=== PATIENT | female | born 1960 | race Caucasian/White ===

== ENCOUNTER 2023-11-01 10:41 | Emergency (ER) | payer OTHER, SELFPAY ==
[2023-11-01 11:10] VITALS: BP 157/79; PULSE 74; TEMP 36.9; O2SAT 96; BMI 27.3
--- NOTE | 2023-11-01 11:53 | ED_ITS ---
HPI - Abdominal Pain General Chief Complaint: Abdominal Pain Stated Complaint: ABDOMINAL PAIN Time Seen by Provider: 11/01/23 11:53 Source: patient Mode of arrival: walk-in Limitations: no limitations History of Present Illness HPI narrative: Patient here with abdominal pain. Symptoms started previous Sunday so that would be nearly 6 days ago. She says it is a sharp pain that comes and goes. It is in both the left and the right lower quadrant. She had a colonoscopy a number years ago and was told she had benign polyps but no history of diverticular disease. She has had a hysterectomy and cholecystectomy and appendectomy. She has not run a fever. She has not seen blood in her stool. She has pretty intense nausea when she gets the pain. She tried some enemas yesterday and got mucousy type stools. Related Data Home Medications ?Medication ?Instructions ?Recorded ?Confirmed aspirin 81 mg capsule 81 mg PO DAILY 11/01/23 11/01/23 atorvastatin 80 mg tablet 80 mg PO DAILY 11/01/23 11/01/23 lisinopril 10 mg tablet 10 mg PO DAILY 11/01/23 11/01/23 metformin 500 mg tablet 1,000 mg PO BID 11/01/23 11/01/23 metoprolol succinate 25 mg 25 mg PO DAILY 11/01/23 11/01/23 tablet,extended release 24 hr Allergies Allergy/AdvReac Type Severity Reaction Status Date / Time Penicillins Allergy Mild Verified 11/01/23 11:15 Exam Narrative Exam Narrative: Patient's awake alert [place] x 3 no confusion. Fully cooperative. Vital signs are stable she is afebrile. She does appear to be uncomfortable. Examination of the heart and lung shows no respiratory distress or abnormal cardiac findings. Examination her abdomen is flat soft supple there is no peritoneal findings no guarding rebound rigidity or discomfort to palpation. Her pain is poorly localized subjectively it seems to be just to the left to the midline. The extremities appear normal. Neurological examination is normal. Constitutional Vital Signs, click to edit/add: Last Vital Signs Temp 98.5 F 11/01/23 11:10 Pulse 74 11/01/23 11:10 Resp 16 11/01/23 11:10 BP 150/78 H 11/01/23 13:02 Pulse Ox 96 11/01/23 11:10 O2 Del Method Room Air 11/01/23 11:10 Course Vital Signs Vital signs: Vital Signs Temperature 98.5 F 11/01/23 11:10 Pulse Rate 74 11/01/23 11:10 Respiratory Rate 16 11/01/23 11:10 Blood Pressure 157/79 H 11/01/23 11:10 Pulse Oximetry 96 11/01/23 11:10 Oxygen Delivery Method Room Air 11/01/23 11:10 Temperature 98.5 F 11/01/23 11:10 Pulse Rate 74 11/01/23 11:10 Respiratory Rate 16 11/01/23 11:10 Blood Pressure 150/78 H 11/01/23 13:02 Pulse Oximetry 96 11/01/23 11:10 Oxygen Delivery Method Room Air 11/01/23 11:10 MDM - Abdominal Pain MDM Narrative Medical decision making narrative: The patient CT scan confirms a 7.7 proximal left ureteral stone. There is moderate hydronephrosis. The urine is does not show any evidence of overt infection and her white blood cell count is also normal. We do not have urology call until later this evening. At this stage we will start empiric treatment p ain control nausea control and Flomax. They can call the urologist tomorrow in the meantime returning to the ER if symptoms or not controlled Lab Data Labs: Lab Results 11/01/23 11/01/23 Range/Units 12:05 12:10 WBC 7.9 (4.0-11.0) 10^3/uL RBC 4.53 (4.20-5.40) 10^6/uL Hgb 13.1 (12.0-16.0) g/dL Hct 40.6 (36.0-48.0) % MCV 89.6 (81.0-99.0) fL MCH 28.9 (26.7-34.0) pg MCHC 32.3 (29.9-35.2) g/dL RDW 12.8 (11.0-15.0) % Plt Count 226 (150-450) 10^3/uL MPV 10.3 (9.5-13.5) fL Seg Neuts % (Manual) 83.0 Lymphocytes % (Manual) 11.0 L (20.5-60.0) % Monocytes % (Manual) 4.0 (1.7-12.0) % Eosinophils % (Manual) 2.0 (0.9-7.0) % Basophils % (Manual) 0.0 L (0.2-2.0) % Neutrophils # (Manual) 6.55 H (1.4-6.5) 10^3/uL Lymphocytes # (Manual) 0.86 L (1.20-3.80) 10^3/uL Monocytes # (Manual) 0.31 (0.30-0.80) 10^3/uL Eosinophils # (Manual) 0.15 (0.00-0.70) 10^3/uL Basophils # (Manual) 0.00 (0.00-0.10) 10^3/uL Sodium 141 (136-145) mmol/L Potassium 3.9 (3.5-5.1) mmol/L Chloride 101 (98-107) mmol/L Carbon Dioxide 31.0 (21.0-32.0) mmol/L Anion Gap 12.9 BUN 15.0 (7.0-18.0) mg/dL Creatinine 0.93 (0.55-1.02) mg/dL Est GFR ( Amer) >60 (>=60) Est GFR (Non-Af Amer) >60 (>=60) BUN/Creatinine Ratio 16.1 Glucose 127 H (74-106) mg/dL Calcium 9.0 (8.5-10.1) mg/dL Total Bilirubin 0.6 (0.2-1.0) mg/dL AST 19 (15-37) U/L ALT 37 (14-59) U/L Alkaline Phosphatase 73 (46-116) U/L Troponin I High Sens 6.6 (4.0-51.3) pg/mL Total Protein 7.1 (6.4-8.2) g/dL Albumin 3.4 (3.4-5.0) g/dL Globulin 3.7 g/dL Albumin/Globulin Ratio 0.9 Lipase 26.0 (16.0-77.0) U/L Urine Color Yellow (YELLOW) Urine Clarity Clear (CLEAR) Urine pH 6.0 (5.0-9.0) Ur Specific [place] 1.020 (1.005-1.025) Urine Protein Negative (NEG/TRACE) mg/dL Urine Glucose (UA) Negative (NEGATIVE) mg/dL Urine Ketones Trace A (NEGATIVE) mg/dL Urine Occult Blood Large A (NEGATIVE) Urine Nitrite Negative (NEGATIVE) Urine Bilirubin Negative (NEGATIVE) Urine Urobilinogen 1.0 (0.2-1.0) EU/dL Ur Leukocyte Esterase Trace A (NEGATIVE) Urine RBC 20-50 A (0-2) #/HPF Urine WBC 2-5 A (NONE SEEN) #/HPF Ur Squamous Epith Cells Few A (NONE/RARE) #/LPF Urine Crystals None seen (None Seen) #/HPF Urine Bacteria Moderate A (NONE SEEN) #/HPF Urine Casts None seen (NONE SEEN) #/LPF Urine Mucus Small A (NONE SEEN) Ur Culture Indicated? Yes Discharge Plan Discharge Stand Alone Forms: Portal Instructions Chief Complaint: Abdominal Pain Clinical Impression: Kidney stone on left side Patient Disposition: Home, Self-Care Time of Disposition Decision: 14:03 Prescriptions / Home Meds: No Action atorvastatin 80 mg tablet 80 mg PO DAILY lisinopril 10 mg tablet 10 mg PO DAILY metformin 500 mg tablet 1,000 mg PO BID metoprolol succinate 25 mg tablet extended release 24 hr 25 mg PO DAILY aspirin 81 mg capsule 81 mg PO DAILY Print Language: Romansh Additional Instructions: Flomax/Keflex/[place]/follow-up with Dr. Jason Neil and Dash[place] Referrals: Lata Workman NP [Primary Care Provider] - 1 week
[2023-11-01] MEDS: 0.9 % SODIUM CHLORIDE 1,000 ML 100 ML IV (12:06)
[2023-11-01 12:18] LABS: Hematocrit 40.6 % (36.0-48.0); Hemoglobin 13.1 g/dL (12.0-16.0); Mean Corpuscular HGB Conc 32.3 g/dL (29.9-35.2); Mean Corpuscular Hemoglobin 28.9 pg (26.7-34.0); Mean Corpuscular Volume 89.6 fL (81.0-99.0); Mean Platelet Volume 10.3 fL (9.5-13.5); Platelet Count 226 10^3/uL (150-450); Red Blood Count 4.53 10^6/uL (4.20-5.40); Red Cell Distribution Width 12.8 % (11.0-15.0); White Blood Count 7.9 10^3/uL (4.0-11.0)
--- NOTE | 2023-11-01 12:27 | CT_ITS ---
[address] [address] Patient Name: JORDAN HOLLY MRN: [id number] date: 1960 Sex: F Assigned Patient Location: ER Current Patient Location: ER Accession/Order Number: [id number] Exam Date: 11/01/2023 12:23 Report Date: 11/01/2023 13:13 At the request of: YESENIA YAO Procedure: CT abdomen pelvis wo con EXAMINATION: CT abdomen pelvis wo con HISTORY: Abdominal pain history of stones COMPARISON: 01/19/2021 TECHNIQUE: Axial, Coronal, and Sagittal images were created without IV contrast. Dose reduction techniques were achieved by using automated exposure control and/or adjustment of mA and/or kV according to patient size and/or use of iterative reconstruction technique. FINDINGS: LUNG BASES: Minimal basilar atelectasis. Coronary atherosclerosis LIVER: No enlargement, atrophy, abnormal density, or significant focal lesion. BILIARY: No dilatation or calcification. PANCREAS: No lesion, fluid collection, ductal dilatation, or atrophy. SPLEEN: No enlargement or focal lesion. ADRENALS: No mass or enlargement. KIDNEYS: Normal right. Mild left perinephric stranding and asymmetric enlargement. Mild left hydroureteronephrosis extending to a 7.7 mm proximal ureterolith axial image 78 BOWEL/MESENTERY: Nonobstructive bowel gas pattern. Colonic diverticulosis without evidence of acute diverticulitis AORTA/VASCULAR: No aortic aneurysm. Mild calcific atherosclerosis RETROPERITONEUM: No mass or adenopathy. LYMPH NODES: No adenopathy. URINARY BLADDER: No visible focal wall thickening, lesion, or calculus. PELVIC ORGANS: Hysterectomy ABDOMINAL WALL: No mass or hernia. BONES: No bony lesion or fracture. OTHER: Negative. CT/CT abdomen pelvis wo con IMPRESSION: 7.7 mm proximal left ureterolith with moderate associated obstructive uropathy Electronically authenticated by: LEANDRA SERNA Date: 11/01/2023 13:13
[2023-11-01 12:29] LABS: Bilirubin Urine NEGATIVE (NEGATIVE); Blood Urine LARGE (NEGATIVE); Clarity Urine CLEAR (CLEAR); Color Urine YELLOW (YELLOW); Glucose Urine UA NEGATIVE (NEGATIVE); Ketones Urine TRACE mg/dL (NEGATIVE); Leukocyte Esterase Urine TRACE (NEGATIVE); Nitrite Urine NEGATIVE (NEGATIVE); Protein Urine NEGATIVE (NEG/TRACE)
[2023-11-01 12:49] LABS: Eosinophils Absolute Manual 0.15 10^3/uL (0.00-0.70); Lymphocytes Absolute Manual 0.86 10^3/uL (1.20-3.80); Monocytes Absolute Manual 0.31 10^3/uL (0.30-0.80); Segmented Neut Absolute Manual 6.55 10^3/uL (1.4-6.5)
[2023-11-01 12:52] LABS: Alanine Aminotransferase 37 U/L (14-59); Albumin Globulin Ratio 0.9; Albumin Level 3.4 g/dL (3.4-5.0); Alkaline Phosphatase 73 U/L (46-116); Anion Gap 12.9; Aspartate Amino Transferase 19 U/L (15-37); BUN Creatinine Ratio 16.1; Bilirubin Total 0.6 mg/dL (0.2-1.0); Chloride 101 mmol/L (98-107); Estimated GFR (African America >60 (>=60); Estimated GFR (Non-African Ame >60 (>=60); Globulin 3.7 g/dL; Glucose 127 mg/dL (74-106); Potassium 3.9 mmol/L (3.5-5.1); Sodium 141 mmol/L (136-145); Total Protein 7.1 g/dL (6.4-8.2); Troponin I High Sensitivity 6.6 pg/mL (4.0-51.3)
[2023-11-01 13:02] VITALS: BP 150/78
[2023-11-01 13:13] LABS: RBC Urine 20-50 #/HPF (0-2); Urine Microscopic Indicated YES
[2023-11-01 13:14] LABS: Bacteria Urine MODERATE #/HPF (NONE SEEN); Cast Seen? NONE SEEN #/LPF (NONE SEEN); Crystals Seen? None Seen #/HPF (None Seen); Mucus Urine SMALL (NONE SEEN); Squamous Epithelial Cell Urine FEW #/LPF (NONE/RARE); Urine Culture Indicated YES
[2023-11-01] MEDS: 0.9 % SODIUM CHLORIDE 1,000 ML 1000 ML IV (13:15)
[2023-11-01] MEDS: KETOROLAC TROMETHAMINE 30 MG/ML VIAL IVP (14:41)
[2023-11-01] MEDS: HYDROMORPHONE HCL 1 MG/ML CARTRIDGE IV (14:41)
== END 2023-11-01 15:13 | disposition home or self-care (01) ==
PROVIDERS: Emergency Provider Emergency Medicine Emergency Medical Services; PCP Nurse Practitioner
DX: N13.2 Hydronephrosis with renal and ureteral calculous obstruction (principal); Z90.710 Acquired absence of both cervix and uterus; Z90.49 Acquired absence of other specified parts of digestive tract
CPT/HCPCS: 36415; 74176; 80053; 81001; 83690; 84484; 85007; 85027; 87086; 96374; 96375; 99285; J1170; J1885

== ENCOUNTER 2023-11-02 09:41 | Observation (INO) | payer OTHER, SELFPAY ==
[2023-11-02 09:44] VITALS: BP 141/84; PULSE 85; TEMP 36.6; O2SAT 97; BMI 28.5
--- NOTE | 2023-11-02 10:29 | XR_ITS ---
The [address] [address] Patient Name: JORDAN HOLLY MRN: [id number] date: 1960 Sex: F Assigned Patient Location: ED.MAIN Current Patient Location: ER Accession/Order Number: [id number] Exam Date: 11/02/2023 10:50 Report Date: 11/02/2023 11:18 At the request of: DAVID PETTIT Procedure: XR abdomen 1V EXAMINATION: XR abdomen 1V HISTORY: kub, stone r COMPARISON: No relevant comparison available. FINDINGS: KIDNEY/URETER - RIGHT: No visible renal or ureteral calcifications. KIDNEY/URETER - LEFT: 9 mm calcification projects over the left L5 transverse process PELVIS: No visible ureteral calcifications. Any visible calcifications favor phleboliths. BOWEL: No abnormal dilation or deviation. BONES: No acute abnormality. OTHER: Negative. No abnormal gaseous collections. XR/XR abdomen 1V IMPRESSION: Suspected 9 mm left ureterolith Electronically authenticated by: LEANDRA SERNA Date: 11/02/2023 11:18
[2023-11-02] MEDS: 0.9 % SODIUM CHLORIDE 1,000 ML 1000 ML IV (10:37)
[2023-11-02] MEDS: MORPHINE SULFATE 4 MG/ML VIAL IV (10:37)
[2023-11-02] MEDS: ONDANSETRON PF 4 MG/2 ML VIAL IV (10:37)
[2023-11-02] MEDS: KETOROLAC TROMETHAMINE 30 MG/ML VIAL 15 MG IVP (10:37)
[2023-11-02 10:38] LABS: Basophils Percent Auto 0.4 % (0.2-2.0); Eosinophils Absolute Auto 0.2 10^3/uL (0.0-0.7); Eosinophils Percent Auto 2.6 % (0.9-7.0); Hematocrit 36.5 % (36.0-48.0); Hemoglobin 11.6 g/dL (12.0-16.0); Immature Granulocytes Abs Auto 0.02 10^3/uL (0.00-0.03); Immature Granulocytes Pct Auto 0.3 % (0.0-0.5); Lymphocytes Absolute Auto 0.8 10^3/uL (1.2-3.8); Lymphocytes Percent Auto 11.1 % (20.5-60.0); Mean Corpuscular HGB Conc 31.8 g/dL (29.9-35.2); Mean Corpuscular Hemoglobin 28.7 pg (26.7-34.0); Mean Corpuscular Volume 90.3 fL (81.0-99.0); Mean Platelet Volume 10.6 fL (9.5-13.5); Monocytes Absolute Auto 0.5 10^3/uL (0.3-0.8); Monocytes Percent Auto 7.1 % (1.7-12.0); Neutrophils Absolute Auto 5.5 10^3/uL (1.4-6.5); Neutrophils Percent Auto 78.5 % (43.0-75.0); Platelet Count 215 10^3/uL (150-450); Red Blood Count 4.04 10^6/uL (4.20-5.40); Red Cell Distribution Width 12.9 % (11.0-15.0)
[2023-11-02 10:58] LABS: Alanine Aminotransferase 29 U/L (14-59); Albumin Globulin Ratio 0.9; Albumin Level 3.1 g/dL (3.4-5.0); Alkaline Phosphatase 67 U/L (46-116); Anion Gap 12.2; Aspartate Amino Transferase 16 U/L (15-37); BUN Creatinine Ratio 19.6; Bilirubin Total 0.5 mg/dL (0.2-1.0); Calcium 8.7 mg/dL (8.5-10.1); Carbon Dioxide 28.7 mmol/L (21.0-32.0); Chloride 106 mmol/L (98-107); Estimated GFR (African America >60 (>=60); Estimated GFR (Non-African Ame >60 (>=60); Globulin 3.5 g/dL; Glucose 129 mg/dL (74-106); Potassium 3.9 mmol/L (3.5-5.1); Sodium 143 mmol/L (136-145); Total Protein 6.6 g/dL (6.4-8.2)
[2023-11-02 14:07] VITALS: BP 150/75; PULSE 86; TEMP 36.8; O2SAT 99; BMI 28.3
[2023-11-02] MEDS: LACTATED RINGER'S SOLUTION 1,000 ML 125 ML IV (14:37)
--- NOTE | 2023-11-02 15:00 | P.HP_ITS ---
<Statement entered by Cam Bahena MD - 11/03/23 08:13> This documentation has been reviewed and approved. This documentation has been reviewed and approved. Case discussed with PRODUCT MANAGEMENT MANAGER, agree with input, Findings and plan. HPI H&P: HPI History of Present Illness Chief complaint: FLANK PAIN, KIDNEY STONE Narrative: 11/02/23 1420 This is a 63-year-old female patient with a past medical history as outlined below including remote history of kidney stones that she passed without intervention, CAD, type II DM, hypertension, and hyperlipidemia; who presented to the ED yesterday initially complaining of sharp stabbing abdominal pain with onset 6 days prior. The patient reports the pain was pretty constant with some stabbing colicky type pain as well. She attempted to treat on her own with hydrocodone that she was previously prescribed, but this caused nausea and vomiting. She presented to the ED yesterday, was diagnosed with obstructive uropathy, and told to contact urologist today to arrange intervention. The patient contacted urology today and was instructed to return to the ED and they would arrange admission. Workup in the ED on 11/01/2023 revealed a UTI and of obstructive uropathy with a 7.7 mm stone in the proximal left ureter and moderate hydronephrosis. There was no leukocytosis or any other significant lab abnormalities. Repeat labs today in the ED continue to show no leukocytosis. The patient remains afebrile but is somewhat hypertensive. A repeat x-ray of the abdomen reveals a suspected 9 mm left ureterolith. The patient is being admitted to the hospitalist service in observation with Dr. Schmitz, urologist, on consult with cystoscopy planned for tomorrow morning. At the time of my exam the patient is resting in bed. She is relatively comfortable after receiving pain medications in the ED, but does continue to complain of intermittent sharp stabbing pains to the left mid abdomen. No significant abdominal tenderness on palpation and no rebound or guarding noted. She will be treated with Rocephin for her UTI and we will prescribe Toradol and morphine for pain management. She will be made n.p.o. after midnight for planned cystoscopy the in the morning. Opioid HPI Opioid Management Most Recent Pain and Opioid Data: Last Pain Scale 2 11/02/23 16:00 Last Pain Assessment 11/02/23 16:00 Last MAR Pain Assessment 11/02/23 10:37 Last ORT Total Score 1 11/02/23 14:07 Last ORT Risk Category Low Risk 11/02/23 14:07 Review of Systems ROS Status of ROS 10 or more systems reviewed and unremark able except as noted in history and below PFS PFS Medical History (Updated 11/02/23 @ 16:56 by Marie Rowland NP) CAD (coronary artery disease) ?I25.10 - Atherosclerotic heart disease of [place] coronary artery without angina pectoris (ICD-10) DVT (deep venous thrombosis) ?I82.409 - Acute embolism and thrombosis of unspecified deep veins of unspecified lower extremity (ICD-10) Hyperlipidemia ?E78.5 - Hyperlipidemia, unspecified (ICD-10) Hypertension ?I10 - Essential (primary) hypertension (ICD-10) Diabetes ?E11.9 - Type 2 diabetes mellitus without complications (ICD-10) Surgical History (Updated 11/02/23 @ 14:02 by Danii Payne) H/O: hysterectomy ?Z90.710 - Acquired absence of both cervix and uterus (ICD-10) Stented coronary artery ?Z95.5 - Presence of coronary angioplasty implant and graft (ICD-10) Family History (Updated 11/02/23 @ 14:05 by Danii Payne) Grandfather Family history of CHF (congestive heart failure) Family history of myocardial infarction Grandmother Family history of diabetes mellitus Social History (Updated 11/02/23 @ 14:06 by Danii Payne) Within the past year, how often did you have a drink containing alcohol: never Score interpretation: A score less than 3 is consistent with normal alcohol consumption. Smoking status: Never smoker Non-prescribed substance use: denies use Previous occupational history: retired Highest level of school completed/degree received: high school graduate Are you now , , , , never or living with a partner: In a typical week, how many times do you talk on the telephone with family, friends, or neighbors: 3 or more times per week How often do you get together with friends or relatives: 3 or more times per week How often do you attend sabianist or bahai services: never Do you belong to any clubs or organizations such as sabianist groups unions, fraternal or athletic groups, or school groups: no Total score: 2 Score interpretation: A score of greater than or equal to 2 indicates the lowest level of social isolation. Little interest or pleasure in doing things: not at all Feeling down, depressed, or hopeless: not at all Feel stressed/tense/nervous/anxious/difficulty sleeping: not at all Meds Home Medications and Allergies Home Medications ?Medication ?Instructions ?Recorded ?Confirmed ?Type aspirin 81 mg capsule 81 mg PO DAILY 11/01/23 11/02/23 History atorvastatin 80 mg tablet 80 mg PO DAILY 11/01/23 11/02/23 History lisinopril 10 mg tablet 10 mg PO DAILY 11/01/23 11/02/23 History metformin 500 mg tablet 1,000 mg PO BID 11/01/23 11/02/23 History metoprolol succinate 25 mg 25 mg PO DAILY 11/01/23 11/02/23 History tablet,extended release 24 hr aspirin 81 mg tablet,delayed 81 mg PO DAILY 11/02/23 11/02/23 History release (Adult Low Dose Aspirin) prasugrel 10 mg tablet 10 mg PO .qdaily 11/02/23 11/02/23 History Allergies Allergy/AdvReac Type Severity Reaction Status Date / Time Penicillins Allergy Mild Verified 11/01/23 11:15 Exam Constitutional Vital Signs, click to edit/add: Last Vital Signs Temp 98.2 F 11/02/23 14:07 Pulse 86 11/02/23 14:07 Resp 16 11/02/23 14:07 BP 150/75 H 11/02/23 14:07 Pulse Ox 99 11/02/23 14:07 O2 Del Method Room Air 11/02/23 14:07 Common normals: no apparent distress, oriented x3, alert and well nourished General appearance: cooperative Orientation/consciousness: Yes awake [facility] Common normals: normocephalic, head/scalp atraumatic, hearing grossly normal bilaterally, external nose normal and moist oral mucous membranes Eye Common normals: PERRL, EOMs intact bilaterally, conjunctivae normal and no scleral icterus Alignment: alignment normal Eyelid: eyelids normal Neck & C-Spine Common normals: full ROM, supple and no JVD Chest Common normals: inspection of chest normal Chest: symmetrical chest wall rise Respiratory Common normals: normal respiratory effort, no retractions, no use of accessory muscles and clear to auscultation bilaterally Effort & inspection: able to speak in complete sentences Auscultation: diminished lung sounds (BLL) Cardio Common normals: no JVD, regular rate, regular rhythm, S1 normal heart sound, S2 normal heart sound, no gallops, no clicks, no murmurs, no rub and peripheral pulses 2+ throughout GI Common normals: Normal to inspection, nondistended, normoactive bowel sounds present, soft to palpation, non-tender, no hepatosplenomegaly, no masses and no bruits Bladder/kidney exam: bladder normal to palpation Back & Pelvis Common normals: thoracic and lumbar spine normal to inspection Extremity Common normals: normal capillary refill and no pedal edema General: normal exam except as noted; no clubbing and no cyanosis Neuro [place] Coma Scale: GCS not evaluated Common normals: CN's II-XII intact bilaterally, moves all extremities, no focal motor deficits and no sensory deficits noted Speech: speech normal Motor exam: strength 5/5 throughout Psych Common normals: mental status grossly normal, thought process normal, affect normal and activity/motor behavior normal Results Labs Labs: Short CBC 11/02/23 Range/Units 09:55 WBC 7.0 (4.0-11.0) 10^3/uL Hgb 11.6 L (12.0-16.0) g/dL Hct 36.5 (36.0-48.0) % Plt Count 215 (150-450) 10^3/uL BMP 11/02/23 09:55 Sodium 143 Potassium 3.9 Chloride 106 Carbon Dioxide 28.7 BUN 18.0 Creatinine 0.92 Glucose 129 H Calcium 8.7 Liver Function 11/02/23 Range/Units 09:55 Total Bilirubin 0.5 (0.2-1.0) mg/dL AST 16 (15-37) U/L ALT 29 (14-59) U/L Alkaline Phosphatase 67 (46-116) U/L Albumin 3.1 L (3.4-5.0) g/dL Pulse Oximetry Attestation: I have reviewed the pertinent pulse oximetry results. Imaging Abdominal x-ray: Attestation: I have reviewed the pertinent imaging results. Radiologist's impression: 11/02/23 IMPRESSION: Suspected [address] scan - abdomen: Attestation: I have reviewed the pertinent imaging results. Radiologist's impression: 11/01/23 IMPRESSION: 7.7 mm proximal left ureterolith with moderate associated obstructive uropathy Assessment and Plan Assessment and Plan (1) Acute unilateral obstructive uropathy: Assessment and Plan: Acute * Adm observation * L obstructing ureterolith on CT and XR imaging * C/S Dr Tamez - we appreciate his assistance with this pt's care * NPO at midnight for planned cystoscopy in AM * LR at 125/hr * CBC, CMP in AM (2) Hydronephrosis due to obstruction of ureter: Assessment and Plan: Acute * 2/2 obstructive uropathy - see above (3) UTI (urinary tract infection): Assessment and Plan: Acute * UA positive in the ED yesterday * C&S pending * BC X2 ordered - pending * IVPB Rocephin pending C&S results * CBC daily (4) Hypertension: Assessment and Plan: Chronic * Continue home lisinopril and metoprolol * PRN IVP Hydralazine for uncontrolled HTN (5) Diabetes: Assessment and Plan: Chronic * Hold home metformin during acute infection/hospitalization * ACHS glucometer checks * Med CC diet * Med SSI for glucose correction (6) Hyperlipidemia: Assessment and Plan: Chronic * Continue home statin (7) CAD (coronary artery disease): Assessment and Plan: Chronic * Continue home ASA, BB, ACEi * Hold home Effient pending urologic procedure, then resume
[2023-11-02] MEDS: ENOXAPARIN SODIUM 40 MG/0.4 ML SYRINGE SUBQ (16:17)
[2023-11-02] MEDS: CEFTRIAXONE 1,000 MG in 0.9 % SODIUM CHLORIDE 50 ML 100 MG IV (16:17)
[2023-11-02 16:22] LABS: Glucometer 221 mg/dL (74-106)
[2023-11-02] MEDS: 0.9 % SODIUM CHLORIDE 250 ML 10 ML IV (16:30)
[2023-11-02 17:34] VITALS: PULSE 84
[2023-11-02 19:12] LABS: Glucometer 91 mg/dL (74-106)
[2023-11-02 20:00] VITALS: PULSE 70
[2023-11-02] MEDS: ATORVASTATIN CALCIUM 40 MG TABLET 80 MG PO (20:25)
--- NOTE | 2023-11-02 20:34 | ED_ITS ---
HPI HPI - General Adult General Chief complaint: Abdominal Pain Stated complaint: FLANK PAIN Time Seen by Provider: 11/02/23 09:46 Source: patient Mode of arrival: walk-in History of Present Illness HPI narrative: Patient is a 63-year-old female who is presenting to the ER with chief complaint of left flank and left lower quadrant pain. Patient was seen evaluated in the ER yesterday. Patient had IV established, lab work, urine and CAT scan done yesterday. Patient had a 7.7 mm moderate obstructing kidney stone to the left proximal ureter.Patient was sent home to follow-up with Dr. Tamez. Patient cannot get into Dr. Tamez Office today, she called the office in the office instructed her to come to the hospital and check into the ER and Dr. Tamez Would come see her in the ER and perform surgery today. Patient has never met Dr. Tamez Before. Patient has been using medication at home for nausea and pain with no relief. Patient is having intractable pain. at bedside. All systems are negative except as noted/marked. All systems reviewed and otherwise negative. Nurses note and vital signs reviewed and patient is not hypoxic. General: The patient appears well and in no apparent distress. Patient is resting comfortably on cart. Patient is not toxic, lethargic, or listless Skin: Warm, dry, no pallor noted. There is no rash noted. No petechiae, purpura. Head: Normocephalic, atraumatic Eye: Normal conjunctiva, no drainage, EOMI. PERRL Ears, Nose, Mouth, and Throat: oral mucosa is moist. Nares patent. Mouth without vesicles. Cardiovascular: Regular Rate and Rhythm, no murmur, gallop, rub Respiratory: Patient is in no distress, no accessory muscle use, lungs are clear to auscultation, no wheezing, rales or rhonchi Back: non-tender, no CVA tenderness bilaterally to percussion. No CT LS midline pain GI: Moderate left lower quadrant tenderness to palpation, mild to moderate left flank tenderness palpation, mild suprapubic tenderness to palpation. Otherwise no tenderness to palpation, No right flank pain, no right lower quadrant tenderness to palpation, no masses appreciated. No rebound, guarding, or rigidity noted. No distention Musculoskeletal: Patient has full range of motion of all of the extremities, no motor, sensory, or focal neurological deficits Neurological: A&O x4, normal speech Psychiatric: Cooperative Related Data Home Medications ?Medication ?Instructions ?Recorded ?Confirmed atorvastatin 80 mg tablet 80 mg PO DAILY 11/01/23 11/02/23 lisinopril 10 mg tablet 10 mg PO DAILY 11/01/23 11/02/23 metformin 500 mg tablet 1,000 mg PO BID 11/01/23 11/02/23 metoprolol succinate 25 mg 25 mg PO DAILY 11/01/23 11/02/23 tablet,extended release 24 hr aspirin 81 mg tablet,delayed 81 mg PO DAILY 11/02/23 11/02/23 release (Adult Low Dose Aspirin) prasugrel 10 mg tablet 10 mg PO .qdaily 11/02/23 11/02/23 Allergies Allergy/AdvReac Type Severity Reaction Status Date / Time Penicillins Allergy Mild Verified 11/01/23 11:15 Opioid HPI Opioid Management Most Recent Opioid Data: Last Pain Scale 2 11/02/23 16:00 Last Pain Assessment 11/02/23 20:00 Last MAR Pain Assessment 11/02/23 10:37 Last ORT Total Score 1 11/02/23 14:07 Last ORT Risk Category Low Risk 11/02/23 14:07 PFSH PFSH Medical History (Updated 11/02/23 @ 20:38 by Ramin Miller MD) CAD (coronary artery disease) ?I25.10 - Atherosclerotic heart disease of [place] coronary artery without angina pectoris (ICD-10) DVT (deep venous thrombosis) ?I82.409 - Acute embolism and thrombosis of unspecified deep veins of unspecified lower extremity (ICD-10) Hyperlipidemia ?E78.5 - Hyperlipidemia, unspecified (ICD-10) Hypertension ?I10 - Essential (primary) hypertension (ICD-10) Diabetes ?E11.9 - Type 2 diabetes mellitus without complications (ICD-10) Surgical History (Updated 11/02/23 @ 14:02 by Danii Payne) H/O: hysterectomy ?Z90.710 - Acquired absence of both cervix and uterus (ICD-10) Stented coronary artery ?Z95.5 - Presence of coronary angioplasty implant and graft (ICD-10) Family History (Updated 11/02/23 @ 14:05 by Danii Payne) Grandfather Family history of CHF (congestive heart failure) Family history of myocardial infarction Grandmother Family history of diabetes mellitus Social History (Updated 11/02/23 @ 14:06 by Danii Payne) Within the past year, how often did you have a drink containing alcohol: never Score interpretation: A score less than 3 is consistent with normal alcohol consumption. Smoking status: Never smoker Non-prescribed substance use: denies use Previous occupational history: retired Highest level of school completed/degree received: high school graduate Are you now , , , , never or living with a partner: In a typical week, how many times do you talk on the telephone with family, friends, or neighbors: 3 or more times per week How often do you get together with friends or relatives: 3 or more times per week How often do you attend buddhist or jain services: never Do you belong to any clubs or organizations such as buddhist groups unions, fratheDrop or athletic groups, or school groups: no Total score: 2 Score interpretation: A score of greater than or equal to 2 indicates the [place] level of social isolation. Little interest or pleasure in doing things: not at all Feeling down, depressed, or hopeless: not at all Feel stressed/tense/nervous/anxious/difficulty sleeping: not at all Exam Constitutional Vital Signs, click to edit/add: Last Vital Signs Temp 98.2 F 11/02/23 14:07 Pulse 70 11/02/23 20:00 Resp 16 11/02/23 14:07 BP 150/75 H 11/02/23 14:07 Pulse Ox 99 11/02/23 14:07 O2 Del Method Room Air 11/02/23 14:07 Course Vital Signs Vital signs: Vital Signs Temperature 97.8 F 11/02/23 09:44 Pulse Rate 85 11/02/23 09:44 Respiratory Rate 18 11/02/23 09:44 Blood Pressure 141/84 11/02/23 09:44 Pulse Oximetry 97 11/02/23 09:44 Oxygen Delivery Method Room Air 11/02/23 09:44 Temperature 98.2 F 11/02/23 14:07 Pulse Rate 70 11/02/23 20:00 Respiratory Rate 16 11/02/23 14:07 Blood Pressure 150/75 H 11/02/23 14:07 Pulse Oximetry 99 11/02/23 14:07 Oxygen Delivery Method Room Air 11/02/23 14:07 Medical Decision Making MDM Narrative Medical decision making narrative: After initially saw and evaluated the patient, I started paging Dr Tamez. After approximate 1.5 hours, I was able to speak to Dr. Tamez. Patient has failed outpatient therapy from yesterday. Patient will be admitted to the hospital overnight, n.p.o. after midnight, and most likely have a stent placed tomorrow. Recommended Admitting patient to medical service and he will be in consultation and keep patient n.p.o. After midnight. Patient did have good pain relief after IV Toradol, morphine, Zofran and IV fluids were given. Patient agrees to the hospitalization, Dr. ELMORE Will be admitting patient for observation and patient will have urology consultation tomorrow, . Lab Data Labs: Lab Results 11/02/23 Range/Units 09:55 WBC 7.0 (4.0-11.0) 10^3/uL RBC 4.04 L (4.20-5.40) 10^6/uL Hgb 11.6 L (12.0-16.0) g/dL Hct 36.5 (36.0-48.0) % MCV 90.3 (81.0-99.0) fL MCH 28.7 (26.7-34.0) pg MCHC 31.8 (29.9-35.2) g/dL RDW 12.9 (11.0-15.0) % Plt Count 215 (150-450) 10^3/uL MPV 10.6 (9.5-13.5) fL Neut % (Auto) 78.5 H (43.0-75.0) % Lymph % (Auto) 11.1 L (20.5-60.0) % [place] % (Auto) 7.1 (1.7-12.0) % Eos % (Auto) 2.6 (0.9-7.0) % Baso % (Auto) 0.4 (0.2-2.0) % Neut # (Auto) 5.5 (1.4-6.5) 10^3/uL Lymph # (Auto) 0.8 L (1.2-3.8) 10^3/uL [place] # (Auto) 0.5 (0.3-0.8) 10^3/uL Eos # (Auto) 0.2 (0.0-0.7) 10^3/uL Baso # (Auto) 0.0 (0.0-0.1) 10^3/uL Abs Immat Gran (auto) 0.02 (0.00-0.03) 10^3/uL Imm/Tot Granulo (auto) 0.3 (0.0-0.5) % Sodium 143 (136-145) mmol/L Potassium 3.9 (3.5-5.1) mmol/L Chloride 106 (98-107) mmol/L Carbon Dioxide 28.7 (21.0-32.0) mmol/L Anion Gap 12.2 BUN 18.0 (7.0-18.0) mg/dL Creatinine 0.92 (0.55-1.02) mg/dL Est GFR ( Amer) >60 (>=60) Est GFR (Non-Af Amer) >60 (>=60) BUN/Creatinine Ratio 19.6 Glucose 129 H (74-106) mg/dL Calcium 8.7 (8.5-10.1) mg/dL Total Bilirubin 0.5 (0.2-1.0) mg/dL AST 16 (15-37) U/L ALT 29 (14-59) U/L Alkaline Phosphatase 67 (46-116) U/L Total Protein 6.6 (6.4-8.2) g/dL Albumin 3.1 L (3.4-5.0) g/dL Globulin 3.5 g/dL Albumin/Globulin Ratio 0.9 Discharge Plan Discharge Chief Complaint: Abdominal Pain Clinical Impression: Kidney stone on left side, Acute unilateral obstructive uropathy, Hydronephrosis due to obstruction of ureter Patient Disposition: Admitted as Observation Condition: Fair Discharge Date/Time: 11/02/23 13:50
[2023-11-02] MEDS: KETOROLAC TROMETHAMINE 30 MG/ML VIAL IVP (21:30)
[2023-11-02 22:00] VITALS: BP 119/72; PULSE 73; PULSE 77; TEMP 36.8; O2SAT 90
[2023-11-02 22:37] LABS: Bilirubin Urine NEGATIVE (NEGATIVE); Blood Urine LARGE (NEGATIVE); Clarity Urine CLEAR (CLEAR); Color Urine YELLOW (YELLOW); Glucose Urine UA NEGATIVE (NEGATIVE); Ketones Urine NEGATIVE (NEGATIVE); Leukocyte Esterase Urine TRACE (NEGATIVE); Nitrite Urine NEGATIVE (NEGATIVE); Protein Urine NEGATIVE (NEG/TRACE); Specific Gravity Urine 1.025 (1.005-1.025); Urobilinogen Urine 0.2 EU/dL (0.2-1.0)
[2023-11-02 22:55] LABS: Amorphous Sediment Urine FEW; Bacteria Urine NONE SEEN #/HPF (NONE SEEN); Cast Seen? NONE SEEN #/LPF (NONE SEEN); Crystals Seen? None Seen #/HPF (None Seen); Mucus Urine MODERATE (NONE SEEN); Squamous Epithelial Cell Urine MODERATE #/LPF (NONE/RARE); Urine Culture Indicated YES
[2023-11-03] VITALS (19 sets, daily range): BP systolic 145–192; BP diastolic 67–99; PULSE 57–80; TEMP 36.4–36.8; O2SAT 92–95
[2023-11-03] MEDS: LACTATED RINGER'S SOLUTION 1,000 ML 125 ML IV ×2 (00:33→09:21)
[2023-11-03 05:12] LABS: Basophils Absolute Auto 0.1 10^3/uL (0.0-0.1); Basophils Percent Auto 0.8 % (0.2-2.0); Eosinophils Absolute Auto 0.3 10^3/uL (0.0-0.7); Eosinophils Percent Auto 4.9 % (0.9-7.0); Hematocrit 34.4 % (36.0-48.0); Hemoglobin 10.8 g/dL (12.0-16.0); Immature Granulocytes Abs Auto 0.06 10^3/uL (0.00-0.03); Lymphocytes Absolute Auto 1.3 10^3/uL (1.2-3.8); Lymphocytes Percent Auto 20.4 % (20.5-60.0); Mean Corpuscular HGB Conc 31.4 g/dL (29.9-35.2); Mean Corpuscular Volume 92.2 fL (81.0-99.0); Mean Platelet Volume 10.8 fL (9.5-13.5); Monocytes Absolute Auto 0.4 10^3/uL (0.3-0.8); Monocytes Percent Auto 7.1 % (1.7-12.0); Neutrophils Absolute Auto 4.1 10^3/uL (1.4-6.5); Neutrophils Percent Auto 65.8 % (43.0-75.0); Platelet Count 182 10^3/uL (150-450); Red Blood Count 3.73 10^6/uL (4.20-5.40); Red Cell Distribution Width 13.2 % (11.0-15.0); White Blood Count 6.2 10^3/uL (4.0-11.0)
[2023-11-03 05:26] LABS: Alanine Aminotransferase 22 U/L (14-59); Albumin Globulin Ratio 0.8; Albumin Level 2.6 g/dL (3.4-5.0); Alkaline Phosphatase 58 U/L (46-116); Aspartate Amino Transferase 14 U/L (15-37); Bilirubin Total 0.3 mg/dL (0.2-1.0); Calcium 8.3 mg/dL (8.5-10.1); Carbon Dioxide 26.4 mmol/L (21.0-32.0); Chloride 108 mmol/L (98-107); Estimated GFR (African America >60 (>=60); Estimated GFR (Non-African Ame >60 (>=60); Globulin 3.1 g/dL; Glucose 109 mg/dL (74-106); Potassium 4.4 mmol/L (3.5-5.1); Sodium 141 mmol/L (136-145); Total Protein 5.7 g/dL (6.4-8.2)
[2023-11-03] MEDS: ONDANSETRON PF 4 MG/2 ML VIAL IV (06:21)
[2023-11-03] MEDS: METOPROLOL SUCCINATE 25 MG TAB.ER.24H PO (09:21)
[2023-11-03 11:19] LABS: Glucometer 97 mg/dL (74-106)
--- NOTE | 2023-11-03 11:40 | FL_ITS ---
The [address] [address] Patient Name: JORDAN HOLLY MRN: [id number] date: 1960 Sex: F Assigned Patient Location: MS Current Patient Location: Accession/Order Number: [id number] Exam Date: 11/03/2023 12:10 Report Date: 11/05/2023 07:04 At the request of: KAREN BEEBE Procedure: FL fluoroscopy <1hr EXAMINATION: FL fluoroscopy <1hr HISTORY: kidney stones , stent placement COMPARISON: XR abdomen 10/25/2023 FLUOROSCOPY TIME: Fluoro time measures 0.7 minutes and 1 images were obtained. TECHNIQUE: Standard level fluoroscopic mode of operation utilized. FINDINGS: Interval placement of a left ureteral stents appearing grossly good position.a persistent stone suspected within mid left ureter at level of L4. FL/FL fluoroscopy <1hr IMPRESSION: 1. Interval placement of left ureteral stent with suspected stones still present within mid ureter. Electronically authenticated by: PASTORA TY Date: 11/05/2023 07:04
[2023-11-03] MEDS: LACTATED RINGER'S SOLUTION 1,000 ML 50 ML IV (12:15)
--- NOTE | 2023-11-03 12:47 | P.URCN_ITS ---
Urology - CN: HPI Date of Consult Consult date: 11/03/23 Requesting Physician: Shaikh Jyoti MD Primary Care Provider: Lata Workman NP Consult Narrative Reason for consult IM: left proximal ureteral calculus with worsening pain Narrative: pt of [facility] has hx of stones passed all prior stones adm now with severe colic due to 7mm orixumal left ureteral calculus asked to see cc:: CC: Shaikh Jyoti MD Review of Systems ROS pt has hx of stones passed all prior stones Status of ROS: 10 or more systems reviewed and unremarkable except as noted in history and below PFSH PFSH Medical History (Updated 11/03/23 @ 12:57 by Elton Tmaez MD) CAD (coronary artery disease) ?I25.10 - Atherosclerotic heart disease of [place] coronary artery without angina pectoris (ICD-10) DVT (deep venous thrombosis) ?I82.409 - Acute embolism and thrombosis of unspecified deep veins of unspecified lower extremity (ICD-10) Hyperlipidemia ?E78.5 - Hyperlipidemia, unspecified (ICD-10) Hypertension ?I10 - Essential (primary) hypertension (ICD-10) Diabetes ?E11.9 - Type 2 diabetes mellitus without complications (ICD-10) Surgical History (Updated 11/02/23 @ 14:02 by Danii Payne) H/O: hysterectomy ?Z90.710 - Acquired absence of both cervix and uterus (ICD-10) Stented coronary artery ?Z95.5 - Presence of coronary angioplasty implant and graft (ICD-10) Family History (Updated 11/02/23 @ 14:05 by Danii Payne) Grandfather Family history of CHF (congestive heart failure) Family history of myocardial infarction Grandmother Family history of diabetes mellitus Social History (Updated 11/02/23 @ 14:06 by Danii Payne) Within the past year, how often did you have a drink containing alcohol: never Score interpretation: A score less than 3 is consistent with normal alcohol consumption. Smoking status: Never smoker Non-prescribed substance use: denies use Previous occupational history: retired Highest level of school completed/degree received: high school graduate Are you now , , , , never or living with a partner: In a typical week, how many times do you talk on the telephone with family, friends, or neighbors: 3 or more times per week How often do you get together with friends or relatives: 3 or more times per week How often do you attend baptism or mandaen services: never Do you belong to any clubs or organizations such as baptism groups unions, fraternal or athletic groups, or school groups: no Total score: 2 Score interpretation: A score of greater than or equal to 2 indicates the lowest level of social isolation. Little interest or pleasure in doing things: not at all Feeling down, depressed, or hopeless: not at all Feel stressed/tense/nervous/anxious/difficulty sleeping: not at all Meds Home Medications and Allergies Home Medications ?Medication ?Instructions ?Recorded ?Confirmed ?Type atorvastatin 80 mg tablet 80 mg PO DAILY 11/01/23 11/02/23 History lisinopril 10 mg tablet 10 mg PO DAILY 11/01/23 11/02/23 History metformin 500 mg tablet 1,000 mg PO BID 11/01/23 11/02/23 History metoprolol succinate 25 mg 25 mg PO DAILY 11/01/23 11/02/23 History tablet,extended release 24 hr aspirin 81 mg tablet,delayed 81 mg PO DAILY 11/02/23 11/02/23 History release (Adult Low Dose Aspirin) prasugrel 10 mg tablet 10 mg PO .qdaily 11/02/23 11/02/23 History Allergies Allergy/AdvReac Type Severity Reaction Status Date / Time Penicillins Allergy Mild Verified 11/01/23 11:15 Exam Narrative Exam Narrative: soft abdomen Constitutional Vital Signs, click to edit/add: Last Vital Signs Temp 97.6 F 11/03/23 05:43 Pulse 60 11/03/23 12:00 Resp 16 11/03/23 08:00 BP 145/77 H 11/03/23 05:43 Pulse Ox 94 L 11/03/23 05:43 O2 Del Method Room Air 11/03/23 05:43 Results Labs Labs: Short CBC 11/03/23 Range/Units 04:39 WBC 6.2 (4.0-11.0) 10^3/uL Hgb 10.8 L (12.0-16.0) g/dL Hct 34.4 L (36.0-48.0) % Plt Count 182 (150-450) 10^3/uL BMP 11/03/23 04:39 Sodium 141 Potassium 4.4 Chloride 108 H Carbon Dioxide 26.4 BUN 15.0 Creatinine 0.94 Glucose 109 H Calcium 8.3 L Liver Function 11/03/23 Range/Units 04:39 Total Bilirubin 0.3 (0.2-1.0) mg/dL AST 14 L (15-37) U/L ALT 22 (14-59) U/L Alkaline Phosphatase 58 (46-116) U/L Albumin 2.6 L (3.4-5.0) g/dL Urine 11/02/23 Range/Units 22:17 Urine Color Yellow (YELLOW) Urine Clarity Clear (CLEAR) Urine pH 6.0 (5.0-9.0) Ur Specific [place] 1.025 (1.005-1.025) Urine Protein Negative (NEG/TRACE) mg/dL Urine Glucose (UA) Negative (NEGATIVE) mg/dL Imaging CT scan - abdomen: Attestation: I have reviewed the pertinent imaging results. Urology Assessment and Plan Assessment and Plan (1) Acute unilateral obstructive uropathy: Assessment and Plan: Acute * Adm observation * L obstructing ureterolith on CT and XR imaging * C/S Dr Tamez - we appreciate his assistance with this pt's care * NPO at midnight for planned cystoscopy in AM * LR at 125/hr * CBC, CMP in AM (2) Hydronephrosis due to obstruction of ureter: Assessment and Plan: Acute * 2/2 obstructive uropathy - see above (3) UTI (urinary tract infection): Assessment and Plan: Acute * UA positive in the ED yesterday * C&S pending * BC X2 ordered - pending * IVPB Rocephin pending C&S results * CBC daily (4) Hypertension: Assessment and Plan: Chronic * Continue home lisinopril and metoprolol * PRN IVP Hydralazine for uncontrolled HTN (5) Diabetes: Assessment and Plan: Chronic * Hold home metformin during acute infection/hospitalization * ACHS glucometer checks * Med CC diet * Med SSI for glucose correction (6) Hyperlipidemia: Assessment and Plan: Chronic * Continue home statin (7) CAD (coronary artery disease): Assessment and Plan: Chronic * Continue home ASA, BB, ACEi * Hold home Effient pending urologic procedure, then resume (8) Ureteral calculus, left: (9) Kidney stone on left side: Plan to OR for cysto and stent today
--- NOTE | 2023-11-03 13:00 | PM.URPRC ---
Urology Procedure Note Procedure Note Date of procedure: 11/03/23 Pre-op diagnosis general: left proximal ureteral calcul;us Post-op diagnosis procedure note: same as pre-op Anesthesia: KENDY Surgeon: Elton Tamez Estimated blood loss (mL): 0 Pathology: none sent Condition operative: stable Disposition: PACU
--- NOTE | 2023-11-03 13:01 | PM.URSON ---
Urology Surgery Operative Note Operative Note Procedure Date: 11/03/23 Pre-op Diagnosis: left proximal ureteral calculus Post-op Diagnosis: same as pre-op Procedures performed: cysto, ;eft ureteral stent placement Anesthesia: GETA Primary Surgeon: Elton Tamez Complications: none Estimated blood loss (mL): 0 Findings: 7mm stone migrated to mid ureter Specimens: urone for cx Indications for Procedures: left flank pain due to 7mm proximal left ureteral calculus Detailed description of Procedure: ot put to sleep positioned joaquín kithitimy. vystoscope passed into bladder and 0.35 guide wire passed up left ureter beyond stone into collectiong system of left kidney. 6 fr variable legth stent [id number] onto left kidney under fluoroscopic guidance, fuide wire removed afequate pl;acement of stent confirmed and pt awakened and taken to recovery room. urine sent for cx Other Provider present: No Post Operative care instructions: follow up [facility] Attending Doc Confirm Attending Attestation: Yes
--- NOTE | 2023-11-03 13:09 | PC.NURSE ---
PATIENT HAS HAD ELEVATED BLOOP PRESSURE THROUGH OUT THE CASE AND THROUGHOUT HER STAY IN PACU DR BERMUDEZ IS AWARE AND STATES IT HAS BEEN HER BASELINE
--- NOTE | 2023-11-03 13:26 | PC.NURSE ---
1312 TOOK PATIENT TO THE BATHROOM AND PATIENT URINATED BLOOD TINGED URINE. TOOK PATIENT TO MED SURG
[2023-11-03] MEDS: HYDRALAZINE HCL 20 MG/ML VIAL 10 MG IVP (13:32)
--- NOTE | 2023-11-03 14:04 | P.HP_ITS ---
HPI H&P: HPI History of Present Illness Chief complaint: FLANK PAIN, KIDNEY STONE Narrative: History of presenting illness and hospital course: Opioid HPI Opioid Management Most Recent Pain and Opioid Data: Last Pain Scale 2 11/03/23 07:00 Last Pain Assessment 11/03/23 14:00 Last ORT Total Score 1 11/02/23 14:07 Last ORT Risk Category Low Risk 11/02/23 14:07 PFS PFS Medical History (Updated 11/03/23 @ 14:05 by Shaikh Jyoti MD) CAD (coronary artery disease) ?I25.10 - Atherosclerotic heart disease of [place] coronary artery without angina pectoris (ICD-10) DVT (deep venous thrombosis) ?I82.409 - Acute embolism and thrombosis of unspecified deep veins of unspecified lower extremity (ICD-10) Hyperlipidemia ?E78.5 - Hyperlipidemia, unspecified (ICD-10) Hypertension ?I10 - Essential (primary) hypertension (ICD-10) Diabetes ?E11.9 - Type 2 diabetes mellitus without complications (ICD-10) Surgical History (Updated 11/02/23 @ 14:02 by Danii Payne) H/O: hysterectomy ?Z90.710 - Acquired absence of both cervix and uterus (ICD-10) Stented coronary artery ?Z95.5 - Presence of coronary angioplasty implant and graft (ICD-10) Family History (Updated 11/02/23 @ 14:05 by Danii Payne) Grandfather Family history of CHF (congestive heart failure) Family history of myocardial infarction Grandmother Family history of diabetes mellitus Social History (Updated 11/02/23 @ 14:06 by Danii Payne) Within the past year, how often did you have a drink containing alcohol: never Score interpretation: A score less than 3 is consistent with normal alcohol consumption. Smoking status: Never smoker Non-prescribed substance use: denies use Previous occupational history: retired Highest level of school completed/degree received: high school graduate Are you now , , , , never or living with a partner: In a typical week, how many times do you talk on the telephone with family, friends, or neighbors: 3 or more times per week How often do you get together with friends or relatives: 3 or more times per week How often do you attend zoroastrian or baptist services: never Do you belong to any clubs or organizations such as zoroastrian groups unions, fraternal or athletic groups, or school groups: no Total score: 2 Score interpretation: A score of greater than or equal to 2 indicates the lowest level of social isolation. Little interest or pleasure in doing things: not at all Feeling down, depressed, or hopeless: not at all Feel stressed/tense/nervous/anxious/difficulty sleeping: not at all Meds Home Medications and Allergies Home Medications ?Medication ?Instructions ?Recorded ?Confirmed ?Type atorvastatin 80 mg tablet 80 mg PO DAILY 11/01/23 11/02/23 History lisinopril 10 mg tablet 10 mg PO DAILY 11/01/23 11/02/23 History metformin 500 mg tablet 1,000 mg PO BID 11/01/23 11/02/23 History metoprolol succinate 25 mg 25 mg PO DAILY 11/01/23 11/02/23 History tablet,extended release 24 hr aspirin 81 mg tablet,delayed 81 mg PO DAILY 11/02/23 11/02/23 History release (Adult Low Dose Aspirin) prasugrel 10 mg tablet 10 mg PO .qdaily 11/02/23 11/02/23 History cefuroxime axetil 500 mg tablet 500 mg PO BID 7 days #14 tabs 11/03/23 Rx Allergies Allergy/AdvReac Type Severity Reaction Status Date / Time Penicillins Allergy Mild Verified 11/01/23 11:15 Exam Constitutional Vital Signs, click to edit/add: Last Vital Signs Temp 98.0 F 11/03/23 14:00 Pulse 60 11/03/23 14:00 Resp 16 11/03/23 14:00 BP 179/67 H 11/03/23 14:00 Pulse Ox 94 L 11/03/23 14:00 O2 Del Method Room Air 11/03/23 14:00 Results Labs Labs: Short CBC 11/03/23 Range/Units 04:39 WBC 6.2 (4.0-11.0) 10^3/uL Hgb 10.8 L (12.0-16.0) g/dL Hct 34.4 L (36.0-48.0) % Plt Count 182 (150-450) 10^3/uL BMP 11/03/23 04:39 Sodium 141 Potassium 4.4 Chloride 108 H Carbon Dioxide 26.4 BUN 15.0 Creatinine 0.94 Glucose 109 H Calcium 8.3 L Liver Function 11/03/23 Range/Units 04:39 Total Bilirubin 0.3 (0.2-1.0) mg/dL AST 14 L (15-37) U/L ALT 22 (14-59) U/L Alkaline Phosphatase 58 (46-116) U/L Albumin 2.6 L (3.4-5.0) g/dL Urine 11/02/23 Range/Units 22:17 Urine Color Yellow (YELLOW) Urine Clarity Clear (CLEAR) Urine pH 6.0 (5.0-9.0) Ur Specific [place] 1.025 (1.005-1.025) Urine Protein Negative (NEG/TRACE) mg/dL Urine Glucose (UA) Negative (NEGATIVE) mg/dL Assessment and Plan Assessment and Plan (1) Acute unilateral obstructive uropathy: (2) Hydronephrosis due to obstruction of ureter: (3) UTI (urinary tract infection): Qualifiers: Urinary tract infection type: acute cystitis Hematuria presence: without hematuria Qualified Code(s): N30.00 - Acute cystitis without hematuria (4) Hypertension: Qualifiers: Hypertension type: primary hypertension Qualified Code(s): I10 - Essential (primary) hypertension (5) Diabetes: Qualifiers: Diabetes mellitus type: type 2 Diabetes mellitus senior living insulin use: without 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 transplanted heart: [place] heart Associated angina: without angina Qualified Code(s): I25.10 - Atherosclerotic heart disease of [place] coronary artery without angina pectoris
[2023-11-03] MEDS: LISINOPRIL 10 MG TABLET PO (14:05)
--- NOTE | 2023-11-03 14:07 | PM.DS1 ---
DS: Providers Provider Date of admission: 11/02/23 13:45 Primary care physician: Lata Workman NP Admitting clinician: Cam Bahena Attending physician on admission: Cam Bahena Consults: 11/02/23 15:05 Consult to Urology Routine Consulting Provider: Elton Tamez Reason for consultation: L obstructive uropathy/Hydronephrosis Has provider been notified: Yes Attending physician on discharge: Shaikh Jyoti Discharging clinician: Shaikh Jyoti Anticipated date of discharge: 11/03/23 DS: Diagnosis Discharge Diagnosis (1) Acute unilateral obstructive uropathy: Assessment and plan: Left ureteral stones, s/p ureteral stone placement, outpatient follow up with Urology. (2) Hydronephrosis due to obstruction of ureter: Assessment and plan: Sec to ureteral stone, s/p ureteral stent. Outpatient f/u Urology. (3) UTI (urinary tract infection): Assessment and plan: Sec to obstructive uropathy/ureteral stone. D/c on oral ceftin. F/u urine cx. 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 Qualifiers: Hyperlipidemia type: unspecified Qualified Code(s): E78.5 - Hyperlipidemia, unspecified (7) CAD (coronary artery disease): Assessment and plan: Stable. No active cardiac ischemia. Qualifiers: Coronary Disease-Associated Artery/Lesion type: [place] artery [place] vs. transplanted heart: [place] heart Associated angina: without angina Qualified Code(s): I25.10 - Atherosclerotic heart disease of [place] coronary artery without angina pectoris DS: Summary Hospital Course Hospital Course: 63 y o female presented to ED for abdominal pain, found to have left ureteral stone causing obstructive uropathy. She was admitted and started on IVF and was taken to OR today. Patient underwent ureteral stent placement, and urinated twice post op. Cleared from urology to leave today with outpatient f/u in their office. Medically stable for discharge. Tolerating PO diet, denies any pain. Will d/c on oral ceftin. F/u with PCP/urology in 1-2 weeks Status at Discharge Functional status at discharge: independent ambulation Overall status at discharge: patient is back to baseline Time Spent with Patient Time attestation: Total time spent providing and/or coordinating discharge services: Time spent: greater than 30 minutes Exam Constitutional Vital Signs, click to edit/add: Last Vital Signs Temp 98.0 F 11/03/23 14:00 Pulse 74 11/03/23 14:00 Resp 16 11/03/23 14:00 BP 179/67 H 11/03/23 14:00 Pulse Ox 94 L 11/03/23 14:00 O2 Del Method Room Air 11/03/23 14:00 Documenting provider has reviewed patient's vital signs: yes Common normals: no apparent distress and oriented x3 General appearance: cooperative Respiratory Common normals: normal respiratory effort and clear to auscultation bilaterally Effort & inspection: able to speak in complete sentences Auscultation: clear to auscultation bilaterally Cardio Common normals: regular rate, S1 normal heart sound and S2 normal heart sound Rate: regular rate Heart sounds: S1 normal and S2 normal GI Common normals: Normal to inspection, nondistended, normoactive bowel sounds present, soft to palpation, non-tender and no hepatosplenomegaly Palpation: soft and no hepatosplenomegaly Extremity Common normals: no clubbing, cyanosis or edema Neuro Common normals: oriented x3, moves all extremities and no focal motor deficits Psych Common normals: mental status grossly normal, denies hallucinations, denies homicidal ideation and denies suicidal ideation DS: Data Data Completed and Pending Labs on day of discharge: Labs from last 24 hours 11/03/23 11/03/23 11/02/23 11:18 04:39 22:17 WBC 6.2 RBC 3.73 L Hgb 10.8 L Hct 34.4 L MCV 92.2 MCH 29.0 MCHC 31.4 RDW 13.2 Plt Count 182 MPV 10.8 Neut % (Auto) 65.8 Lymph % (Auto) 20.4 L [place] % (Auto) 7.1 Eos % (Auto) 4.9 Baso % (Auto) 0.8 Neut # (Auto) 4.1 Lymph # (Auto) 1.3 [place] # (Auto) 0.4 Eos # (Auto) 0.3 Baso # (Auto) 0.1 Abs Immat Gran (auto) 0.06 H Imm/Tot Granulo (auto) 1.0 H Sodium 141 Potassium 4.4 Chloride 108 H Carbon Dioxide 26.4 Anion Gap 11.0 BUN 15.0 Creatinine 0.94 Est GFR ( Amer) >60 Est GFR (Non-Af Amer) >60 BUN/Creatinine Ratio 16.0 Glucose 109 H Calcium 8.3 L Total Bilirubin 0.3 AST 14 L ALT 22 Alkaline Phosphatase 58 Total Protein 5.7 L Albumin 2.6 L Globulin 3.1 Albumin/Globulin Ratio 0.8 Urine Color Yellow Urine Clarity Clear Urine pH 6.0 Ur Specific [place] 1.025 Urine Protein Negative Urine Glucose (UA) Negative Urine Ketones Negative Urine Occult Blood Large A Urine Nitrite Negative Urine Bilirubin Negative Urine Urobilinogen 0.2 Ur Leukocyte Esterase Trace A Urine RBC 10-20 A Urine WBC 5-10 A Ur Squamous Epith Cells Moderate A Urine Crystals None seen Amorphous Sediment Few Urine Bacteria None seen Urine Casts None seen Urine Mucus Moderate A Ur Culture Indicated? Yes POC Glucose 97 11/02/23 11/02/23 19:10 16:20 WBC RBC Hgb Hct MCV MCH MCHC RDW Plt Count MPV Neut % (Auto) Lymph % (Auto) [place] % (Auto) Eos % (Auto) Baso % (Auto) Neut # (Auto) Lymph # (Auto) [place] # (Auto) Eos # (Auto) Baso # (Auto) Abs Immat Gran (auto) Imm/Tot Granulo (auto) Sodium Potassium Chloride Carbon Dioxide Anion Gap BUN Creatinine Est GFR ( Amer) Est GFR (Non-Af Amer) BUN/Creatinine Ratio Glucose Calcium Total Bilirubin AST ALT Alkaline Phosphatase Total Protein Albumin Globulin Albumin/Globulin Ratio Urine Color Urine Clarity Urine pH Ur Specific [place] Urine Protein Urine Glucose (UA) Urine Ketones Urine Occult Blood Urine Nitrite Urine Bilirubin Urine Urobilinogen Ur Leukocyte Esterase Urine RBC Urine WBC Ur Squamous Epith Cells Urine Crystals Amorphous Sediment Urine Bacteria Urine Casts Urine Mucus Ur Culture Indicated? POC Glucose 91 221 H Discharge Plan Discharge Disposition: Home, Self-Care Condition: Fair Discharge Medications: New cefuroxime axetil 500 mg tablet 500 mg PO BID 7 Days Qty: 14 0RF Continued atorvastatin 80 mg tablet 80 mg PO DAILY lisinopril 10 mg tablet 10 mg PO DAILY metformin 500 mg tablet 1,000 mg PO BID metoprolol succinate 25 mg tablet extended release 24 hr 25 mg PO DAILY aspirin [Adult Low Dose Aspirin] 81 mg tablet,delayed release (DR/EC) 81 mg PO DAILY prasugrel 10 mg tablet 10 mg PO .qdaily Activity: increase activity as tolerated Diet: advance to your usual diet Print Language: Vietnamese Forms: Portal Instructions Follow Up Appointments: PCP in one week Follow up with Urology in 1-2 weeks
--- NOTE | 2023-11-05 11:49 | CM.DCFOLLOWU ---
Person spoke with:patient How are you feeling? terrible How is your pain? terrible, abdominal pain, hemorrhoids now as well Did you understand your discharge instructions?yes Do you have any questions about your discharge instructions? no Were you given any prescriptions at discharge? yes Were you able to get your prescriptions filled? yes Do you understand how to take your medications as ordered? yes Do you have any questions about your follow up appointment and do you plan to keep your follow up appointment? no questions, attempted to call urologist to make apt, but they are both booked until December. She voiced she needs the kidney stone blasted due to the pain and now hemorrhoids. She is waiting for urologist to call back to see if they can make something work. She is also going to call her PCP to see if they can refer her to another urologist. Advised to come back to ED if pain persists. Is there anything else that you would like to discuss? no Questions/Comments/Concerns/Other: no
== END 2023-11-03 15:00 | disposition home or self-care (01) ==
LOC: ER 13:50 → MS 13:57
PROVIDERS: Family Medicine; Nurse Practitioner; Urology; Admitting Provider Internal Medicine; Emergency Provider Emergency Medicine; PCP Nurse Practitioner; Visit Provider Internal Medicine
PROC: (CPT 910; principal; 2023-11-03 10:30)
DX: N13.6 Pyonephrosis (principal); I10 Essential (primary) hypertension; E11.9 Type 2 diabetes mellitus without complications; E78.5 Hyperlipidemia, unspecified; I25.10 Atherosclerotic heart disease of native coronary artery without angina pectoris; Z87.442 Personal history of urinary calculi; Z79.84 Long term (current) use of oral hypoglycemic drugs; Z79.899 Other long term (current) drug therapy
CPT/HCPCS: 52332; 36415; 74018; 76000; 80053; 81001; 82948; 85025; 87040; 87086; 96365; 96372; 96375; 96376; 99285; G0378; J0360; J0696; J1100; J1650; J1885; J2250; J2270; J2405; J2704; J3010

== ENCOUNTER 2023-11-13 09:48 | Outpatient (OUT) | payer OTHER, SELFPAY | END 2023-11-13 09:49 | disposition home or self-care (01) | LOC: PST 09:48 | PROVIDERS: PCP Nurse Practitioner; Visit Provider Urology | DX: Z01.818 Encounter for other preprocedural examination (principal); N13.2 Hydronephrosis with renal and ureteral calculous obstruction ==

== ENCOUNTER 2023-11-14 11:42 | Day surgery (SDC) | payer OTHER, SELFPAY ==
[2023-11-14] VITALS (8 sets, daily range): BP systolic 144–170; BP diastolic 78–95; PULSE 60–73; TEMP 36.3–36.9; O2SAT 94–96; BMI 26.8
[2023-11-14 12:02] LABS: Glucometer 108 mg/dL (74-106)
[2023-11-14] MEDS: LACTATED RINGER'S SOLUTION 1,000 ML 50 ML IV (12:10)
--- NOTE | 2023-11-14 12:49 | PM.URSON ---
Urology Surgery Operative Note Operative Note Procedure Date: 11/14/23 Time Out Performed: yes Pre-op Diagnosis: Left ureteral stone with hydronephrosis Post-op Diagnosis: same as pre-op Procedures performed: Cystoscopy, left retrograde pyelogram, ureteroscopy laser lithotripsy/stone extraction, stent exchange Anesthesia: General-LMA Primary Surgeon: Vanessa Schultz Complications: none Estimated blood loss (mL): 0 Findings: L RPG- moderate hydronephrosis bifid renal pelvis, radiopaque mid ureteral stone. No extravasation or other filling defects Left mid ureteral stone mildly impacted, underwent uncomplicated laser lithotripsy and stone extraction. L UO tight Mildly encrusted stent Specimens: left ureteral stone Drains: 4.9Fr x 22-32 cm JJ left ureteral stent Incision: none Indications for Procedures: 63 year old female recently diagnosed with a 7.7 mm left proximal ureteral stone s/p cystoscopy, stent placement by Dr. Tamez on 11/03/23 due to failed medical expulsive therapy and uncontrolled pain. After discussion of risks, benefits, and alternatives of management options, she elected to proceed with cystoscopy, left retrograde pyelogram, ureteroscopy with laser lithotripsy/stone extraction, ureteral stent removal vs exchange under general anesthesia. Risks were discussed including but not limited to bleeding, pain, infection, damage to surrounding structures, inability to treat the stone/place a stent, and need for additional procedures. The patient understands the stent is not permanent and needs to be removed or exchanged within 3 months to prevent encrustation, infection, invasive procedures and/or permanent renal damage. Detailed description of Procedure: After informed consent was obtained, the patient was brought to the operating room and transferred onto the operating table in supine position. Sequential compression devices were placed on bilateral lower extremities. The patient received the appropriate dose of preoperative IV antibiotics and general anesthesia LMA was induced. They were positioned in modified dorsolithotomy with the appropriate pressure points padded, prepped, and draped in the usual sterile fashion for this procedure. An operative safety timeout was performed confirming the patient's identity, laterality and procedure, and all present agreed to proceed. I began by inserting a 22 [place] rigid cystoscope with 30 degree lens into the patient's urethra and bladder without difficulty. There were no bladder tumors, lesions, or stones. [place] urine. Bilateral ureteral orifices were orthotopic and patent. I turned my attention to the left ureteral orifice and brought the indwelling stent to the meatus with flexible graspers. A guidewire was inserted into the stent up to the renal pelvis confirmed on fluoroscopy, and the stent was removed. Next a semirigid ureteroscope was inserted along the wire to get access to the mid ureteral stone. A 270 ?m thulium laser fiber was used to break the stone into fragments which were then removed with a 1.8 tipless nitinol basket. Ureteroscopy to the proximal ureter confirmed no additional fragments. Contrast was injected through the scope for retrograde pyelogram as above. After the stone was adequately treated, the flexible ureteroscope was inserted over the wire to gain access to the renal pelvis. A full renoscopy was performed confirming no residual stones or fragments remained. Contrast was injected to assist with mapping for the renoscopy. The wire was reinserted and a pull down ureteroscopy was performed confirming no stones remained in the ureter. The wire was backloaded through the cystoscope and 4.9Fr x 22-32cm JJ variable length ureteral stent was advanced over the wire, noting adequate curl in the renal pelvis and bladder on fluoroscopic and direct visualization. The bladder was drained of stones and inspected one final time to ensure adequate position of stent and no undue trauma to the bladder was done. The stones were sent for pathology and the cystoscope was removed. The patient tolerated the procedure well without complication. The patient was awakened from anesthesia and sent to PACU in stable condition. Plan: Discharge home with stent pain medications. Follow up within 1 week for in-office cystoscopy, stent removal. Other Provider present: No Post Operative care instructions: See discharge instructions Attending Doc Confirm Attending Attestation: Yes
[2023-11-14] MEDS: CEFAZOLIN SODIUM/DEXTROSE,ISO 2 GM/50 ML PIGGYBACK IV (12:50)
[2023-11-14] MEDS: IOHEXOL 240 MG/ML - 50 ML VIAL INJ (13:45)
--- NOTE | 2023-11-14 15:12 | PC.NURSE ---
Up to bathroom and voids without difficulty bloody urine without clots.
== END 2023-11-14 15:05 | disposition home or self-care (01) ==
PROVIDERS: PCP Nurse Practitioner; Visit Provider Urology
PROC: (CPT 918; principal; 2023-11-14 12:30)
DX: N13.2 Hydronephrosis with renal and ureteral calculous obstruction (principal); Z87.442 Personal history of urinary calculi; R30.0 Dysuria; R33.9 Retention of urine, unspecified; R35.1 Nocturia; N39.46 Mixed incontinence; R10.30 Lower abdominal pain, unspecified; Z79.84 Long term (current) use of oral hypoglycemic drugs; Z90.710 Acquired absence of both cervix and uterus; E78.5 Hyperlipidemia, unspecified; I10 Essential (primary) hypertension; I25.10 Atherosclerotic heart disease of native coronary artery without angina pectoris; Z95.5 Presence of coronary angioplasty implant and graft; E11.9 Type 2 diabetes mellitus without complications
CPT/HCPCS: 52356; 36415; 74420; 82365; 82948; 99999; J0690; J1100; J2371; J2405; J2704; J3010; Q9966

== ENCOUNTER 2024-01-01 08:26 | Outpatient (OUT) | payer OTHER, SELFPAY ==
--- NOTE | 2024-01-01 08:28 | US_ITS ---
[address] [address] Patient Name: JORDAN HOLLY MRN: [id number] date: 1960 Sex: F Assigned Patient Location: Current Patient Location: Accession/Order Number: [id number] Exam Date: 01/01/2024 08:29 Report Date: 01/01/2024 12:55 At the request of: JUAN F MCGUIRE Procedure: US renal BI EXAMINATION: US renal BI HISTORY: History Of Kidney Stones, Ureteral Stone COMPARISON: No relevant comparison available. TECHNIQUE: Ultrasound examination was performed of the bladder. FINDINGS: Right Kidney: Normal in size, contour and cortical echotexture. No solid cortical mass, hydronephrosis or obstructing nephrolithiasis. Height: 5.83 cm Length: 10.50 cm Width: 5.19 cm Left Kidney: Normal in size, contour and cortical echotexture. No solid cortical mass, hydronephrosis or obstructing nephrolithiasis Height: 4.95 cm Length: 12.69 cm Width: 4.45 cm Urinary bladder: 46 mL US/US renal BI IMPRESSION: No acute abnormality Electronically authenticated by: LEANDRA SERNA Date: 01/01/2024 12:55
== END 2024-01-01 08:27 | disposition home or self-care (01) ==
LOC: US 08:26
PROVIDERS: PCP Nurse Practitioner; Visit Provider Urology
DX: Z87.442 Personal history of urinary calculi (principal)
CPT/HCPCS: 76775

== ENCOUNTER 2024-01-08 08:53 | Outpatient (OUT) | payer OTHER, SELFPAY ==
--- OUTSIDE RECORDS SUMMARY | 2024-01-08 09:15 | XMS_ITS | CCD ---
Author Organization [facility] Care Team Providers Care Geography Department Chair Name Role Phone PHYSICIAN, DEFAULT Unavailable Unavailable PHYSICIAN, DEFAULT Unavailable Unavailable SERA CHAPPELL Unavailable Unavailable AICHHOLZ, PHARMACEUTICAL SERVICE REPRESENTATIVE CASSIDY Admitting Unavailable AICHHOLZ, PHARMACEUTICAL SERVICE REPRESENTATIVE CASSIDY Attending Unavailable AICHHOLZ, PHARMACEUTICAL SERVICE REPRESENTATIVE CASSIDY Consulting Unavailable AICHHOLZ, PHARMACEUTICAL SERVICE REPRESENTATIVE CASSIDY Primary Care Unavailable KAIT SALDIVAR Admitting Unavailable AICHHOLZ, PHARMACEUTICAL SERVICE REPRESENTATIVE CASSIDY Primary Care Unavailable KAIT SALDIVAR Attending Unavailable DR LEANDRA SERNA V Consulting Unavailable KAIT SALDIVAR Consulting Unavailable AICHHOLZ, PHARMACEUTICAL SERVICE REPRESENTATIVE CASSIDY Primary Care Unavailable AICHHOLZ, PHARMACEUTICAL SERVICE REPRESENTATIVE CASSIDY Admitting Unavailable AICHHOLZ, PHARMACEUTICAL SERVICE REPRESENTATIVE CASSIDY Attending Unavailable AICHHOLZ, PHARMACEUTICAL SERVICE REPRESENTATIVE CASSIDY Consulting Unavailable DR PASTORA TY Consulting Unavailable AICHHOLZ, PHARMACEUTICAL SERVICE REPRESENTATIVE CASSIDY Primary Care Unavailable AICHHOLZ, PHARMACEUTICAL SERVICE REPRESENTATIVE CASSIDY Admitting Unavailable AICHHOLZ, PHARMACEUTICAL SERVICE REPRESENTATIVE CASSIDY Attending Unavailable DAPHNE, DR LEANDRA Cavanaugh Consulting Unavailable AICHHOLZ, PHARMACEUTICAL SERVICE REPRESENTATIVE CASSIDY Consulting Unavailable ELTAGLADIS, DR DICKERSON Attending Unavailable NATHALIE, DR DICKERSON Consulting Unavailable NATHALIE, DR DICKERSON Admitting Unavailable AICHHOLZ, PHARMACEUTICAL SERVICE REPRESENTATIVE CASSIDY Primary Care Unavailable AICHHOLZ, CASSIDY J Primary Care Physician Vanessa Schultz Attending Unavailable Vanessa Schultz Referring Unavailable Vanessa Schultz Admitting Unavailable Vanessa Schultz Attending Unavailable Vanessa Schultz Attending Unavailable Vanessa Schultz Attending Unavailable Elton Tamez Attending [place]avail[place]ton [place] Referring UnavailVanessa Peres Attending Unavailable Vanessa Schultz Attending Unavailable Vanessa Schultz Attending Unavailable AICHHOLJames, CASSIDY Attending Unavailable Allergies Allergy Classification Reported Allergen(s) Allergy Type Date of Onset Reaction(s) Facility (2 sources) Penicillins Drug allergy (disorder) 6 [facility] Repository (5 sources) Penicillin; Translations: [penicillin] Drug Allergy Anaphylaxis (disorder) [facility] Medications Current Medications Medication Drug Class(es) Dates Sig (Normalized) Sig (Original) aspirin 81 mg oral capsule (4 sources) Platelet Aggregation Inhibitor, Nonsteroidal Anti-inflammatory Drug Start: 11-12-2023 aspirin 81 mg oral capsule mg cap(s), Oral Start Date: 11/12/23 Status: Ordered atorvastatin 80 mg oral tablet (4 sources) HMG-CoA Reductase Inhibitor Start: 11-12-2023 atorvastatin 80 mg Tab 80 mg = 1 tab(s) Start Date: 11/12/23 Status: Ordered lisinopril 10 mg oral tablet (4 sources) Angiotensin Converting Enzyme Inhibitor Start: 11-12-2023 lisinopril 10 mg Tab 10 mg = 1 tab(s) Start Date: 11/12/23 Status: Ordered metFORMIN hydrochloride 500 mg oral tablet (4 sources) Biguanide Start: 11-12-2023 metformin 500 mg Tab 500 mg = 1 tab(s) Start Date: 11/12/23 Status: Ordered 24 hr metoprolol succinate 25 mg extended release oral tablet (4 sources) beta-Adrenergic Alisha Start: 11-12-2023 take 1 tablet by mouth once daily metoprolol succinate 25 mg ER Tab 25 mg = 1 tab(s), Oral, Daily Start Date: 11/12/23 Status: Ordered prasugrel 10 mg oral tablet (4 sources) P2Y12 Platelet Inhibitor Start: 11-12-2023 take 1 tablet by mouth once daily prasugrel 10 mg Tab 10 mg = 1 tab(s), Oral, Daily Start Date: 11/12/23 Status: Ordered Problems Problem Classification Problem Date Documented Da te Episodic/Chronic Abdominal pain (3 sources) Unspecified abdominal pain; Translations: [UNSPECIFIED ABDOMINAL PAIN] Onset: 01-19-2021 Episodic Calculus of urinary tract (8 sources) Calculus of kidney; Translations: [History of calculus of kidney] Onset: 01-21-2021 Episodic Coronary atherosclerosis and other heart disease (5 sources) Atherosclerotic heart disease of [place] coronary artery without angina pectoris; Translations: [Coronary arteriosclerosis] Onset: 08-03-2020 11-07-2023 Chronic Diabetes mellitus without complication (8 sources) Type 2 diabetes mellitus without complications; Translations: [Type 2 diabetes mellitus without complication] Onset: 02-08-2021 Chronic Disorders of lipid metabolism (4 sources) Hyperlipidemia 11-07-2023 Chronic Essential hypertension (8 sources) Essential (primary) hypertension; Translations: [Essential hypertension] Onset: 08-30-2020 Chronic Genitourinary symptoms and ill-defined conditions (1 source) Procedure carried out on subject; Translations: [Encounter for fitting and adjustment of urinary device] Onset: 11-20-2023 Chronic Other aftercare (1 source) Long-term current use of anticoagulant; Translations: [[facility] (current) use of anticoagulants] Onset: 11-12-2023 Episodic Other diseases of kidney and ureters (2 sources) Urinary tract obstruction; Translations: [Hydronephrosis with renal and ureteral calculous obstruction] Onset: 11-12-2023 Episodic Other screening for suspected conditions (not mental disorders or infectious disease) (4 sources) Encounter for screening mammogram for malignant neoplasm of breast; Translations: [ENC SCR MAMMO MALIG NEOPLASM BREAST] Onset: 01-25-2021 Episodic Phlebitis; thrombophlebitis and thromboembolism (4 sources) Embolism from thrombosis of vein of lower extremity 11-07-2023 Episodic Unclassified (4 sources) Drug therapy finding 11-12-2023 Unclassified (4 sources) Long-term current use of aspirin 11-12-2023 Unclassified (4 sources) Obstructive hydronephrosis 11-12-2023 Results Test Name Value Interpretation Reference Range Facility Inpatient Patient Summaryon 11-20-2023 Inpatient Patient Summary Inpatient Patient Summary [place] [id number] Clinical Summary Person Information Name: JORDAN HOLLY Age: 63 Years : 1960 Sex: Female PCP: CASSIDY BERUMEN CNP Marital Status: Race: White Ethnicity: Non- or Language: Azeri Visit Id: Visit Reason: URETERAL STONE WITH HYDRONEPHROSIS Speciality: Acuity: Enc Type: Outpatient Med Service: Surgery Arrival: 11/20/2023 07:48:23 Discharge: Dispo Type: Address: [address] [facility] [id number] Provider Notes: Diagnosis: Encounter for removal of ureteral stent; History of kidney stones; Ureteral stone with hydronephrosis Problems Active History of kidney stones Anticoagulated Aspirin long-term use Ureteral stone with hydronephrosis Acute embolism and thrombosis of unspecified deep veins of unspecified lower extremity Type 2 diabetes mellitus without complications Hyperlipidemia CAD (coronary artery disease) Essential hypertension (08/30/2020) Smoking Status: Functional Status: Sensory Deficits: History of Falls: Mobility Assistance Prior to Admission: ADLs: Current Level of Assistance for Self-Care/Mobility: Cognitive Status: Allergies penicillin (Anaphylaxis) Laboratory or Other Results This Visit (last charted value for your 11/20/2023 visit) No Laboratory or Other Results This Visit Measurements: Height: Weight: Blood Pressure: Not Valued / Not Valued BMI: Procedures No Procedures Documented Immunizations No Immunizations Documented This Visit Final Med List: aspirin (aspirin 81 mg oral capsule) By Mouth. atorvastatin (atorvastatin 80 mg Tab) 1 Tablets. lisinopril (lisinopril 10 mg Tab) 1 Tablets. metformin (metformin 500 mg Tab) 1 Tablets. metoprolol (metoprolol succinate 25 mg ER Tab) 1 Tablets By Mouth every day. prasugrel (prasugrel 10 mg Tab) 1 Tablets By Mouth every day. Care Team Members: Attending Physician: Vanessa Schultz MD Consulting Physician: Referring Physician: Vanessa Schultz MD Follow up: With: Address: When: Vanessa Schultz [address], [place] [phone] Business (1) [address], [address], [facility] [address] [place] [phone] Business (1) Comments: Office to schedule follow up in 6 months with renal US and KUB. Obtain renal US in 6 weeks to ensure no blockage develops after surgery, will call with results Patient Education Information: Dietary Guidelines to Help Prevent Kidney Stones; EU - Cystoscopy with Stent Removal Discharge Instructions (CUSTOM) Radha [facility] Main OR Intraoperative Recor don 11-20-2023 Main OR Intraoperative Record Main OR Intraoperative Record IntraOp Document Type FTURO Summary Primary Physician: Vanessa Schultz MD Finalized Date/Time: 11/20/23 08:53:11 Pt. Name: JORDAN HOLLY Jorge/Sex: 1960 Female Med Rec #: [id number] Physician: Vanessa Schultz MD Financial #: [id number] Pt. Type: O Room/Bed: / Admit/Disch: 11/20/23 07:48:23 - Institution: Case Times FTURO Entry 1 Patient Times In Room 11/20/23 08:45:00 Out Room 11/20/23 08:54:00 Procedure Times Start 11/20/23 08:50:00 Stop 11/20/23 08:51:00 Anesthesia Times Last Modified By: Hillary Forman RN 11/20/23 08:53:06 Case Attendance FTURO Entry 1 Entry 2 Entry 3 Case Attendee Vanessa Schultz MD, RN, Pratibha Jackson CST Role Performed Surgeon - Primary Limited Radiology Technician - Primary Scrub - Primary Time In 11/20/23 08:45:00 11/20/23 08:45:00 11/20/23 08:45:00 Time Out 11/20/23 08:54:00 11/20/23 08:54:00 11/20/23 08:54:00 Procedure CYSTOSCOPY LOCAL WITH CYSTOSCOPY LOCAL WITH CYSTOSCOPY LOCAL WITH STENT REMOVAL(Left) STENT REMOVAL(Left) STENT REMOVAL(Left) Comments Last Modified By: Dickson HANKS, Hillary Forman RN, Hillary Amin RN 11/20/23 08:53:07 11/20/23 08:53:07 11/20/23 08:53:07 Surgical Procedures FTURO Entry 1 Procedure Description Procedure CYSTOSCOPY LOCAL WITH Modifiers Left STENT REMOVAL Surgeon Description CYSTOSCOPY WITH LEFT STENT REMOVAL Primary Procedure Yes Primary Surgeon Vanessa Schultz MD Start 11/20/23 08:50:00 Stop 11/20/23 08:51:00 Anesthesia Type Local Surgical Service Urology Wound Class 2 - Clean-Contaminated Last Modified By: Hillary Forman RN 11/20/23 08:51:27 General Case Data FTURO Pre-Care Text: Classifies surgical wound, implements aseptic technique, initiates traffic control Entry 1 Case Information OR URO 1 FT Case Level None Wound Class 2 - Clean-Contaminated Specialty Urology Preop Diagnosis URETERAL STONE WITH Postop Same As Preop Yes HYDRONEPHROSIS LEFT Postop Diagnosis URETERAL STONE WITH Outcomes Met? Yes HYDRONEPHROSIS LEFT Last Modified By: Hillary Forman RN 11/20/23 08:20:19 Post-Care Text: The patient is free from signs and symptoms of infection EU IntraOp - FTURO Pre-Care Text: Implements protective measures prior to operative or invasive procedure, confirms identity before the operative or invasive procedure, verifies operative procedure, surgical site, and laterality Entry 1 EU Perioperative Protocols Procedure(s) CYSTOSCOPY LOCAL WITH Patient Identity Birthday, ID Band STENT REMOVAL(Left) Verified (select at Check, Patient least 2): Participation Consents / H and P HandP, Surgery/Procedure Operative Site N/A Verified Consent Marking Verified Surgical Site Yes Laterality Verified Yes Verified Procedure Verified Yes Correct Patient Yes Position Verified Availability Equipment, Medication Time Out Vanessa Schultz MD, Verified (If Participants Hillary Forman RN, Applicable) Pratibha Tinsley CST Time Out Complete 11/20/23 08:49:00 Allergies Reviewed? Yes Allergies Reviewed Self/Patient With Body Position Frog Legged Prep Area PERINEUM Prep Agents Betadine Solution Skin. Condition Intact, [place], Warm, and Dry Additional None Specimens Collected Vitals - EU Blood Pressure 148/81 Pulse 81 bpm Respirations 14 br/min SPO2 98 % EBL 0 IandO - EU Total Intake 0 mL Total Output 0 mL Outcomes Met? Yes Last Modified By: Hillary Forman RN 11/20/23 08:50:07 Post-Care Text: The patient is free from signs and symptoms of injury caused by extraneous objects Sign Out FTURO Entry 1 Before Patient Leaves OR Nurse verbally Yes Nurse verbally n/a confirms with the confirms with the team the name of team that the procedure(s) instrument, sponge, recorded and needle counts are correct (or N/A) Nurse verbally n/a Nurse verbally n/a confirms with the confirms with the team how the team whether there specimen is labeled are any equipment (including patient problems to be name), if applicable addressed Sign Out Complete 11/20/23 08:51:00 Last Modified By: Hillary Forman RN 11/20/23 08:51:24 Case Comments Finalized By: Hillary Forman RN Document Signatures Signed By: Hillary Forman RN 11/20/23 08:53 Normal [facility] Main OR Preoperative Recordo n 11-20-2023 Main OR Preoperative Record Main OR Preoperative Record Holding Area Document Type FTURO Summary Primary Physician: Vanessa Schultz MD Finalized Date/Time: 11/20/23 08:20:18 Pt. Name: JORDAN HOLLY Edgardo DayB./Sex: 1960 Female Med Rec #: [id number] Physician: Vanessa Schultz MD Financial #: [id number] Pt. Type: O Room/Bed: / Admit/Disch: 11/20/23 07:48:23 - Institution: Case Times Holding FTURO Pre-Care Text: Verifies consent for planned procedure, identifies individual values and wishes concerning care, includes family members in perioperative teaching Secures patient's records' belongings, and valuables, maintains patient's dignity and privacy, and maintains patient confidentiality Entry 1 In Holding 11/20/23 08:06:00 Outcomes Met? Yes Last Modified By: JASON Boyce RN, Ruthann 11/20/23 08:06:47 Post-Care Text: The patient participates in decisions affecting his or her perioperative plan of care The patient's right to privacy is maintained Surgery Checklist FTURO Entry 1 Patient Birthday, ID Band Procedure History and Physical, Identification: Check, Patient Verification: Surgical Consent, With Participation Patient NPO after Midnight: n/a Personal Items clothes Comment: Limitations: none Complaints of Pain: No Pain Comment: pressure, burning when Skin Integrity Unable to Visualize urinating Vitals - EU Blood Pressure 148/81 Pulse 81 bpm Respirations 14 br/min SPO2 98 % Additional None RN Reviewed Yes Specimens Collected Last Modified By: JASON Boyce RN, Ruthann 11/20/23 08:08:36 Finalized By: JASON Boyce RN, Ruthann Document Signatures Signed By: JASON Boyce RN, Ruthann 11/20/23 08:08 JASON Boyce RN, Ruthann 11/20/23 08:20 Normal [facility] Operative Reporton Operative Report Operative Report Patient: JORDAN HOLLY Age: 63 years Sex: Female : 1960 Associated Diagnoses: None Author: Vanessa Schultz MD Procedure Operative Information Details: Date/ Time: 11/20/2023 08:55:00. Pre-Op Dx: Encounter for removal of ureteral stent ([id number] Z46.6, Discharge, Medical). Post-Op Dx: Same. Anesthesia Type: Local. Procedure: Local Cystoscopy with Stent Removal. Complications: None. Risks/Benefits/Inform ed Consent: Surgical risks, benefits, details of the procedure have been explained to the patient, Full informed consent has been obtained. Intraoperative Information Prepped: The patient was placed in supine position, The patient was prepped with the Betadine solution. Anesthesia: 2% Xylocaine Jelly per urethra. Procedure: Cystoscopy and Left Stent Removal, The flexible Cystoscope was passed in retrograde fashion into the bladder without difficulty, The bladder was viewed in entirety and found to be without tumors or stones, Mild inflammation was seen surrounding the orifice with the stent seen protruding from it, The stent was then grasped and removed in its entirety. Specimens Removed: None. Devices Implanted: None. Postoperative Information Discharge: The patient tolerated the procedure well and was subsequently discharged home, Renal US in 6 weeks, call with results. Stone analysis not available yet Follow up in 6 mths with renal US and KUB to evaluate for stone recurrence. Pt declines metabolic workup, opts for dietary modifications and increased fluids. Normal [facility] Comment on above: Result Comment: Elec tronically Signed By: Vanessa Schultz MD\.br\Date and Time Signed: 11/20/23 08:56 EDT Outpatient Surgery Discharge Instructionon 11-20-2023 Outpatient Surgery Discharge Instruction Outpatient Surgery Discharge Instruction [place] [id number] Patient Discharge Instructions PERSON INFORMATION Name: JORDAN HOLLY Date of : 1960 Current Date: 11/20/2023 08:54:32 PHYSICIANS Admitting Physician: Vanessa Schultz MD Comment: Discharge Diagnosis: Encounter for removal of ureteral stent; History of kidney stones; Ureteral stone with hydronephrosis JORDAN HOLLY has been given the following list of follow-up instructions, prescriptions, and patient education materials: IF UNABLE TO CONTACT YOUR PHYSICIAN AND YOU FEEL IT IS AN EMERGENCY, GO TO THE NEAREST EMERGENCY ROOM OR CALL 911 Follow up: With: Address: When: Vanessa Schultz [address], [place] [phone] Business (1) [address], [address], [facility] [address] [place] [phone] amSTATZ (1) Comments: Office to schedule follow up in 6 months with renal US and KUB. Obtain renal US in 6 weeks to ensure no blockage develops after surgery, will call with results Comment: PATIENT EDUCATION INFORMATION Instructions: Dietary Guidelines to Help Prevent Kidney Stones Kidney stones are deposits of minerals and salts that form inside your kidneys. Your risk of developing kidney stones may be greater depending on your diet, your lifestyle, the medicines you take, and whether you have certain medical conditions. Most people can lower their risks of developing kidney stones by following these dietary guidelines. Your dietitian may give you more specific instructions depending on your overall health and the type of kidney stones you tend to develop. What are tips for following this plan? Reading food labels ? Choose foods with no salt added or low-salt labels. Limit your salt (sodium) intake to less than 1,500 mg a day. ? Choose foods with calcium for each meal and snack. Try to eat about 300 mg of calcium at each meal. Foods that contain 200?500 mg of calcium a serving include: ? 8 oz (237 mL) of milk, calcium-fortifiednon- dairy milk, and calcium-fortifiedfrui t juice. Calcium-fortified means that calcium has been added to these drinks. ? 8 oz (237 mL) of kefir, yogurt, and soy yogurt. ? 4 oz (114 g) of tofu. ? 1 oz (28 g) of cheese. ? 1 cup (150 g) of dried figs. ? 1 cup (91 g) of cooked broccoli. ? One 3 oz (85 g) can of sardines or mackerel. Most people need 1,000?1,500 mg of calcium a day. Talk to your dietitian about how much calcium is recommended for you. Shopping ? Buy plenty of fresh fruits and vegetables. Most people do not need to avoid fruits and vegetables, even if these foods contain nutrients that may contribute to kidney stones. ? When shopping for convenience foods, choose: ? Whole pieces of fruit. ? Pre-made salads with dressing on the side. ? Low-fat fruit and yogurt smoothies. ? Avoid buying frozen meals or prepared deli foods. These can be high in sodium. ? Look for foods with live cultures, such as yogurt and kefir. ? Choose high-fiber grains, such as whole-wheat breads, oat bran, and wheat cereals. Cooking ? Do not add salt to food when cooking. Place a salt shaker on the table and allow each person to add their own salt to taste. ? Use vegetable protein, such as beans, textured vegetable protein (TVP), or tofu, instead of meat in pasta, casseroles, and soups. Meal planning ? Eat less salt, if told by your dietitian. To do this: ? Avoid eating processed or pre-made food. ? Avoid eating fast food. ? Eat less animal protein, including cheese, meat, poultry, or fish, if told by your dietitian. To do this: ? Limit the number of times you have meat, poultry, fish, or cheese each week. Eat a diet free of meat at least 2 days a week. ? Eat only one serving each day of meat, poultry, fish, or seafood. ? When you prepare animal proteins, cut pieces into small portion sizes. For most meat and fish, one serving is about the size of the palm of your hand. ? Eat at least five servings of fresh fruits and vegetables each day. To do this: ? Keep fruits and vegetables on hand for snacks. ? Eat one piece of fruit or a handful of berries with breakfast. ? Have a salad and fruit at lunch. ? Have two kinds of vegetables at dinner. ? You may be told to limit foods that are high in a substance called oxalate. These include: ? Spinach (cooked), rhubarb, beets, sweet potatoes, and [place] chard. ? Peanuts. ? Potato chips, turkmen fries, and baked potatoes with skin on. ? Nuts and nut products. ? Chocolate. ? If you regularly take a diuretic medicine, make sure to eat at least 1 or 2 servings of fruits or vegetables that are high in potassium each day. These include: ? Avocado. ? Banana. ? [place], prune, carrot, or tomato juice. ? Baked potato. ? Cabbage. ? Beans and split peas. Lifestyle (more content not included)... [facility] 11-20-2023 Reminders Reminders From: Lashanda Cummins To: EU - Recalls Lue; Sent: 11/20/2023 09:13:00 EDT Show up: 04/07/2024 09:12:00 EST Subject: 6 Month w/SHEREE&KUB Due Date/Time: 05/05/2024 08:59:00 EST Reminder/Recall Per KML, patient to have 6 month f/u with SHEREE and KUB. Patient prefers [facility]. Need to add the orders and then send to TB. Patient has a 6 month f/u scheduled for 05/05/24 @ 12:30 PM in [place]. (Patient wanted the f/u prior to the beginning of the year due to insurance cost/concerns.) [facility] Ambulatory Visit Summaryon 0 11-12-2023 Ambulatory Visit Summary Ambulatory Visit Summary JORDAN HOLLY :1960 Visit Date:11/12/2023 Ambulatory Visit Instructions Your Diagnosis Ureteral stone with hydronephrosis Anticoagulated History of kidney stones Your Care Team Attending Physician - Vanessa Schultz MD Primary Care Physician - CASSIDY BERUMEN CNP This Is Your Medications List Contact prescribing physician if questions or concerns aspirin (aspirin 81 mg oral capsule) atorvastatin (atorvastatin 80 mg Tab) lisinopril (lisinopril 10 mg Tab) metformin (metformin 500 mg Tab) metoprolol (metoprolol succinate 25 mg ER Tab) prasugrel (prasugrel 10 mg Tab) Procedures Performed Cystotomy, with insertion of ureteral catheter or stent (separate procedure) (11/03/2023), Appendectomy, Placement of stent in cardiac conduit, Tonsillectomy, Vaginal hysterectomy, with total or partial vaginectomy;. Discharge Vitals Heart Rate (Peripheral) 72 Respiratory Rate 19 Blood Pressure 131/69 Height 176 cm Height 69 in Weight 84 kg Weight 184.8 lb BMI 27.12 What to do next You Need to Schedule the Following Appointments Follow Up with Antoine PEREZ, BAUTISTA Arnold, URO When: Where: Medications What How Much When Instructions Unchanged aspirin (aspirin 81 mg oral capsule) By Mouth Contact prescribing physician if questions or concerns Unchanged atorvastatin (atorvastatin 80 mg Tab) 1 Tablets Contact prescribing physician if questions or concerns Unchanged lisinopril (lisinopril 10 mg Tab) 1 Tablets Contact prescribing physician if questions or concerns Unchanged metformin (metformin 500 mg Tab) 1 Tablets Contact prescribing physician if questions or concerns Unchanged metoprolol (metoprolol succinate 25 mg ER Tab) 1 Tablets By Mouth Every day Contact prescribing physician if questions or concerns Unchanged prasugrel (prasugrel 10 mg Tab) 1 Tablets By Mouth Every day Contact prescribing physician if questions or concerns Allergies penicillin (Anaphylaxis) Problems Ongoing - Any problem that you are currently receiving treatment for. Acute embolism and thrombosis of unspecified deep veins of unspecified lower extremity Anticoagulated Aspirin long-term use CAD (coronary artery disease) Essential hypertension History of kidney stones Hyperlipidemia Type 2 diabetes mellitus without complications Ureteral stone with hydronephrosis Patient Survey You may receive a survey via text or e-mail asking about your office visit. Please share your experience with us by completing your survey. We appreciate your feedback and thank you for choosing us for your care. Education Materials Lithotripsy Lithotripsy is a treatment that can help break up kidney stones that are too large to pass on their own. This is a nonsurgical procedure that crushes a kidney stone with shock waves. These shock waves pass through your body and focus on the kidney stone. They cause the kidney stone to break up into smaller pieces while it is still in the urinary tract. The smaller pieces of stone can pass more easily out of your body in the urine. Tell a health care provider about: ? Any allergies you have. ? All medicines you are taking, including vitamins, herbs, eye drops, creams, and ekea-wxp-iaikyxa medicines. ? Any problems you or family members have had with anesthetic medicines. ? Any blood disorders you have. ? Any surgeries you have had. ? Any medical conditions you have. ? Whether you are or may be . What are the risks? Generally, this is a safe procedure. However, problems may occur, including: ? Infection. ? Bleeding from the kidney. ? Bruising of the kidney or skin. ? Scarring of the kidney, which can lead to: ? Increased blood pressure. ? Poor kidney function. ? Return (recurrence) of kidney stones. ? Damage to other structures or organs, such as the liver, colon, spleen, or pancreas. ? Blockage (obstruction) of the tube that carries urine from the kidney to the bladder (ureter). ? Failure of the kidney stone to break into pieces (fragments). What happens before the procedure? Staying hydrated Follow instructions from your health care provider about hydration, which may include: ? Up to 2 hours before the procedure ? you may continue to drink clear liquids, such as water, clear fruit juice, black coffee, and plain tea. Eating and drinking restrictions Follow instructions from your health care provider about eating and drinking, which may include: ? 8 hours before the procedure ? stop eating heavy meals or foods, such as meat, fried foods, or fatty foods. ? 6 hours before the procedure ? stop eating light meals or foods, such as toast or cereal. ? 6 hours before the procedure ? stop drinking milk or drinks that contain milk. ? 2 hours before the procedure ? stop drinking clear liquids. Medicines Ask your health c (more content not included)... Normal [facility] Ambulatory Visit Summary Ambulatory Visit Summary JORDAN HOLLY :1960 Visit Date:11/12/2023 Ambulatory Visit Instructions Your Diagnosis Ureteral stone with hydronephrosis Anticoagulated History of kidney stones Your Care Team Attending Physician - Vanessa Schultz MD Primary Care Physician - CASSIDY BERUMEN CNP This Is Your Medications List Contact prescribing physician if questions or concerns aspirin (aspirin 81 mg oral capsule) atorvastatin (atorvastatin 80 mg Tab) lisinopril (lisinopril 10 mg Tab) metformin (metformin 500 mg Tab) metoprolol (metoprolol succinate 25 mg ER Tab) prasugrel (prasugrel 10 mg Tab) Procedures Performed Cystotomy, with insertion of ureteral catheter or stent (separate procedure) (11/03/2023), Appendectomy, Placement of stent in cardiac conduit, Tonsillectomy, Vaginal hysterectomy, with total or partial vaginectomy;. Discharge Vitals Heart Rate (Peripheral) 72 Respiratory Rate 19 Blood Pressure 131/69 Height 176 cm Height 69 in Weight 84 kg Weight 184.8 lb BMI 27.12 What to do next You Need to Schedule the Following Appointments Follow Up with Antoine PEREZ, Vanessa Montgomery, URL, URO When: Where: Medications What How Much When Instructions Unchanged aspirin (aspirin 81 mg oral capsule) By Mouth Contact prescribing physician if questions or concerns Unchanged atorvastatin (atorvastatin 80 mg Tab) 1 Tablets Contact prescribing physician if questions or concerns Unchanged lisinopril (lisinopril 10 mg Tab) 1 Tablets Contact prescribing physician if questions or concerns Unchanged metformin (metformin 500 mg Tab) 1 Tablets Contact prescribing physician if questions or concerns Unchanged metoprolol (metoprolol succinate 25 mg ER Tab) 1 Tablets By Mouth Every day Contact prescribing physician if questions or concerns Unchanged prasugrel (prasugrel 10 mg Tab) 1 Tablets By Mouth Every day Contact prescribing physician if questions or concerns Allergies penicillin (Anaphylaxis) Problems Ongoing - Any problem that you are currently receiving treatment for. Acute embolism and thrombosis of unspecified deep veins of unspecified lower extremity Anticoagulated Aspirin long-term use CAD (coronary artery disease) Essential hypertension History of kidney stones Hyperlipidemia Type 2 diabetes mellitus without complications Ureteral stone with hydronephrosis Patient Survey You may receive a survey via text or e-mail asking about your office visit. Please share your experience with us by completing your survey. We appreciate your feedback and thank you for choosing us for your care. Education Materials Lithotripsy Lithotripsy is a treatment that can help break up kidney stones that are too large to pass on their own. This is a nonsurgical procedure that crushes a kidney stone with shock waves. These shock waves pass through your body and focus on the kidney stone. They cause the kidney stone to break up into smaller pieces while it is still in the urinary tract. The smaller pieces of stone can pass more easily out of your body in the urine. Tell a health care provider about: ? Any allergies you have. ? All medicines you are taking, including vitamins, herbs, eye drops, creams, and duzg-kyx-exljcan medicines. ? Any problems you or family members have had with anesthetic medicines. ? Any blood disorders you have. ? Any surgeries you have had. ? Any medical conditions you have. ? Whether you are or may be . What are the risks? Generally, this is a safe procedure. However, problems may occur, including: ? Infection. ? Bleeding from the kidney. ? Bruising of the kidney or skin. ? Scarring of the kidney, which can lead to: ? Increased blood pressure. ? Poor kidney function. ? Return (recurrence) of kidney stones. ? Damage to other structures or organs, such as the liver, colon, spleen, or pancreas. ? Blockage (obstruction) of the tube that carries urine from the kidney to the bladder (ureter). ? Failure of the kidney stone to break into pieces (fragments). What happens before the procedure? Staying hydrated Follow instructions from your health care provider about hydration, which may include: ? Up to 2 hours before the procedure ? you may continue to drink clear liquids, such as water, clear fruit juice, black coffee, and plain tea. Eating and drinking restrictions Follow instructions from your health care provider about eating and drinking, which may include: ? 8 hours before the procedure ? stop eating heavy meals or foods, such as meat, fried foods, or fatty foods. ? 6 hours before the procedure ? stop eating light meals or foods, such as toast or cereal. ? 6 hours before the procedure ? stop drinking milk or drinks that contain milk. ? 2 hours before the procedure ? stop drinking clear liquids. Medicines Ask your health c (more content not included)... Normal [facility] Urology Office/Clinic Noteon 11-12-2023 Urology Office/Clinic Note Urology Office/Clinic Note Chief Complaint Dr. Tamez consult F/U HPI Staff 63 year old female here fu to urology consult done 11/03/[address] Tamez. S/P Cysto,Lt. ureteral stent placement done 11/03/23. Pt. states she does have a H/O kidney stones. Pt. states she passed the them all in the past. Dysuria: yes, since having stent Incomplete bladder emptying: yes, since having stent Hematuria: gross hematuria, Pt. had stent Frequency: yes, since having stent Urgency: yes, since having stent Nocturia: 2x's Stream: good stream Post void dripping: no Wearing pads/ Depends: occasionally due to the gross hematuria Urge incontinence: very mild Stress incontinence: yes, since stent Incontinence without Sensory Awareness: no Abdominal pain: yes, lower pressure Flank pain: no History of Present Illness Tests reviewed: reviewed external records. I have reviewed the previous health record information and history for this patient from external provider. I have reviewed and verified the staff HPI to be accurate for this encounter. There have been no associated fever, chills, or blood in the urine. Denies any urinary infections since last encounter. Review of Systems PHQ Score Initial Depression Screen Score: 0 SCORE ROS - Provider Constitutional: denies weight loss, denies hot flashes. Eyes: denies eye problems. Gastrointestinal: denies nausea, denies vomiting. Cardiovascular: denies chest pain or angina. Integumentary: no dryness Musculoskeletal: denies musculoskeletal symptoms. ENMT: denies otolaryngeal symptoms. Respiratory: no shortness of breath. Heme/Lymph: denies easy bleeding tendency, denies easy bruising tendency. Psychiatric: no confusion, no anxiety. Genitourinary: See HPI. Physical Exam Vitals & Measurements HR: 72(Peripheral) RR: 19 BP: 131/69 HT: 69 in HT: 176 cm WT: 84 kg WT: 184.8 lb BMI: 27.12 General Appearance: alert , no acute distress, well nourished, well developed female. Head: normocephalic . Eyes: normal orbit and globe. ENMT: normal examination of external ears. Chest: symmetric chest rise, respirations non labored . Cardiovascular: regular rate and rhythm. Abdomen: soft , non distended, no tenderness Genitourinary: bladder nonpalpable, no flank tenderness. Skin: warm, dry, no bruising. Psychiatric: cooperative, affect appropriate for age, normal judgement, euthymic mood. Assessment/Plan Jordan is a 63 yo female new to our office due to recent [facility] ER visit for 7 mm left ureteral stone. S/p hysterectomy. BBSQ 19 (stent) 1. Ureteral stone with hydronephrosis (N13.2: Hydronephrosis with renal and ureteral calculous obstruction) Hx of stones. Has always passed on her own. Last episode was >12 mos ago. Pt presented to [facility] ER 11/01/23 with abdominal pain, right and left lower quadrant. CT AP wo IV con 11/01/23 - 7.7 mm proximal left ureterolith. Mild left hydroureteronephrosis . Mild left perinephric stranding and asymmetric enlargement. Labs 11/01/23 Cr 0.93, eGFR >60. UA 11/01/[address] Tamez's note, culture pending but there are no results on Clinisync. IVPB Rocephin. Urology was not consulted at the point due to no call coverage. Pt was discharged home with Flomax, Keflex, and Arvin and told to follow up with our office. Pt presented back to [facility] ER 11/02/23 due to left flank pain and left lower quadrant pain. KUB 11/02/23 [facility] - suspected 9 mm left ureterolith. Labs 11/03/23 Cr 0.94, eGFR >60. Dr. Tamez was consulted. Pt was admitted at that time due to failing outpatient therapy from the day prior. S/p cysto with L stent placement by Dr. Tamez 11/03/23. Reports she has noticed gross hematuria. Expected due to stent. No UA provided today. Not tolerating stent very well. Discussed management options including medical expulsive therapy x 4-6 week vs intervention including extracorporeal shockwave lithotripsy vs ureteroscopy with laser lithotripsy/stone basket extraction possible stent. Risks/benefits of each were discussed including but not limited to: MET- renal damage, pain or infection; ESWL- bleeding, hematoma, pain, infection, inability to break up the stone, ureteral obstruction, cardiac arrhythmias, damage to surrounding structures and need for additional procedures; ureteroscopy - bleeding, pain, infection, damage to surrounding structures, ureteral perforation, stricture, inability to treat the stone and need for additional procedures. If a stent is placed, pt understands this is not permanent and needs to be removed or exchanged within 3 months to prevent encrustation, infection, permanent renal damage and need for more invasive procedures. Briefly educated pt on dietary modifications. Pt states she does not drink enough water. Discussed metabolic workup in the future once pt is stone free. Will have more information based on stone analysis. -Will schedule cysto, L ureteroscopy with laser lithotripsy, stent removal vs exchange. Risks li (more content not included)... Normal [facility] Comment on above: Result Comment: Elec tronically Signed By: Antoine PEREZ, Vanessa Montgomery\.br\Date and Time Signed: 11/12/23 14:14 EDT\.br\Electronically Co-Signed By: Jennifer Ashley\Date and Time Co-Signed: 11/12/23 14:07 EDT GLYCOHEMOGLOBIN A1Con 2020 ADA RECOMMENDATION ADA THERAPEUTIC TARGET 6.0 - 7.0 ACTION SUGGESTED > 7.0 Normal [facility] Comment on above: Performed By: #### A 1C #### [facility] [address] [address] [address] Quirino Zelaya Glucose [Mass/Vol] 154 mg/dL Normal [facility] Comment on above: Performed By: #### A 1C #### [facility] [address] [address] [address] Quirino Zelaya HbA1c (Bld) [Mass fraction] 7.0 % Critically high <=6.0 [facility] Comment on above: Performed By: #### A 1C #### [facility] [address] [address] [address] Quirino Zelaya XR KUB 1 VIEWon 02-08-2021 XR KUB 1 VIEW EXAMINATION: XR KUB 1 VIEW HISTORY: Kidney stone COMPARISON: CT abdomen pelvis 01/19/2021 FINDINGS: KIDNEY/URETER - RIGHT: No visible renal or ureteral calcifications. KIDNEY/URETER - LEFT: No visible renal or ureteral calcifications. PELVIS: No visible ureteral calcifications. Visible calcifications favor phleboliths. BOWEL: No abnormal dilation or deviation. BONES: No acute abnormality. OTHER: Negative. No abnormal gaseous collections. IMPRESSION: 1. No appreciable urinary tract calculi. Evaluation is slightly limited by overlying bowel content. Electronically authenticated by: PASTORA TY Date: 2021-02-08 09:53 Normal [facility] MG MAMM SCREEN 3D HAY CADon 01-25-2021 MG MAMM SCREEN 3D HAY CAD Patient: JORDAN HOLLY Exam Date: 01/25/2021 : 1960 Gender:F Ordering : CHRYSTAL BERUMEN CNP Admission #: [id number] Family : Order #: [id number] CLICK HERE TO VIEW EXAM RADIOLOGY REPORT PROCEDURE: MAMMOGRAM SCREENING 3D BILATERAL CAD COMPARISON: MG MAMM HAY SCRN W CAD DIG, 08/31/2015. MG MAMM SCREEN HAY W CAD, 12/23/2019. INDICATIONS: Screening mammography Calculator Name NCI Breast Cancer Risk Assessment Tool 5 Year Breast Cancer Risk 1.20% Lifetime Breast Cancer Risk 6.70% Personal Breast Cancer No Personal Ovarian Cancer No Treatments None Family Cancers None LOCATION: [facility] BREAST COMPOSITION: Scattered areas fibroglandular density. FINDINGS: DIAGNOSTIC CATEGORY 1--NEGATIVE NO CHANGE FROM COMPARISON ASSESSMENT. Scattered benign-appearing calcifications are present. Scattered benign-appearing lymph nodes are present. RIGHT BREAST: No significant suspicious finding. LEFT BREAST: No significant suspicious finding. RECOMMENDATIONS: ROUTINE MAMMOGRAM AND CLINICAL EVALUATION IN 12 MONTHS. PLEASE NOTE: A NORMAL MAMMOGRAM DOES NOT EXCLUDE THE POSSIBILITY OF BREAST CANCER. A CLINICALLY SUSPICIOUS PALPABLE LUMP SHOULD BE BIOPSIED. Dictated by: Leandra Serna MD on 01/25/2021 at 10:49 Approved by: Leandra Serna MD on 01/25/2021 at 11:21 Normal [facility] AMYLASEon 01-19-2021 Amylase [Catalytic activity/Vol] 34 U/L Normal 31-110 [facility] Comment on above: Performed By: #### L HILLARY JUSTIN, CMP ####[facility] [address] [address]Dr. Quirino Zelaya CBC W MANUAL DIFFon 01-20-20 21 ATYPICAL LYMPH # Normal [facility] Comment on above: Performed By: #### C JANIA ####[facility] [address] [address]Dr. Quirino Zelaya ATYPICAL LYMPH % Normal [facility] Comment on above: Performed By: #### C JANIA ####[facility] [address] [address]Dr. Quirino Zelaya BAND # Normal 0.0-0.3 [facility] Comment on above: Performed By: #### C BCMAN ####[facility] [address] [address]Dr. Ayshalan Zelaya BAND % Normal 0-5 [facility] Comment on above: Performed By: #### C BCMAN ####[facility] [address] [address]Dr. Quirino Zelaya BASOM # 0.08 103/ul Normal 0.00-0.10 [facility] Comment on above: Performed By: #### C JANIA ####[facility] [address] [id number]. Quirino Zelaya BASOM % 1.0 % Normal 0.2-2.0 [facility] Comment on above: Performed By: #### C JANIA ####[facility] [address] [id number]. Quirino Zelaya BLAST # Normal [facility] Comment on above: Performed By: #### C JANIA ####[facility] [address] [id number]. Quirino Zelaya BLAST % Normal [facility] Comment on above: Performed By: #### C JANIA ####[facility] [address] [place], [place] [address]Dr. Quirino Zelaya CORRECTED WBC Normal 4.0-11.0 [facility] Comment on above: Performed By: #### C JANIA ####[facility] [address] [place], [place] [address]Dr. Quirino Zelaya EOS # 0.24 103/ul Normal 0.00-0.70 [facility] Comment on above: Performed By: #### C JANIA ####[facility] [address] [place], [place] [address]Dr. Quirino Zelaya EOS% 3.0 % Normal 0.9-7.0 [facility] Comment on above: Performed By: #### C JANIA ####[facility] [address] [place], [place] [address]Dr. Quirino Zelaya HCT 40.3 % Normal 36.0-48.0 [facility] Comment on above: Performed By: #### C JANIA ####[facility] [address] [place], [place] [id number]. Quirino Zelaya HGB 13.1 g/dl Normal 12.0-16.0 [facility] Comment on above: Performed By: #### C JANIA ####[facility] [address] [place], [place] [id number]. Quirino Zelaya LYMPHM # 1.68 103/ul Normal 1.20-3.80 [facility] Comment on above: Performed By: #### C JANIA ####[facility] [address] [id number]. Quirino Zelaya LYMPHM% 21.0 % Normal 20.5-60.0 [facility] Comment on above: Performed By: #### C JANIA ####[facility] [address] [id number]. Quirino Zelaya MCH 28.9 pg Normal 26.7-34.0 [facility] Comment on above: Performed By: #### C JANIA ####[facility] [address] [id number]. Quirino Zelaya MCHC 32.5 g/dl Normal 29.9-35.2 [facility] Comment on above: Performed By: #### C JANIA ####[facility] [address] [address]Dr. Quirino Zelaya MCV 88.8 fL Normal 81.0-99.0 [facility] Comment on above: Performed By: #### C JANIA ####[facility] [address] [id number]. Quirino Zelaya METAMYELOCYTE # Normal [facility] Comment on above: Performed By: #### C JANIA ####[facility] [address] [id number]. Quirino Zelaya METAMYELOCYTE % Normal [facility] Comment on above: Performed By: #### C JANIA ####[facility] [address] [id number]. Quirino Zelaya MONOM# 0.56 103/ul Normal 0.30-0.80 [facility] Comment on above: Performed By: #### C JANIA ####[facility] [address] [id number]. Quirino Zelaya MONOM% 7.0 % Normal 1.7-12.0 [facility] Comment on above: Performed By: #### C JANIA ####[facility] [address] [address]Dr. Quirino Zelaya MPV 11.1 fL Normal 9.5-13.5 [facility] Comment on above: Performed By: #### C AJNIA ####[facility] [address] [id number]. Quirino Zelaya MYELOCYTE # Normal [facility] Comment on above: Performed By: #### C JANIA ####[facility] [address] [id number]. Quirino Zelaya MYELOCYTE % Normal [facility] Comment on above: Performed By: #### C JANIA ####[facility] [address] [id number]. Quirino Zelaya NRBC Normal [facility] Comment on above: Performed By: #### C JANIA ####[facility] [address] [phone]. Quirino Zelaya PLT 180 103/ul Normal 150-450 [facility] Comment on above: Performed By: #### C JANIA ####[facility] [address] [place], [place] [address]Dr. Quirino Zelaya RBC 4.54 106/ul Normal 4.20-5.40 [facility] Comment on above: Performed By: #### C JANIA ####[facility] [address] [id number]. Quirino Zelaya RDW 12.9 % Normal 11.0-15.0 [facility] Comment on above: Performed By: #### C JANIA ####[facility] [address] [id number]. Quirino Zelaya SEG # 5.44 103/ul Normal 1.40-6.50 [facility] Comment on above: Performed By: #### C JANIA ####[facility] [address] [id number]. Quirino Zelaya SEG % 68.0 % Normal 43.0-75.0 [facility] Comment on above: Performed By: #### Alexander DYKES ####[facility] [address] [place], [place] [id number]. Quirino Zelaya WBC 8.0 103/ul Normal 4.0-11.0 [facility] Comment on above: Performed By: #### C BCMAN ####[facility] [address] [place], [place] [address] ABD/PELVIS WO CONon 01-19 CT ABD/PELVIS WO CON EXAMINATION: CT ABD/PELVIS WO CON, 01/19/2021 3:45 AM EDT HISTORY: UNSPECIFIED ABDOMINAL PAIN , back pain COMPARISON: None. TECHNIQUE: CT scan of the abdomen and pelvis was performed without IV contrast. CT dose reduction technique was used, including Automated Exposure Control. FINDINGS: LUNG BASES: Bibasilar linear opacities, atelectasis. LIVER: No enlargement, atrophy, abnormal density, or significant focal lesion. BILIARY: No dilatation or calcification. PANCREAS: No lesion, fluid collection, ductal dilatation, or atrophy. SPLEEN: No enlargement or focal lesion. ADRENALS: No mass or enlargement. KIDNEYS: Right asymmetric enlargement with perinephric stranding. Mild right hydroureteronephrosis extending down to a 3 mm stone in the distal right ureter 1 cm for the right ureterovesical junction, axial image 132. Nonobstructing 5 mm left nephrolith. BOWEL/MESENTERY: No visible mass, obstruction, or bowel wall thickening. AORTA/VASCULAR: No aneurysm or dissection. RETROPERITONEUM: No mass or adenopathy. LYMPH NODES: No adenopathy. URINARY BLADDER: No visible focal wall thickening, lesion, or calculus. PELVIC ORGANS: Hysterectomy ABDOMINAL WALL: No mass or hernia. BONES: No bony lesion or fracture. OTHER: Negative. IMPRESSION: 3 mm distal right ureterolith with mild associated obstructive uropathy Electronically authenticated by: LEANDRA SERNA Date: 2021-01-19 04:54 Normal [facility] CULTURE URINEon 01-19-2021 CULTURE URINE Culture Observations : MODERATE GROWTH OF MIXED GENITAL DAVID. NO POTENTIAL PATHOGENS SEEN. Normal [facility] Comment on above: Performed By: #### U RCX ####[facility] [address] [place], [place] [address]QeFish Zealya ER URINE PROFILEon Bilirubin Ql (U) Negative Normal NEGATIVE [facility] Comment on above: Performed By: #### U MICRO, ERUR #### [facility] [address] [address] [address] Quirino Zelaya Clarity (U) CLEAR Normal CLEAR [facility] Comment on above: Performed By: #### U MICRO, ERUR #### [facility] [address] [address] [address] Quirino Zelaya Color (U) YELLOW Normal YELLOW [facility] Comment on above: Performed By: #### U MICRO, ERUR #### [facility] [address] [place] [address] Dr. Quirino Zelaya ERUAHD A micrscopic examination will be performed if indicated. Normal [facility] Comment on above: Performed By: #### U MICRO, ERUR #### [facility] [address] [place] [address] Dr. Quirino Zelaya Glucose Ql (U) Negative Normal NEGATIVE [facility] Comment on above: Performed By: #### U MICRO, ERUR #### [facility] [address] [address] [address] Quirino Zelaya Hemoglobin Ql (U) LARGE Abnormal NEGATIVE [facility] Comment on above: Performed By: #### U MICRO, ERUR #### [facility] [address] [place] [address] Dr. Quirino Zelaya Ketones Ql (U) TRACE Abnormal NEGATIVE [facility] Comment on above: Performed By: #### U MICRO, ERUR #### [facility] [address] [address] [address] Quirino Zelaya LEUKOCYTES TRACE Abnormal NEGATIVE [facility] Comment on above: Performed By: #### U MICRO, ERUR #### [facility] [address] [address] [address] Quirino Zelaya Nitrite Ql (U) Negative Normal NEGATIVE [facility] Comment on above: Performed By: #### U MICRO, ERUR #### [facility] [address] [place] [address] Dr. Quirino Zelaya pH (U) 5.0 [pH] Normal 5-9 [facility] Comment on above: Performed By: #### U MICRO, ERUR #### [facility] [address] [address] [address] Quirino Zelaya SPEC GRAVITY >=1.030 Abnormal 1.005-<=1.025 [facility] Comment on above: Performed By: #### U MICRO, ERUR #### [facility] [address] [address] [address] Quirino Zelaya UA PROTEIN Negative Normal NEGATIVE/ TRACE [facility] Comment on above: Performed By: #### U MICRO, ERUR #### [facility] [address] [address] [address] Quirino Zelaya UR MICRO IND INDICATED Normal [facility] Comment on above: Performed By: #### U MICRO, ERUR #### [facility] [address] [address] [address] Quirino Zelaya Urobilinogen Qn (U) 0.2 {Joan'U}/dL Normal 0.2 - 1. 0 [facility] Comment on above: Performed By: #### U MICRO, ERUR #### [facility] [address] [address] [address] Quirino Zelaya LIPASEon 01-19-2021 Lipase [Catalytic activity/Vol] 104.0 U/L Normal 23.0-300.0 [facility] Comment on above: Performed By: #### L IPA, HILLARY, CMP ####[facility] [address] [address]DrFish Zelaya PROF 14(COMP METB)on 021 Albumin [Mass/Vol] 3.8 g/dL Normal 3.5-5.0 [facility] Comment on above: Performed By: #### L IPA, HILLARY, CMP ####[facility] [address] [address]DrFish Zelaya Albumin/Globulin [Mass ratio] 1.2 {ratio} Normal [facility] Comment on above: Performed By: #### L IPA, HILLARY, CMP ####[facility] [address] [address]DrFish Zelaya ALP [Catalytic activity/Vol] 71 U/L Normal 38-126 [facility] Comment on above: Performed By: #### L IPA HILLARY, CMP ####[facility] [address] [address]Dr. Quirino Zelaya ALT [Catalytic activity/Vol] 29 U/L Normal 9-52 [facility] Comment on above: Performed By: #### L IPA HILLARY, CMP ####[facility] [address] [address]Dr. Quirino Zelaya Anion gap [Moles/Vol] 14.4 mmol/L Normal [facility] Comment on above: Performed By: #### L IPA HILLARY, CMP ####[facility] [address] [place], [place] [address]Dr. Quirino Zelaya AST [Catalytic activity/Vol] 22 U/L Normal 14-36 [facility] Comment on above: Performed By: #### L IPA HILLARY, CMP ####[facility] [address] [place], [place] [address]Dr. Quirino Zelaya Bilirubin [Mass/Vol] 0.7 mg/dL Normal 0.2-1.3 [facility] Comment on above: Performed By: #### L IPA HILLARY, CMP ####[facility] [address] [place], [place] [address]Dr. Quirino Zelaya Calcium [Mass/Vol] 9.4 mg/dL Normal 8.4-10.2 [facility] Comment on above: Performed By: #### L IPA HILLARY, CMP ####[facility] [address] [place], [place] [address]Dr. Quirino Zelaya Chloride [Moles/Vol] 101 mmol/L Normal 98-107 [facility] Comment on above: Performed By: #### L IPA HILLARY, CMP ####[facility] [address] [place], [place] [address]Dr. Quirino Zelaya CO2 [Moles/Vol] 28.5 mmol/L Normal 22.0-30.0 [facility] Comment on above: Performed By: #### L IPA HILLARY, CMP ####[facility] [address] [address]Dr. Quirino Zelaya Creatinine [Mass/Vol] 0.85 mg/dL Normal 0.52-1.04 [facility] Comment on above: Performed By: #### L HILLARY JUSTIN, CMP ####[facility] [address] [id number]. Quirino Zelaya EGFR-AF MALAYSIAN >60 Normal >=60 [facility] Comment on above: Performed By: #### L HILLARY JUSTIN, CMP ####[facility] [address] [address]Dr. Quirino Zelaya EGFR-NON AF MALAYSIAN >60 Normal >=60 [facility] Comment on above: Performed By: #### L HILLARY JUSTIN, CMP ####[facility] [address] [address]Dr. Quirino Zelaya Globulin (S) [Mass/Vol] 3.1 g/dL Normal [facility] Comment on above: Performed By: #### L HILLARY JUSTIN, CMP ####[facility] [address] [address]Dr. Quirino Zelaya Glucose [Mass/Vol] 124 mg/dL Critically high 74-106 [facility] Comment on above: Performed By: #### L HILLARY JUSTIN, CMP ####[facility] [address] [address]Dr. Quirino Zelaya Potassium [Moles/Vol] 3.9 mmol/L Normal 3.4-5.0 [facility] Comment on above: Performed By: #### L HILLARY JUSTIN, CMP ####[facility] [address] [address]Dr. Quirino Zelaya Protein [Mass/Vol] 6.9 g/dL Normal 6.1-8.2 [facility] Comment on above: Performed By: #### L HILLARY JUSTIN, CMP ####[facility] [address] [address]Dr. Quirino Zelaya Sodium [Moles/Vol] 140 mmol/L Normal 137-145 [facility] Comment on above: Performed By: #### L HILLARY JUSTIN, CMP ####[facility] [address] [address]Dr. Quirino Zelaya Urea nitrogen [Mass/Vol] 17.0 mg/dL Normal 7.0-17.0 [facility] Comment on above: Performed By: #### L HILLARY JUSTIN, CMP ####[facility] [address] [address]Dr. Quirino Zelaya Urea nitrogen/Creatinine [Mass ratio] 20.0 mg/mg Normal [facility] Comment on above: Performed By: #### L HILLARY JUSTIN, CMP ####[facility] [address] [address]Dr. Quirino Zelaya URINE MICROSCOPIC ONLYon BACTERIA MODERATE Abnormal NONE SEEN [facility] Comment on above: Performed By: #### U MICRO, ERUR ####[facility] [address] [address]Dr. Quirino Zelaya Bacteria identified Cx Nom (U) INDICATED Normal [facility] Comment on above: Performed By: #### U MICRO, ERUR ####[facility] [address] [address]Dr. Quirino Zelaya CA OX CRYSTALS FEW Normal [facility] Comment on above: Performed By: #### U MICRO, ERUR ####[facility] [address] [address]Dr. Quirino Zelaya CAST NONE SEEN Normal NONE SEEN [facility] Comment on above: Performed By: #### U MICRO, ERUR ####[facility] [address] [address]Dr. Quirino Zelaya Crystals LM Nom (Urine sed) SEEN Abnormal NONE SEEN [facility] Comment on above: Performed By: #### U MICRO, ERUR ####[facility] [address] [address]Dr. Quirino Zelaya Epithelial cells LM Ql (Urine sed) MODERATE Abnormal NONE SEEN /RARE [facility] Comment on above: Performed By: #### U MICRO, ERUR ####[facility] [address] [place], [place] [address]Dr. Quirino Zelaya MUCOUS TRACE Abnormal NONE SEEN [facility] Comment on above: Performed By: #### U MICRO, ERUR ####[facility] [address] [address]Dr. Ayshakai Zelaya RBC NONE SEEN Abnormal 0-2 [facility] Comment on above: Performed By: #### U MICRO, ERUR ####[facility] [address] [id number]. Quirino Zelaya WBC 0-2 Abnormal NONE SEEN [facility] Comment on above: Performed By: #### U MICRO, ERUR ####[facility] [address] [address]Dr. Ayshakai Zelaya PROF CHEM 8 (BAS METB)on Anion gap [Moles/Vol] 9.7 mmol/L Normal [facility] Comment on above: Performed By: #### B MP #### [facility] [address] [address] Navi Maria Dolores Calcium [Mass/Vol] 9.3 mg/dL Normal 8.4-10.2 [facility] Comment on above: Performed By: #### B MP #### [facility] [address] [address] Navi Maria Dolores Chloride [Moles/Vol] 104 mmol/L Normal 98-107 [facility] Comment on above: Performed By: #### B MP #### [facility] [address] [address] Navi Maria Dolores CO2 [Moles/Vol] 31.8 mmol/L Critically high 22.0-30.0 [facility] Comment on above: Performed By: #### B MP #### [facility] [address] [address] Navi Maria Dolores Creatinine [Mass/Vol] 0.93 mg/dL Normal 0.52-1.04 [facility] Comment on above: Performed By: #### B MP #### [facility] [address] [address] Navi Maria Dolores EGFR-AF MALAYSIAN >60 Normal >=60 [facility] Comment on above: Performed By: #### B MP #### [facility] [address] [place], [place] [address] Navi Maria Dolores EGFR-NON AF MALAYSIAN >60 Normal >=60 [facility] Comment on above: Performed By: #### B MP #### [facility] [address] [place], [place] [address] Navi Maria Dolores Glucose [Mass/Vol] 118 mg/dL Critically high 74-106 [facility] Comment on above: Performed By: #### B MP #### [facility] [address] [address] Navi Maria Dolores Potassium [Moles/Vol] 4.5 mmol/L Normal 3.4-5.0 [facility] Comment on above: Performed By: #### B MP #### [facility] [address] [place] [address] Navi Maria Dolores Sodium [Moles/Vol] 141 mmol/L Normal 137-145 [facility] Comment on above: Performed By: #### B MP #### [facility] [address] [place] [address] Navi Maria Dolores Urea nitrogen [Mass/Vol] 18.0 mg/dL Critically high 7.0-17.0 [facility] Comment on above: Performed By: #### B MP #### [facility] [address] [place], [place] [address] Navi Maria Dolores Urea nitrogen/Creatinine [Mass ratio] 19.4 mg/mg Normal [facility] Comment on above: Performed By: #### B MP #### [facility] [address] [place], [place] [address] Navi Maria Dolores CBC AUTO DIFFon 07-26-2020 BASO # 0.1 103/ul Normal 0.0-0.1 [facility] Comment on above: Performed By: #### C BC #### [facility] [address] [place], [place] [address] Navi Maria Dolores Basophils/100 WBC (Bld) 0.8 % Normal 0.2-2.0 [facility] Comment on above: Performed By: #### C BC #### [facility] [address] [place], [place] [address] Navi Maria Dolores EO # 0.2 103/ul Normal 0.0-0.7 [facility] Comment on above: Performed By: #### C BC #### [facility] [address] [place], [place] [address] Navi Maria Dolores Eosinophils/100 WBC (Bld) 3.3 % Normal 0.9-7.0 [facility] Comment on above: Performed By: #### C BC #### [facility] [address] [place] [address] Navi Maria Dolores Erythrocyte distribution width (RBC) [Ratio] 13.6 % Normal 11.0-15.0 [facility] Comment on above: Performed By: #### C BC #### [facility] [address] [place] [address] Navi Maria Dolores Hematocrit (Bld) [Volume fraction] 42.5 % Normal 36.0-48.0 [facility] Comment on above: Performed By: #### C BC #### [facility] [address] [place] [address] Navi Maria Dolores Hemoglobin (Bld) [Mass/Vol] 13.3 g/dL Normal 12.0-16.0 [facility] Comment on above: Performed By: #### C BC #### [facility] [address] [place] [address] Navi Maria Dolores IG # 0.03 10e3/ul Normal 0.00-0.03 [facility] Comment on above: Performed By: #### C BC #### [facility] [address] [place] [address] Navi Maria Dolores IG % 0.5 % Normal 0.0-0.5 [facility] Comment on above: Performed By: #### C BC #### [facility] [address] [place] [address] Navi Maria Dolores LYMPH # 1.5 103/ul Normal 1.2-3.8 [facility] Comment on above: Performed By: #### C BC #### [facility] [address] [place] [address] Navi Maria Dolores Lymphocytes/100 WBC (Bld) 22.7 % Normal 20.5-60.0 [facility] Comment on above: Performed By: #### C BC #### [facility] [address] [place], [place] [address] Navi Whitten MANUAL DIFF REQ NO Normal [facility] Comment on above: Performed By: #### C BC #### [facility] [address] [place], [place] [address] Navihumphrey Whitten MCH (RBC) [Entitic mass] 29.1 pg Normal 26.7-34.0 [facility] Comment on above: Performed By: #### C BC #### [facility] [address] [place] [address] Navihumphrey Whitten MCHC (RBC) [Mass/Vol] 31.3 g/dL Normal 29.9-35.2 [facility] Comment on above: Performed By: #### C BC #### [facility] [address] [place] [address] Navihumphrey Whitten MCV (RBC) [Entitic vol] 93.0 fL Normal 81.0-99.0 [facility] Comment on above: Performed By: #### C BC #### [facility] [address] [place], [place] [address] Navihumphrey Whitten MONO # 0.5 103/ul Normal 0.3-0.8 [facility] Comment on above: Performed By: #### C BC #### [facility] [address] [place] [address] Navihumphrey Whitten Monocytes/100 WBC (Bld) 7.6 % Normal 1.7-12.0 [facility] Comment on above: Performed By: #### C BC #### [facility] [address] [place], [place] [address] Navi Maria Dolores NEUT # 4.3 103/ul Normal 1.4-6.5 [facility] Comment on above: Performed By: #### C BC #### [facility] [address] [place], [place] [address] Navi Maria Dolores Neutrophils/100 WBC (Bld) 65.1 % Normal 43.0-75.0 [facility] Comment on above: Performed By: #### C BC #### [facility] [address] [place], [place] [address] Navi Whitten Platelet mean volume (Bld) [Entitic vol] 11.2 fL Normal 9.5-13.5 [facility] Comment on above: Performed By: #### C BC #### [facility] [address] [place], [place] [address] Navihumphrey Bellamyen PLT 198 103/ul Normal 150-450 [facility] Comment on above: Performed By: #### C BC #### [facility] [address] [place], [place] [address] Navi Maria Dolores RBC 4.57 106/ul Normal 4.20-5.40 [facility] Comment on above: Performed By: #### C BC #### [facility] [address] [place], [place] [address] Navihumphrey Bellamyen WBC 6.6 103/ul Normal 4.0-11.0 [facility] Comment on above: Performed By: #### C BC #### [facility] [address] [place], [place] [address] Navi Whitten GLYCOHEMOGLOBIN A1Con 2020 ADA RECOMMENDATION ADA THERAPEUTIC TARGET 6.0 - 7.0 ACTION SUGGESTED > 7.0 Normal [facility] Comment on above: Performed By: #### A 1C ####[facility] [address] [id number] Whitten Glucose [Mass/Vol] 146 mg/dL Normal [facility] Comment on above: Performed By: #### A 1C ####[facility] [address] [place], [place] [address]DtcprxNavi Whitten HbA1c (Bld) [Mass fraction] 6.7 % Critically high <=6.0 [facility] Comment on above: Performed By: #### A 1C ####[facility] [address] [id number] Whitten LIPID PROFILEon 07-26-2020 CHOL-HDL RATIO NORM SEE BELOW Normal [facility] Comment on above: Result Comment: 3.3 - 4.4 LOW RISK 4.4 - 7.1 AVERAGE RISK 7.1 - 11.0 MODERATE RISK >11.0 HIGH RISK Performed By: #### L IPID, CMP #### [facility] [address] [phone] Navi Maria Dolores Cholesterol [Mass/Vol] 132 mg/dL Normal <=200 [facility] Comment on above: Performed By: #### L IPID, CMP #### [facility] [address] [phone] Navi Maria Dolores Cholesterol in HDL [Mass/Vol] 51 mg/dL Normal [facility] Comment on above: Performed By: #### L IPID, CMP #### [facility] [address] [phone] Navi Maria Dolores Cholesterol in LDL [Mass/Vol] 64.8 mg/dL Normal [facility] Comment on above: Performed By: #### L IPID, CMP #### [facility] [address] [phone] Navi Maria Dolores Cholesterol.total/Cho lesterol in HDL [Mass ratio] 2.6 {ratio} Normal [facility] Comment on above: Performed By: #### L IPID, CMP #### [facility] [address] [phone] Navi Maria Dolores HDL NORMAL > or = 60 mg/dl - LO W CARDIOVASCULAR RISK <40 mg/dl - HIGH CARDIOVASCULAR RISK Normal [facility] Comment on above: Performed By: #### L IPID, CMP #### [facility] [address] [address] Navi Maria Dolores LDL CALC NORMAL SEE BELOW Normal [facility] Comment on above: Result Comment: <100 mg/dl OPTIMAL 100 - 129 mg/dl NEAR OR ABOVE OPTIMAL 130 - 159 mg/dl BORDERLINE HIGH 160 - 189 mg/dl HIGH >190 mg/dl VERY HIGH Performed By: #### L IPID, CMP #### [facility] [address] [phone] Navi Maria Dolores Triglyceride [Mass/Vol] 81 mg/dL Normal <=150 [facility] Comment on above: Performed By: #### L IPID, CMP #### [facility] [address] [place] [address] Navi Maria Dolores VLDL CALC 16.2 mg/dL Normal [facility] Comment on above: Performed By: #### L IPID, CMP #### [facility] [address] [place] [address] Navi Maria Dolores MICROALBUMIN, RAND URon 07-06 mALB <1.3 Normal <=30.0 [facility] Comment on above: Performed By: #### M ALBR #### [facility] [address] [place] [address] Navihumphrey Bellamyen PROF 14(COMP METB)on 021 Albumin [Mass/Vol] 3.8 g/dL Normal 3.5-5.0 [facility] Comment on above: Performed By: #### L IPID, CMP #### [facility] [address] [place], [place] [address] Navi Maria Dolores Albumin/Globulin [Mass ratio] 1.3 {ratio} Normal [facility] Comment on above: Performed By: #### L IPID, CMP #### [facility] [address] [place], [place] [address] Navi Maria Dolores ALP [Catalytic activity/Vol] 67 U/L Normal 38-126 [facility] Comment on above: Performed By: #### L IPID, CMP #### [facility] [address] [place], [place] [address] Navi Maria Dolores ALT [Catalytic activity/Vol] 36 U/L Normal 9-52 [facility] Comment on above: Performed By: #### L IPID, CMP #### [facility] [address] [place] [address] Navi Maria Dolores Anion gap [Moles/Vol] 10.5 mmol/L Normal [facility] Comment on above: Performed By: #### L IPID, CMP #### [facility] [address] [place] [address] Navi Maria Dolores AST [Catalytic activity/Vol] 20 U/L Normal 14-36 [facility] Comment on above: Performed By: #### L IPID, CMP #### [facility] [address] [phone] Navi Maria Dolores Bilirubin [Mass/Vol] 0.7 mg/dL Normal 0.2-1.3 [facility] Comment on above: Performed By: #### L IPID, CMP #### [facility] [address] [phone] Navi Maria Dolores Calcium [Mass/Vol] 9.4 mg/dL Normal 8.4-10.2 [facility] Comment on above: Performed By: #### L IPID, CMP #### [facility] [address] [place], [place] [address] Navi Maria Dolores Chloride [Moles/Vol] 104 mmol/L Normal 98-107 [facility] Comment on above: Performed By: #### L IPID, CMP #### [facility] [address] [place] [address] Navi Maria Dolores CO2 [Moles/Vol] 30.9 mmol/L Critically high 22.0-30.0 [facility] Comment on above: Performed By: #### L IPID, CMP #### [facility] [address] [place], [place] [address] Navi Maria Dolores Creatinine [Mass/Vol] 0.87 mg/dL Normal 0.52-1.04 [facility] Comment on above: Performed By: #### L IPID, CMP #### [facility] [address] [place], [place] [address] Navi Maria Dolores EGFR-AF MALAYSIAN >60 Normal >=60 [facility] Comment on above: Performed By: #### L IPID, CMP #### [facility] [address] [place], [place] [address] Navi Maria Dolores EGFR-NON AF MALAYSIAN >60 Normal >=60 [facility] Comment on above: Performed By: #### L IPID, CMP #### [facility] [address] [place], [place] [address] Navi Maria Dolores Globulin (S) [Mass/Vol] 3.0 g/dL Normal [facility] Comment on above: Performed By: #### L IPID, CMP #### [facility] [address] [place], [place] [address] Navi Maria Dolores Glucose [Mass/Vol] 118 mg/dL Critically high 74-106 [facility] Comment on above: Performed By: #### L IPID, CMP #### [facility] [address] [place], [place] [address] Navi Maria Dolores Potassium [Moles/Vol] 4.4 mmol/L Normal 3.4-5.0 [facility] Comment on above: Performed By: #### L IPID, CMP #### [facility] [address] [phone] Navi Maria Dolores Protein [Mass/Vol] 6.8 g/dL Normal 6.1-8.2 [facility] Comment on above: Performed By: #### L IPID, CMP #### [facility] [address] [place], [place] [address] Navi Maria Dolores Sodium [Moles/Vol] 141 mmol/L Normal 137-145 [facility] Comment on above: Performed By: #### L IPID, CMP #### [facility] [address] [phone] Navi Maria Dolores Urea nitrogen [Mass/Vol] 26.0 mg/dL Critically high 7.0-17.0 [facility] Comment on above: Performed By: #### L IPID, CMP #### [facility] [address] [phone] Navi Maria Dolores Urea nitrogen/Creatinine [Mass ratio] 29.9 mg/mg Normal [facility] Comment on above: Performed By: #### L IPID, CMP #### [facility] [address] [place] [address] Navi Maria Dolores UA RANDOM W/MICROSCOPICon BACTERIA NONE SEEN Normal NONE SEEN [facility] Comment on above: Performed By: #### U AMIC #### [facility] [address] [place], [place] [address] Navi Maria Dolores Bilirubin Ql (U) Negative Normal NEGATIVE [facility] Comment on above: Performed By: #### U AMIC #### [facility] [address] [address] Navi Maria Dolores CAST NONE SEEN Normal NONE SEEN [facility] Comment on above: Performed By: #### U AMIC #### [facility] [address] [address] Navi Maria Dolores Clarity (U) CLEAR Normal CLEAR [facility] Comment on above: Performed By: #### U AMIC #### [facility] [address] [address] Navi Maria Dolores Color (U) LT. YELLOW Normal YELLOW [facility] Comment on above: Performed By: #### U AMIC #### [facility] [address] [place] [address] Navi Maria Dolores Crystals LM Nom (Urine sed) NONE SEEN Normal NONE SEEN [facility] Comment on above: Performed By: #### U AMIC #### [facility] [address] [place] [address] Navi Maria Dolores Epithelial cells LM Ql (Urine sed) MODERATE Abnormal NONE SEEN /RARE [facility] Comment on above: Performed By: #### U AMIC #### [facility] [address] [place] [address] Navi Maria Dolores Glucose Ql (U) Negative Normal NEGATIVE [facility] Comment on above: Performed By: #### U AMIC #### [facility] [address] [place] [address] Navi Maria Dolores Hemoglobin Ql (U) Negative Normal NEGATIVE [facility] Comment on above: Performed By: #### U AMIC #### [facility] [address] [address] Navi Maria Dolores Ketones Ql (U) Negative Normal NEGATIVE [facility] Comment on above: Performed By: #### U AMIC #### [facility] [address] [place] [address] Navi Maria Dolores LEUKOCYTES Negative Normal NEGATIVE [facility] Comment on above: Performed By: #### U AMIC #### [facility] [address] [address] Navi Maria Dolores MUCOUS TRACE Abnormal NONE SEEN [facility] Comment on above: Performed By: #### U AMIC #### [facility] [address] [place], [place] [address] Navi Maria Dolores Nitrite Ql (U) Negative Normal NEGATIVE [facility] [facility] Comment on above: Performed By: #### U AMIC #### [facility] [address], [place] [address] Navi Maria Dolores pH (U) 5.0 [pH] Normal 5-9 [facility] Comment on above: Performed By: #### U AMIC #### [facility] [address], [place] [address] Navi Maria Dolores RBC NONE SEEN Abnormal 0-2 [facility] Comment on above: Performed By: #### U AMIC #### [facility] [address] [place], [place] [id number] Navi Whitten SPEC GRAVITY 1.025 Normal 1.005-<=1.[address] [facility] Comment on above: Performed By: #### U AMIC #### [facility] [address] [id number] Navi Maria Dolores UA PROTEIN Negative Normal NEGATIVE/ TRACE [facility] Comment on above: Performed By: #### U AMIC #### [facility] [address] [id number] Navihumphrey Whitten Urobilinogen Qn (U) 0.2 {Joan'U}/dL Normal 0.2 - 1. 0 [facility] Comment on above: Performed By: #### U AMIC #### [facility] [address] [place], [place] [id number] Navi Maria Dolores WBC 0-2 Abnormal NONE SEEN [facility] Comment on above: Performed By: #### U AMIC #### [facility] [address] [id number] Navihumphrey Whitten Vital Signs Date Time Vital Sign Value Performing Clinician [facility] 11-12-2023 13:21-0400 Blood Pressure Location Vanessa Schultz [facility] 11-12-2023 13:21-0400 Diastolic blood pressure 69 mm[Hg] Vanessa Schultz [facility] 11-12-2023 13:21-0400 Heart rate 72 /min Vanessa Lue [facility] 11-12-2023 13:21-0400 Respiratory rate 19 /min Vanessa Lue [facility] 11-12-2023 13:21-0400 Systolic blood pressure 131 mm[Hg] Vanessa Lue [facility] Encounters Encounter Date Encounter Type Care Provider Facility Start: 05-05-2024 ambulatory Vanessa M. Lue Facility:[facility] Start: 01-02-2024 End: 01-02-2024 ambulatory CASSIDY BRAMBILABRIANJames Not Available Start: 11-20-2023 End: 11-20-2023 ambulatory Vanessa M. Lue Facility:[facility] Start: 11-20-2023 End: 11-20-2023 Patient encounter procedure Vanessa M. Lue [facility] Start: 11-14-2023 End: 11-14-2023 ambulatory Vanessa M. Lue Facility: [place] Start: 11-14-2023 End: 11-14-2023 Patient encounter procedure Vanessa M. Lue [facility] [place] Start: 11-14-2023 End: 11-14-2023 ambulatory Vanessa M. Lue Facility:[facility] [place] Start: 11-14-2023 End: 11-14-2023 Off-Site Vanessa M. Lue [facility] [place] Start: 11-12-2023 End: 07-08-2024 Patient encounter procedure Vanessa M. Lue [facility] [place] Start: 11-12-2023 End: 11-12-2023 ambulatory Vanessa Schultz Facility:[facility] [place] Start: 11-06-2023 End: 11-06-2023 ambulatory Vanessa Schultz Facility:[facility] Start: 11-06-2023 End: 11-06-2023 Off-Site Vanessa Schultz [facility] Start: 11-03-2023 End: 11-03-2023 ambulatory Elton Tamez Facility:CD:[id number] Start: 02-08-2021 End: 02-09-2021 ambulatory CHRYSTAL BERUMEN Facility:[facility] Start: 01-25-2021 End: 01-26-2021 ambulatory PHARMACEUTICAL SERVICE REPRESENTATIVE CASSIDY BERUMEN Facility:[facility] Start: 01-19-2021 End: 01-19-2021 ambulatory KIAT SALDIVAR Facility:[facility] Start: 08-30-2020 End: 08-31-[address] TUAN ZELAYA Facility:[facility] Start: 07-26-2020 End: 07-27-2020 ambulatory PHARMACEUTICAL SERVICE REPRESENTATIVE CASSIDY BERUMEN Facility:[facility] Start: 06-19-2017 End: 06-20-2017 Ambulatory DEFAULT PHYSICIAN Facility:[facility] Procedures Date Procedure Procedure Detail Performing Clinician Start: 11-03-2023 Cystotomy w/insj ure teral cath/stent spx Vanessa Schultz Appendectomy Vanessa Luroe Placement of stent i n cardiac conduit Vanessa Mandyroe Tonsillectomy Vanessa Lue Vaginal hysterectomy w/tot/prtl vaginectomy Vanessa Luroe Payers Date Payer Category Payer Unknown [id number] 1960 Unknown [id number] 2.16.84 [id number] 1960 Unknown [id number] 2.16.84 [id number] 1961 Unknown [id number] 2.16.84 [id number] 1961 Unknown [id number] 2.16.84 [id number] 1961 Unknown [id number] 2.16.84 [id number] 1961 Unknown [id number] 2.16.8 [id number] 1961 Unknown [id number] 2.16.8 [id number] 1961 Unknown [id number] 2.16.8 [id number] 1961 Unknown [id number] 2.16.8 [id number] 1961 Unknown [id number] 2.16.8 [id number] 1961 Unknown [id number] 2.16.84 [id number] 1958 Private Health Insurance [id number] 1958 Private Health Insurance [id number] Unknown Social History Date Type Detail Facility Tobacco smoking status No Smokin g Status Entered [facility] Sex Assigned At Female [facility] Start: 11-12-2023 Tobacco smoking status Never s moked tobacco (finding) [facility] Functional Status Date Assessment Result Facility 11-12-2023 Functional Status N/A [facility] Hospital Discharge instructions 11-20-2023 Note Date & Type Note Facility 11-20-2023 Hospital Discharg e instructions Patient Education 11/20/2023 08:54:31 Dietary Guidelines to Help Prevent Kidney Stones Dietary Guidelines to Help Prevent Kidney Stones Kidney stones are deposits of minerals and salts that form inside your kidneys. Your risk of developing kidney stones may be greater depending on your diet, your lifestyle, the medicines you take, and whether you have certain medical conditions. Most people can lower their risks of developing kidney stones by following these dietary guidelines. Your dietitian may give you more specific instructions depending on your overall health and the type of kidney stones you tend to develop. What are tips for following this plan? Reading food labels Choose foods with no salt added or low-salt labels. Limit your salt (sodium) intake to less than 1,500 mg a day. Choose foods with calcium for each meal and snack. Try to eat about 300 mg of calcium at each meal. Foods that contain 200 500 mg of calcium a serving include: ?8 oz (237 mL) of milk, wbmhtop-arorxfrixkws-emncj milk, and calcium-fortifiedfruit juice. Calcium-fortified means that calcium has been added to these drinks. ?8 oz (237 mL) of kefir, yogurt, and soy yogurt. ?4 oz (114 g) of tofu. ?1 oz (28 g) of cheese. ?1 cup (150 g) of dried figs. ?1 cup (91 g) of cooked broccoli. ?One 3 oz (85 g) can of sardines or mackerel. Most people need 1,000 1,500 mg of calcium a day. Talk to your dietitian about how much calcium is recommended for you. Shopping Buy plenty of fresh fruits and vegetables. Most people do not need to avoid fruits and vegetables, even if these foods contain nutrients that may contribute to kidney stones. When shopping for convenience foods, choose: ?Whole pieces of fruit. ?Pre-made salads with dressing on the side. ?Low-fat fruit and yogurt smoothies. Avoid buying frozen meals or prepared deli foods. These can be high in sodium. Look for foods with live cultures, such as yogurt and kefir. Choose high-fiber grains, such as whole-wheat breads, oat bran, and wheat cereals. Cooking Do not add salt to food when cooking. Place a salt shaker on the table and allow each person to add their own salt to taste. Use vegetable protein, such as beans, textured vegetable protein (TVP), or tofu, instead of meat in pasta, casseroles, and soups. Meal planning Eat less salt, if told by your dietitian. To do this: ?Avoid eating processed or pre-made food. ?Avoid eating fast food. Eat less animal protein, including cheese, meat, poultry, or fish, if told by your dietitian. To do this: ?Limit the number of times you have meat, poultry, fish, or cheese each week. Eat a diet free of meat at least 2 days a week. ?Eat only one serving each day of meat, poultry, fish, or seafood. ?When you prepare animal proteins, cut pieces into small portion sizes. For most meat and fish, one serving is about the size of the palm of your hand. Eat at least five servings of fresh fruits and vegetables each day. To do this: ?Keep fruits and vegetables on hand for snacks. ?Eat one piece of fruit or a handful of berries with breakfast. ?Have a salad and fruit at lunch. ?Have two kinds of vegetables at dinner. You may be told to limit foods that are high in a substance called oxalate. These include: ?Spinach (cooked), rhubarb, beets, sweet potatoes, and [place] chard. ?Peanuts. ?Potato chips, turkmen fries, and baked potatoes with skin on. ?Nuts and nut products. ?Chocolate. If you regularly take a diuretic medicine, make sure to eat at least 1 or 2 servings of fruits or vegetables that are high in potassium each day. These include: ?Avocado. ?Banana. ?[place], prune, carrot, or tomato juice. ?Baked potato. ?Cabbage. ?Beans and split peas. Lifestyle Drink enough fluid to keep your urine pale yellow. This is the most important thing you can do. Spread your fluid intake throughout the day. If you drink alcohol: ?Limit how much you have to: ?0 1 drink a day for women who are not . ?0 2 drinks a day for men. ?Know how much alcohol is in your drink. In the [place] one drink equals one 12 oz bottle of beer (355 mL), one 5 oz glass of wine (148 mL), or one 1 oz glass of hard liquor (44 mL). Lose weight if told by your health care provider. Work with your dietitian to find an eating plan and weight loss strategies that work best for you. General information Talk to your health care provider and dietitian about taking daily supplements. Depending on your health and the cause of your kidney stones, you may be told: ?Do not take high-dose supplements of vitamin C (1,000 mg a day or more). ?To take a calcium supplement. ?To take a daily probiotic supplement. ?To take other supplements such as magnesium, fish oil, or vitamin B6. Take smux-lhi-vxkrjjr and prescription medicines only as told by your health care provider. These include supplements. What foods should I limit? Limit your intake of the following foods, or eat them as told by your dietitian. Vegetables Spinach. Rhubarb. Beets. Canned vegetables. Pickles. Olives. Baked potatoes with skin. Grains Wheat bran. Baked goods. Salted crackers. Cereals high in sugar. Meats and other proteins Nuts. Nut butters. Large portions of meat, poultry, or fish. Salted, precooked, or cured meats, such as sausages, meat loaves, and hot dogs. Dairy Cheeses. Beverages Regular soft drinks. Regular vegetable juice. Seasonings and condiments Seasoning blends with salt. Salad dressings. Soy sauce. Ketchup. Barbecue sauce. Other foods Canned soups. Canned pasta sauce. Casseroles. Pizza. Lasagna. Frozen meals. Potato chips. Turkish fries. The items listed above may not be a complete list of foods and beverages you should limit. Contact a dietitian for more information. What foods should I avoid? Talk to your dietitian about specific foods you should avoid based on the type of kidney stones you have and your overall health. Fruits Grapefruit. The item listed above may not be a complete list of foods and beverages you should avoid. Contact a dietitian for more information. Summary Kidney stones are deposits of minerals and salts that form inside your kidneys. You can lower your risk of kidney stones by making changes to your diet. The most important thing you can do is drink enough fluid. Drink enough fluid to keep your urine pale yellow. Talk to your dietitian about how much calcium you should have each day, and eat less salt and animal protein as told by your dietitian. This information is not intended to replace advice given to you by your health care provider. Make sure you discuss any questions you have with your health care provider. Document Revised: 08/03/2022 Document Reviewed: 08/03/2022 Associated Content Patient Education 2022 [employer]. 11/20/2023 08:54:31 [facility] - Cystoscopy with Stent Removal Discharge Instructions (CUSTOM) Cystoscopy with Stent Removal Voiding after the procedure: there may be some pain, burning, urgency, frequency and blood tinged urine following the procedure. These symptoms usually resolve within 2-5 days. Drink the amount of fluid it takes to keep the urine pink to yellow or clear in color. Drinking enough water and fluids will help to ease any discomfort after your procedure. If you are having problems that seem out of the ordinary, please call. If unable to contact your physician and you feel it is an emergency, go to the nearest emergency room or call 911 Diet you may resume your normal diet. Activity you may resume your normal activities Call if you have a fever over 100 degrees. Follow Up Care 11/19/2023 11:47:38 With:Vanessa Schultz Address: [address] [place] [phone] Business (1) [facility] Neri Iglesias, [address] [address] [phone] Business (1) When: Unknown Comments:Office to schedule follow up in 6 months with renal US and KUB. Obtain renal US in 6 weeks to ensure no blockage develops after surgery, will call with results [facility] Clinical Note 11-20-2023 Note Date & Type Note Facility 11-20-2023 Note Patient Education Cystoscopy with Stent Removal ? Voiding after the procedure: there may be some pain, burning, urgency, frequency and blood tinged urine following the procedure. These symptoms usually resolve within 2-5 days. Drink the amount of fluid it takes to keep the urine pink to yellow or clear in color. Drinking enough water and fluids will help to ease any discomfort after your procedure. ? If you are having problems that seem out of the ordinary, please call. ? If unable to contact your physician and you feel it is an emergency, go to the nearest emergency room or call 911 ? Diet ? you may resume your normal diet. ? Activity ? you may resume your normal activities ? Call if you have a fever over 100 degrees. Nephrology Dietary Guidelines to Help Prevent Kidney Stones Kidney stones are deposits of minerals and salts that form inside your kidneys. Your risk of developing kidney stones may be greater depending on your diet, your lifestyle, the medicines you take, and whether you have certain medical conditions. Most people can lower their risks of developing kidney stones by following these dietary guidelines. Your dietitian may give you more specific instructions depending on your overall health and the type of kidney stones you tend to develop. What are tips for following this plan? Reading food labels ? Choose foods with no salt added or low-salt labels. Limit your salt (sodium) intake to less than 1,500 mg a day. ? Choose foods with calcium for each meal and snack. Try to eat about 300 mg of calcium at each meal. Foods that contain 200?500 mg of calcium a serving include: ? 8 oz (237 mL) of milk, bhsycud-bkuhjonfiaqn-wcfjh milk, and calcium-fortifiedfruit juice. Calcium-fortified means that calcium has been added to these drinks. ? 8 oz (237 mL) of kefir, yogurt, and soy yogurt. ? 4 oz (114 g) of tofu. ? 1 oz (28 g) of cheese. ? 1 cup (150 g) of dried figs. ? 1 cup (91 g) of cooked broccoli. ? One 3 oz (85 g) can of sardines or mackerel. Most people need 1,000?1,500 mg of calcium a day. Talk to your dietitian about how much calcium is recommended for you. Shopping ? Buy plenty of fresh fruits and vegetables. Most people do not need to avoid fruits and vegetables, even if these foods contain nutrients that may contribute to kidney stones. ? When shopping for convenience foods, choose: ? Whole pieces of fruit. ? Pre-made salads with dressing on the side. ? Low-fat fruit and yogurt smoothies. ? Avoid buying frozen meals or prepared deli foods. These can be high in sodium. ? Look for foods with live cultures, such as yogurt and kefir. ? Choose high-fiber grains, such as whole-wheat breads, oat bran, and wheat cereals. Cooking ? Do not add salt to food when cooking. Place a salt shaker on the table and allow each person to add their own salt to taste. ? Use vegetable protein, such as beans, textured vegetable protein (TVP), or tofu, instead of meat in pasta, casseroles, and soups. Meal planning ? Eat less salt, if told by your dietitian. To do this: ? Avoid eating processed or pre-made food. ? Avoid eating fast food. ? Eat less animal protein, including cheese, meat, poultry, or fish, if told by your dietitian. To do this: ? Limit the number of times you have meat, poultry, fish, or cheese each week. Eat a diet free of meat at least 2 days a week. ? Eat only one serving each day of meat, poultry, fish, or seafood. ? When you prepare animal proteins, cut pieces into small portion sizes. For most meat and fish, one serving is about the size of the palm of your hand. ? Eat at least five servings of fresh fruits and vegetables each day. To do this: ? Keep fruits and vegetables on hand for snacks. ? Eat one piece of fruit or a handful of berries with breakfast. ? Have a salad and fruit at lunch. ? Have two kinds of vegetables at dinner. ? You may be told to limit foods that are high in a substance called oxalate. These include: ? Spinach (cooked), rhubarb, beets, sweet potatoes, and [place] chard. ? Peanuts. ? Potato chips, turkmen fries, and baked potatoes with skin on. ? Nuts and nut products. ? Chocolate. ? If you regularly take a diuretic medicine, make sure to eat at least 1 or 2 servings of fruits or vegetables that are high in potassium each day. These include: ? Avocado. ? Banana. ? [place], prune, carrot, or tomato juice. ? Baked potato. ? Cabbage. ? Beans and split peas. Lifestyle ? Drink enough fluid to keep your urine pale yellow. This is the most important thing you can do. Spread your fluid intake throughout the day. ? If you drink alcohol: ? Limit how much you have to: ? 0?1 drink a day for women who are not . ? 0?2 drinks a day for men. ? Know how much alcohol is in your drink. In the [place] one drink equals one 12 oz bottle of beer (355 mL), one 5 oz glass of wine (148 mL), o (more content not included)... [facility] Discharge instructions 11-12-2023 Note Date & Type Note Facility 11-12-2023 Hospital Discharg e instructions Patient Education 11/12/2023 13:56:02 Lithotripsy Lithotripsy Lithotripsy is a treatment that can help break up kidney stones that are too large to pass on their own. This is a nonsurgical procedure that crushes a kidney stone with shock waves. These shock waves pass through your body and focus on the kidney stone. They cause the kidney stone to break up into smaller pieces while it is still in the urinary tract. The smaller pieces of stone can pass more easily out of your body in the urine. Tell a health care provider about: Any allergies you have. All medicines you are taking, including vitamins, herbs, eye drops, creams, and zrqi-ptp-dtdohcb medicines. Any problems you or family members have had with anesthetic medicines. Any blood disorders you have. Any surgeries you have had. Any medical conditions you have. Whether you are or may be . What are the risks? Generally, this is a safe procedure. However, problems may occur, including: Infection. Bleeding from the kidney. Bruising of the kidney or skin. Scarring of the kidney, which can lead to: ?Increased blood pressure. ?Poor kidney function. ?Return (recurrence) of kidney stones. Damage to other structures or organs, such as the liver, colon, spleen, or pancreas. Blockage (obstruction) of the tube that carries urine from the kidney to the bladder (ureter). Failure of the kidney stone to break into pieces (fragments). What happens before the procedure? Staying hydrated Follow instructions from your health care provider about hydration, which may include: Up to 2 hours before the procedure you may continue to drink clear liquids, such as water, clear fruit juice, black coffee, and plain tea. Eating and drinking restrictions Follow instructions from your health care provider about eating and drinking, which may include: 8 hours before the procedure stop eating heavy meals or foods, such as meat, fried foods, or fatty foods. 6 hours before the procedure stop eating light meals or foods, such as toast or cereal. 6 hours before the procedure stop drinking milk or drinks that contain milk. 2 hours before the procedure stop drinking clear liquids. Medicines Ask your health care provider about: Changing or stopping your regular medicines. This is especially important if you are taking diabetes medicines or blood thinners. Taking medicines such as aspirin and ibuprofen. These medicines can thin your blood. Do not take these medicines unless your health care provider tells you to take them. Taking hozj-baj-uqubcag medicines, vitamins, herbs, and supplements. Tests You may have tests, such as: Blood tests. Urine tests. Imaging tests, such as a CT scan. General instructions Plan to have someone take you home from the hospital or clinic. If you will be going home right after the procedure, plan to have someone with you for 24 hours. Ask your health care provider what steps will be taken to help prevent infection. These may include washing skin with a germ-killing soap. What happens during the procedure? An IV will be inserted into one of your veins. You will be given one or more of the following: ?A medicine to help you relax (sedative). ?A medicine to make you fall asleep (general anesthetic). A water-filled cushion may be placed behind your kidney or on your abdomen. In some cases, you may be placed in a tub of lukewarm water. Your body will be positioned in a way that makes it easy to target the kidney stone. An X-ray or ultrasound exam will be done to locate your stone. Shock waves will be aimed at the stone. If you are awake, you may feel a tapping sensation as the shock waves pass through your body. A flexible tube with holes in it (stent) may be placed in the ureter. This will help keep urine flowing from the kidney if the fragments of the stone have been blocking the ureter. The procedure may vary among health care providers and hospitals. What happens after the procedure? You may have an X-ray to see whether the procedure was able to break up the kidney stone and how much of the stone has passed. If large stone fragments remain after treatment, you may need to have a second procedure at a later time. Your blood pressure, heart rate, breathing rate, and blood oxygen level will be monitored until you leave the hospital or clinic. You may be given antibiotics or pain medicine as needed. If a stent was placed in your ureter during surgery, it may stay in place for a few weeks. You may need to strain your urine to collect pieces of the kidney stone for testing. You will need to drink plenty of water. If you were given a sedative during the procedure, it can affect you for several hours. Do not drive or operate machinery until your health care provider says that it is safe. Summary Lithotripsy is a treatment that can help break up kidney stones that are too large to pass on their own. Lithotripsy is a nonsurgical procedure that crushes a kidney stone with shock waves. Generally, this is a safe procedure. However, problems may occur, including damage to the kidney or other organs, infection, or obstruction of the tube that carries urine from the kidney to the bladder (ureter). You may have a stent placed in your ureter to help drain your urine. This stent may stay in place for a few weeks. After the procedure, you will need to drink plenty of water. You may be asked to strain your urine to collect pieces of the kidney stone for testing. This information is not intended to replace advice given to you by your health care provider. Make sure you discuss any questions you have with your health care provider. Document Revised: 03/20/2022 Document Reviewed: 12/26/2021 Associated Content Patient Education 2022 [employer]. Follow Up Care 11/09/2023 13:32:06 With:Antoine PEREZ, Vanessa Montgomery UREdgardo, URO Address: When: Unknown [facility] Clinical Note 11-12-2023 Note Date & Type Note Facility 11-12-2023 Note Patient Education Nephrology Lithotripsy Lithotripsy is a treatment that can help break up kidney stones that are too large to pass on their own. This is a nonsurgical procedure that crushes a kidney stone with shock waves. These shock waves pass through your body and focus on the kidney stone. They cause the kidney stone to break up into smaller pieces while it is still in the urinary tract. The smaller pieces of stone can pass more easily out of your body in the urine. Tell a health care provider about: ? Any allergies you have. ? All medicines you are taking, including vitamins, herbs, eye drops, creams, and ynxl-uny-pbtlart medicines. ? Any problems you or family members have had with anesthetic medicines. ? Any blood disorders you have. ? Any surgeries you have had. ? Any medical conditions you have. ? Whether you are or may be . What are the risks? Generally, this is a safe procedure. However, problems may occur, including: ? Infection. ? Bleeding from the kidney. ? Bruising of the kidney or skin. ? Scarring of the kidney, which can lead to: ? Increased blood pressure. ? Poor kidney function. ? Return (recurrence) of kidney stones. ? Damage to other structures or organs, such as the liver, colon, spleen, or pancreas. ? Blockage (obstruction) of the tube that carries urine from the kidney to the bladder (ureter). ? Failure of the kidney stone to break into pieces (fragments). What happens before the procedure? Staying hydrated Follow instructions from your health care provider about hydration, which may include: ? Up to 2 hours before the procedure ? you may continue to drink clear liquids, such as water, clear fruit juice, black coffee, and plain tea. Eating and drinking restrictions Follow instructions from your health care provider about eating and drinking, which may include: ? 8 hours before the procedure ? stop eating heavy meals or foods, such as meat, fried foods, or fatty foods. ? 6 hours before the procedure ? stop eating light meals or foods, such as toast or cereal. ? 6 hours before the procedure ? stop drinking milk or drinks that contain milk. ? 2 hours before the procedure ? stop drinking clear liquids. Medicines Ask your health care provider about: ? Changing or stopping your regular medicines. This is especially important if you are taking diabetes medicines or blood thinners. ? Taking medicines such as aspirin and ibuprofen. These medicines can thin your blood. Do not take these medicines unless your health care provider tells you to take them. ? Taking gosj-gnf-rnoyoof medicines, vitamins, herbs, and supplements. Tests You may have tests, such as: ? Blood tests. ? Urine tests. ? Imaging tests, such as a CT scan. General instructions ? Plan to have someone take you home from the hospital or clinic. ? If you will be going home right after the procedure, plan to have someone with you for 24 hours. ? Ask your health care provider what steps will be taken to help prevent infection. These may include washing skin with a germ-killing soap. What happens during the procedure? ? An IV will be inserted into one of your veins. ? You will be given one or more of the following: ? A medicine to help you relax (sedative). ? A medicine to make you fall asleep (general anesthetic). ? A water-filled cushion may be placed behind your kidney or on your abdomen. In some cases, you may be placed in a tub of lukewarm water. ? Your body will be positioned in a way that makes it easy to target the kidney stone. ? An X-ray or ultrasound exam will be done to locate your stone. ? Shock waves will be aimed at the stone. If you are awake, you may feel a tapping sensation as the shock waves pass through your body. ? A flexible tube with holes in it (stent) may be placed in the ureter. This will help keep urine flowing from the kidney if the fragments of the stone have been blocking the ureter. The procedure may vary among health care providers and hospitals. What happens after the procedure? ? You may have an X-ray to see whether the procedure was able to break up the kidney stone and how much of the stone has passed. If large stone fragments remain after treatment, you may need to have a second procedure at a later time. ? Your blood pressure, heart rate, breathing rate, and blood oxygen level will be monitored until you leave the hospital or clinic. ? You may be given antibiotics or pain medicine as needed. ? If a stent was placed in your ureter during surgery, it may stay in place for a few weeks. ? You may need to strain your urine to collect pieces of the kidney stone for testing. ? You will need to drink plenty of water. ? If you were given a sedative during the procedure, it can affect you for several hours. Do not drive or operate machinery until your health care provider says that it i (more content not included)... [facility] Evaluation + Plan note Note Date & Type Note Facility Evaluation + Plan note Future Appointments Appointment Date:11/14/2023 09:15:00 AM Scheduled Provider:Vanessa Schultz MD Location:[facility] Appointment Type:URO New Patient [facility] Jorge Evaluation + Plan note Note Date & Type Note Facility Evaluation + Plan note Future Appointments Appointment Date:05/05/2024 12:30:00 PM Scheduled Provider:Vanessa Schultz MD Location:[facility] Appointment Type:URO Office Visit [facility] Hospital course Narrative Note Date & Type Note Facility Hospital course Narrative No data available for this section [facility] Hospital Discharge instructions Note Date & Type Note Facility Hospital Discharge instructions No data available for this section [facility] Progress note Note Date & Type Note Facility Progress note No data available for this section [facility] Summary Purpose Family History No Family History Records FoundNo Family History Records Found No data available for this section No data available for this section No data available for this section No data available for this section No data available for this section No Family History Records FoundNo Family History Records Found Advance Directives No Advanced Directives Records FoundNo Advanced Directives Records FoundNo Advanced Directives Records FoundNo Advanced Directives Records Found Additional Source Comments INFORMATION SOURCE (unrecogn ized section and content) DATE CREATED AUTHOR 10/29/2017 [facility] DATE CREATED AUTHOR AUTHOR'S ORGANIZ ATION 02/26/2021 [facility] DATE CREATED AUTHOR AUTHOR'S ORGANIZ ATION 11/23/2023 [facility] DATE CREATED AUTHOR AUTHOR'S ORGANIZ ATION 01/04/2024 [facility] EPIC Patient Care team informatio n (unrecognized section and content) Personnel Name: CASSIDY BERUMEN CNP Address: Address: [address] [place] [address] FOR RECORDS PERTAINING TO PATIENTS WHO ARE OR HAVE BEEN ENROLLED IN A CHEMICAL DEPENDENCY/SUBSTANCEABUSE PROGRAM, SOME INFORMATION MAY BE OMITTED. This clinical summary was aggregated from multiple sources. Caution should be exercised in using it in the provision of clinical care. This summary normalizes information from multiple sources, and as a consequence, information in this document may materially change the coding, format and clinical context of patient data. In addition, data may be omitted in some cases. CLINICAL DECISIONS SHOULD BE BASED ON THE PRIMARY CLINICAL RECORDS. [facility] [employer] [facility]. provides no warranty or guarantee of the accuracy or completeness of information in this document.
[2024-01-08 09:18] LABS: Basophils Percent Auto 0.6 % (0.2-2.0); Eosinophils Absolute Auto 0.3 10^3/uL (0.0-0.7); Eosinophils Percent Auto 4.3 % (0.9-7.0); Hematocrit 40.5 % (36.0-48.0); Immature Granulocytes Abs Auto 0.03 10^3/uL (0.00-0.03); Immature Granulocytes Pct Auto 0.5 % (0.0-0.5); Lymphocytes Absolute Auto 1.4 10^3/uL (1.2-3.8); Lymphocytes Percent Auto 21.4 % (20.5-60.0); Mean Corpuscular HGB Conc 32.1 g/dL (29.9-35.2); Mean Corpuscular Hemoglobin 29.1 pg (26.7-34.0); Mean Corpuscular Volume 90.8 fL (81.0-99.0); Mean Platelet Volume 10.2 fL (9.5-13.5); Monocytes Absolute Auto 0.5 10^3/uL (0.3-0.8); Monocytes Percent Auto 7.5 % (1.7-12.0); Neutrophils Absolute Auto 4.3 10^3/uL (1.4-6.5); Neutrophils Percent Auto 65.7 % (43.0-75.0); Platelet Count 217 10^3/uL (150-450); Red Blood Count 4.46 10^6/uL (4.20-5.40); Red Cell Distribution Width 13.7 % (11.0-15.0); White Blood Count 6.6 10^3/uL (4.0-11.0)
[2024-01-08 09:56] LABS: Estimated Average Glucose 146 mg/dL; Glycohemoglobin A1C 6.7 % (4.5-6.2)
[2024-01-08 10:03] LABS: Creatinine Urine Random 172.89 mg/dL (20.00-300.00); Microalbumin Urine Random <1.3 mg/dL (<=30.0)
[2024-01-08 10:21] LABS: Alanine Aminotransferase 27 U/L (14-59); Albumin Globulin Ratio 1.3; Albumin Level 3.8 g/dL (3.4-5.0); Alkaline Phosphatase 76 U/L (46-116); Anion Gap 12.7; Aspartate Amino Transferase 16 U/L (15-37); BUN Creatinine Ratio 21.4; Bilirubin Total 0.8 mg/dL (0.2-1.0); Carbon Dioxide 30.3 mmol/L (21.0-32.0); Chloride 102 mmol/L (98-107); Chol HDL Ratio 2.8; Cholesterol 162 mg/dL (<=200); Estimated GFR (African America >60 (>=60); Estimated GFR (Non-African Ame >60 (>=60); Globulin 2.9 g/dL; Glucose 109 mg/dL (74-106); HDL Cholesterol 57 mg/dL (40-60); LDL Cholesterol Calculated 86.2 mg/dL; Sodium 141 mmol/L (136-145); Total Protein 6.7 g/dL (6.4-8.2); Triglycerides 94 mg/dL (<=150); VLDL CHOLESTEROL 18.8 mg/dL
[2024-01-08 10:48] LABS: Bilirubin Urine NEGATIVE (NEGATIVE); Blood Urine TRACE-I (NEGATIVE); Clarity Urine CLEAR (CLEAR); Color Urine YELLOW (YELLOW); Glucose Urine UA NEGATIVE (NEGATIVE); Ketones Urine NEGATIVE (NEGATIVE); Leukocyte Esterase Urine NEGATIVE (NEGATIVE); Nitrite Urine NEGATIVE (NEGATIVE); Protein Urine NEGATIVE (NEG/TRACE); Specific Gravity Urine >=1.030 (1.005-1.025); Urobilinogen Urine 0.2 EU/dL (0.2-1.0); pH Urine 5.5 (5.0-9.0)
[2024-01-08 10:49] LABS: Urine Microscopic Indicated YES
[2024-01-08 10:58] LABS: Bacteria Urine NONE SEEN #/HPF (NONE SEEN); RBC Urine 0-2 #/HPF (0-2); WBC Urine 0-2 #/HPF (NONE SEEN)
[2024-01-08 10:59] LABS: Mucus Urine SMALL (NONE SEEN); Squamous Epithelial Cell Urine FEW #/LPF (NONE/RARE)
== END 2024-01-08 08:54 | disposition home or self-care (01) ==
LOC: LAB 08:53
PROVIDERS: PCP Nurse Practitioner; Visit Provider Nurse Practitioner
DX: Z00.00 Encounter for general adult medical examination without abnormal findings (principal)
CPT/HCPCS: 36415; 80053; 80061; 81001; 82043; 82570; 83036; 85025

== ENCOUNTER 2024-01-10 08:51 | Outpatient (OUT) | payer OTHER, SELFPAY ==
--- NOTE | 2024-01-10 08:55 | MM_ITS ---
Patient Name: JORDAN HOLLY MR#: [id number] : 1960 Exam Date: 01/10/2024 Ordering Doctor: CHRYSTAL Workman CNP RADIOLOGY REPORT PROCEDURE: MM TOMOSYNTHESIS SCREENING BI COMPARISON: MG MAMM SCREEN 3D HAY CAD, 01/25/2021. MG MAMM SCREEN HAY W CAD, 12/23/2019. MG MAMM HAY SCRN W CAD DIG, 08/31/2015. MG MAMM RT UNI W CAD DIG, 12/09/2012. INDICATIONS: Screening Calculator Name NCI Breast Cancer Risk Assessment Tool 5 Year Breast Cancer Risk 1.40% Lifetime Breast Cancer Risk 6.20% Personal Breast Cancer No Personal Ovarian Cancer No Treatments None Family Cancers None LOCATION: [facility] BREAST COMPOSITION: There are scattered areas of fibroglandular density. FINDINGS: DIAGNOSTIC CATEGORY 1--NEGATIVE. RIGHT BREAST: No significant suspicious finding. No significant change has occurred. LEFT BREAST: No significant suspicious finding. No significant change has occurred. RECOMMENDATIONS: ROUTINE MAMMOGRAM AND CLINICAL EVALUATION IN 12 MONTHS. PLEASE NOTE: A NORMAL MAMMOGRAM DOES NOT EXCLUDE THE POSSIBILITY OF BREAST CANCER. A CLINICALLY SUSPICIOUS PALPABLE LUMP SHOULD BE BIOPSIED. Dictated by: Eliazar Chung M.D. on 01/11/2024 at 14:39 Approved by: Eliazar Chung M.D. on 01/11/2024 at 14:41
--- OUTSIDE RECORDS SUMMARY | 2024-01-10 08:57 | XMS_ITS | CCD ---
Author Organization [facility] Care Team Providers Care Vp Cardiovascular Service Line Name Role Phone PHYSICIAN, DEFAULT Unavailable Unavailable PHYSICIAN, DEFAULT Unavailable Unavailable SERA CHAPPELL Unavailable Unavailable AICHHOLZ, INSTRUCTOR ADJUNCT SURGICAL TECHNICIAN CASSIDY Admitting Unavailable AICHHOLZ, INSTRUCTOR ADJUNCT SURGICAL TECHNICIAN CASSIDY Attending Unavailable AICHHOLZ, INSTRUCTOR ADJUNCT SURGICAL TECHNICIAN CASSIDY Consulting Unavailable AICHHOLZ, INSTRUCTOR ADJUNCT SURGICAL TECHNICIAN CASSIDY Primary Care Unavailable KAIT SALDIVAR Admitting Unavailable AICHHOLZ, INSTRUCTOR ADJUNCT SURGICAL TECHNICIAN CASSIDY Primary Care Unavailable KAIT SALDIVAR Attending Unavailable DR LEANDRA SERNA V Consulting Unavailable KAIT SALDIVAR Consulting Unavailable AICHHOLZ, INSTRUCTOR ADJUNCT SURGICAL TECHNICIAN CASSIDY Primary Care Unavailable AICHHOLZ, INSTRUCTOR ADJUNCT SURGICAL TECHNICIAN CASSIDY Admitting Unavailable AICHHOLZ, INSTRUCTOR ADJUNCT SURGICAL TECHNICIAN CASSIDY Attending Unavailable AICHHOLZ, INSTRUCTOR ADJUNCT SURGICAL TECHNICIAN CASSIDY Consulting Unavailable DR PASTORA TY Consulting Unavailable AICHHOLZ, INSTRUCTOR ADJUNCT SURGICAL TECHNICIAN CASSIDY Primary Care Unavailable AICHHOLZ, INSTRUCTOR ADJUNCT SURGICAL TECHNICIAN CASSIDY Admitting Unavailable AICHHOLZ, INSTRUCTOR ADJUNCT SURGICAL TECHNICIAN CASSIDY Attending Unavailable DAPHNE, DR LEANDRA Cavanaugh Consulting Unavailable AICHHOLZ, INSTRUCTOR ADJUNCT SURGICAL TECHNICIAN CASSIDY Consulting Unavailable ELTAGLADIS, DR DICKERSON Attending Unavailable NATHALIE, DR DICKERSON Consulting Unavailable NATHALIE, DR DICKERSON Admitting Unavailable AICHHOLZ, INSTRUCTOR ADJUNCT SURGICAL TECHNICIAN CASSIDY Primary Care Unavailable AICHHOLZ, CASSIDY J Primary Care Physician [phone] Vanessa Schultz Attending Unavailable Vanessa Schultz Referring [...] Penicillins Drug allergy (disorder) 6 AOF [facility] Repository (5 sources) Penicillin; Translations: [penicillin] Drug Allergy Anaphylaxis (disorder) [facility] Medications Current Medications Medication Drug Class(es) Dates [...] disease (5 sources) Atherosclerotic heart disease of [place] coronary artery without angina pectoris; Translations: [Coronary [...] source) Long-term current use of anticoagulant; Translations: [FDC (current) use of anticoagulants] Onset: 11-12-2023 Episodic [...] 11-20-2023 Inpatient Patient Summary Inpatient Patient Summary [place] [id number] Clinical Summary Person Information Name: JORDAN HOLLY Age: 63 Years : 1960 Sex: Female PCP: CASSIDY BERUMEN CNP Marital Status: Race: White Ethnicity: Non- or Language: Romanian Visit Id: Visit Reason: URETERAL STONE WITH HYDRONEPHROSIS Speciality: Acuity: Enc Type: Outpatient Med Service: Surgery Arrival: 11/20/2023 07:48:23 Discharge: Dispo Type: Address: [address] [facility] [id number] Provider Notes: Diagnosis: Encounter for removal of [...] Follow up: With: Address: When: Vanessa Schultz [address], [place] [id number] [phone] Business (1) [address], [address], [facility] [address] [place] [id number] [phone] Business (1) Comments: Office to schedule follow up in 6 months with renal US and KUB. Obtain renal US in 6 weeks to ensure no blockage develops after surgery, will call with results Patient Education Information: Dietary Guidelines to Help Prevent Kidney Stones; EU - Cystoscopy with Stent Removal Discharge Instructions (CUSTOM) Radha [facility] Main OR Intraoperative Recor don 11-20-2023 Main OR Intraoperative Record Main OR Intraoperative Record IntraOp Document Type FTURO Summary Primary Physician: Vanessa Schultz MD Finalized Date/Time: 11/20/23 08:53:11 Pt. Name: JORDAN HOLLY Jorge/Sex: 1960 Female Med Rec #: [id number] Physician: Vanessa Schultz MD Financial #: [id number] Pt. Type: O Room/Bed: / Admit/Disch: 11/20/23 [...] Jackson CST Role Performed Surgeon - Primary Quill Machine Tender - Primary Scrub - Primary Time In [...] Prep Agents Betadine Solution Skin. Condition Intact, [place], Warm, and Dry Additional None Specimens Collected [...] By: Hillary Forman RN 11/20/23 08:53 Normal [facility] [place] [facility] Main OR Preoperative Recordo n 11-20-2023 Main OR Preoperative Record Main OR Preoperative Record Holding Area Document Type FTURO Summary Primary Physician: Vanessa Schultz MD Finalized Date/Time: 11/20/23 08:20:18 Pt. Name: JORDAN HOLLY Edgardo DayB./Sex: 1960 Female Med Rec #: [id number] Physician: Vanessa Schultz MD Financial #: [id number] Pt. Type: O Room/Bed: / Admit/Disch: 11/20/23 [...] JASON Boyce RN, Ruthann 11/20/23 08:20 Normal [facility] [place] [facility] Operative Reporton Operative Report Operative Report Patient: JORDAN HOLLY Age: 63 years Sex: Female : 1960 Associated Diagnoses: None Author: Vanessa Schultz MD Procedure Operative Information Details: Date/ Time: 11/20/2023 08:55:00. Pre-Op Dx: Encounter for removal of ureteral stent ([id number] Z46.6, Discharge, Medical). Post-Op Dx: Same. Anesthesia [...] for dietary modifications and increased fluids. Normal [facility] Comment on above: Result Comment: Elec tronically Signed By: Vanessa Schultz MD\.br\Date and Time Signed: 11/20/23 08:56 EDT Outpatient Surgery Discharge Instructionon 11-20-2023 Outpatient Surgery Discharge Instruction Outpatient Surgery Discharge Instruction [place] [id number] Patient Discharge Instructions PERSON INFORMATION Name: JORDAN [...] Vanessa Schultz [address], [place] [address] [phone] Business (1) [address], [address], [facility] [address] [place] [address] [phone] [employer] (1) Comments: Office to schedule follow up [...] Spinach (cooked), rhubarb, beets, sweet potatoes, and Rw[place]an chard. ? Peanuts. ? Potato chips, libyan fries, and baked potatoes with skin on. ? Nuts and nut products. ? Chocolate. ? If you regularly take a diuretic medicine, make sure to eat at least 1 or 2 servings of fruits or vegetables that are high in potassium each day. These include: ? Avocado. ? Banana. ? [place], prune, carrot, or tomato juice. ? Baked potato. ? Cabbage. ? Beans and split peas. Lifestyle (more content not included)... [facility] Reminderson 11-20-2023 Reminders Reminders From: Lashanda Cummins [...] scheduled for 05/05/24 @ 12:30 PM in [place]. (Patient wanted the f/u prior to the beginning of the year due to insurance cost/concerns.) [facility] Ambulatory Visit Summaryon 0 11-12-2023 Ambulatory Visit [...] including vitamins, herbs, eye drops, creams, and objj-oeg-konuqow medicines. ? Any problems you or family [...] health c (more content not included)... Normal [facility] [place] [facility] Ambulatory Visit Summary Ambulatory Visit Summary JORDAN [...] including vitamins, herbs, eye drops, creams, and zfns-mgs-nuioxby medicines. ? Any problems you or family [...] health c (more content not included)... Normal [facility] [place] [facility] Urology Office/Clinic Noteon 11-12-2023 Urology Office/Clinic Note [...] new to our office due to recent [facility] ER visit for 7 mm left ureteral stone. S/p hysterectomy. BBSQ 19 (stent) 1. Ureteral stone with hydronephrosis (N13.2: Hydronephrosis with renal and ureteral calculous obstruction) Hx of stones. Has always passed on her own. Last episode was >12 mos ago. Pt presented to [facility] ER 11/01/23 with abdominal pain, right [...] was discharged home with Flomax, Keflex, and [place] and told to follow up with our office. Pt presented back to [facility] ER 11/02/23 due to left flank pain and left lower quadrant pain. KUB 11/02/23 [facility] - suspected 9 mm left ureterolith. [...] Risks li (more content not included)... Normal [facility] Comment on above: Result Comment: Elec tronically Signed By: Antoine PEREZ, Vanessa Montgomery\.br\Date and Time Signed: 11/12/23 14:14 EDT\.br\Electronically Co-Signed By: Jennifer Ashley\Date and Time Co-Signed: 11/12/23 14:07 EDT GLYCOHEMOGLOBIN A1Con 2020 ADA RECOMMENDATION ADA THERAPEUTIC TARGET 6.0 - 7.0 ACTION SUGGESTED > 7.0 Normal [facility] Comment on above: Performed By: #### A 1C #### [facility] [address] [place] [address] [address] Quirino Zelaya Glucose [Mass/Vol] 154 mg/dL Normal [facility] Comment on above: Performed By: #### A 1C #### [facility] [address] [place] [address] [address] Quirino Zelaya HbA1c (Bld) [Mass fraction] 7.0 % Critically high <=6.0 [facility] Comment on above: Performed By: #### A 1C #### [facility] [address] [place] [address] [address] Quirino Zelaya XR KUB 1 VIEWon [...] by: PASTORA TY Date: 2021-02-08 09:53 Normal [facility] MG MAMM SCREEN 3D HAY CADon 01-25-2021 MG MAMM SCREEN 3D HAY CAD Patient: JORDAN HOLLY Exam Date: 01/25/2021 : 1960 Gender:F Ordering : CHRYSTAL BERUMEN CNP Admission #: [id number] Family : Order #: [id number] CLICK HERE TO VIEW EXAM RADIOLOGY REPORT [...] Treatments None Family Cancers None LOCATION: The [facility] BREAST COMPOSITION: Scattered areas fibroglandular density. [...] MD on 01/25/2021 at 11:21 Normal [facility] AMYLASEon 01-19-2021 Amylase [Catalytic activity/Vol] 34 U/L Normal 31-110 [facility] Comment on above: Performed By: #### L HILLARY JUSTIN, CMP ####[facility] [address] [place] [address]Dr. Quirino Zelaya CBC W MANUAL DIFFon 01-20-20 21 ATYPICAL LYMPH # Normal [facility] Comment on above: Performed By: #### C JANIA ####[facility] [address] [place] [address]Dr. Quirino Zelaya ATYPICAL LYMPH % Normal [facility] Comment on above: Performed By: #### C JANIA ####[facility] [address] [place] [address]Dr. Quirino Zelaya BAND # Normal 0.0-0.3 The [facility] Comment on above: Performed By: #### C BCMAN ####[facility] [address]kn[address] [place] [address]Dr. Ayshalan Zelaya BAND % Normal 0-5 The [facility] Comment on above: Performed By: #### C BCMAN ####[facility] [address]up[address] [place] [address]Dr. Quirino Zelaya BASOM # 0.08 103/ul Normal 0.00-0.10 [facility] Comment on above: Performed By: #### C JANIA ####[facility] [address]ru[address]yl[address] [place] [address]Dr. Quirino Zelaya BASOM % 1.0 % Normal 0.2-2.0 The [facility] Comment on above: Performed By: #### C JANIA ####[facility] [address]ht[address] [place] [address]Dr. Quirino Zelaya BLAST # Normal [facility] Comment on above: Performed By: #### C JANIA ####[facility] Yiywsohlcg[address] [place] [address]Dr. Quirino Zelaya BLAST % Normal The [facility] Comment on above: Performed By: #### C JANIA ####[facility] [address] [place], [place] [address]Dr. Quirino Zelaya CORRECTED WBC Normal 4.0-11.0 The [facility] Comment on above: Performed By: #### C JANIA ####[facility] [address] [place], [place] [address]Dr. Quirino Zelaya EOS # 0.24 103/ul Normal 0.00-0.70 The [facility] Comment on above: Performed By: #### C JANIA ####[facility] [address] [place], [place] [address]Dr. Quirino Zelaya EOS% 3.0 % Normal 0.9-7.0 The [facility] Comment on above: Performed By: #### C JANIA ####[facility] [address] [place], [place] [address]Dr. Quirino Zelaya HCT 40.3 % Normal 36.0-48.0 The [facility] Comment on above: Performed By: #### C JANIA ####[facility] [address] [place], [place] [address]Dr. Quirino Zelaya HGB 13.1 g/dl Normal 12.0-16.0 The [facility] Comment on above: Performed By: #### C JANIA ####[facility] X[address] [place], [place] [address]Dr. Quirino Zelaya LYMPHM # 1.68 103/ul Normal 1.20-3.80 The [facility] Comment on above: Performed By: #### C JANIA ####[facility] Fpvfggephy0295 [place] [address]Dr. Quirino Zelaya LYMPHM% 21.0 % Normal 20.5-60.0 The [facility] Comment on above: Performed By: #### C JANIA ####[facility] D[address]wjgbfhv[address] [place] [address]Dr. Quirino Zelaya MCH 28.9 pg Normal 26.7-34.0 The [facility] Comment on above: Performed By: #### C JANIA ####[facility] [address]oxeorepbs[address] [place] [address]Dr. Quirino Zelaya MCHC 32.5 g/dl Normal 29.9-35.2 The [facility] Comment on above: Performed By: #### C JANIA ####[facility] Y[address] [place] [address]Dr. Quirino Zelaya MCV 88.8 fL Normal 81.0-99.0 The [facility] Comment on above: Performed By: #### C JANIA ####[facility] Ucxlzutcxz7[address] [place] [address]Dr. Quirino Zelaya METAMYELOCYTE # Normal The [facility] Comment on above: Performed By: #### C JANIA ####[facility] Kstrybdchf230[address] [place] [address]Dr. Quirino Zelaya METAMYELOCYTE % Normal The [facility] Comment on above: Performed By: #### C JANIA ####[facility] Maayjhujel[address] [place] [address]Dr. Quirino Zelaya MONOM# 0.56 103/ul Normal 0.30-0.80 The [facility] Comment on above: Performed By: #### C JANIA ####[facility] Rijlcsfpxe9[address] [place] [address]Dr. Quirino Zelaya MONOM% 7.0 % Normal 1.7-12.0 The [facility] Comment on above: Performed By: #### C JANIA ####[facility] Ef[address]cd[address] [place] [address]Dr. Quirino Zelaya MPV 11.1 fL Normal 9.5-13.5 The [facility] Comment on above: Performed By: #### C JANIA ####[facility] Kldgdcenxw6[address] [place] [address]Dr. Quirino Zelaya MYELOCYTE # Normal The [facility] Comment on above: Performed By: #### C JANIA ####[facility] Jsdijtkftm1760 [place] [address]Dr. Quirino Zelaya MYELOCYTE % Normal The [facility] Comment on above: Performed By: #### C JANIA ####[facility] Vruuwuzlme[address] [place] [address]Dr. Quirino Zelaya NRBC Normal The [facility] Comment on above: Performed By: #### C JANIA ####[facility] Xskqavvnou8685 [place] [address]Dr. Quirino Zelaya PLT 180 103/ul Normal 150-450 The [facility] Comment on above: Performed By: #### C JANIA ####[facility] Qwtp[address] [place], [place] [address]Dr. Quirino Zelaya RBC 4.54 106/ul Normal 4.20-5.40 The [facility] Comment on above: Performed By: #### C JANIA ####[facility] Cdnpdoyaaf3021 [place] [address]Dr. Quirino Zelaya RDW 12.9 % Normal 11.0-15.0 The [facility] Comment on above: Performed By: #### C JANIA ####[facility] Qmkeqbqvme8775 [place] [address]Dr. Quirino Zelaya SEG # 5.44 103/ul Normal 1.40-6.50 The [facility] Comment on above: Performed By: #### C JANIA ####[facility] Toczkhktup17[address] [place] [address]Dr. Quirino Zelaya SEG % 68.0 % Normal 43.0-75.0 The [facility] Comment on above: Performed By: #### Alexander DYKES ####[facility] Ilxqccx[address] [place], [place] [address]Dr. Quirino Zelaya WBC 8.0 103/ul Normal 4.0-11.0 The [facility] Comment on above: Performed By: #### C BCMAN ####[facility] M[address]wo[address] [place], [place] [address] ABD/PELVIS WO CONon 01-19 CT [...] LEANDRA SERNA Date: 2021-01-19 04:54 Normal The [facility] CULTURE URINEon 01-19-2021 CULTURE URINE Culture Observations : MODERATE GROWTH OF MIXED GENITAL DAVID. NO POTENTIAL PATHOGENS SEEN. Normal The [facility] Comment on above: Performed By: #### U RCX ####[facility] [address] [place], [place] [address]KcFish Zelaya ER URINE PROFILEon Bilirubin Ql (U) Negative Normal NEGATIVE [facility] Comment on above: Performed By: #### U MICRO, ERUR #### [facility] [address] [place] [address] [address] Quirino Zelaya Clarity (U) CLEAR Normal CLEAR The [facility] Comment on above: Performed By: #### U MICRO, ERUR #### [facility] [address] [place] [address] [address] Quirino Zelaya Color (U) YELLOW Normal YELLOW [facility] Comment on above: Performed By: #### U MICRO, ERUR #### [facility] [address] [place] [address] Dr. Quirino Zelaya ERUAHD A micrscopic examination will be performed if indicated. Normal The [facility] Comment on above: Performed By: #### U MICRO, ERUR #### [facility] [address] [place] [address] Dr. Quirino Zelaya Glucose Ql (U) Negative Normal NEGATIVE The [facility] Comment on above: Performed By: #### U MICRO, ERUR #### [facility] [address] [place] [address] [address] Quirino Zelaya Hemoglobin Ql (U) LARGE Abnormal NEGATIVE The [facility] Comment on above: Performed By: #### U MICRO, ERUR #### [facility] [address] [place] [address] Dr. Quirino Zelaya Ketones Ql (U) TRACE Abnormal NEGATIVE The [facility] Comment on above: Performed By: #### U MICRO, ERUR #### [facility] [address] [place] [address] [address] Quirino Zelaya LEUKOCYTES TRACE Abnormal NEGATIVE [facility] Comment on above: Performed By: #### U MICRO, ERUR #### [facility] [address] [place] [address] [address] Quirino Zelaya Nitrite Ql (U) Negative Normal NEGATIVE The [facility] Comment on above: Performed By: #### U MICRO, ERUR #### [facility] [address] [place] [address] Dr. Quirino Zelaya pH (U) 5.0 [pH] Normal 5-9 The [facility] Comment on above: Performed By: #### U MICRO, ERUR #### [facility] [address] [place] [address] [address] Quirino Zelaya SPEC GRAVITY >=1.030 Abnormal 1.005-<=1.025 [facility] Comment on above: Performed By: #### U MICRO, ERUR #### [facility] [address] [place] [address] [address] Quirino Zelyaa UA PROTEIN Negative Normal NEGATIVE/ TRACE The [facility] Comment on above: Performed By: #### U MICRO, ERUR #### [facility] [address] [place] [address] [address] Quirino Zelaya UR MICRO IND INDICATED Normal [facility] Comment on above: Performed By: #### U MICRO, ERUR #### [facility] [address] [place] [address] [address] Quirino Zelaya Urobilinogen Qn (U) 0.2 {Joan'U}/dL Normal 0.2 - 1. 0 [facility] Comment on above: Performed By: #### U MICRO, ERUR #### [facility] [address] [place] [address] [address] Quirino Zelaya LIPASEon 01-19-2021 Lipase [Catalytic activity/Vol] 104.0 U/L Normal 23.0-300.0 [facility] Comment on above: Performed By: #### L IPA, HILLARY, CMP ####[facility] [address] [place] [address]DrFish Zelaya PROF 14(COMP METB)on 021 Albumin [Mass/Vol] 3.8 g/dL Normal 3.5-5.0 [facility] Comment on above: Performed By: #### L IPA, HILLARY, CMP ####[facility] T[address]ulf[address] [place] [address]DrFish Zelaya Albumin/Globulin [Mass ratio] 1.2 {ratio} Normal [facility] Comment on above: Performed By: #### L IPA, HILLARY, CMP ####[facility] [address] [place] [address]DrFish Zelaya ALP [Catalytic activity/Vol] 71 U/L Normal 38-126 [facility] Comment on above: Performed By: #### L IPA HILLARY, CMP ####[facility] [address]llmsdp[address] [place] [address]Dr. Quirino Zelaya ALT [Catalytic activity/Vol] 29 U/L Normal 9-52 [facility] Comment on above: Performed By: #### L IPA HILLARY, CMP ####[facility] [address]fr[address]fbp[address] [place] [address]Dr. Quirino Zelaya Anion gap [Moles/Vol] 14.4 mmol/L Normal Th e [facility] Comment on above: Performed By: #### L IPA HILLARY, CMP ####[facility] [address] [place], [place] [address]Dr. Quirino Zelaya AST [Catalytic activity/Vol] 22 U/L Normal 14-36 [facility] Comment on above: Performed By: #### L IPA HILLARY, CMP ####[facility] [address] [place], [place] [address]Dr. Quirino Zelaya Bilirubin [Mass/Vol] 0.7 mg/dL Normal 0.2-1.3 The [facility] Comment on above: Performed By: #### L IPA HILLARY, CMP ####[facility] [address] [place], [place] [address]Dr. Quirino Zelaya Calcium [Mass/Vol] 9.4 mg/dL Normal 8.4-10.2 [facility] Comment on above: Performed By: #### L IPA HILLARY, CMP ####[facility] [address] [place], [place] [address]Dr. Quirino Zelaya Chloride [Moles/Vol] 101 mmol/L Normal 98-107 The [facility] Comment on above: Performed By: #### L IPA HILLARY, CMP ####[facility] [address] [place], [place] [address]Dr. Quirino Zelaya CO2 [Moles/Vol] 28.5 mmol/L Normal 22.0-30.0 [facility] Comment on above: Performed By: #### L IPA HILLARY, CMP ####[facility] [address]ujt[address] [place] [address]Dr. Quirino Zelaya Creatinine [Mass/Vol] 0.85 mg/dL Normal 0.52-1.04 The [facility] Comment on above: Performed By: #### L HILLARY JUSTIN, CMP ####[facility] [address] [place] [address]Dr. Quirino Zelaya EGFR-AF SCOTTISH >60 Normal >=60 The [facility] Comment on above: Performed By: #### L HILLARY JUSTIN, CMP ####[facility] [address] [place] [address]Dr. Quirino Zelaya EGFR-NON AF SCOTTISH >60 Normal >=60 The [facility] Comment on above: Performed By: #### L HILLARY JUSTIN, CMP ####[facility] [address] [place] [address]Dr. Quirino Zelaya Globulin (S) [Mass/Vol] 3.1 g/dL Normal [facility] Comment on above: Performed By: #### L HILLARY JUSTIN, CMP ####[facility] [address] [place] [address]Dr. Quirino Zelaya Glucose [Mass/Vol] 124 mg/dL Critically high 74-106 [facility] Comment on above: Performed By: #### L HILLARY JUSTIN, CMP ####[facility] [address] [place] [address]Dr. Quirino Zelaya Potassium [Moles/Vol] 3.9 mmol/L Normal 3.4-5.0 [facility] Comment on above: Performed By: #### L HILLARY JUSTIN, CMP ####[facility] [address] [place] [address]Dr. Quirino Zelaya Protein [Mass/Vol] 6.9 g/dL Normal 6.1-8.2 [facility] Comment on above: Performed By: #### L HILLARY JUSTIN, CMP ####[facility] [address] [place] [address]Dr. Quirino Zelaya Sodium [Moles/Vol] 140 mmol/L Normal 137-145 [facility] Comment on above: Performed By: #### L HILLARY JUSTIN, CMP ####[facility] [address] [place] [address]Dr. Quirino Zelaya Urea nitrogen [Mass/Vol] 17.0 mg/dL Normal 7.0-17.0 The [facility] Comment on above: Performed By: #### L HILLARY JUSTIN, CMP ####[facility] [address] [place] [address]Dr. Quirino Zelaya Urea nitrogen/Creatinine [Mass ratio] 20.0 mg/mg Normal The [facility] Comment on above: Performed By: #### L HILLARY JUSTIN, CMP ####[facility] [address] [place] [address]Dr. Quirino Zelaya URINE MICROSCOPIC ONLYon BACTERIA MODERATE Abnormal NONE SEEN The [facility] Comment on above: Performed By: #### U MICRO, ERUR ####[facility] [address] [place] [address]Dr. Quirino Zelaya Bacteria identified Cx Nom (U) INDICATED Normal The [facility] Comment on above: Performed By: #### U MICRO, ERUR ####[facility] [address] [place] [address]Dr. Quirino Zelaya CA OX CRYSTALS FEW Normal The [facility] Comment on above: Performed By: #### U MICRO, ERUR ####[facility] [address] [place] [address]Dr. Quirino Zelaya CAST NONE SEEN Normal NONE SEEN The [facility] Comment on above: Performed By: #### U MICRO, ERUR ####[facility] [address] [place] [address]Dr. Quirino Zelaya Crystals LM Nom (Urine sed) SEEN Abnormal NONE SEEN The [facility] Comment on above: Performed By: #### U MICRO, ERUR ####[facility] [address] [place] [address]Dr. Quirino Zelaya Epithelial cells LM Ql (Urine sed) MODERATE Abnormal NONE SEEN /RARE The [facility] Comment on above: Performed By: #### U MICRO, ERUR ####[facility] [address] [place], [place] [address]Dr. Quirino Zelaya MUCOUS TRACE Abnormal NONE SEEN The [facility] Comment on above: Performed By: #### U MICRO, ERUR ####[facility] [address] [place] [address]Dr. Ayshakai Zelaya RBC NONE SEEN Abnormal 0-2 [facility] Comment on above: Performed By: #### U MICRO, ERUR ####[facility] [address] [place] [id number]. Quirino Zelaya WBC 0-2 Abnormal NONE SEEN The [facility] Comment on above: Performed By: #### U MICRO, ERUR ####[facility] [address] [place] [address]Dr. Ayshakai Zelaya PROF CHEM 8 (BAS METB)on Anion gap [Moles/Vol] 9.7 mmol/L Normal [facility] Comment on above: Performed By: #### B MP #### [facility] [address] [place] [address] Navi Maria Dolores Calcium [Mass/Vol] 9.3 mg/dL Normal 8.4-10.2 [facility] Comment on above: Performed By: #### B MP #### [facility] [address] [place] [address] Navi Maria Dolores Chloride [Moles/Vol] 104 mmol/L Normal 98-107 The [facility] Comment on above: Performed By: #### B MP #### [facility] [address] [place] [address] Navi Maria Dolores CO2 [Moles/Vol] 31.8 mmol/L Critically high 22.0-30.0 The [facility] Comment on above: Performed By: #### B MP #### [facility] [address] [place] [address] Navi Maria Dolores Creatinine [Mass/Vol] 0.93 mg/dL Normal 0.52-1.04 The [facility] Comment on above: Performed By: #### B MP #### [facility] [address] [place] [address] Navi Maria Dolores EGFR-AF SCOTTISH >60 Normal >=60 [facility] Comment on above: Performed By: #### B MP #### [facility] [address] [place], [place] [address] Navi Maria Dolores EGFR-NON AF SCOTTISH >60 Normal >=60 [facility] Comment on above: Performed By: #### B MP #### [facility] [address] [place], [place] [address] Navi Maria Dolores Glucose [Mass/Vol] 118 mg/dL Critically high 74-106 [facility] Comment on above: Performed By: #### B MP #### [facility] [address] [place] [address] Navi Maria Dolores Potassium [Moles/Vol] 4.5 mmol/L Normal 3.4-5.0 [facility] Comment on above: Performed By: #### B MP #### [facility] [address] [place] [address] Navi Maria Dolores Sodium [Moles/Vol] 141 mmol/L Normal 137-145 [facility] Comment on above: Performed By: #### B MP #### [facility] [address] [place] [address] Navi Maria Dolores Urea nitrogen [Mass/Vol] 18.0 mg/dL Critically high 7.0-17.0 [facility] Comment on above: Performed By: #### B MP #### [facility] [address] [place], [place] [address] Navi Maria Dolores Urea nitrogen/Creatinine [Mass ratio] 19.4 mg/mg Normal [facility] Comment on above: Performed By: #### B MP #### [facility] [address] [place], [place] [address] Navi Maria Dolores CBC AUTO DIFFon 07-26-2020 BASO # 0.1 103/ul Normal 0.0-0.1 [facility] Comment on above: Performed By: #### C BC #### [facility] [address] [place], [place] [address] Navi Maria Dolores Basophils/100 WBC (Bld) 0.8 % Normal 0.2-2.0 [facility] Comment on above: Performed By: #### C BC #### [facility] [address] [place], [place] [address] Navi Maria Dolores EO # 0.2 103/ul Normal 0.0-0.7 The [facility] Comment on above: Performed By: #### C BC #### [facility] [address] [place], [place] [address] Navi Maria Dolores Eosinophils/100 WBC (Bld) 3.3 % Normal 0.9-7.0 The [facility] Comment on above: Performed By: #### C BC #### [facility] [address] [place] [address] Navi Maria Dolores Erythrocyte distribution width (RBC) [Ratio] 13.6 % Normal 11.0-15.0 The [facility] Comment on above: Performed By: #### C BC #### [facility] [address] [place] [address] Navi Maria Dolores Hematocrit (Bld) [Volume fraction] 42.5 % Normal 36.0-48.0 The [facility] Comment on above: Performed By: #### C BC #### [facility] [address] [place] [address] Navi Maria Odlores Hemoglobin (Bld) [Mass/Vol] 13.3 g/dL Normal 12.0-16.0 The [facility] Comment on above: Performed By: #### C BC #### [facility] [address] [place] [address] Navi Maria Dolores IG # 0.03 10e3/ul Normal 0.00-0.03 The [facility] Comment on above: Performed By: #### C BC #### [facility] [address] [place] [address] Navi Maria Dolores IG % 0.5 % Normal 0.0-0.5 The [facility] Comment on above: Performed By: #### C BC #### [facility] [address] [place] [address] Navi Maria Dolores LYMPH # 1.5 103/ul Normal 1.2-3.8 The [facility] Comment on above: Performed By: #### C BC #### [facility] [address] [place] [address] Navi Maria Dolores Lymphocytes/100 WBC (Bld) 22.7 % Normal 20.5-60.0 [facility] Comment on above: Performed By: #### C BC #### [facility] [address] [place], [place] [phone] Navi Whitten MANUAL DIFF REQ NO Normal [facility] Comment on above: Performed By: #### C BC #### [facility] [address] [place], [place] [phone] Navihumphrey Whitten MCH (RBC) [Entitic mass] 29.1 pg Normal 26.7-34.0 [facility] Comment on above: Performed By: #### C BC #### [facility] [address] [place] [address] Navihumphrey Whitten MCHC (RBC) [Mass/Vol] 31.3 g/dL Normal 29.9-35.2 [facility] Comment on above: Performed By: #### C BC #### [facility] [address] [place] [address] Navihumphrey Whitten MCV (RBC) [Entitic vol] 93.0 fL Normal 81.0-99.0 [facility] Comment on above: Performed By: #### C BC #### [facility] [address] [place], [place] [address] Navihumphrey Whitten MONO # 0.5 103/ul Normal 0.3-0.8 [facility] Comment on above: Performed By: #### C BC #### [facility] [address] [place] [address] Navihumphrey Whitten Monocytes/100 WBC (Bld) 7.6 % Normal 1.7-12.0 [facility] Comment on above: Performed By: #### C BC #### [facility] [address] [place], [place] [address] Navi Maria Dolores NEUT # 4.3 103/ul Normal 1.4-6.5 The [facility] Comment on above: Performed By: #### C BC #### [facility] [address] [place], [place] [address] Navi Maria Dolores Neutrophils/100 WBC (Bld) 65.1 % Normal 43.0-75.0 [facility] Comment on above: Performed By: #### C BC #### [facility] [address] [place], [place] [address] Navi Whitten Platelet mean volume (Bld) [Entitic vol] 11.2 fL Normal 9.5-13.5 [facility] Comment on above: Performed By: #### C BC #### [facility] [address] [place], [place] [address] Navihumphrey Bellamyen PLT 198 103/ul Normal 150-450 The [facility] Comment on above: Performed By: #### C BC #### [facility] [address] [place], [place] [address] Navi Maria Dolores RBC 4.57 106/ul Normal 4.20-5.40 [facility] Comment on above: Performed By: #### C BC #### [facility] [address] [place], [place] [address] Navihumphrey Bellamyen WBC 6.6 103/ul Normal 4.0-11.0 [facility] Comment on above: Performed By: #### C BC #### [facility] [address] [place], [place] [address] Navi Whitten GLYCOHEMOGLOBIN A1Con 2020 ADA RECOMMENDATION ADA THERAPEUTIC TARGET 6.0 - 7.0 ACTION SUGGESTED > 7.0 Normal [facility] Comment on above: Performed By: #### A 1C ####[facility] [address] [place] [id number] Whitten Glucose [Mass/Vol] 146 mg/dL Normal [facility] Comment on above: Performed By: #### A 1C ####[facility] [address] [place], [place] [address]ZrdisoNavi Whitten HbA1c (Bld) [Mass fraction] 6.7 % Critically high <=6.0 [facility] Comment on above: Performed By: #### A 1C ####[facility] [address] [place] [id number] Whitten LIPID PROFILEon 07-26-2020 CHOL-HDL RATIO NORM SEE BELOW Normal [facility] Comment on above: Result Comment: 3.3 - 4.4 LOW RISK 4.4 - 7.1 AVERAGE RISK 7.1 - 11.0 MODERATE RISK >11.0 HIGH RISK Performed By: #### L IPID, CMP #### [facility] [address] [place] [phone] Navi Maria Dolores Cholesterol [Mass/Vol] 132 mg/dL Normal <=200 [facility] Comment on above: Performed By: #### L IPID, CMP #### [facility] [address] [place] [phone] Navi Maria Dolores Cholesterol in HDL [Mass/Vol] 51 mg/dL Normal [facility] Comment on above: Performed By: #### L IPID, CMP #### [facility] [address] [place] [phone] Navi Maria Dolores Cholesterol in LDL [Mass/Vol] 64.8 mg/dL Normal [facility] Comment on above: Performed By: #### L IPID, CMP #### [facility] [address] [place] [phone] Navi Maria Dolores Cholesterol.total/Cho lesterol in HDL [Mass ratio] 2.6 {ratio} Normal [facility] Comment on above: Performed By: #### L IPID, CMP #### [facility] [address] [place] [phone] Navi Maria Dolores HDL NORMAL > or = 60 mg/dl - LO W CARDIOVASCULAR RISK <40 mg/dl - HIGH CARDIOVASCULAR RISK Normal [facility] Comment on above: Performed By: #### L IPID, CMP #### [facility] [address] [place] [address] Navi Maria Dolores LDL CALC NORMAL SEE BELOW Normal The [facility] Comment on above: Result Comment: <100 mg/dl OPTIMAL 100 - 129 mg/dl NEAR OR ABOVE OPTIMAL 130 - 159 mg/dl BORDERLINE HIGH 160 - 189 mg/dl HIGH >190 mg/dl VERY HIGH Performed By: #### L IPID, CMP #### [facility] [address] [place] [phone] Navi Maria Dolores Triglyceride [Mass/Vol] 81 mg/dL Normal <=150 The [facility] Comment on above: Performed By: #### L IPID, CMP #### [facility] [address] [place] [address] Navi Maria Dolores VLDL CALC 16.2 mg/dL Normal [facility] Comment on above: Performed By: #### L IPID, CMP #### [facility] [address] [place] [address] Navi Maria Dolores MICROALBUMIN, RAND URon 07-06 mALB <1.3 Normal <=30.0 [facility] Comment on above: Performed By: #### M ALBR #### [facility] [address] [place] [address] Navihumphrey Bellamyen PROF 14(COMP METB)on 021 Albumin [Mass/Vol] 3.8 g/dL Normal 3.5-5.0 [facility] Comment on above: Performed By: #### L IPID, CMP #### [facility] [address] [place], [place] [address] Navi Maria Dolores Albumin/Globulin [Mass ratio] 1.3 {ratio} Normal [facility] Comment on above: Performed By: #### L IPID, CMP #### [facility] [address] [place], [place] [address] Navi Maria Dolores ALP [Catalytic activity/Vol] 67 U/L Normal 38-126 [facility] Comment on above: Performed By: #### L IPID, CMP #### [facility] [address] [place], [place] [address] Navi Maria Dolores ALT [Catalytic activity/Vol] 36 U/L Normal 9-52 [facility] Comment on above: Performed By: #### L IPID, CMP #### [facility] [address] [place] [address] Navi Maria Dolores Anion gap [Moles/Vol] 10.5 mmol/L Normal [facility] Comment on above: Performed By: #### L IPID, CMP #### [facility] [address] [place] [address] Navi Maria Dolores AST [Catalytic activity/Vol] 20 U/L Normal 14-36 [facility] Comment on above: Performed By: #### L IPID, CMP #### [facility] [address] [place] [phone] Navi Maria Dolores Bilirubin [Mass/Vol] 0.7 mg/dL Normal 0.2-1.3 [facility] Comment on above: Performed By: #### L IPID, CMP #### [facility] [address] [place] [phone] Navi Maria Dolores Calcium [Mass/Vol] 9.4 mg/dL Normal 8.4-10.2 [facility] Comment on above: Performed By: #### L IPID, CMP #### [facility] [address] [place], [place] [address] Navi Maria Dolores Chloride [Moles/Vol] 104 mmol/L Normal 98-107 [facility] Comment on above: Performed By: #### L IPID, CMP #### [facility] [address] [place] [address] Navi Maria Dolores CO2 [Moles/Vol] 30.9 mmol/L Critically high 22.0-30.0 [facility] Comment on above: Performed By: #### L IPID, CMP #### [facility] [address] [place], [place] [address] Navi Maria Dolores Creatinine [Mass/Vol] 0.87 mg/dL Normal 0.52-1.04 [facility] Comment on above: Performed By: #### L IPID, CMP #### [facility] [address] [place], [place] [address] Navi Maria Dolores EGFR-AF SCOTTISH >60 Normal >=60 [facility] Comment on above: Performed By: #### L IPID, CMP #### [facility] [address] [place], [place] [address] Navi Maria Dolores EGFR-NON AF SCOTTISH >60 Normal >=60 [facility] Comment on above: Performed By: #### L IPID, CMP #### [facility] [address] [place], [place] [address] Navi Maria Dolores Globulin (S) [Mass/Vol] 3.0 g/dL Normal The [facility] Comment on above: Performed By: #### L IPID, CMP #### [facility] [address] [place], [place] [address] Navi Maria Dolores Glucose [Mass/Vol] 118 mg/dL Critically high 74-106 [facility] Comment on above: Performed By: #### L IPID, CMP #### [facility] [address] [place], [place] [address] Navi Maria Dolores Potassium [Moles/Vol] 4.4 mmol/L Normal 3.4-5.0 [facility] Comment on above: Performed By: #### L IPID, CMP #### [facility] [address] [place] [phone] Navi Maria Dolores Protein [Mass/Vol] 6.8 g/dL Normal 6.1-8.2 [facility] Comment on above: Performed By: #### L IPID, CMP #### [facility] [address] [place], [place] [address] Navi Maria Dolores Sodium [Moles/Vol] 141 mmol/L Normal 137-145 [facility] Comment on above: Performed By: #### L IPID, CMP #### [facility] [address] [place] [phone] Navi Maria Dolores Urea nitrogen [Mass/Vol] 26.0 mg/dL Critically high 7.0-17.0 [facility] Comment on above: Performed By: #### L IPID, CMP #### [facility] [address] [place] [phone] Navi Maria Dolores Urea nitrogen/Creatinine [Mass ratio] 29.9 mg/mg Normal [facility] Comment on above: Performed By: #### L IPID, CMP #### [facility] [address] [place] [address] Navi Maria Dolores UA RANDOM W/MICROSCOPICon BACTERIA NONE SEEN Normal NONE SEEN The [facility] Comment on above: Performed By: #### U AMIC #### [facility] [address] [place], [place] [address] Navi Maria Dolores Bilirubin Ql (U) Negative Normal NEGATIVE [facility] Comment on above: Performed By: #### U AMIC #### [facility] [address] [place] [address] Navi Maria Dolores CAST NONE SEEN Normal NONE SEEN [facility] Comment on above: Performed By: #### U AMIC #### [facility] [address] [place] [address] Navi Maria Dolores Clarity (U) CLEAR Normal CLEAR The [facility] Comment on above: Performed By: #### U AMIC #### [facility] [address] [place] [address] Navi Maria Dolores Color (U) LT. YELLOW Normal YELLOW The [facility] Comment on above: Performed By: #### U AMIC #### [facility] [address] [place] [address] Navi Maria Dolores Crystals LM Nom (Urine sed) NONE SEEN Normal NONE SEEN [facility] Comment on above: Performed By: #### U AMIC #### [facility] [address] [place] [address] Navi Maria Dolores Epithelial cells LM Ql (Urine sed) MODERATE Abnormal NONE SEEN /RARE The [facility] Comment on above: Performed By: #### U AMIC #### [facility] [address] [place] [address] Navi Maria Dolores Glucose Ql (U) Negative Normal NEGATIVE [facility] Comment on above: Performed By: #### U AMIC #### [facility] [address] [place] [address] Navi Maria Dolores Hemoglobin Ql (U) Negative Normal NEGATIVE The [facility] Comment on above: Performed By: #### U AMIC #### [facility] [address] [place] [address] Navi Maria Dolores Ketones Ql (U) Negative Normal NEGATIVE [facility] Comment on above: Performed By: #### U AMIC #### [facility] [address] [place] [address] Navi Maria Dolores LEUKOCYTES Negative Normal NEGATIVE The [facility] Comment on above: Performed By: #### U AMIC #### [facility] [address] [place] [address] Navi Maria Dolores MUCOUS TRACE Abnormal NONE SEEN [facility] Comment on above: Performed By: #### U AMIC #### [facility] [address] [place], [place] [address] Navi Maria Dolores Nitrite Ql (U) Negative Normal NEGATIVE [facility] Comment on above: Performed By: #### U AMIC #### [facility] [address] [place], [place] [address] Navi Maria Dolores pH (U) 5.0 [pH] Normal 5-9 [facility] Comment on above: Performed By: #### U AMIC #### [facility] [address] [place], [place] [address] Navi Maria Dolores RBC NONE SEEN Abnormal 0-2 The [facility] Comment on above: Performed By: #### U AMIC #### [facility] [address] [place], [place] [phone] Navi Whitten SPEC GRAVITY 1.025 Normal 1.005-<=1.025 The [facility] Comment on above: Performed By: #### U AMIC #### [facility] [address] [place] [phone] Navi Maria Dolores UA PROTEIN Negative Normal NEGATIVE/ TRACE The [facility] Comment on above: Performed By: #### U AMIC #### [facility] [address] [place] [phone] Navihumphrey Whitten Urobilinogen Qn (U) 0.2 {Joan'U}/dL Normal 0.2 - 1. 0 The [facility] Comment on above: Performed By: #### U AMIC #### [facility] [address] [place], [place] [address] Navi Maria Dolores WBC 0-2 Abnormal NONE SEEN The [facility] Comment on above: Performed By: #### U AMIC #### [facility] [address] [place] [phone] Navihumphrey Whitten Vital Signs Date Time Vital Sign Value Performing Clinician [facility] 11-12-2023 13:21-0400 Blood Pressure Location Vanessa Schultz [facility] 11-12-2023 13:21-0400 Diastolic blood pressure 69 mm[Hg] Vanessa Schultz [facility] 11-12-2023 13:21-0400 Heart rate 72 /min Vanessa Lue [facility] 11-12-2023 13:21-0400 Respiratory rate 19 /min Vanessa Lue [facility] 11-12-2023 13:21-0400 Systolic blood pressure 131 mm[Hg] Vanessa Lue [facility] Encounters Encounter Date Encounter Type Care Provider Facility Start: 05-05-2024 ambulatory Vanessa M. Lue Facility:[facility] Start: 01-02-2024 End: 01-02-2024 ambulatory CASSIDY BRAMBILABRIANJames Not Available Start: 11-20-2023 End: 11-20-2023 ambulatory Vanessa M. Lue Facility:[facility] Start: 11-20-2023 End: 11-20-2023 Patient encounter procedure Vanessa M. Lue [facility] Start: 11-14-2023 End: 11-14-2023 ambulatory Vanessa M. Lue Facility: [place] Start: 11-14-2023 End: 11-14-2023 Patient encounter procedure Vanessa M. Lue [facility] [place] Start: 11-14-2023 End: 11-14-2023 ambulatory Vanessa M. Lue Facility:[facility] [place] Start: 11-14-2023 End: 11-14-2023 Off-Site Vanessa M. Lue [facility] Start: 11-12-2023 End: 07-08-2024 Patient encounter procedure Vanessa M. Lue [facility] [place] Start: 11-12-2023 End: 11-12-2023 ambulatory Vanessa Schultz Facility:[facility] [place] Start: 11-06-2023 End: 11-06-2023 ambulatory Vanessa Schultz Facility:[facility] Start: 11-06-2023 End: 11-06-2023 Off-Site Vanessa Schultz [facility] [facility] Start: 11-03-2023 End: 11-03-2023 ambulatory Elton Tamez Facility:[id number] Start: 02-08-2021 End: 02-09-2021 ambulatory CHRYSTAL BERUMEN Facility:[facility] Start: 01-25-2021 End: 01-26-2021 ambulatory INSTRUCTOR [employer] SURGICAL TECHNICIAN CASSIDY BERUMEN Facility:[facility] Start: 01-19-2021 End: 01-19-2021 ambulatory KAIT SALDIVAR Facility:[facility] Start: 08-30-2020 End: 08-31-[address] TUAN ZELAYA Facility:[facility] Start: 07-26-2020 End: 07-27-2020 ambulatory INSTRUCTOR ADJUNCT SURGICAL TECHNICIAN CASSIDY BERUMEN Facility:[facility] Start: 06-19-2017 End: 06-20-2017 Ambulatory DEFAULT PHYSICIAN Facility:[facility] Procedures Date Procedure Procedure Detail Performing Clinician Start: 11-03-2023 Cystotomy w/insj ure teral cath/stent spx Vanessa Schultz Appendectomy Vanessa Luroe Placement of stent i n cardiac conduit Vanessa Mandyroe Tonsillectomy Vanessa Lue Vaginal hysterectomy w/tot/prtl vaginectomy Vanessa Luroe Payers Date Payer Category Payer Unknown [id number] 1960 Unknown [id number] 2.16.84 [id number] 1960 Unknown [id number] 2.16.84 [id number] 1960 Unknown [id number] 2.16.84 [id number] 1960 Unknown [id number] 2.16.84 [id number] 1960 Unknown [id number] 2.16.84 [id number] 1960 Unknown [id number] 2.16.8 [id number] 1960 Unknown [id number] 2.16.8 [id number] 1960 Unknown [id number] 2.16.8 [id number] 1960 Unknown [id number] 2.16.8 [id number] 1961 Unknown [id number] 2.16.8 [id number] 1960 Unknown [id number] 2.16.84 [id number] 1958 Private Health Insurance [id number] 1958 Private Health Insurance [id number] Unknown Social History Date Type Detail Facility Tobacco smoking status No Smokin g Status Entered [facility] Sex Assigned At Female [facility] Start: 11-12-2023 Tobacco smoking status Never s moked tobacco (finding) [facility] Functional Status Date Assessment Result Facility 11-12-2023 Functional Status N/A [facility] Discharge instructions 11-20-2023 Note [...] include: ?8 oz (237 mL) of milk, vkgdptu-elspmsuqcwdy-icljz milk, and calcium-fortifiedfruit juice. Calcium-fortified means that [...] ?Spinach (cooked), rhubarb, beets, sweet potatoes, and Rw[place]an chard. ?Peanuts. ?Potato chips, libyan fries, and baked potatoes with skin on. ?Nuts and nut products. ?Chocolate. If you regularly take a diuretic medicine, make sure to eat at least 1 or 2 servings of fruits or vegetables that are high in potassium each day. These include: ?Avocado. ?Banana. ?[place], prune, carrot, or tomato juice. ?Baked potato. [...] magnesium, fish oil, or vitamin B6. Take rxck-wrj-dcuycwv and prescription medicines only as told by [...] Casseroles. Pizza. Lasagna. Frozen meals. Potato chips. Bengali fries. The items listed above may not [...] provider. Document Revised: 08/03/2022 Document Reviewed: 08/03/2022 [employer] Patient Education 2022 [employer]. 11/20/2023 08:54:31 [facility] - Cystoscopy with Stent [...] Up Care 11/19/2023 11:47:38 With:Vanessa Schultz Address: [address] [place] [phone] Business (1) [facility] Neri Iglesias, [address] [phone] Business (1) When: Unknown Comments:Office to schedule follow up in 6 months with renal US and KUB. Obtain renal US in 6 weeks to ensure no blockage develops after surgery, will call with results [facility] Clinical Note 11-20-2023 Note Date & [...] ? 8 oz (237 mL) of milk, mntkmiw-pordksssqibd-zqwhd milk, and calcium-fortifiedfruit juice. Calcium-fortified means that [...] Spinach (cooked), rhubarb, beets, sweet potatoes, and Rw[place]an chard. ? Peanuts. ? Potato chips, libyan fries, and baked potatoes with skin on. ? Nuts and nut products. ? Chocolate. ? If you regularly take a diuretic medicine, make sure to eat at least 1 or 2 servings of fruits or vegetables that are high in potassium each day. These include: ? Avocado. ? Banana. ? [place], prune, carrot, or tomato juice. ? Baked [...] (148 mL), o (more content not included)... [facility] Discharge instructions 11-12-2023 Note Date & [...] including vitamins, herbs, eye drops, creams, and dlye-dfo-htxnpav medicines. Any problems you or family members [...] provider tells you to take them. Taking okjh-ebt-dhlusgd medicines, vitamins, herbs, and supplements. Tests You [...] provider. Document Revised: 03/20/2022 Document Reviewed: 12/26/2021 [employer] Patient Education 2022 [employer]. Follow Up Care 11/09/2023 13:32:06 With:Antoine PEREZ, Vanessa Montgomery UREdgardo, URO Address: When: Unknown [facility] Clinical Note 11-12-2023 Note Date & Type [...] including vitamins, herbs, eye drops, creams, and xkno-lyn-hzthitw medicines. ? Any problems you or family [...] tells you to take them. ? Taking oiht-olr-vqimzmz medicines, vitamins, herbs, and supplements. Tests You [...] that it i (more content not included)... [facility] Evaluation + Plan note Note Date & Type Note Facility Evaluation + Plan note Future Appointments Appointment Date:11/14/2023 09:15:00 AM Scheduled Provider:Vanessa Schultz MD Location:[facility] Appointment Type:URO New Patient [facility] Evaluation + Plan note Note Date & Type Note Facility Evaluation + Plan note Future Appointments Appointment Date:05/05/2024 12:30:00 PM Scheduled Provider:Vanessa Schultz MD Location:[facility] Appointment Type:URO Office Visit [facility] Hospital course Narrative Note Date & Type Note Facility Hospital course Narrative No data available for this section [facility] Discharge instructions Note Date & Type Note Facility Hospital Discharge instructions No data available for this section [facility] Progress note Note Date & Type Note Facility Progress note No data available for this section [facility] Summary Purpose Family History No Family History [...] section and content) DATE CREATED AUTHOR 10/29/2017 [facility] DATE CREATED AUTHOR AUTHOR'S ORGANIZ ATION 02/26/2021 [facility] DATE CREATED AUTHOR AUTHOR'S ORGANIZ ATION 11/23/2023 [facility] DATE CREATED AUTHOR AUTHOR'S ORGANIZ ATION 01/04/2024 [facility] [employer] Patient Care team informatio n (unrecognized section and content) Personnel Name: CASSIDY BERUMEN CNP Address: Address: [address] [place] [address] FOR RECORDS PERTAINING TO PATIENTS WHO ARE [...] BE BASED ON THE PRIMARY CLINICAL RECORDS. [facility] [employer] [facility]. provides no warranty or guarantee of the accuracy or completeness of information in this document.
== END 2024-01-10 08:52 | disposition home or self-care (01) ==
LOC: MAMMO 08:51
PROVIDERS: PCP Nurse Practitioner; Visit Provider Nurse Practitioner
DX: Z12.31 Encounter for screening mammogram for malignant neoplasm of breast (principal)
CPT/HCPCS: 77063; 77067

== ENCOUNTER 2024-03-04 08:03 | Outpatient (OUT) | payer OTHER, SELFPAY ==
--- NOTE | 2024-03-04 08:00 | CA_ITS ---
Patient Name: JORDAN HOLLY MR#: [id number] : 1960 Exam Date: 03/04/2024 Ordering Doctor: DR TUAN ZELAYA M.D. ECHOCARDIOGRAM REPORT PROCEDURE: CA ECHO DOPPLER COMPLETE INDICATIONS: CAD evaluation, cardiac stents, hypertension, diabetes COMPARISON: None. DESCRIPTION: COMPLETE ECHOCARDIOGRAM Real-time transthoracic echocardiography with 2D, M-mode, spectral and color flow Doppler performed. QUALITY: Technical quality was good. LEFT VENTRICLE: Normal chamber size. Normal left ventricular wall thickness. Normal systolic function. LV EF: Normal left ventricular ejection fraction, (>55%). DIASTOLIC: Diastolic function is indeterminate. ATRIAL SEPTUM: Visually appears intact. LEFT ATRIUM: Normal chamber size. RIGHT ATRIUM: Moderate dilatation. RIGHT VENTRICLE: Mild dilatation. Normal right ventricular systolic function. TRICUSPID VALVE: Normal mobility and thickness. There is evidence of apical displacement of the septal leaflet with atrial isolation of part of the right ventricle consistent with a mild form of Ebstein's anomaly. No stenosis with moderate regurgitation. Doppler studies reveal mildly (35-45) elevated right sided pressures. RVSP is 40 mmHg MITRAL VALVE: Normal mobility and thickness. No evidence of mitral valve stenosis. No mitral regurgitation. AORTIC VALVE: Normal trileaflet appearance. No visible sclerosis. Normal leaflet mobility. No evidence of aortic valve stenosis. No aortic regurgitation. AORTIC ROOT: Normal diameter and appearance. Ascending aorta is normal in size. PULMONIC VALVE: Normal thickness and mobility. No stenosis. Trivial regurgitation. PERICARDIUM: No evidence of pericardial effusion. IVC: Collapses with inspirations. IVC is normal in size. PLEURA: CONCLUSION: 1. Normal left ventricular size and systolic function. LVEF is estimated at 60%. 2. Mildly dilated right ventricle with normal systolic function. 3. 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 4. Moderately dilated right atrium. 5. Mildly elevated right-sided pressures. RVSP is 40 mmHg. Adult Echocardiography Procedure Report Left Ventricle LVEDD (3.7 - 5.6 cm): 4.29 cm LVESD (2.2 - 4.0 cm): 3.09 cm LVIVS thickness (0.6 - 1.2 cm): 1.03 cm LVPW thickness (0.5 - 1.0 cm): 0.98 cm e': 0.08 m/s E - e': 7.93 LVOT Max Gradient: 3.45 mm[Hg] LVOT Area (cm2): 0.93 m/s Peak Velocity (LVOT): 0.93 m/s Mean Velocity (LVOT): 0.61 m/s LVOT Diameter 2.13 cm Left Atrium LA Volume Index (2D A2C): 25.85 ml/m2 Left Atrium Systolic Dimension: 4.00 cm Mitral Valve MV E to A Ratio: 0.90 Mitral Valve A-Wave Peak Velocity: 0.73 m/s Mitral Valve E-Wave Peak Velocity: 0.66 m/s Right Ventricle Aorta AO Root Diam: 3.10 cm Ascending Ao Diam: 2.77 cm Aortic Valve AoV Area (Peak Everardo): 2.37 cm2, 2.37 cm2 AoV Area (VTI): 2.32 cm2, 2.32 cm2 Peak Velocity(Antegrade Flow): 1.40 m/s Peak Gradient(Antegrade Flow): 7.86 mm[Hg] Mean Velocity(Antegrade Flow): 0.89 m/s Mean Gradient(Antegrade Flow): 3.67 mm[Hg] Velocity Time Integral: 28.48 cm Tricuspid Valve Peak Velocity (Regurgitant Flow): 2.71 m/s, 3.05 m/s Pulmonic Valve Mean Gradient: 2.36 mm[Hg] Mean Velocity: 0.71 m/s Peak Velocity: 1.14 m/s, 1.16 m/s Peak Gradient: 5.41 mm[Hg], 5.21 mm[Hg] Right Atrium Right Atrium Systolic Pressure: 52.00 ml, 52.00 ml Dictated by: Pedro Piedra M.D. on 03/04/2024 at 17:06 Approved by: Pedro Piedra M.D. on 03/04/2024 at 17:20
--- OUTSIDE RECORDS SUMMARY | 2024-03-04 08:06 | XMS_ITS | CCD ---
Author Organization [facility] Care Team Providers Care Soft Work Wrapper Layer And Examiner Name Role Phone PHYSICIAN, DEFAULT Unavailable Unavailable PHYSICIAN, DEFAULT Unavailable Unavailable SERA CHAPPELL Unavailable Unavailable AICHHOLZ, NEWSROOM INTERN LATA Admitting Unavailable AICHHOLZ, NEWSROOM INTERN LATA Attending Unavailable AICHHOLZ, NEWSROOM INTERN LATA Consulting Unavailable AICHHOLZ, NEWSROOM INTERN LATA Primary Care Unavailable KAIT SALDIVAR Admitting Unavailable AICHHOLZ, NEWSROOM INTERN LATA Primary Care Unavailable KAIT SALDIVAR Attending Unavailable DAPHNE, DR LEANDRA Cavanaugh Consulting Unavailable KAIT SALDIVAR Consulting Unavailable AICHHOLZ, NEWSROOM INTERN LATA Primary Care Unavailable AICHHOLZ, NEWSROOM INTERN LATA Admitting Unavailable AICHHOLZ, NEWSROOM INTERN LATA Attending Unavailable AICHHOLZ, NEWSROOM INTERN LATA Consulting Unavailable MELONY, DR PASTORA Garcia Consulting Unavailable AICHHOLZ, NEWSROOM INTERN LATA Primary Care Unavailable AICHHOLZ, NEWSROOM INTERN LATA Admitting Unavailable AICHHOLZ, NEWSROOM INTERN LATA Attending Unavailable DAPHNE, DR LEANDRA Cavanaugh Consulting Unavailable AICHHOLZ, NEWSROOM INTERN LATA Consulting Unavailable ELTAGLADIS, DR DICKERSON Attending Unavailable ELTAHAWY, DR DICKERSON Consulting Unavailable AITAGLADIS, DR DICKERSON Admitting Unavailable AICHHOLZ, NEWSROOM INTERN LATA Primary Care Unavailable AICHHOLZ, LATA J Primary Care Physician Vanessa Schultz Attending Unavailable Vanessa Schultz Referring Unavailable Vanessa Schultz Admitting Unavailable Vanessa Schultz Attending Unavailable Vanessa Schultz Attending Unavailable Vanessa Schultz Attending Unavailable Elton Tamez Attending UnavailElton [place] Referring UnavailVanessa Peres Attending Unavailable Vanessa Schultz Attending Unavailable Vanessa Schultz Attending Unavailable Aichholz COTTON ROLL PACKER-CHRYSTAL Lata J Primary Care Provider ALLYSON GARCIA Attending Unavailable SERA CHAPPELL Referring Unavailable LATA WORKMAN Primary Care Unavailable Ji PACHECO, Lata Unavailable Robin Poe MD Primary Care Provider [phone] LATA WORKMAN Referring Unavailable LATA WORKMAN Primary Care Unavailable SHIRA KELLY Admitting Unavailable SHIRA KELLY Attending Unavailable LATA WORKMAN Primary Care Unavailable DIVYA GRANDE Attending Unavailable LATA WORKMAN Attending Unavailable CARLOS HARMAN Attending Unavailable CARLOS HARMAN Attending Unavailable CARLOS HARMAN Attending Unavailable Allergies Allergy Classification Reported Allergen(s) Allergy Type Date of Onset Reaction(s) Facility (5 sources) Penicillins; Translations: [PENICILLINS] Drug allergy (disorder) 6 AOF [facility] Repository (5 sources) Penicillin; Translations: [penicillin] Drug Allergy Anaphylaxis (disorder) [facility] (2 sources) Penicillins Propensity to adverse reactions to drug 7 Shortness Of Breath, Rash [facility] (8 sources) Penicillins Drug Intolerance 7 Anaphylaxis, Rash, Shortness of breath [facility] Work Phone: Medications Current Medications Medication Drug Class(es) Dates Sig (Normalized) Sig (Original) acetaminophen 325 mg / HYDROcodone bitartrate 5 mg oral tablet (3 sources) Opioid Agonist Start: 02-28-2024 End: 03-04-2024 take 1 tablet by mouth every eight hours as needed for pain HYDROcodone-acet aminophen (Joppa) 5-325 MG tablet Indications: Pain Take 1 tablet by mouth every 8 (eight) hours if needed for moderate pain (PRN pain) for up to 5 days 15 tablet 02/28/2024 03/04/2024 Active aspirin 81 mg oral capsule (14 sources) Platelet Aggregation Inhibitor, Nonsteroidal Anti-inflammatory Drug Start: 11-12-2023 aspirin 81 mg oral capsule mg cap(s), Oral Start Date: 11/12/23 Status: Ordered take 1 tablet by mouth once austen y aspirin 81 MG EC tablet Take 1 tablet by mouth Daily Active atorvastatin 80 mg oral tablet (15 sources) HMG-CoA Reductase Inhibitor Start: 11-12-2023 End: 05-21-2024 take 1 tablet by mouth at bedtime atorvastatin (Lipitor) 80 MG tablet Indications: 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 (CMS/HCC) Take 1 tablet (80 mg) by mouth at bedtime 90 tablet 1 02/21/2024 05/21/2024 Active take 2 tablets by mouth in the m orning atorvastatin (LIPITOR) 40 mg tablet Take 2 tablets (80 mg total) by mouth in the morning. Active lisinopril 10 mg oral tablet (15 sources) Angiotensin Converting Enzyme Inhibitor Start: 11-12-2023 End: 05-21-2024 take 1 tablet by mouth in the morning lisinopril 10 MG tablet Indications: Essential (primary) hypertension (CMS/HCC) Take 1 tablet (10 mg) by mouth in the morning. 90 tablet 1 02/21/2024 05/21/2024 Active metFORMIN hydrochloride 500 mg oral tablet (15 sources) Biguanide Start: 11-16-2023 End: 05-21-2024 take 2 tablets by mouth in the morning metFORMIN (Glucophage) 500 MG tablet Indications: Type 2 diabetes mellitus without complications (CMS/HCC) Take 2 tablets (1,000 mg) by mouth in the morning and 2 tablets (1,000 mg) in the evening. Take with meals. 360 tablet 1 02/21/2024 05/21/2024 Active Start: 11-12-2023 metformin 500 mg Tab 500 mg = 1 tab(s) Start Date: 11/12/23 Status: Ordered take 1 tablet by kyra th in the morning, then take 1 tablet by mouth at mealtime metFORMIN (GLUCOPHAGE) 1000 mg tablet Take 1 tablet (1,000 mg total) by mouth in the morning and 1 tablet (1,000 mg total) in the evening. Take with meals. Active 24 hr metoprolol succinate 25 mg extended release oral tablet (15 sources) beta-Adrenergic Mert Start: 11-12-2023 End: 05-21-2024 take 1 tablet by mouth once daily metoprolol succinate XL (Toprol-XL) 25 MG 24 hr tablet Indications: 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 (CMS/HCC) Take 1 tablet (25 mg) by mouth Daily 90 tablet 1 02/21/2024 05/21/2024 Active take 1 tablet by mouth in the mo rning metoprolol tartrate (LOPRESSOR) 25 mg tablet Take 1 tablet (25 mg total) by mouth in the morning. Active peg 3350-sod sulf,blhv-uvv-dkm 178.7-7.3-0.5 gram recon soln (1 source) Start: 02-05-2024 End: 02-06-2024 peg 3350-sod sulf,yzlk-mya-gqw 178.7-7.3-0.5 gram recon soln Indications: Encounter for screening colonoscopy Take 1 kit by mouth once daily for 1 dose. Please see instructional sheet given by physicians office. 1 each 02/05/2024 02/06/2024 Active prasugrel 10 mg oral tablet (15 sources) P2Y12 Platelet Inhibitor Start: 11-12-2023 End: 05-21-2024 take 1 tablet by mouth in the morning prasugrel (Effient) 10 MG tablet Indications: Essential (primary) hypertension (CMS/HCC) Take 1 tablet (10 mg) by mouth in the morning. 90 tablet 1 02/21/2024 05/21/2024 Active semaglutide (OZEMPIC SUBQ) (2 sources) inject 2.5 mg by subcutaneous injection every week semaglutide (OZEMPIC SUBQ) Inject 2.5 mg under the skin once a week. Sunday Active inject 2.5 mg by sub cutaneous injection every week semaglutide (OZEMPIC SUBQ) Inject 2.5 mg under the skin once a week. Active Semaglutide,0.25 or 0.5MG/DO S, (Ozempic, 0.25 or 0.5 MG/DOSE,) 2 MG/3ML solution pen-injector (7 sources) Start: 01-02-2024 Semaglutide,0. 25 or 0.5MG/DOS, (Ozempic, 0.25 or 0.5 MG/DOSE,) 2 MG/3ML solution pen-injector Indications: Type 2 diabetes mellitus without complication, without long-term current use of insulin (CMS/HCC) , 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 (CMS/HCC) Inject 0.25 mg under the skin every 7 (seven) days for 28 days 3 mL 2 01/02/2024 Active Completed/Discontinued Medications Medication Drug Class(es) Dates Sig (Normalized) Sig (Original) Ticagrelor (1 source) End: 02-05-2024 TICAGRELOR (BRILINTA ORAL) Take by mouth. 02/05/2024 Discontinued (Therapy completed) Problems Active Problems Problem Classification Problem Date Documented Da te Episodic/Chronic Abdominal pain (3 sources) Unspecified abdominal pain; Translations: [UNSPECIFIED ABDOMINAL PAIN] Onset: 01-19-2021 Episodic Calculus of urinary tract (20 sources) Calculus of kidney; Translations: [History of calculus of kidney] Onset: 01-21-2021 Episodic Conduction disorders (8 sources) Fcccg-Fygkrtzad-Nmhtx pattern; Translations: [Pre-excitation syndrome] Onset: 06-01-2016 01-02-2024 Chronic Coronary atherosclerosis and other heart disease (17 sources) 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; Translations: [Coronary arteriosclerosis] Onset: 08-03-2020 11-07-2023 Chronic Diabetes mellitus without complication (17 sources) Type 2 diabetes mellitus without complications; Translations: [Type 2 diabetes mellitus without complication] Onset: 02-08-2021 Chronic Disorders of lipid metabolism (14 sources) Hyperlipidemia; Translations: [Hyperlipidemia, unspecified] Onset: 06-01-2016 11-07-2023 Chronic Essential hypertension (17 sources) Essential (primary) hypertension; Translations: [Essential hypertension] Onset: 08-30-2020 Chronic Genitourinary symptoms and ill-defined conditions (1 source) Procedure carried out on subject; Translations: [Encounter for fitting and adjustment of urinary device] Onset: 11-20-2023 Chronic Heart valve disorders (2 sources) Nonrheumatic mitral (valve) insufficiency; Translations: [Nonrheumatic mitral (valve) insufficiency] Onset: 02-20-2024 Chronic Other acquired deformities (4 sources) Contracture of joint of right ankle; Translations: [Contracture, right ankle] 02-10-2024 Chronic Other aftercare (1 source) Long-term current use of anticoagulant; Translations: [skilled nursing (current) use of anticoagulants] Onset: 11-12-2023 Episodic Other aftercare (8 sources) Drug therapy finding; Translations: [skilled nursing (current) use of anticoagulants] Onset: 01-02-2024 01-02-2024 Episodic Other aftercare (8 sources) Long-term current use of aspirin; Translations: [skilled nursing (current) use of aspirin] Onset: 01-02-2024 01-02-2024 Episodic Other and ill-defined heart disease (2 sources) Other ill-defined heart diseases; Translations: [Other ill-defined heart diseases] Onset: 02-20-2024 Chronic Other connective tissue disease (4 sources) Plantar fasciitis; Translations: [Plantar fascial fibromatosis] 02-10-2024 Episodic Other connective tissue disease (2 sources) Calcaneal spur of right foot; Translations: [Calcaneal spur, right foot] 02-28-2024 Episodic Other connective tissue disease (2 sources) Calcaneal spur of left foot; Translations: [Calcaneal spur, left foot] 02-28-2024 Episodic Other diseases of kidney and ureters (2 sources) Urinary tract obstruction; Translations: [Hydronephrosis with renal and ureteral calculous obstruction] Onset: 11-12-2023 Episodic Other diseases of kidney and ureters (8 sources) Hydronephrosis with renal and ureteral calculous obstruction; Translations: [Calculus of ureter] Onset: 01-02-2024 01-02-2024 Episodic Other screening for suspected conditions (not mental disorders or infectious disease) (20 sources) Encounter for screening mammogram for malignant neoplasm of breast; Translations: [Patient encounter status] Onset: 01-25-2021 Episodic Phlebitis; thrombophlebitis and thromboembolism (12 sources) Embolism from thrombosis of vein of lower extremity ; Translations: [Acute embolism and thrombosis of unspecified deep veins of unspecified lower extremity] Onset: 01-02-2024 11-07-2023 Episodic Unclassified (4 sources) Drug therapy finding 11-12-2023 Unclassified (4 sources) Long-term current use of aspirin 11-12-2023 Unclassified (4 sources) Obstructive hydronephrosis 11-12-2023 Unclassified (1 source) Colon Cancer Screening Onset: 02-05-2024 Unclassified (1 source) screening Onset: 02-18-2024 Past or Other Problems Problem Classification Problem Date Documented Da te Episodic/Chronic Allergic reactions (8 sources) Contact dermatitis due to poison kateryna; Translations: [Allergic contact dermatitis due to plants, except food] Onset: 12-03-2023 Resolved: 01-02-2024 01-02-2024 Episodic Other diseases of kidney and ureters (8 sources) Hydroureter; Translations: [Hydroureter] Onset: 11-06-2023 11-06-2023 Episodic Results Test Name Value Interpretation Reference Range Facility Office Visiton 02-20-2024 Follow-up visit [id number] Jordan Holly 1960 F Date Provider Department Center 02/20/2024 Mitch-DIVYA GRANDE CARD [facility] Family History Problem Relation Age of Onset Coronary artery disease Mother Diabetes Paternal Grandmother Family Status - Relation Status Age at Mother Paternal Grandmother Level of Service:[id number] [place] OFFICE/OUTPATIENT NEW MODERATE MDM 45 MINUTES [facility] Inpatient Patient Summaryon 11-20-2023 Inpatient Patient Summary Inpatient Patient Summary [place] [id number] Clinical Summary Person Information Name: JORDAN HOLLY Age: 63 Years : 1960 Sex: Female PCP: LATA WORKMAN CNP Marital Status: Race: White Ethnicity: Non- or Language: Jamaican Visit Id: Visit Reason: URETERAL STONE WITH HYDRONEPHROSIS Speciality: Acuity: Enc Type: Outpatient Med Service: Surgery Arrival: 11/20/2023 07:48:23 Discharge: Dispo Type: Address: [address] [place] [address] [phone] Provider Notes: Diagnosis: Encounter for removal of [...] MD Follow up: With: Address: When: Vanessa Antoine [address], [place] [address] [phone] Business (1) [address], [facility] [address], [facility] [address] [place] [id number] [phone] Business (1) Comments: Office to schedule follow up in 6 months with renal US and KUB. Obtain renal US in 6 weeks to ensure no blockage develops after surgery, will call with results Patient Education Information: Dietary Guidelines to Help Prevent Kidney Stones; EU - Cystoscopy with Stent Removal Discharge Instructions (CUSTOM) [facility] Main OR Intraoperative Recor don 11-20-2023 Main OR Intraoperative Record Main OR Intraoperative Record IntraOp Document Type FTURO Summary Primary Physician: Vanessa Schultz MD Finalized Date/Time: 11/20/23 08:53:11 Pt. Name: JORDAN HOLLY/Sex: 1960 Female Med Rec #: [id number] Physician: Vanessa Schultz MD Financial #: [id number] Pt. Type: O Room/Bed: / Admit/Disch: 11/20/23 07:48:23 - Institution: Case Times FTURO Entry 1 Patient Times In Room 11/20/23 08:45:00 Out Room 11/20/23 08:54:00 Procedure Times Start 11/20/23 08:50:00 Stop 11/20/23 08:51:00 Anesthesia Times Last Modified By: Hillary Forman RN 11/20/23 08:53:06 Case Attendance FTURO Entry 1 Entry 2 Entry 3 Case Attendee Antoine PEREZ, Vanessa Forman RN, Pratibha Jackson CST Role Performed Surgeon - Primary Traffic Control Specialist - Primary Scrub - Primary Time In 11/20/23 08:45:00 11/20/23 08:45:00 11/20/23 08:45:00 Time Out 11/20/23 08:54:00 11/20/23 08:54:00 11/20/23 08:54:00 Procedure CYSTOSCOPY LOCAL WITH CYSTOSCOPY LOCAL WITH CYSTOSCOPY LOCAL WITH STENT REMOVAL(Left) STENT REMOVAL(Left) STENT REMOVAL(Left) Comments Last Modified By: Hillary Forman RN, RN, Hillary Amin RN 11/20/23 08:53:07 11/20/23 08:53:07 11/20/23 08:53:07 Surgical Procedures FTURO Entry 1 Procedure Description Procedure CYSTOSCOPY LOCAL WITH Modifiers Left STENT REMOVAL Surgeon Description CYSTOSCOPY WITH LEFT STENT REMOVAL Primary Procedure Yes Primary Surgeon Antoine PEREZ, Vanessa [place] 11/20/23 08:50:00 Stop 11/20/23 08:51:00 Anesthesia Type [...] Verified (If Participants Hillary Forman RN, Applicable) Laureano WINTERS Pratibha A Time Out Complete 11/20/23 08:49:00 Allergies Reviewed? Yes Allergies Reviewed Self/Patient With Body Position Frog Legged Prep Area PERINEUM Prep Agents Betadine Solution Skin. Condition Intact, [place], Warm, and Dry Additional None Specimens Collected [...] By: Hillary Forman RN 11/20/23 08:53 Normal [facility] Main OR Preoperative Recordo n 11-20-2023 Main OR Preoperative Record Main OR Preoperative Record Holding Area Document Type FTURO Summary Primary Physician: Vanessa Schultz MD Finalized Date/Time: 11/20/23 08:20:18 Pt. Name: JORDAN HOLLY D.O.B./Sex: 1960 Female Med Rec #: [id number] Physician: Vanessa Schultz MD Financial #: [id number] Pt. Type: O Room/Bed: / Admit/Disch: 11/20/23 [...] JASON Boyce RN, Ruthann 11/20/23 08:20 Normal [facility] Operative Reporton Operative Report Operative Report Patient: JORDAN HOLLY Age: 63 years Sex: Female : 1960 Associated Diagnoses: None Author: Vanessa Schultz MD Procedure Operative Information Details: Date/ Time: 11/20/2023 08:55:00. Pre-Op Dx: Encounter for removal of ureteral stent ([id number] Z46.6, Discharge, Medical). Post-Op Dx: Same. Anesthesia Type: Local. Procedure: Local Cystoscopy with Stent Removal. Complications: None. Risks/Benefits/Infor med Consent: Surgical risks, benefits, details of the [...] for dietary modifications and increased fluids. Normal [facility] Comment on above: Result Comment: Elec tronically Signed By: Vanessa Schultz MD\.br\Date and Time Signed: 11/20/23 08:56 EDT Outpatient Surgery Discharge Instructionon 11-20-2023 Outpatient Surgery Discharge Instruction Outpatient Surgery Discharge Instruction [place] [id number] Patient Discharge Instructions PERSON INFORMATION Name: JORDAN [...] Follow up: With: Address: When: Vanessa Schultz [address] [place] [phone] Business (1) [address], [place] [address], [address] [address] [phone] Business (1) Comments: Office to schedule follow [...] ? 8 oz (237 mL) of milk, calcium-fortifiednon -dairy milk, and calcium-fortifiedfru it juice. Calcium-fortified means that calcium has been [...] Spinach (cooked), rhubarb, beets, sweet potatoes, and Micronesian chard. ? Peanuts. ? Potato chips, czech fries, and baked potatoes with skin on. ? Nuts and nut products. ? Chocolate. ? If you regularly take a diuretic medicine, make sure to eat at least 1 or 2 servings of fruits or vegetables that are high in potassium each day. These include: ? Avocado. ? Banana. ? [place], prune, carrot, or tomato juice. ? Baked potato. ? Cabbage. ? Beans and split peas. Lifestyle (more content not included)... Normal [facility] Reminderson 11-20-2023 Reminders Reminders - From: Lashanda Cummins To: - Arvinds Antoine; Sent: 11/20/2023 09:13:00 EDT Show up: 04/07/2024 09:12:00 EST Subject: 6 Month w/SHEREE&KUB Due Date/Time: 05/05/2024 08:59:00 EST Reminder/Recall Per KML, patient to have 6 month f/u with SHEREE and KUB. Patient prefers TB. Need to add the orders and then send to [facility]. Patient has a 6 month f/u scheduled for 05/05/24 @ 12:30 PM in [place]. (Patient wanted the f/u prior to the beginning of the year due to insurance cost/concerns.) Normal [facility] Ambulatory Visit Summaryon 0 11-12-2023 Ambulatory Visit Summary Ambulatory Visit Summary JORDAN HOLLY :1960 Visit Date:11/12/2023 Ambulatory Visit Instructions Your Diagnosis Ureteral stone with hydronephrosis Anticoagulated History of kidney stones Your Care Team Attending Physician - Vanessa Schultz MD Primary Care Physician - LATA WORKMAN CNP This Is Your Medications List Contact [...] including vitamins, herbs, eye drops, creams, and mxed-lsd-flaoqao medicines. ? Any problems you or family [...] health c (more content not included)... Normal [facility] Ambulatory Visit Summary Ambulatory Visit Summary JORDAN HOLLY :1960 Visit Date:11/12/2023 Ambulatory Visit Instructions Your Diagnosis Ureteral stone with hydronephrosis Anticoagulated History of kidney stones Your Care Team Attending Physician - Vanessa Schultz MD Primary Care Physician - LATA WORKMAN CNP This Is Your Medications List Contact [...] including vitamins, herbs, eye drops, creams, and qtmx-grh-qwdjhbj medicines. ? Any problems you or family [...] health c (more content not included)... Normal [facility] Urology Office/Clinic Noteon 11-12-2023 Urology Office/Clinic Note [...] new to our office due to recent [facility] ER visit for 7 mm left ureteral stone. S/p hysterectomy. BBSQ 19 (stent) 1. Ureteral stone with hydronephrosis (N13.2: Hydronephrosis with renal and ureteral calculous obstruction) Hx of stones. Has always passed on her own. Last episode was >12 mos ago. Pt presented to [facility] ER 11/01/23 with abdominal pain, right and left lower quadrant. CT AP wo IV con 11/01/23 - 7.7 mm proximal left ureterolith. Mild left hydroureteronephrosi s. Mild left perinephric stranding and asymmetric enlargement. Labs 11/01/23 Cr 0.93, eGFR >60. UA 11/01/[address] Tamez's note, culture pending but there are no results on [facility]inis[facility]. IVPB Rocephin. Urology was not consulted at the point due to no call coverage. Pt was discharged home with Flomax, Keflex, and Joppa and told to follow up with our office. Pt presented back to [facility] ER 11/02/23 due to left flank pain and left lower quadrant pain. KUB 11/02/23 [facility] - suspected 9 mm left ureterolith. [...] Risks li (more content not included)... Normal [facility] Comment on above: Result Comment: Elec tronically Signed By: Vanessa Schultz MD\.br\Date and Time Signed: 11/12/23 14:14 EDT\.br\Electronically Co-Signed By: Jennifer Ashley.br\Date and Time Co-Signed: 11/12/23 14:07 EDT GLYCOHEMOGLOBIN A1Con 2020 ADA RECOMMENDATION ADA THERAPEUTIC TARGET 6.0 - 7.0 ACTION SUGGESTED > 7.0 [facility] Comment on above: Performed By: #### A 1C #### [facility] [address] [address] [address] Quirino Zelaya Glucose [Mass/Vol] 154 mg/dL Normal [facility] Comment on above: Performed By: #### A 1C #### [facility] [address] [place], [place] [address] Dr. Quirino Zelaya HbA1c (Bld) [Mass fraction] 7.0 % Critically high <=6.0 [facility] Comment on above: Performed By: #### A 1C #### [facility] [address] [place] [address] Dr. Quirino Zelaya XR KUB 1 VIEWon [...] PASTORA TY Date: 2021-02-08 09:53 Normal [facility] MAMM SCREEN 3D HAY CADon 01-25-2021 MG MAMM SCREEN 3D HAY CAD Patient: JORDAN HOLLY Exam Date: 01/25/2021 : 1960 Gender:F Ordering : CHRYSTAL WORKMAN NEWSROOM INTERN Admission #: [id number] Family : Order #: [id number] CLICK HERE TO VIEW EXAM RADIOLOGY REPORT [...] Treatments None Family Cancers None LOCATION: [facility] BREAST COMPOSITION: Scattered areas fibroglandular density. [...] MD on 01/25/2021 at 11:21 Normal [facility] AMYLASEon 01-19-2021 Amylase [Catalytic activity/Vol] 34 U/L Normal 31-110 [facility] Comment on above: Performed By: #### L NHAN, HILLARY, CMP ####[facility] [address] [place] [address]Dr. Ayshalan Zelaya CBC W MANUAL DIFFon 01-20-20 21 ATYPICAL LYMPH # Normal [facility] Comment on above: Performed By: #### C JANIA ####[facility] [address] [place] [address]Dr. Yilan Zelaya ATYPICAL LYMPH % Normal [facility] Comment on above: Performed By: #### C JANIA ####[facility] [address] [place], [place] [address]Dr. Yilan Zelaya BAND # Normal 0.0-0.3 [facility] Comment on above: Performed By: #### C JANIA ####[facility] [address] [place], [place] [address]Dr. Yilan Zelaya BAND % Normal 0-5 [facility] Comment on above: Performed By: #### C JANIA ####[facility] [address] [place], [place] [address]Dr. Yilan Zelaya BASOM # 0.08 103/ul Normal 0.00-0.10 [facility] Comment on above: Performed By: #### C JANIA ####[facility] [address] [place], [place] [address]Dr. Yilan Zelaya BASOM % 1.0 % Normal 0.2-2.0 [facility] Comment on above: Performed By: #### C JANIA ####[facility] [address] [place], [place] [address]Dr. Yilan Zelaya BLAST # Normal [facility] Comment on above: Performed By: #### C JANIA ####[facility] [address] [place], [place] [address]Dr. Yilan Zelaya BLAST % Normal [facility] Comment on above: Performed By: #### C JANIA ####[facility] [facility] [address] [place], [place] [address]Fg. Quirino Zelaya CORRECTED WBC Normal 4.0-11.0 [facility] Comment on above: Performed By: #### C JANIA ####[facility] [address] [place], [place] [address]Co. Quirino Zelaya EOS # 0.24 103/ul Normal 0.00-0.70 [facility] Comment on above: Performed By: #### C JANIA ####[facility] [address] [place] [id number]. Quirino Zelaya EOS% 3.0 % Normal 0.9-7.0 [facility] Comment on above: Performed By: #### C JANIA ####[facility] [address] [place] [id number]. Quirino Zelaya HCT 40.3 % Normal 36.0-48.0 [facility] Comment on above: Performed By: #### C JANIA ####[facility] [address]xel[address]ca[address] [place] [id number]. Quirino Zelaya HGB 13.1 g/dl Normal 12.0-16.0 [facility] Comment on above: Performed By: #### C JANIA ####[facility] [address] [place] [phone]. Quirino Zelaya LYMPHM # 1.68 103/ul Normal 1.20-3.80 [facility] Comment on above: Performed By: #### C JANIA ####[facility] [address]fdrsik[address] [place] [phone]. Quirino Zelaya LYMPHM% 21.0 % Normal 20.5-60.0 [facility] Comment on above: Performed By: #### C JANIA ####[facility] [address]xk[address] [place] [phone]. Quirino Zelaya MCH 28.9 pg Normal 26.7-34.0 [facility] Comment on above: Performed By: #### C JANIA ####[facility] [address]xktfc[address] [place] [phone]. Quirino Zelaya MCHC 32.5 g/dl Normal 29.9-35.2 [facility] Comment on above: Performed By: #### C JANIA ####[facility] [address] [place] [phone]. Quirino Zelaya MCV 88.8 fL Normal 81.0-99.0 [facility] Comment on above: Performed By: #### C JANIA ####[facility] [address] [place] [phone]. Quirino Zelaya METAMYELOCYTE # Normal [facility] Comment on above: Performed By: #### C JANIA ####[facility] [address] [place] [address]Dr. Quirino Zelaya METAMYELOCYTE % Normal [facility] Comment on above: Performed By: #### C JANIA ####[facility] [address] [place], [place] [address]Dr. Quirino Zelaya MONOM# 0.56 103/ul Normal 0.30-0.80 [facility] Comment on above: Performed By: #### C JANIA ####[facility] [address] [place] [address]Dr. Quirino Zelaya MONOM% 7.0 % Normal 1.7-12.0 [facility] Comment on above: Performed By: #### C JANIA ####[facility] [address] [place] [phone]. Quirino Zelaya MPV 11.1 fL Normal 9.5-13.5 [facility] Comment on above: Performed By: #### C JANIA ####[facility] [address] [place] [phone]. Quirino Zelaya MYELOCYTE # Normal [facility] Comment on above: Performed By: #### C JANIA ####[facility] [address] [place] [phone]. Quirino Zelaya MYELOCYTE % Normal [facility] Comment on above: Performed By: #### C JANIA ####[facility] [address] [place] [address]Dr. Quirino Zelaya NRBC Normal [facility] Comment on above: Performed By: #### C JANIA ####[facility] [address]ensz[address] [place], [place] [address]Tz. Quirino Zelaya PLT 180 103/ul Normal 150-450 [facility] Comment on above: Performed By: #### C JANIA ####[facility] Cfwruvxmul[address] [place], [place] [address]Rw. Quirino Zelaya RBC 4.54 106/ul Normal 4.20-5.40 [facility] Comment on above: Performed By: #### C JANIA ####[facility] [address]mpwp[address] [place] [phone]. Quirino Zelaya RDW 12.9 % Normal 11.0-15.0 [facility] Comment on above: Performed By: #### C JANIA ####[facility] [address]ize[address] [place] [phone]. Quirino Zelaya SEG # 5.44 103/ul Normal 1.40-6.50 [facility] Comment on above: Performed By: #### C JANIA ####[facility] [address]cvlfek[address] [place] [phone]. Quirino Zelaya SEG % 68.0 % Normal 43.0-75.0 [facility] Comment on above: Performed By: #### C JANIA ####[facility] [address]ks[address] [place] [phone]. Quirino Zelaya WBC 8.0 103/ul Normal 4.0-11.0 [facility] Comment on above: Performed By: #### C JANIA ####[facility] [address] [place] [phone]. Quirino Zelaya CT ABD/PELVIS WO CONon 01-19 CT [...] asymmetric enlargement with perinephric stranding. Mild right hydroureteronephrosi s extending down to a 3 mm stone [...] LEANDRA SERNA Date: 2021-01-19 04:54 Normal [facility] CULTURE URINEon 01-19-2021 CULTURE URINE Culture Observations: MODERATE GROWTH OF MIXED GENITAL DAVID. NO POTENTIAL PATHOGENS SEEN. Normal [facility] Comment on above: Performed By: #### U RCX ####[facility] [address] [place] [address]Dr. Quirino Zelaya ER URINE PROFILEon 1 Bilirubin Ql (U) Negative Normal NEGATIVE The [facility] Comment on above: Performed By: #### U MICRO, ERUR #### [facility] [address] [address] [address] Quirino Zelaya Clarity (U) CLEAR Normal CLEAR [facility] Comment on above: Performed By: #### U MICRO, ERUR #### [facility] [address] [place] [address] [address] Quirino Zelaya Color (U) YELLOW Normal YELLOW [facility] Comment on above: Performed By: #### U MICRO, ERUR #### [facility] [address] [place] [address] [address] Quirino Zelaya ERUAHD A micrscopic examination will be performed if indicated. Normal [facility] Comment on above: Performed By: #### U MICRO, ERUR #### [facility] [address] [address] [address] Quirino Zelaya Glucose Ql (U) Negative Normal NEGATIVE [facility] Comment on above: Performed By: #### U MICRO, ERUR #### [facility] [address] [address] [address] Quirino Zelaya Hemoglobin Ql (U) LARGE Abnormal NEGATIVE [facility] Comment on above: Performed By: #### U MICRO, ERUR #### [facility] [address] [place] [address] [address] Quirino Zelaya Ketones Ql (U) TRACE Abnormal NEGATIVE [facility] Comment on above: Performed By: #### U MICRO, ERUR #### [facility] [address] [place] [address] Dr. Quirino Zelaya LEUKOCYTES TRACE Abnormal NEGATIVE [facility] Comment on above: Performed By: #### U MICRO, ERUR #### [facility] [address] [place] [address] Dr. Quirino Zelaya Nitrite Ql (U) Negative Normal NEGATIVE [facility] Comment on above: Performed By: #### U MICRO, ERUR #### [facility] [address] [address] [address] Quirino Zelaya pH (U) 5.0 [pH] Normal 5-9 [facility] Comment on above: Performed By: #### U MICRO, ERUR #### [facility] [address] [address] [address] Quirino Zelaya SPEC GRAVITY >=1.030 Abnormal 1.005-<=1.025 [facility] Comment on above: Performed By: #### U MICRO, ERUR #### [facility] [address] [place] [address] Dr. Quirino Zelaya UA PROTEIN Negative Normal NEGATIVE/ TRACE [facility] Comment on above: Performed By: #### U MICRO, ERUR #### [facility] [address] [place] [address] Dr. Quirino Zelaya UR MICRO IND INDICATED Normal [facility] Comment on above: Performed By: #### U MICRO, ERUR #### [facility] [address] [place] [address] [address] Quirino Zelaya Urobilinogen Qn (U) 0.2 {Joan'U}/dL Normal 0.2 - 1. 0 [facility] Comment on above: Performed By: #### U MICRO, ERUR #### [facility] [address] [address] [address] Quirino Zelaya LIPASEon 01-19-2021 Lipase [Catalytic activity/Vol] 104.0 U/L Normal 23.0-300.0 [facility] Comment on above: Performed By: #### L HILLARY JUSTIN, CMP ####[facility] [address] [place] [address]DrFish Zelaya PROF 14(COMP METB)on Albumin [Mass/Vol] 3.8 g/dL Normal 3.5-5.0 [facility] Comment on above: Performed By: #### L HILLARY JUSTIN, CMP ####[facility] [address]re[address] [place] [address]Dr. Quirino Zelaya Albumin/Globulin [Mass ratio] 1.2 {ratio} Normal [facility] Comment on above: Performed By: #### L HILLARY JUSTIN, CMP ####[facility] [address] [place] [address]Dr. Quirino Zelaya ALP [Catalytic activity/Vol] 71 U/L Normal 38-126 [facility] Comment on above: Performed By: #### L HILLARY JUSTIN, CMP ####[facility] [address] [place] [address]Dr. Quirino Zelaya ALT [Catalytic activity/Vol] 29 U/L Normal 9-52 [facility] Comment on above: Performed By: #### L HILLARY JUSTIN, CMP ####[facility] [address]urs[address] [place] [address]Dr. Quirino Zelaya Anion gap [Moles/Vol] 14.4 mmol/L Normal [facility] Comment on above: Performed By: #### L HILLARY JUSTIN, CMP ####[facility] [address] [place] [address]Dr. Quirino Zelaya AST [Catalytic activity/Vol] 22 U/L Normal 14-36 [facility] Comment on above: Performed By: #### L IPA, HILLARY, CMP ####[facility] [address] [place] [address]Dr. Quirino Zelaya Bilirubin [Mass/Vol] 0.7 mg/dL Normal 0.2-1.3 [facility] Comment on above: Performed By: #### L IPA, HILLARY, CMP ####[facility] [address]ig[address] [place], [place] [address]Dr. Quirino Zelaya Calcium [Mass/Vol] 9.4 mg/dL Normal 8.4-10.2 [facility] Comment on above: Performed By: #### L IPA HILLARY, CMP ####[facility] Iqsalsy[address]ch[address] [place], [place] [address]Dr. Quirino Zelaya Chloride [Moles/Vol] 101 mmol/L Normal 98-107 [facility] Comment on above: Performed By: #### L IPA HILLARY, CMP ####[facility] Qouuxutgvc[address] [place], [place] [address]Dr. Quirino Zelaya CO2 [Moles/Vol] 28.5 mmol/L Normal 22.0-30.0 [facility] Comment on above: Performed By: #### L IPA HILLARY, CMP ####[facility] Cnxglnllff[address] [place], [place] [address]Dr. Quirino Zelaya Creatinine [Mass/Vol] 0.85 mg/dL Normal 0.52-1.04 [facility] Comment on above: Performed By: #### L IPA, HILLARY, CMP ####[facility] [address]rephk[address] [place], [place] [address]Dr. Quirino Zelaya EGFR-AF KAZAKH >60 Normal >=60 [facility] Comment on above: Performed By: #### L IPA, HILLARY, CMP ####[facility] Taat[address]llld[address] [place], [place] [address]Dr. Quirino Zelaya EGFR-NON AF KAZAKH >60 Normal >=60 [facility] Comment on above: Performed By: #### L HILLARY JUSTIN, CMP ####[facility] V[address]ay[address] [place] [address]Dr. Quirino Zelaya Globulin (S) [Mass/Vol] 3.1 g/dL Normal [facility] Comment on above: Performed By: #### L HILLARY JUSTIN, CMP ####[facility] Thrirdzhed[address] [place] [address]Dr. Quirino Zelaya Glucose [Mass/Vol] 124 mg/dL Critically high 74-106 [facility] Comment on above: Performed By: #### L HILLARY JUSTIN, CMP ####[facility] Apnwlvyblx[address] [place], [place] [address]Dr. Quirino Zelaya Potassium [Moles/Vol] 3.9 mmol/L Normal 3.4-5.0 [facility] Comment on above: Performed By: #### L HILLARY JUSTIN, CMP ####[facility] Djegmqineu[address] [place], [place] [address]Dr. Quirino Zelaya Protein [Mass/Vol] 6.9 g/dL Normal 6.1-8.2 [facility] Comment on above: Performed By: #### L HILLARY JUSTIN, CMP ####[facility] R[address]ccugpqas[address] [place], [place] [address]Dr. Quirino Zelaya Sodium [Moles/Vol] 140 mmol/L Normal 137-145 [facility] Comment on above: Performed By: #### L HILLARY JUSTIN, CMP ####[facility] Nk[address]nbqaid[address] [place], [place] [address]Dr. Quirino Zelaya Urea nitrogen [Mass/Vol] 17.0 mg/dL Normal 7.0-17.0 [facility] Comment on above: Performed By: #### L HILLARY JUSTIN, CMP ####[facility] Nbxgcmcorr[address] [place], [place] [address]Dr. Quirino Zelaya Urea nitrogen/Creatinine [Mass ratio] 20.0 mg/mg Normal [facility] Comment on above: Performed By: #### L HILLARY JUSTIN, CMP ####[facility] Medajlqidu[address] [place], [place] [address]Dr. Quirino Zelaya URINE MICROSCOPIC ONLYon BACTERIA MODERATE Abnormal NONE SEEN [facility] Comment on above: Performed By: #### U MICRO, ERUR ####[facility] El[address]azenu[address] [place] [address]Dr. Quirino Zelaya Bacteria identified Cx Nom (U) INDICATED Normal [facility] Comment on above: Performed By: #### U MICRO, ERUR ####[facility] [address]xc[address] [place], [place] [address]Dr. Quirino Zelaya CA OX CRYSTALS FEW Normal [facility] Comment on above: Performed By: #### U MICRO, ERUR ####[facility] [address]ub[address]fqca[address] [place], [place] [address]Dr. Quirino Zelaya CAST NONE SEEN Normal NONE SEEN [facility] Comment on above: Performed By: #### U MICRO, ERUR ####[facility] V[address]vwnhrgca[address] [place], [place] [address]Dr. Quirino Zelaya Crystals LM Nom (Urine sed) SEEN Abnormal NONE SEEN [facility] Comment on above: Performed By: #### U MICRO, ERUR ####[facility] Qfrmtiulum[address] [place], [place] [address]Dr. Quirino Zelaya Epithelial cells LM Ql (Urine sed) MODERATE Abnormal NONE SEEN /RARE [facility] Comment on above: Performed By: #### U MICRO, ERUR ####[facility] Rorb[address]vy[address] [place], [place] [address]Dr. Quirino Zelaya MUCOUS TRACE Abnormal NONE SEEN [facility] Comment on above: Performed By: #### U MICRO, ERUR ####[facility] Y[address]az[address]wi[address] [place], [place] [address]Dr. Quirino Zelaya RBC NONE SEEN Abnormal 0-2 [facility] Comment on above: Performed By: #### U MICRO, ERUR ####[facility] E[address]qtdkocm[address] [place], [place] [address]Dr. Quirino Zelaya WBC 0-2 Abnormal NONE SEEN [facility] Comment on above: Performed By: #### U MICRO, ERUR ####[facility] [address]pektqypl[address] [place], [place] [address]Dr. Quirino Zelaya PROF CHEM 8 (BAS METB)on Anion gap [Moles/Vol] 9.7 mmol/L Normal [facility] Comment on above: Performed By: #### B MP #### [facility] [address] [place] [id number] Navi Maria Dolores Calcium [Mass/Vol] 9.3 mg/dL Normal 8.4-10.2 [facility] Comment on above: Performed By: #### B MP #### [facility] [address] [place] [address] Navi Maria Dolores Chloride [Moles/Vol] 104 mmol/L Normal 98-107 [facility] Comment on above: Performed By: #### B MP #### [facility] [address] [place] [address] Navi Maria Dolores CO2 [Moles/Vol] 31.8 mmol/L Critically high 22.0-30.0 [facility] Comment on above: Performed By: #### B MP #### [facility] [address] [place] [address] Navi Maria Dolores Creatinine [Mass/Vol] 0.93 mg/dL Normal 0.52-1.04 [facility] Comment on above: Performed By: #### B MP #### [facility] [address] [place], [place] [address] Navi Maria Dolores EGFR-AF KAZAKH >60 Normal >=60 [facility] Comment on above: Performed By: #### B MP #### [facility] [address] [place] [address] Navi Maria Dolores EGFR-NON AF KAZAKH >60 Normal >=60 [facility] Comment on above: Performed By: #### B MP #### [facility] [address] [place] [phone] Navi Maria Dolores Glucose [Mass/Vol] 118 mg/dL Critically high 74-106 [facility] Comment on above: Performed By: #### B MP #### [facility] [address] [place] [address] Navi Maria Dolores Potassium [Moles/Vol] 4.5 mmol/L Normal 3.4-5.0 [facility] Comment on above: Performed By: #### B MP #### [facility] [address] [place], [place] [address] Navi Maria Dolores Sodium [Moles/Vol] 141 mmol/L Normal 137-145 [facility] Comment on above: Performed By: #### B MP #### [facility] [address] [place], [place] [address] Navi Maria Dolores Urea nitrogen [Mass/Vol] 18.0 mg/dL Critically high 7.0-17.0 [facility] Comment on above: Performed By: #### B MP #### [facility] [address] [place], [place] [address] Navi Maria Dolores Urea nitrogen/Creatinine [Mass ratio] 19.4 mg/mg Normal [facility] Comment on above: Performed By: #### B MP #### [facility] [address] [place], [place] [address] Navi Maria Dolores CBC AUTO DIFFon 07-26-2020 BASO # 0.1 103/ul Normal 0.0-0.1 [facility] Comment on above: Performed By: #### C BC #### [facility] [address] [place], [place] [address] Navi Maria Dolores Basophils/100 WBC (Bld) 0.8 % Normal 0.2-2.0 [facility] Comment on above: Performed By: #### C BC #### [facility] [address] [place], [place] [address] Navi Maria Dolores EO # 0.2 103/ul Normal 0.0-0.7 [facility] Comment on above: Performed By: #### C BC #### [facility] [address] [place], [place] [address] Navi Maria Dolores Eosinophils/100 WBC (Bld) 3.3 % Normal 0.9-7.0 [facility] Comment on above: Performed By: #### C BC #### [facility] [address] [place], [place] [address] Navi Maria Dolores Erythrocyte distribution width (RBC) [Ratio] 13.6 % Normal 11.0-15.0 [facility] Comment on above: Performed By: #### C BC #### [facility] [address] [place] [address] Navi Whitten Hematocrit (Bld) [Volume fraction] 42.5 % Normal 36.0-48.0 [facility] Comment on above: Performed By: #### C BC #### [facility] [address] [place] [address] Navi Whitten Hemoglobin (Bld) [Mass/Vol] 13.3 g/dL Normal 12.0-16.0 [facility] Comment on above: Performed By: #### C BC #### [facility] [address] [place] [address] Navi Whitten IG # 0.03 10e3/ul Normal 0.00-0.03 [facility] Comment on above: Performed By: #### C BC #### [facility] [address] [place] [address] Navi Whitten IG % 0.5 % Normal 0.0-0.5 [facility] Comment on above: Performed By: #### C BC #### [facility] [address] [place] [address] Navi Whitten LYMPH # 1.5 103/ul Normal 1.2-3.8 [facility] Comment on above: Performed By: #### C BC #### [facility] [address] [place] [address] Navi Whitten Lymphocytes/100 WBC (Bld) 22.7 % Normal 20.5-60.0 [facility] Comment on above: Performed By: #### C BC #### [facility] [address] [place] [address] Navi Whitten MANUAL DIFF REQ NO Normal [facility] Comment on above: Performed By: #### C BC #### [facility] [address] [place], [place] [address] Navi Whitten MCH (RBC) [Entitic mass] 29.1 pg Normal 26.7-34.0 [facility] Comment on above: Performed By: #### C BC #### [facility] [address] [address] Navihumphrey Whitten MCHC (RBC) [Mass/Vol] 31.3 g/dL Normal 29.9-35.2 [facility] Comment on above: Performed By: #### C BC #### [facility] [address] [place] [address] Navihumphrey Whitten MCV (RBC) [Entitic vol] 93.0 fL Normal 81.0-99.0 [facility] Comment on above: Performed By: #### C BC #### [facility] [address] [place], [place] [address] Navi Maria Dolores MONO # 0.5 103/ul Normal 0.3-0.8 [facility] Comment on above: Performed By: #### C BC #### [facility] [address] [place], [place] [address] Navi Maria Dolores Monocytes/100 WBC (Bld) 7.6 % Normal 1.7-12.0 [facility] Comment on above: Performed By: #### C BC #### [facility] [address] [place] [address] Navi Maria Dolores NEUT # 4.3 103/ul Normal 1.4-6.5 [facility] Comment on above: Performed By: #### C BC #### [facility] [address] [place], [place] [address] Navi Maria Dolores Neutrophils/100 WBC (Bld) 65.1 % Normal 43.0-75.0 [facility] Comment on above: Performed By: #### C BC #### [facility] [address] [place], [place] [address] Navi Maria Dolores Platelet mean volume (Bld) [Entitic vol] 11.2 fL Normal 9.5-13.5 [facility] Comment on above: Performed By: #### C BC #### [facility] [address] [place], [place] [address] Navi Maria Dolores PLT 198 103/ul Normal 150-450 [facility] Comment on above: Performed By: #### C BC #### [facility] [address] [place], [place] [address] Navi Whitten RBC 4.57 106/ul Normal 4.20-5.40 [facility] Comment on above: Performed By: #### C BC #### [facility] [address] [address] Navi Whitten WBC 6.6 103/ul Normal 4.0-11.0 [facility] Comment on above: Performed By: #### C BC #### [facility] [address] [address] Navi Whitten GLYCOHEMOGLOBIN A1Con 2020 ADA RECOMMENDATION ADA THERAPEUTIC TARGET 6.0 - 7.0 ACTION SUGGESTED > 7.0 Normal [facility] Comment on above: Performed By: #### A 1C ####[facility] [address] [place] [id number] Whitten Glucose [Mass/Vol] 146 mg/dL Normal [facility] Comment on above: Performed By: #### A 1C ####[facility] [address] [place] [id number] Whitten HbA1c (Bld) [Mass fraction] 6.7 % Critically high <=6.0 [facility] Comment on above: Performed By: #### A 1C ####[facility] [address] [place] [id number] Whitten LIPID PROFILEon 07-26-2020 CHOL-HDL RATIO NORM SEE BELOW Normal [facility] Comment on above: Result Comment: 3.3 - 4.4 LOW RISK 4.4 - 7.1 AVERAGE RISK 7.1 - 11.0 MODERATE RISK >11.0 HIGH RISK Performed By: #### L IPID, CMP #### [facility] [address] [place] [id number] Navi Whitten Cholesterol [Mass/Vol] 132 mg/dL Normal <=200 [facility] Comment on above: Performed By: #### L IPID, CMP #### [facility] [address] [place] [address] Navi Wihtten Cholesterol in HDL [Mass/Vol] 51 mg/dL Normal [facility] Comment on above: Performed By: #### L IPID, CMP #### [facility] [address] [place], [place] [address] Navi Maria Dolores Cholesterol in LDL [Mass/Vol] 64.8 mg/dL Normal [facility] Comment on above: Performed By: #### L IPID, CMP #### [facility] [address] [place], [place] [address] Navi Maria Dolores Cholesterol.total/Ch olesterol in HDL [Mass ratio] 2.6 {ratio} Normal [facility] Comment on above: Performed By: #### L IPID, CMP #### [facility] [address] [place] [id number] Navi Maria Dolores HDL NORMAL > or = 60 mg/dl - LOW CARDIOVASCULAR RISK <40 mg/dl - HIGH CARDIOVASCULAR RISK Normal [facility] Comment on above: Performed By: #### L IPID, CMP #### [facility] [address] [place] [address] Navi Maria Dolores LDL CALC NORMAL SEE BELOW Normal [facility] Comment on above: Result Comment: <100 mg/dl OPTIMAL 100 - 129 mg/dl NEAR OR ABOVE OPTIMAL 130 - 159 mg/dl BORDERLINE HIGH 160 - 189 mg/dl HIGH >190 mg/dl VERY HIGH Performed By: #### L IPID, CMP #### [facility] [address] [place] [address] Navi Maria Dolores Triglyceride [Mass/Vol] 81 mg/dL Normal <=150 [facility] Comment on above: Performed By: #### L IPID, CMP #### [facility] [facility] [address] [id number] Navi Maria Dolores VLDL CALC 16.2 mg/dL Normal [facility] Comment on above: Performed By: #### L IPID, CMP #### [facility] [address] [place], [place] [phone] Navi Maria Dolores MICROALBUMIN, RAND URon 03-2 mALB <1.3 Normal <=30.0 [facility] Comment on above: Performed By: #### M ALBR #### [facility] [address] [place], [place] [phone] Navi Whitten PROF 14(COMP METB)on 021 Albumin [Mass/Vol] 3.8 g/dL Normal 3.5-5.0 [facility] Comment on above: Performed By: #### L IPID, CMP #### [facility] [address] [address] Navi Maria Dolores Albumin/Globulin [Mass ratio] 1.3 {ratio} Normal [facility] Comment on above: Performed By: #### L IPID, CMP #### [facility] [address] [place] [address] Navi Maria Dolores ALP [Catalytic activity/Vol] 67 U/L Normal 38-126 [facility] Comment on above: Performed By: #### L IPID, CMP #### [facility] [address] [place] [address] Navi Maria Dolores ALT [Catalytic activity/Vol] 36 U/L Normal 9-52 [facility] Comment on above: Performed By: #### L IPID, CMP #### [facility] [address] [place] [address] Navi Maria Dolroes Anion gap [Moles/Vol] 10.5 mmol/L Normal [facility] Comment on above: Performed By: #### L IPID, CMP #### [facility] [address] [place] [address] Navi Maria Dolores AST [Catalytic activity/Vol] 20 U/L Normal 14-36 [facility] Comment on above: Performed By: #### L IPID, CMP #### [facility] [address] [address] Navi Maria Dolores Bilirubin [Mass/Vol] 0.7 mg/dL Normal 0.2-1.3 [facility] Comment on above: Performed By: #### L IPID, CMP #### [facility] [address] [place] [address] Navi Maria Dolores Calcium [Mass/Vol] 9.4 mg/dL Normal 8.4-10.2 [facility] Comment on above: Performed By: #### L IPID, CMP #### [facility] [address] [address] Navi Maria Dolores Chloride [Moles/Vol] 104 mmol/L Normal 98-107 [facility] Comment on above: Performed By: #### L IPID, CMP #### [facility] [address] [place] [address] Navi Maria Dolores CO2 [Moles/Vol] 30.9 mmol/L Critically high 22.0-30.0 [facility] Comment on above: Performed By: #### L IPID, CMP #### [facility] [address] [place] [address] Navi Maria Dolores Creatinine [Mass/Vol] 0.87 mg/dL Normal 0.52-1.04 [facility] Comment on above: Performed By: #### L IPID, CMP #### [facility] [address] [place] [address] Navi Maria Dolores EGFR-AF KAZAKH >60 Normal >=60 The [facility] Comment on above: Performed By: #### L IPID, CMP #### [facility] [address] [place] [address] Navi Maria Dolores EGFR-NON AF KAZAKH >60 Normal >=60 [facility] Comment on above: Performed By: #### L IPID, CMP #### [facility] [address] [place] [address] Navi Maria Dolores Globulin (S) [Mass/Vol] 3.0 g/dL Normal [facility] Comment on above: Performed By: #### L IPID, CMP #### [facility] [address] [place] [address] Navi Maria Dolores Glucose [Mass/Vol] 118 mg/dL Critically high 74-[address] [facility] Comment on above: Performed By: #### L IPID, CMP #### [facility] [address] [place] [address] Navi Maria Dolores Potassium [Moles/Vol] 4.4 mmol/L Normal 3.4-5.0 [facility] Comment on above: Performed By: #### L IPID, CMP #### [facility] [address] [place], [place] [address] Navi Maria Dolores Protein [Mass/Vol] 6.8 g/dL Normal 6.1-8.2 [facility] Comment on above: Performed By: #### L IPID, CMP #### [facility] [address] [place] [address] Navi Maria Dolores Sodium [Moles/Vol] 141 mmol/L Normal 137-145 [facility] Comment on above: Performed By: #### L IPID, CMP #### [facility] [address] [place] [address] Navi Maria Dolores Urea nitrogen [Mass/Vol] 26.0 mg/dL Critically high 7.0-17.0 [facility] Comment on above: Performed By: #### L IPID, CMP #### [facility] [address] [place] [address] Navi Maria Dolores Urea nitrogen/Creatinine [Mass ratio] 29.9 mg/mg Normal [facility] Comment on above: Performed By: #### L IPID, CMP #### [facility] [address] [place] [address] Navi Maria Dolores UA RANDOM W/MICROSCOPICon BACTERIA NONE SEEN Normal NONE SEEN [facility] Comment on above: Performed By: #### U AMIC #### [facility] [address] [place] [address] Navi Maria Dolores Bilirubin Ql (U) Negative Normal NEGATIVE [facility] Comment on above: Performed By: #### U AMIC #### [facility] [address] [place] [address] Navi Maria Dolores CAST NONE SEEN Normal NONE SEEN [facility] Comment on above: Performed By: #### U AMIC #### [facility] [address] [place], [place] [phone] Navi Maria Dolores Clarity (U) CLEAR Normal CLEAR [facility] Comment on above: Performed By: #### U AMIC #### [facility] [address] [place], [place] [phone] Navi Maria Dolores Color (U) LT. YELLOW Normal YELLOW [facility] Comment on above: Performed By: #### U AMIC #### [facility] [address] [address] Navi Maria Dolores Crystals LM Nom (Urine sed) NONE SEEN Normal NONE SEEN [facility] Comment on above: Performed By: #### U AMIC #### [facility] [address] [id number] Navi Maria Dolores Epithelial cells LM Ql (Urine sed) MODERATE Abnormal NONE SEEN /RARE [facility] Comment on above: Performed By: #### U AMIC #### [facility] [address] [address] Navi Maria Dolores Glucose Ql (U) Negative Normal NEGATIVE [facility] Comment on above: Performed By: #### U AMIC #### [facility] [address] [place] [address] Navi Maria Dolores Hemoglobin Ql (U) Negative Normal NEGATIVE [facility] Comment on above: Performed By: #### U AMIC #### [facility] [address] [place] [address] Navi Maria Dolores Ketones Ql (U) Negative Normal NEGATIVE [facility] Comment on above: Performed By: #### U AMIC #### [facility] [address] [address] Navi Maria Dolores LEUKOCYTES Negative Normal NEGATIVE [facility] Comment on above: Performed By: #### U AMIC #### [facility] [address] [address] Navi Maria Dolores MUCOUS TRACE Abnormal NONE SEEN [facility] Comment on above: Performed By: #### U AMIC #### [facility] [address] [address] Navi Maria Dolores Nitrite Ql (U) Negative Normal NEGATIVE [facility] Comment on above: Performed By: #### U AMIC #### [facility] [address] [place] [address] Navi Maria Dolores pH (U) 5.0 [pH] Normal 5-9 [facility] Comment on above: Performed By: #### U AMIC #### [facility] [address] [place] [address] Navi Maria Dolores RBC NONE SEEN Abnormal 0-2 [facility] Comment on above: Performed By: #### U AMIC #### [facility] [address] [place], [place] [address] Navi Whitten SPEC GRAVITY 1.025 Normal 1.005-<=1.025 [facility] Comment on above: Performed By: #### U AMIC #### [facility] [address] [place], [place] [address] Navi Maria Dolores UA PROTEIN Negative Normal NEGATIVE/ TRACE [facility] Comment on above: Performed By: #### U AMIC #### [facility] [address] [place], [place] [address] Navihumphrey Whitten Urobilinogen Qn (U) 0.2 {Joan'U}/dL Normal 0.2 - 1. 0 [facility] Comment on above: Performed By: #### U AMIC #### [facility] [address] [place], [place] [address] Navi Maria Dolores WBC 0-2 Abnormal NONE SEEN [facility] Comment on above: Performed By: #### U AMIC #### [facility] [address] [place], [place] [address] Navi Whitten Vital Signs Date Time Vital Sign Value Performing Clinician Facility 02-28-2024 08:58-0400 Body height 176.5 cm Carlos Harman DPM Work Phone: [facility] 02-28-2024 08:58-0400 Body mass index (BMI) [Ratio] 26.05 kg/m2 Carlos Harman DPM Work Phone: [facility] 02-28-2024 08:58-0400 Body weight 81.19 kg Carlos Harman DPM Work Phone: [facility] 02-28-2024 08:58-0400 Diastolic blood pressure 79 mm[Hg] Carlos Harman DPM Work Phone: [facility] 02-28-2024 08:58-0400 Heart rate 88 /min Carlos Harman DPM Work Phone: [facility] 02-28-2024 08:58-0400 Systolic blood pressure 126 mm[Hg] Carlos Harman DPM Work Phone: [facility] 02-14-2024 13:13-0400 Body height 176.5 cm Carlos Harman DPM Work Phone: [facility] 02-14-2024 13:13-0400 Body mass index (BMI) [Ratio] 26.05 kg/m2 Carlos Harman DPM Work Phone: [facility] 02-14-2024 13:13-0400 Body weight 81.19 kg Carlos Harman DPM Work Phone: [facility] 02-14-2024 13:13-0400 Respiratory rate 18 /min Carlos Harman DPM Work Phone: [facility] 02-12-2024 11:09-0400 Body height 175.3 cm [facility] 1 [facility] 02-12-2024 11:09-0400 Body mass index (BMI) [Ratio] 26.43 kg/m2 [facility] 1 [facility] 02-12-2024 11:09-0400 Body weight 81.19 kg P[facility] 1 [facility] 02-05-2024 14:06-0400 Body height 175.3 cm Allyson Surendra [employer] Work Phone: [facility] 02-05-2024 14:06-0400 Body mass index (BMI) [Ratio] 26.4 kg/m2 Allyson Surendra [employer] Work Phone: [facility] 02-05-2024 14:06-0400 Body weight 81.1 kg Allyson Surendra [employer] Work Phone: [facility] 02-05-2024 14:06-0400 Diastolic blood pressure 67 mm[Hg] Allyson Garcia [employer] Work Phone: [facility] 02-05-2024 14:06-0400 Systolic blood pressure 124 mm[Hg] Allyson Garcia [employer] Work Phone: [address] [address]-08-2024 13:21-0400 Blood Pressure Location Vanessa Lue [facility] 11-12-2023 13:21-0400 Diastolic blood pressure 69 mm[Hg] Vanessa Lue [facility] 11-12-2023 13:21-0400 Heart rate 72 /min Vanessa Lue [facility] 11-12-2023 13:21-0400 Respiratory rate 19 /min Vanessa Lue [facility] 11-12-2023 13:21-0400 Systolic blood pressure 131 mm[Hg] Vanessa Lue [facility] Encounters Encounter Date Encounter Type Care Provider Facility Start: 05-05-2024 ambulatory Vanessa M. Lue Facility:[facility] Start: 03-03-2024 End: 03-03-2024 Refill Lata Workman NP Work Phone: [facility] Comment on above: Atherosclerotic hear t disease of [place] coronary artery without angina pectoris ([facility]) Start: 02-28-2024 End: 02-28-2024 Bamboo flowsheet Carlos Harman DPM Work Phone: [facility] Start: 02-28-2024 End: 02-28-2024 Bamboo flowsheet Carlos Harman DPM Work Phone: [facility] Start: 02-28-2024 End: 02-28-2024 Office outpatient visit 25 minutes Carlos Harman DPM Work Phone: [facility] Comment on above: Plantar fasciitis (P rimary Dx); Contracture of right ankle; Heel spur, right; Heel spur, left Start: 02-28-2024 End: 02-28-2024 ambulatory CARLOS HARMAN Not Available Start: 02-20-2024 End: 02-21-2024 Refill Lata Workman [employer] Work Phone: [facility] Comment on above: Type 2 diabetes jerrell itus without complications ([facility]); Essential (primary) hypertension ([facility]); 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 ([facility]) Start: 02-20-2024 End: 02-20-2024 ambulatory [facility] Start: 02-20-2024 End: 02-20-2024 Encounter for other preprocedural examination [facility] Start: 02-18-2024 End: 02-18-2024 Evaluation and management of inpatient [facility] Start: 02-14-2024 End: 02-14-2024 Bamboo flowsheet Carlos Harman DPM Work Phone: [facility] Start: 02-14-2024 End: 02-14-2024 Bamboo flowsheet Carlos Harman DPM Work Phone: [facility] Start: 02-14-2024 End: 02-14-2024 Office outpatient visit 15 minutes Carlos Harman DPM Work Phone: [facility] Comment on above: Plantar fasciitis (P rimary Dx); Contracture of right ankle Start: 02-14-2024 End: 02-14-2024 ambulatory CARLOS HARMAN Not Available Start: 02-12-2024 End: 02-12-2024 ambulatory [facility] Pat Phone Call Provider 1 [facility] - Pre Ad[facility] Start: 02-12-2024 End: 02-12-2024 ambulatory LATA WORKMAN [facility] Start: 02-05-2024 End: 02-05-2024 Patient encounter procedure Allyson Garcia [employer] Work Phone: [facility] Comment on above: Encounter for screen ing colonoscopy (Primary Dx) Start: 02-05-2024 End: 02-05-2024 ambulatory ALLYSON [facility] Start: 01-31-2024 End: 01-31-2024 ambulatory CARLOS HARMAN Not Available Start: 01-02-2024 Patient encounter status Clinton Harman DPM Work Phone: [facility] Start: 01-02-2024 End: 01-02-2024 ambulatory LATA BRAMBILABRIANJames Not Available Start: 11-20-2023 End: 11-20-2023 ambulatory Vanessa M. Lue Facility[facility] Start: 11-20-2023 End: 11-20-2023 Patient encounter procedure Vanessa M. Lue [facility] Start: 11-14-2023 End: 11-14-2023 ambulatory Vanessa M. Lue Facility: [place] [facility] Start: 11-14-2023 End: 11-14-2023 Patient encounter procedure Vanessa M. Lue [facility] Start: 11-14-2023 End: 11-14-2023 ambulatory Vanessa M. Lue Facility: [facility] Start: 11-14-2023 End: 11-14-2023 Off-Site Vanessa M. Lue [facility] Start: 11-12-2023 End: 11-12-2023 Patient encounter procedure Vanessa M. Lue [facility] Start: 11-12-2023 End: 11-12-2023 ambulatory Vanessa M. Lue Facility:[facility] Start: 11-06-2023 End: 11-06-2023 ambulatory Vanessa M. Lue Facility: [facility] Start: 11-06-2023 End: 11-06-2023 Off-Site Vanessa Schultz [facility] Start: 11-03-2023 End: 11-03-2023 ambulatory Elton Tamez Facility:[id number] Start: 02-08-2021 End: 02-09-2021 ambulatory [employer] LATA JI Facility:[facility] Start: 01-25-2021 End: 01-26-2021 ambulatory [employer] LATA SHALABenBRIANZ Facility:[facility] Start: 01-19-2021 End: 01-19-2021 ambulatory KAIT SALDIVAR Facility:[facility] Start: 08-30-2020 End: 08-31-[address] DIVYA GRANDE Facility:[facility] Start: 07-26-2020 End: 07-27-2020 ambulatory [employer] LATA SHALABenBRIANJames Facility:[facility] Start: 06-19-2017 End: 06-20-2017 Ambulatory DEFAULT PHYSICIAN Facility[facility] Procedures Date Procedure Procedure Detail Performing Clinician Start: 02-18-2024 Colonoscopy Lata Sherry olz [employer] Work Phone: Start: 01-14-2024 Mammography Carlos ballard DPM Work Phone: Start: 11-03-2023 Cystotomy w/insj ure teral cath/stent spx Vanessa Schultz Start: 12-19-2022 Colonoscopy Carlos ballard DPM Work Phone: Appendectomy Vanessa Schultz Placement of stent i n cardiac conduit Vanessa Galvane Tonsillectomy Vanessa Lue Vaginal hysterectomy w/tot/prtl vaginectomy Vanessa Lue Plan of Treatment Date Care Activity Detail Author Start: 02-17-2034 Screening for malign ant neoplasm of colon [facility] Start: 12-19-2032 Screening for malign ant neoplasm of colon [facility] Start: 02-04-2025 Adult BMI Screening Adult BMI Screen ing [facility] Start: 02-04-2025 Tobacco Screening Tobacco Screening [facility] Start: 01-13-2025 Screening for malign ant neoplasm of breast Mammogram [facility] Start: 01-07-2025 Urine screening for protein Diabetes: Urine Protein Screening [facility] Start: 07-07-2024 Hemoglobin A1c measurement Diabetes: Hemoglobin A1C [facility] Start: 04-17-2024 End: 04-17-2024 Patient encounter procedure 04/17/2024 9:00 AM EST Office Visit [facility] [address] [place] [address] Lata Workman, JUNIOR [address] [place] [address] [facility] Start: 03-13-2024 End: 03-13-2024 Patient encounter procedure 03/13/2024 10:10 AM EST Office Visit [facility] [address] [facility] [address] [place] [address] Carlos Harman DPM [address] [address] [facility] Start: 02-28-2024 End: 02-28-2024 Patient encounter procedure 02/28/2024 9:00 AM EDT Office Visit [facility] [address] [facility] [address] [place] [address] Carlos Harman DPM [address] [address] Plantar fasciitis (Primary Dx); Contracture of right ankle [facility] Comment on above: Plantar fasciitis (P rimary Dx); Contracture of right ankle Start: 02-18-2024 End: 02-18-2024 Admission to same day surgery center 02/18/2024 12:45 PM EDT - 02/18/2024 1:15 PM EDT Surgery [facility] [address] [place] [id number] Shira Kelly, DO [address] [place], [place] [id number] COLONOSCOPY DIAGNOSTIC / SCREENING [38272 (CPT )] [facility] Comment on above: COLONOSCOPY DIAGNOST IC / SCREENING [28435 (CPT )] Start: 02-18-2024 End: 02-18-2024 Colonoscopy flx dx w/collj spec when pfrmd COLONOSCOPY DIAGNOSTIC / SCREENING Screen for colon cancer 02/18/2024 12:45 PM EDT [facility] Start: 02-18-2024 Subsequent hospital visit by physician 02/18/2024 12:45 PM EDT Hospital Encounter [facility] [address] [place] [address] Shira Kelly, [address] [place], [place] [id number] [facility] Start: 02-14-2024 End: 02-14-2024 Patient encounter procedure 02/14/2024 1:20 PM EDT Office Visit [facility] [address] [facility] [address] [place] [phone] Carlos Harman, NAVI [address] [facility] [address] [place] [address] Plantar fasciitis (Primary Dx); Contracture of right ankle [facility] Comment on above: Plantar fasciitis (P rimary Dx); Contracture of right ankle Start: 02-12-2024 End: 02-12-2024 ambulatory 02/12/2024 2:30 PM EDT Support Visit [facility] Admit [address] [place] [phone] [facility] Pre Admit Start: 07-16-2023 Hemoglobin A1c measurement Diabetes: Hemoglobin A1C [facility] Start: 03-27-2021 DTaP,Tdap and Td Vaccines (2 - Td or Tdap) DTaP,Tdap and Td Vaccines (2 - Td or Tdap) [facility] Start: 07-20-1991 Screening for malign ant neoplasm of cervix HPV/Cotest [facility] Start: 1982 Screening for malign ant neoplasm of cervix Pap Smear [facility] Start: 1980 Urine screening for protein Diabetes: Urine Protein Screening [facility] Start: 07-20-1979 Adult BMI Follow Up Plan Adult BMI Follow Up Plan [facility] Start: 1973 Depression Screening Depression Scre ening [facility] Start: 07-20-1971 Glaucoma screening Diabetes: R etinopathy Screening [facility] Start: 1961 Screening for malign ant neoplasm of colon [facility] End: 02-04-2025 Colonoscopy Colonoscopy GI Routine Encounter for screening colonoscopy 1 Occurrences starting 02/05/2024 until 02/04/2025 [facility] Work Phone: Comment on above: 1 Occurrences starti ng 02/05/2024 until 02/04/2025 Immunizations Immunization Date Immunization Notes Care Provider Morelia farley 01-30-2023 Seasonal, quadrivale nt, recombinant, injectable influenza vaccine, preservative free Carlos Harman DPM Work Phone: [facility] 11-09-2022 zoster vaccine recombinant Carlos Harman DPM Work Phone: [facility] 07-04-2022 zoster vaccine recombinant Carlos Kimani DPM Work Phone: [facility] 02-09-2022 influenza, injectabl e, quadrivalent, preservative free Carlos Kimani DPM Work Phone: [facility] 05-24-2017 Influenza, injectabl e, Madin Fabi Canine Kidney, preservative free, quadrivalent Carlos Harman DPM Work Phone: [facility] 02-05-2016 influenza, injectabl e, quadrivalent, preservative free Carlos Harman DPM Work Phone: [facility] 05-31-2014 influenza, seasonal, injectable, preservative free Carlos Kimani DPM Work Phone: [facility] 03-27-2011 tetanus toxoid, redu marie diphtheria toxoid, and acellular pertussis vaccine, adsorbed Carlos Harman DPM Work Phone: [facility] Healthcare Payers Date Payer Category Payer Private Health Insurance OLE ALEJANDRA [id number] 2022 Unknown 2022 Unknown [id number] 1960 Unknown [id number] [id number]. 2.593 1961 Unknown [id number] 2.16.840.1.436855.3.579. 2.593 1961 Unknown [id number] 2.16.840.1.399676.3.579. 2.593 1961 Unknown [id number] 2.16.840.1.042762.3.579. 2.593 1961 Unknown [id number] 2.16.840.1.343565.3.579. 2.593 1961 Unknown [id number] 2.16.840.1.712998.3.579. 2.727 1961 Unknown [id number] 2.16.840.1.965414.3.579. 2.727 1961 Unknown [id number] 2.16.840.1.597674.3.579. 2.727 1961 Unknown [id number] 2.16.840.1.429162.3.579. 2.727 1961 Unknown [id number] 2.16.840.1.864732.3.579. 2.727 1961 Unknown [id number] 2.16.840.1.228919.3.579. 2.1286 1961 Unknown [id number] 2.16.840.1.463881.3.579. 2.1286 1961 Unknown [id number] 2.16.840.1.223722.3.579. 2.1286 1961 Unknown [id number] 2.16.840.1.671963.3.579. 2.1259 1961 Unknown [id number] 2.16.840.1.334214.3.579. 2.1259 1961 Unknown [id number] 2.16.840.1.298298.3.579. 2.1259 1961 Unknown [id number] 2.16.840.1.661958.3.579. 2.1259 1959 Private Health Insurance [id number] 1959 Private Health Insurance [id number] Social History Date Type Detail Facility Tobacco smoking status [facility] Start: 02-05-2024 End: 02-28-2024 Sex Assigned At Female [facility] Start: 11-12-2023 End: 01-02-2024 Tobacco smoking status Never smoked tobacco (finding) [facility] Start: 01-02-2024 End: 02-05-2024 Tobacco use and exposure Smokeless tobacco non-user [facility] Start: 02-05-2024 End: 02-12-2024 Alcoholic beverage intake Current non-drinker of alcohol (finding) [facility] Start: 02-05-2024 End: 02-28-2024 History of Social function [facility] Childcare Unknown [facility] Start: 1960 Sex assigned at Not on file P [facility] Start: 02-14-2024 End: 02-28-2024 Alcoholic beverage intake Lifetime non-drinker (finding) [facility] Start: 01-02-2024 Alcohol Comment caffine: 1 cup of coffee daily [facility] Functional Status Date Assessment Result Facility 11-12-2023 Functional Status N/A [facility] Clinical Notes 11-12-2023 to 02-28-2024 Carlos Harman, NAVI - 02/28/2024 9:00 AM EDTCarlos Harman DPM - 02/14/2024 1:20 PM EDTPerioperative Nursing Note - Renita Nicole RN - 02/12/2024 2:30 PM EDT Note Date & Type Note Facility 02-28-2024 History of Presen t illness Narrative Patient: Jordan Holly : 1960 PCP: Robin Poe MD SUBJECTIVE Jordan Jae 63 y.o. presents today for follow up of right HSS. Pt has had previous treatment of 1st steroid injection, nsaids, stretching with negative relief. Pt states current pain on a 1-10 scale is a 8 Pt presents to day for follow up tx. Patient also has history of cardiac disease and stents and on blood thinners. Patient had prior plantar fasciotomy greater than 6 years ago and presents today for preoperative examination for a right plantar fasciotomy in the near future Allergies: Allergies Allergen Reactions Penicillins Anaphylaxis, Rash and Shortness of breath Past Medical History: Past Medical History: Diagnosis Date Kidney stones Medications: Current Outpatient Medications: aspirin 81 MG EC tablet, Take 1 tablet by mouth Daily, Disp: , Rfl: atorvastatin (Lipitor) 80 MG tablet, Take 1 tablet (80 mg) by mouth at bedtime, Disp: 90 tablet, Rfl: 1 lisinopril 10 MG tablet, Take 1 tablet (10 mg) by mouth in the morning., Disp: 90 tablet, Rfl: 1 metFORMIN (Glucophage) 500 MG tablet, Take 2 tablets (1,000 mg) by mouth in the morning and 2 tablets (1,000 mg) in the evening. Take with meals., Disp: 360 tablet, Rfl: 1 metoprolol succinate XL (Toprol-XL) 25 MG 24 hr tablet, Take 1 tablet (25 mg) by mouth Daily, Disp: 90 tablet, Rfl: 1 prasugrel (Effient) 10 MG tablet, Take 1 tablet (10 mg) by mouth in the morning., Disp: 90 tablet, Rfl: 1 Semaglutide,0.25 or 0.5MG/DOS, (Ozempic, 0.25 or 0.5 MG/DOSE,) 2 MG/3ML solution pen-injector, Inject 0.25 mg under the skin every 7 (seven) days for 28 days, Disp: 3 mL, Rfl: 2 Social History: Social History Socioeconomic History Marital status: Spouse name: Not on file Number of children: Not on file Years of education: Not on file Highest education level: Not on file Occupational History Not on file Tobacco Use Smoking status: Never Smokeless tobacco: Never Vaping Use Vaping status: Never Used Substance and Sexual Activity Alcohol use: Never Comment: caffine: 1 cup of coffee daily Drug use: Never Sexual activity: Defer Other Topics Concern Not on file Social History Narrative Not on file Social Drivers of Health Financial Resource Strain: Not on file Food Insecurity: Not on file Transportation Needs: Not on file Physical Activity: Not on file Stress: Not on file Social Connections: Not on file Intimate Partner Violence: Not on file Housing Stability: Not on file ROS: Gastrointestinal: denies abdominal pain, ulcers, or changes in appetite or bowel habits Musculoskeletal: Positive generalized arthritis to joints and denies loss of strength. Cardiovascular: denies CP, palpitations, irregular rhythms. Positive history of blood thinner as well as stents OBJECTIVE LE EXAM: DERM: Positive hair growth to b/l feet with good skin turgor noted. Negative openings in skin VASC: Palpable pedal pulsed b/l with warm to cool tibia to toes b/l NEURO: Gross sensation intact digits 1-10 and b/l feet ORTHO: 20 degrees inversion and 10 degrees eversion STJ b/l. Ankle ROM less than 10 degrees b/l. Positive pain on palpation to right medial calcaneal tubercle greater than positive pain on palpation to left medial calcaneal tubercle Ultrasound: DIAGNOSTIC US REPORT - verbal order for ultrasound today The plantar arch and heel of the left foot were scanned today using a 12MHz linear probe in the transverse and sagittal planes, concerning the plantar fascia. Images were obtained. FINDINGS - US exam demonstrates hypo-echoic thickening of plantar fascia with its origin at the medial plantar tuberosity of the calcaneus. The area of thickening and inflammation is greater than 4mm (norm = 4 mm). Notable small calcaneal enthesophyte to left plantar calcaneus IMPRESSION - Left heel plantar fasciitis with heel spur ASSESSMENT 1. Plantar fasciitis 2. Contracture of right ankle PLAN Reviewed ultrasound today with patient Pt given steroid injection to left medial calcaneal tubercle under US guidance with visualization of injected fluid into area of concern per imaging. Injection of 1cc kenalog 10 and 2cc xylocaine 2% plain. Informed patient of risks and benefits of injection including non resolution of symptoms,steroid flare, tendon damage or rupture. Pt consents to proceed. This is the patients 1st injection Pre-certify for inserts Patient given prescription for pain medication to be taken postoperatively. Decision for surgery today and patient medically cleared from a podiatric standpoint for surgery and to proceed with surgery. Pt to have pre op H/P per PCP for medical clearance for surgery and will be reviewed along with labs prior to surgery. Pt scheduled for right plantar fasciotomy Discussed with the patient the nature of condition and operative vs nonoperative care. The surgical plans, risks, alternatives, benefits, post op complications and fci expectations were discussed including but not limited to: infection,bone infection,wound dehiscence hardware failure and irritation,wound dehiscence,delay union/mal union/non union of bone. RSDS,neuroma,duty limitations,DVT/PE, VA,nerve damage, scar, loss of sensation, swelling. Pt understands the proposed sx in detail and has agreed with proposed surgery. No guarantees were given or implied. Pt willingly consents to procedure and to have surgical procedure. Pt also understands risks including COVID-19 current risk in a surgical setting. Pt is a low acceptable risk for outpatient surgery from a podiatric standpoint with an ASA of a 2. Carlos Harman DPM, FACFAS February 28, 2024 H&P up to date and current (date) Carlos Harman DPM documented in this encounter [facility] 02-20-2024 Note [facility] Cardiology Clinic Note Chief Complaint: New patient here to re-establish care for CAD, hypertension,and hyperlipidemia. Had routine labs w/ lipid panel last month. No recent cardiac testing. She is requesting clearance for upcoming foot surgery. She denies chest pain, SOB, palpitations, and lightheadedness/syncope. HPI: Jordan Holly is a 63 y.o. female with a history of coronary artery disease and prior stent placement as well as dyslipidemia and DM Type 2 Doing well; no new symptoms. Has intermittent palpitations. No lightheadedness or dizziness. No syncope Prior records: She was seen for palpitations in 2007 and ekg showed manifest pre-excitation She underwent ablation 02-07-2008 and had 2 right sided ap's and avnrt Did well for 8 yrs and now with multiple symptoms cp palpitations and dyspnea Holter done showed nothing significant ekgs 2007 manifest pre-excitation ekgs 2009 2010 2012 no pre-excitation ekg may 29 no pre-excitation either septal t changes seen or previous ekgs as well Patient here for f/u PCI of the circumflex done 06/06. Presented again on 06/19 to asses the LAD but incidental finding of acute stent thrombosis of the circumflex was noted. She was then admitted to inpatient cardiology service. Underwent PCI of the LAD on 06/21. Was [facility] on 06/22. She thinks the metoprolol may be making her dizzy after she takes it in the mornings and wonders if she can take it at night Currently; she is doing very well. She has no symptoms. She is able to walk up and down stairs without chest pain or shortness of breath. She is able to move basket of laundry from 1 room to the next without any symptoms. No orthopnea, no paroxysmal external dyspnea, no lower extremity edema. Cardiology ROS: Review of Systems All other systems reviewed and are negative. Past Medical History She has no past medical history on file. Surgical History She has no past surgical history on file. Social History She has no history on file for tobacco use, alcohol use, and drug use. Family History No family history on file. Allergies Patient has no allergy information on record. Medications Current Outpatient Medications: lisinopril 10 mg tablet, Take 1 tablet (10 mg) by mouth in the morning., Disp: 90 tablet, Rfl: 3 Last Recorded Vitals BP 142/80 (BP Location: Right arm, Patient Position: Sitting) Pulse 75 Ht 1.753 m (5' 9 ) Wt 81.2 kg (179 lb) SpO2 96% BMI 26.43 kg/m??? Physical Examination: GENERAL: alert and oriented x3, well developed, in no acute distress. HEAD: atraumatic, normocephalic. EYES: BENJI, EOMI. NECK: trachea midline, no JVD present, no carotid bruits present. CARDIAC: S1, S2 present. RRR. No murmur, rubs, or gallops. RESPIRATORY: CTAB, no increased effort of breathing, no rales, rhonchi, or wheezing. ABDOMEN: soft, nontender, nondistended. EXTREMITIES: no lower extremity edema, peripheral pulses are 2+ bilaterally. No rash/skin discoloration present. NEURO: strength/sensation equal and symmetric in bilateral upper and lower extremities. PSYCH: appropriate mood, affect, and judgement. Investigations: Labs: Triglycerides 94, cholesterol 162, HDL 57, LDL 86.2 12-lead EKG 02/20/2024: Normal sinus rhythm, normal ECG with nonspecific ST-T wave changes Nonischemic stress test in 2018 Assessment: Coronary artery disease, history of prior PCI and stent placement of left anterior descending and left circumflex coronary arteries Essential hypertension Diastolic dysfunction Valvular heart disease; mild to moderate mitral regurgitation, mild to moderate tricuspid regurgitation Dyslipidemia - LDL above target Type 2 diabetes mellitus without complications History of SVT s/p ablation Preoperative evaluation Plan: Continue guideline directed medical therapy for coronary artery disease including dual antiplatelet therapy, high intensity statin therapy, a beta-mert and a RAAS inhibitor Given diabetes mellitus and coronary disease, she is appropriately on a RAAS inhibitor as well as A GLP-1 receptor agonist in the form of Ozempic. Can consider addition of an SGLT2 inhibitor such as Farxiga or Jardiance as needed. Recommend addition of Zetia 10 mg a day and repeat fasting lipid profile and liver function test in 6 to 8 weeks Will obtain an echocardiogram to evaluate ejection fraction, wall motion, and valve function given known mild to moderate mitral and tricuspid regurgitation Given her physical tolerance and med level, absence of symptoms, and planned foot surgery, she would be at acceptable low risk to proceed with surgery with no further cardiovascular testing needed. Recommend strict heart rate and blood pressure control perioperatively and avoidance of major fluid shifts. Return to clinic in 1 year or sooner should problems arise. Divya Grande MD, MPH, FACC, [facility], FS Interventional Cardio (more content not included)... [facility] 02-14-2024 History of Presen t illness Narrative Patient: Jordan Holly : 1960 PCP: Robin Poe MD SUBJECTIVE Jordan Jae 63 y.o. presents today for follow up of right HSS. Pt has had previous treatment of 1st steroid injection, nsaids, stretching with negative relief. Pt states current pain on a 1-10 scale is a 10 Pt presents to day for follow up tx. Patient has similar complaints to the left heel and has had multiple injections in the past been seen many years ago with bilateral plantar fasciotomies of greater than 6 years ago Patient would like surgical intervention at this time Allergies: Allergies Allergen Reactions Penicillins Anaphylaxis, Rash and Shortness of breath Past Medical History: Past Medical History: Diagnosis Date Kidney stones Medications: Current Outpatient Medications: aspirin 81 MG EC tablet, Take 1 tablet by mouth Daily, Disp: , Rfl: atorvastatin (Lipitor) 80 MG tablet, Take 1 tablet (80 mg) by mouth at bedtime, Disp: 90 tablet, Rfl: 0 lisinopril 10 MG tablet, Take 1 tablet (10 mg) by mouth in the morning., Disp: 90 tablet, Rfl: 0 metFORMIN (Glucophage) 500 MG tablet, Take 2 tablets (1,000 mg) by mouth in the morning and 2 tablets (1,000 mg) in the evening. Take with meals., Disp: 360 tablet, Rfl: 0 metoprolol succinate XL (Toprol-XL) 25 MG 24 hr tablet, Take 1 tablet (25 mg) by mouth Daily, Disp: 90 tablet, Rfl: 0 prasugrel (Effient) 10 MG tablet, Take 1 tablet (10 mg) by mouth in the morning., Disp: 90 tablet, Rfl: 0 Semaglutide,0.25 or 0.5MG/DOS, (Ozempic, 0.25 or 0.5 MG/DOSE,) 2 MG/3ML solution pen-injector, Inject 0.25 mg under the skin every 7 (seven) days for 28 days, Disp: 3 mL, Rfl: 2 Social History: Social History Socioeconomic History Marital status: Spouse name: Not on file Number of children: Not on file Years of education: Not on file Highest education level: Not on file Occupational History Not on file Tobacco Use Smoking status: Never Smokeless tobacco: Never Vaping Use Vaping status: Never Used Substance and Sexual Activity Alcohol use: Never Comment: caffine: 1 cup of coffee daily Drug use: Never Sexual activity: Defer Other Topics Concern Not on file Social History Narrative Not on file Social Determinants of Health Financial Resource Strain: Not on file Food Insecurity: Not on file Transportation Needs: Not on file Physical Activity: Not on file Stress: Not on file Social Connections: Not on file Intimate Partner Violence: Not on file Housing Stability: Not on file ROS: Gastrointestinal: denies abdominal pain, ulcers, or changes in appetite or bowel habits Musculoskeletal: Positive generalized arthritis to joints and denies loss of strength. Cardiovascular: denies CP, palpitations, irregular rhythms. Positive history of blood thinner as well as stents OBJECTIVE LE EXAM: DERM: Positive hair growth to b/l feet with good skin turgor noted. Negative openings in skin VASC: Palpable pedal pulsed b/l with warm to cool tibia to toes b/l NEURO: Gross sensation intact digits 1-10 and b/l feet ORTHO: 20 degrees inversion and 10 degrees eversion STJ b/l. Ankle ROM less than 10 degrees b/l. Positive pain on palpation to right medial calcaneal tubercle greater than positive pain on palpation to left medial calcaneal tubercle ASSESSMENT 1. Plantar fasciitis 2. Contracture of right ankle PLAN Patient to continue with oral anti - inflammatories as needed for pain and recommended OTC medications such as tylenol or Ibuprofen Patient is to continue with stretching excercizes daily with patient to continue with night stretching splint or manual stretching. Discussed conservative and surgical treatment options for patient today including postoperative time frame and surgical procedure in detail. Patient may continue with conservative treatments including [id number] anti-inflammatories and other treatments suggested today. Patient may want to be scheduled for surgical intervention in the near future. Patient have the right plantar fasciotomy in the near future with [place] for postoperative pain. She sees cardiology at [facility] and will need cardio clearance. Her PCP is Lata Harman DPM documented in this encounter [facility] 02-12-2024 Miscellaneous Notes Preoperative Education Checklist- General Surgery date: 02/18/24 Surgery time: 1245 Arrival time: 1045 1. Bring a photo ID and your insurance card with you the day of surgery. You will check in at the main lobby of the [facility]- registration desk is straight ahead as soon as you walk in. Tell them you are here for surgery. 2. If you have a Living Will/Durable Power of Cigar Head Perforator for Health Care that is not on file here, please bring a copy the day of surgery. 3. Please shower/bathe the night before surgery with the provided soap or wipes. Do not shower the morning of surgery- you will do use wipes when you arrive here at the hospital before getting into your surgical gown. Do not shave the area of your procedure for 2 days prior to your surgery. 4. NO powder, lotion, perfume/cologne, aftershave, make-up, deodorant, or hair products after you have bathed. 5. NO nail emirati/acrylic on at least one finger. If you are having a hand, wrist or foot surgery then all nail emirati and artificial/acrylic nails must be removed from that hand or foot. 6. Avoid ALL Aspirin and non-steroidal anti-inflammatory drugs and certain vitamins (Ibuprofen, Advil, Aleve, Excedrin, Meloxicam, Celebrex, fish/krill oil, etc.) for 7 days prior to surgery as instructed by your surgeon and/or your prescribing doctor. Tylenol IS ALLOWED. If you are on Ticlid, Xarelto, Eliquis, Pradaxa, Plavix or Coumadin, please check with your prescribing doctor for instructions for when to stop them. 7. If you use an inhaler, continue to use it routinely. 8. Nothing to eat or drink (not even water, gum, mints, or hard candy!) AFTER midnight prior to your surgery. 9. Take only medications that you are instructed to on the morning of surgery with a TINY SIP OF WATER. 10. Choose a responsible adult that will be able to drive you home when you are discharged from your hospital stay for your surgery and can stay with you in your home for 24 hours after your procedure. You must NOT drive any vehicle or operate any machinery for 24 hours after surgery. 11. When you dress for your appointment, please wear loose fitting clothing that is appropriate to accommodate your surgical area procedure. BRING WITH YOU ANY DEVICES YOU MAY NEED: EDMUND hose, ice machine, sling/swath, brace or special shoe, oversized zip-up or button up shirt, CPAP machine if staying overnight. 12. Do NOT wear jewelry, watches, or any piercings or metal for surgery- leave these valuables and money at home. 13. Do NOT wear contact lenses for surgery- glasses are okay if needed. 14. The anesthesiologist will talk with you the day of surgery and will ask you to sign a Consent Form. 15. Refrain from smoking or any type of tobacco use for at least 8 hours and marijuana for 24 hours prior to arrival for your surgery. 16. If a GREEN BLOOD band is given to you, please bring it with you for the day of surgery. 17. Notify your surgeon if you develop any illness before your surgery. 18. If you are staying overnight, please DO NOT BRING your home medications with you. 19. If you have any questions prior to surgery, please call the Preadmission Testing office at [phone], Mon.-Fri. 7 a.m.-3 p.m. Leave a voicemail if needed. Pre-Surgery Instructions: Medication Instructions aspirin 81 mg Stop taking 1 week prior to procedure atorvastatin (LIPITOR) 40 mg tablet Stop taking 0 days prior to procedure lisinopriL (PRINIVIL,ZESTRIL) 10 mg tablet Stop taking 0 days prior to procedure metFORMIN (GLUCOPHAGE) 1000 mg tablet Stop taking 0 days prior to procedure metoprolol tartrate (LOPRESSOR) 25 mg tablet Take morning of procedure prasugreL (EFFIENT) 10 mg tablet Check with prescribing doctor for instructions semaglutide (OZEMPIC SUBQ) Stop taking 1 week prior to procedure [facility] Note Preoperative Education Checklist- General Surgery date: 02/18/24 Surgery time: 1245 Arrival time: 1045 1. Bring a photo ID and your insurance card with you the day of surgery. You will check in at the main lobby of the [facility]- registration desk is straight ahead as soon as you walk in. Tell them you are here for surgery. 2. If you have a Living Will/Durable Power of Cigar Head [employer]forator for Health Care that is not on file here, please bring a copy the day of surgery. 3. Please shower/bathe the night before surgery with the provided soap or wipes. Do not shower the morning of surgery- you will do use wipes when you arrive here at the hospital before getting into your surgical gown. Do not shave the area of your procedure for 2 days prior to your surgery. 4. NO powder, lotion, perfume/cologne, aftershave, make-up, deodorant, or hair products after you have bathed. 5. NO nail emirati/acrylic on at least one finger. If you are having a hand, wrist or foot surgery then all nail emirati and artificial/acrylic nails must be removed from that hand or foot. 6. Avoid ALL Aspirin and non-steroidal anti-inflammatory drugs and certain vitamins (Ibuprofen, Advil, Aleve, Excedrin, Meloxicam, Celebrex, fish/krill oil, etc.) for 7 days prior to surgery as instructed by your surgeon and/or your prescribing doctor. Tylenol IS ALLOWED. If you are on Ticlid, Xarelto, Eliquis, Pradaxa, Plavix or Coumadin, please check with your prescribing doctor for instructions for when to stop them. 7. If you use an inhaler, continue to use it routinely. 8. Nothing to eat or drink (not even water, gum, mints, or hard candy!) AFTER midnight prior to your surgery. 9. Take only medications that you are instructed to on the morning of surgery with a TINY SIP OF WATER. 10. Choose a responsible adult that will be able to drive you home when you are discharged from your hospital stay for your surgery and can stay with you in your home for 24 hours after your procedure. You must NOT drive any vehicle or operate any machinery for 24 hours after surgery. 11. When you dress for your appointment, please wear loose fitting clothing that is appropriate to accommodate your surgical area procedure. BRING WITH YOU ANY DEVICES YOU MAY NEED: EDMUND hose, ice machine, sling/swath, brace or special shoe, oversized zip-up or button up shirt, CPAP machine if staying overnight. 12. Do NOT wear jewelry, watches, or any piercings or metal for surgery- leave these valuables and money at home. 13. Do NOT wear contact lenses for surgery- glasses are okay if needed. 14. The anesthesiologist will talk with you the day of surgery and will ask you to sign a Consent Form. 15. Refrain from smoking or any type of tobacco use for at least 8 hours and marijuana for 24 hours prior to arrival for your surgery. 16. If a GREEN BLOOD band is given to you, please bring it with you for the day of surgery. 17. Notify your surgeon if you develop any illness before your surgery. 18. If you are staying overnight, please DO NOT BRING your home medications with you. 19. If you have any questions prior to surgery, please call the Preadmission Testing office at [phone], Mon.-Fri. 7 a.m.-3 p.m. Leave a voicemail if needed. Pre-Surgery Instructions: Medication Instructions aspirin 81 mg Stop taking 1 week prior to procedure atorvastatin (LIPITOR) 40 mg tablet Stop taking 0 days prior to procedure lisinopriL (PRINIVIL,ZESTRIL) 10 mg tablet Stop taking 0 days prior to procedure metFORMIN (GLUCOPHAGE) 1000 mg tablet Stop taking 0 days prior to procedure metoprolol tartrate (LOPRESSOR) 25 mg tablet Take morning of procedure prasugreL (EFFIENT) 10 mg tablet Check with prescribing doctor for instructions semaglutide (OZEMPIC SUBQ) Stop taking 1 week prior to procedure [facility] 02-05-2024 History of Presen t illness Narrative Images from the original note were not included. Chief Complaint: Colon cancer screening History of Present Illness Jordan Holly is a 63 y.o. female who presents to the office for colon cancer screening. Her last colonoscopy was several years ago. She reports hemorrhoids. She denies diarrhea, constipation, abdominal pain, melena, hematochezia, unexplained weight loss. There is no family history of colon cancer. Review of Systems Constitutional: Negative for fever and unexpected weight change. HENT: Negative for trouble swallowing. Respiratory: Negative for shortness of breath. Cardiovascular: Negative for chest pain. Gastrointestinal: Negative for nausea, vomiting, abdominal pain, diarrhea, constipation, blood in stool and black tarry stool. Genitourinary: Negative for dysuria and difficulty urinating. Musculoskeletal: Negative for gait problem. Skin: Negative for rash and wound. Neurological: Negative for dizziness, weakness and light-headedness. Hematological: Does not bruise/bleed easily. Psychiatric/Behavioral: Negative for confusion. Past Medical History: Diagnosis Date Diabetes mellitus ([facility]) DVT (deep venous thrombosis) ([facility]) Hyperlipidemia Hypertension Kidney stone Past Surgical History: Procedure Laterality Date APPENDECTOMY CARDIAC SURGERY 2000, 07/2016 stents placed, cardiac ablation CARPAL TUNNEL RELEASE Bilateral EXCISION MASS KNEE Left 10/18/2016 Performed by Chase Andujar DO at [facility] bilateral faschitis, tumors removed HUMERUS FRACTURE SURGERY Left HYSTERECTOMY KIDNEY STONE SURGERY LEG SURGERY tib fib, fx TONSILLECTOMY Allergies Allergen Reactions Penicillins Shortness Of Breath and Rash Current Outpatient Medications: aspirin 81 mg, Take 1 tablet (81 mg total) by mouth in the morning., Disp: , Rfl: atorvastatin (LIPITOR) 40 mg tablet, Take 2 tablets (80 mg total) by mouth in the morning., Disp: , Rfl: lisinopriL (PRINIVIL,ZESTRIL) 10 mg tablet, Take 1 tablet (10 mg total) by mouth in the morning., Disp: , Rfl: metFORMIN (GLUCOPHAGE) 1000 mg tablet, Take 1 tablet (1,000 mg total) by mouth in the morning and 1 tablet (1,000 mg total) in the evening. Take with meals., Disp: , Rfl: metoprolol tartrate (LOPRESSOR) 25 mg tablet, Take 1 tablet (25 mg total) by mouth in the morning., Disp: , Rfl: prasugreL (EFFIENT) 10 mg tablet, Take 1 tablet (10 mg total) by mouth in the morning., Disp: , Rfl: semaglutide (OZEMPIC SUBQ), Inject 2.5 mg under the skin once a week., Disp: , Rfl: peg 3350-sod sulf,emqg-ozz-ccm 178.7-7.3-0.5 gram recon soln, Take 1 kit by mouth once daily for 1 dose. Please see instructional sheet given by physicians office., Disp: 1 each, Rfl: 0 Social History Socioeconomic History Marital status: Spouse name: Not on file Number of children: Not on file Years of education: Not on file Highest education level: Not on file Occupational History Not on file Tobacco Use Smoking status: Never Smokeless tobacco: Never Vaping Use Vaping status: Never Used Substance and Sexual Activity Alcohol use: No Drug use: Never Sexual activity: Defer Other Topics Concern Not on file Social History Narrative Not on file Social Determinants of Health Financial Resource Strain: Not on file Food Insecurity: Not on file Transportation Needs: Not on file Physical Activity: Not on file Stress: Not on file Social Connections: Not on file Interpersonal Safety: Not on file Housing Instability: Not on file Family History Problem Relation Age of Onset No Known Problems Mother No Known Problems Father Heart attack Maternal Grandfather Leukemia Paternal Grandmother Objective Physical Exam Constitutional: General: She is not in acute distress. Appearance: Normal appearance. She is not ill-appearing. HENT: Head: Normocephalic and atraumatic. Mouth/Throat: Mouth: Mucous membranes are moist. Eyes: Pupils: Pupils are equal, round, and reactive to light. Cardiovascular: Rate and Rhythm: Normal rate. Pulmonary: Effort: Pulmonary effort is normal. No respiratory distress. Abdominal: General: There is no distension. Musculoskeletal: General: Normal range of motion. Skin: General: Skin is warm and dry. Neurological: Mental Status: She is alert and oriented to person, place, and time. Mental status is at baseline. Vital Signs: Blood pressure 124/67, height 175.3 cm (5' 9 ), weight 81.1 kg (178 lb 12.8 oz). Respiratory Source: No data recorded Admission Weight: Weight: 81.1 kg (178 lb 12.8 oz) Labs Lab Results Component Value Date HGB 12.8 10/10/2016 HCT 38.4 10/10/2016 Lab Results Component Value Date GLU 103 (H) 10/10/2016 CALCIUM 9.2 10/10/2016 K 4.1 10/10/2016 CO2 27 10/10/2016 CL 107 10/10/2016 BUN 18 10/10/2016 CREATININE 0.68 10/10/2016 No results found for: AMYLASE No results found for: LIPASE No results found for: ALT , AST , GGT , ALKPHOS , LABBILI No results found for: INR , PROTIME Assessment Jordan Holly is a 63 y.o.female who presents to the office for screening colonoscopy. Plan Colonoscopy with possible biopsy and/or polypectomy. Risks, benefits, and alternatives discussed with patient. Educated on bowel evacuation preparation. Patient verbalizes understanding and wishes to proceed. Evaluation included: Preparing to see the patient (e.g., review of tests) Obtaining and/or reviewing separately obtained history Performing a medically appropriate examination and/or evaluation Counseling and educating the patient/family/caregiver Referring and communicating with other health intensive care medicine specialist Encounter for screening colonoscopy [Z12.11] ALYSSA DENTON [facility] General Surgery [place] This note was created with the assistance of a speech recognition program. While intending to generate a timely document that accurately reflects the content of the visit, no guarantee can be provided that every grammatical or spelling mistake has been or will be identified or corrected. Thank you for your understanding. ALYSSA Denton 02/05/24 1433 documented in this encounter [facility] 11-20-2023 Hospital Discharg e instructions Patient Education [...] include: ?8 oz (237 mL) of milk, uczypgl-bwlrdoncqlkp-lfcie milk, and calcium-fortifiedfruit juice. Calcium-fortified means that [...] ?Spinach (cooked), rhubarb, beets, sweet potatoes, and Micronesian chard. ?Peanuts. ?Potato chips, czech fries, and baked potatoes with skin on. ?Nuts and nut products. ?Chocolate. If you regularly take a diuretic medicine, make sure to eat at least 1 or 2 servings of fruits or vegetables that are high in potassium each day. These include: ?Avocado. ?Banana. ?[place], prune, carrot, or tomato juice. ?Baked potato. [...] magnesium, fish oil, or vitamin B6. Take sroq-nje-qljrgoy and prescription medicines only as told by [...] Casseroles. Pizza. Lasagna. Frozen meals. Potato chips. Ukrainian fries. The items listed above may not [...] provider. Document Revised: 08/03/2022 Document Reviewed: 08/03/2022 [place] Patient Education 2022 [employer] 11/20/2023 08:54:31 EU - Cystoscopy with Stent [...] Up Care 11/19/2023 11:47:38 With:Vanessa Schultz Address: [address] [place] [address]- [phone] Business (1) [address], [address] [address] [phone] Business (1) When: Unknown Comments:Office to schedule follow up in 6 months with renal US and KUB. Obtain renal US in 6 weeks to ensure no blockage develops after surgery, will call with results [facility] 11-20-2023 Note Patient Education Cystoscopy with Stent [...] ? 8 oz (237 mL) of milk, xiyzexa-tmbfshqrnsxj-yqhiu milk, and calcium-fortifiedfruit juice. Calcium-fortified means that [...] Spinach (cooked), rhubarb, beets, sweet potatoes, and Micronesian chard. ? Peanuts. ? Potato chips, czech fries, and baked potatoes with skin on. ? Nuts and nut products. ? Chocolate. ? If you regularly take a diuretic medicine, make sure to eat at least 1 or 2 servings of fruits or vegetables that are high in potassium each day. These include: ? Avocado. ? Banana. ? [place], prune, carrot, or tomato juice. ? Baked [...] (148 mL), o (more content not included)... [facility] 11-12-2023 Hospital Discharg e instructions Patient Education [...] including vitamins, herbs, eye drops, creams, and nqyj-qwt-ceqyrei medicines. Any problems you or family members [...] provider tells you to take them. Taking ugvk-jna-hofwpsx medicines, vitamins, herbs, and supplements. Tests You [...] provider. Document Revised: 03/20/2022 Document Reviewed: 12/26/2021 [employer] Patient Education 2022 [employer] Follow Up Care 11/09/2023 13:32:06 With:Antoine PEREZ, BAUTISTA Arnold, URO Address: When: Unknown [facility] 11-12-2023 Note Patient Education Nephrology Lithotripsy Lithotripsy [...] including vitamins, herbs, eye drops, creams, and mtjz-sxv-bawrhmz medicines. ? Any problems you or family [...] tells you to take them. ? Taking vujm-cpo-ycujfja medicines, vitamins, herbs, and supplements. Tests You [...] that it i (more content not included)... [facility] Evaluation + Plan note Future Appointments Appointment Date:11/14/2023 09:15:00 AM Scheduled Provider:Vanessa Schultz MD Location:[facility] Appointment Type:URO New Patient [facility] Evaluation + Plan note Future Appointments Appointment Date:05/05/2024 12:30:00 PM Scheduled Provider:Vanessa Schultz MD Location:[facility] Appointment Type:URO Office Visit [facility] Evaluation note Diagnosis Encounter for screening colonoscopy- Primary Screen for colon cancer Special screening for malignant neoplasms, colon documented in this encounter [facility] System[facility]* Diagnosis Plantar fasciitis- Primary Plantar fascial fibromatosis Contracture of right ankle documented in this encounter [facility] Healthcare[facility]* Diagnosis Wellness examination- Primary Type 2 diabetes mellitus without complication, without long-term current use of insulin (CMS/HCC) Mixed hyperlipidemia (CMS/HCC) Mixed hyperlipidemia Aspirin long-term use Encounter for long-term (current) use of aspirin Essential hypertension (CMS/HCC) Unspecified essential hypertension 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 (CMS/HCC) Encounter for screening mammogram for malignant neoplasm of breast History of kidney stones Type 2 diabetes mellitus without complications (CMS/HCC) Essential (primary) hypertension (CMS/HCC) Unspecified essential hypertension 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 (CMS/HCC) documented in this encounter [facility] HealthcareEvaluation note* Diagnosis Wellness examination- Primary Type 2 diabetes mellitus without complication, without long-term current use of insulin (CMS/HCC) Mixed hyperlipidemia (CMS/HCC) Mixed hyperlipidemia Aspirin long-term use Encounter for long-term (current) use of aspirin Essential hypertension (CMS/HCC) Unspecified essential hypertension 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 ([facility]/HCC) Encounter for screening mammogram for malignant neoplasm of breast History of kidney stones Plantar fasciitis- Primary Plantar fascial fibromatosis Contracture of right ankle Heel spur, right Heel spur, left documented in this encounter [facility] HealthcareEvaluation note* Diagnosis Wellness examination- Primary Type 2 diabetes mellitus without complication, without long-term current use of insulin (CMS/HCC) Mixed hyperlipidemia (CMS/HCC) Mixed hyperlipidemia Aspirin long-term use Encounter for long-term (current) use of aspirin Essential hypertension (CMS/HCC) Unspecified essential hypertension 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 ([facility]/HCC) Encounter for screening mammogram for malignant neoplasm of breast History of kidney stones 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 ([facility]/HCC) documented in this encounter [facility] HealthcareHospital course Narrative No data available for this section [facility] Hospital Discharge instructions No data available for this section [facility] InstructionsNot on filedocumented in this encounter [facility] No data available for this section [facility] Summary Purpose Family History No Family History Records FoundNo Family History Records Found No data available for this section No data available for this section No data available for this section No data available for this section No data available for this section No Family History Records FoundNo Family History Records FoundNo Family History Records FoundNo Family History Records FoundNo Family History Records Found Advance Directives No Advanced Directives Records FoundNo Advanced Directives Records FoundNo Advanced Directives Records FoundNo Advanced Directives Records FoundNo Advanced Directives Records FoundNo Advanced Directives Records FoundNo Advanced Directives Records Found Additional Source Comments INFORMATION SOURCE (unrecogn ized section and content) DATE CREATED AUTHOR 10/29/2017 [facility] DATE CREATED AUTHOR AUTHOR'S ORGANIZ ATION 02/26/2021 [facility] DATE CREATED AUTHOR AUTHOR'S ORGANIZ ATION 11/23/2023 [facility] DATE CREATED AUTHOR AUTHOR'S ORGANIZ ATION 02/07/2024 [facility] DATE CREATED AUTHOR AUTHOR'S ORGANIZ ATION 02/19/2024 [facility] DATE CREATED AUTHOR AUTHOR'S ORGANIZ ATION 02/22/2024 [facility] DATE CREATED AUTHOR AUTHOR'S ORGANIZ ATION 02/29/2024 [facility] Special[facility] EPIC Patient Care team informatio n (unrecognized section and content) 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 Start Date End Date Robin Poe MD [address] [place] [address] PCP - General Family Medicine 01/02/24 Lata Workman NP [address] [place] [address] Referring Physician Nurse Practitioner 05/07/22 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 Start Date End Date Lata Workman APRN-CNP [address] [place] [address] PCP - General Nurse Practitioner 02/05/24 Personnel Name: LATA WORKMAN CNP Address: Address: [address] [place] [address] Reason for Visit (unrecogniz ed section and content) Reason Comments Colon Cancer Screening Specialty Diagnoses / Procedures Referred By Matt t Referred To Contact General Surgery Diagnoses Colon cancer screening Procedures [place] OFFICE OUTPATIENT VISIT 60-74 MINS HIGH MDM AMB REFERRAL TO GENERAL SURGERY Lata Workman, [employer] [address] [place] [address] Shira Kelly, [address] [place] [id number] Referral ID Status Reason Start Date Expiration Date Visits Re quested Visits Authorized [id number] Closed 01/23/2024 07/21/2024 1 1 Reason Comments Follow-up Rt heel spur inj Reason Comments Med Refill Reason Comments Consult Surgery consult FOR RECORDS PERTAINING TO PATIENTS WHO ARE [...] BE BASED ON THE PRIMARY CLINICAL RECORDS. [employer] provides no warranty or guarantee of the accuracy or completeness of information in this document.
== END 2024-03-04 08:04 | disposition home or self-care (01) ==
LOC: CARD 08:04
PROVIDERS: PCP Nurse Practitioner; Visit Provider Internal Medicine Interventional Cardiology
DX: Z01.818 Encounter for other preprocedural examination (principal); I34.0 Nonrheumatic mitral (valve) insufficiency; I51.89 Other ill-defined heart diseases
CPT/HCPCS: 93306

== ENCOUNTER 2024-04-01 09:05 | Outpatient (OUT) | payer OTHER, SELFPAY ==
--- OUTSIDE RECORDS SUMMARY | 2024-04-01 09:32 | XMS_ITS | CCD ---
Author Organization [facility] Care Team Providers Care Synchro Assembler Name Role Phone PHYSICIAN, DEFAULT Unavailable Unavailable PHYSICIAN, DEFAULT Unavailable Unavailable SERA CHAPPELL Unavailable Unavailable AICHHOLZ, 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 LATA Admitting Unavailable AICHHOLZ, 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 LATA Attending Unavailable AICHHOLZ, 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 LATA Consulting Unavailable AICHHOLZ, 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 LATA Primary Care Unavailable KAIT SALDIVAR Admitting Unavailable AICHHOLZ, 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 LATA Primary Care Unavailable KAIT SALDIVAR Attending Unavailable DAPHNE, DR LEANDRA Cavanaugh Consulting Unavailable KAIT SALDIVAR Consulting Unavailable AICHHOLZ, 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 LATA Primary Care Unavailable AICHHOLZ, 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 LATA Admitting Unavailable AICHHOLZ, 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 LATA Attending Unavailable AICHHOLZ, 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 LATA Consulting Unavailable MELONY, DR PASTORA Garcia Consulting Unavailable AICHHOLZ, 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 LATA Primary Care Unavailable AICHHOLZ, 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 LATA Admitting Unavailable AICHHOLZ, 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 LATA Attending Unavailable DAPHNE, DR LEANDRA Cavanaugh Consulting Unavailable AICHHOLZ, 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 LATA Consulting Unavailable ELTAGLADIS, DR DICKERSON Attending Unavailable ELTAHAWY, DR DICKERSON Consulting Unavailable AITAGLADIS, DR DICKERSON Admitting Unavailable AICHHOLZ, 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 LATA Primary Care Unavailable AICHHOLZ, LATA J Primary Care Physician Vanessa Schultz Attending Unavailable Vanessa Schultz Referring Unavailable Vanessa Schultz Admitting Unavailable Vanessa Schultz Attending Unavailable Vanessa Schultz Attending Unavailable Vanessa Schultz Attending Unavailable Elton Tamez Attending UnavailElton [place] Referring UnavailVanessa Peres Attending Unavailable Vanessa Schultz Attending Unavailable Vanessa Schultz Attending Unavailable Aichholz COMPRESS TRUCKER-CHRYSTAL Lata J Primary Care Provider ALLYSON GARCIA Attending Unavailable SERA CHAPPELL Referring Unavailable LATA WORKMAN Primary Care Unavailable Ji PACHECO, Lata Unavailable Robin Poe MD Primary Care Provider LATA WORKMAN Referring Unavailable LATA WORKMAN Primary Care Unavailable SHIRA KELLY Admitting Unavailable SHIRA KELLY Attending Unavailable LATA WORKMAN Primary Care Unavailable DIVYA GRANDE Attending Unavailable CARLOS HARMAN Attending Unavailable CARLOS HARMAN Attending Unavailable CARLOS HARMAN Attending Unavailable CARLOS HARMAN Attending Unavailable CARLOS HARMAN Attending Unavailable LATA WORKMAN Attending Unavailable Allergies Allergy Classification Reported Allergen(s) Allergy Type Date of Onset Reaction(s) Facility (5 sources) Penicillins; Translations: [PENICILLINS] Drug allergy (disorder) 6 AOF [facility] Repository (5 sources) Penicillin; Translations: [penicillin] Drug Allergy Anaphylaxis (disorder) [facility] (2 sources) Penicillins Propensity to adverse reactions to drug 7 Shortness Of Breath, Rash [facility] (14 sources) Penicillins Drug Intolerance 7 Anaphylaxis, Rash, Shortness of breath [facility] Work Phone: Medications Current Medications Medication Drug Class(es) Dates Sig (Normalized) Sig (Original) acetaminophen 325 mg / HYDROcodone bitartrate 5 mg oral tablet (3 sources) Opioid Agonist Start: 02-28-2024 End: 03-04-2024 take 1 tablet by mouth every eight hours as needed for pain HYDROcodone-acet aminophen (Amawalk) 5-325 MG tablet Indications: Pain Take 1 tablet by mouth every 8 (eight) hours if needed for moderate pain (PRN pain) for up to 5 days 15 tablet 02/28/2024 03/04/2024 Active aspirin 81 mg oral capsule (20 sources) Platelet Aggregation Inhibitor, Nonsteroidal Anti-inflammatory Drug Start: 11-12-2023 aspirin 81 mg oral capsule mg cap(s), Oral Start Date: 11/12/23 Status: Ordered take 1 tablet by mouth once austen y aspirin 81 MG EC tablet Take 1 tablet by mouth Daily Active atorvastatin 80 mg oral tablet (20 sources) HMG-CoA Reductase Inhibitor Start: 11-12-2023 End: 05-21-2024 take 1 tablet by mouth at bedtime atorvastatin (Lipitor) 80 MG tablet Indications: 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 Active lisinopril 10 mg oral tablet (20 sources) Angiotensin Converting Enzyme Inhibitor Start: 11-12-2023 End: 05-21-2024 take 1 tablet by mouth in the morning lisinopril 10 MG tablet Indications: Essential (primary) hypertension (CMS/HCC) Take 1 tablet (10 mg) by mouth in the morning. 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 Active peg 3350-sod sulf,ixxb-ohy-kgm 178.7-7.3-0.5 gram recon soln (1 source) Start: 02-05-2024 End: 02-06-2024 peg 3350-sod sulf,vnbl-owd-dvu 178.7-7.3-0.5 gram recon soln Indications: Encounter for screening colonoscopy Take 1 kit by mouth once daily for 1 dose. Please see instructional sheet given by physicians office. 1 each 02/05/2024 02/06/2024 Active prasugrel 10 mg oral tablet (20 sources) P2Y12 Platelet Inhibitor Start: 11-12-2023 End: [...] or 0.5 MG/DOSE,) 2 MG/3ML solution pen-injector (13 sources) Start: 01-02-2024 Semaglutide,0. 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; Translations: [Coronary arteriosclerosis] Onset: 08-03-2020 11-07-2023 Chronic Diabetes mellitus without complication (20 sources) Type 2 diabetes mellitus without complications; Translations: [Type 2 diabetes mellitus without complication] Onset: 02-08-2021 Chronic Disorders of lipid metabolism (20 sources) Hyperlipidemia; Translations: [Hyperlipidemia, unspecified] Onset: 06-01-2016 11-07-2023 Chronic Essential hypertension (20 sources) Essential (primary) hypertension; Translations: [Essential hypertension] Onset: 08-30-2020 Chronic Genitourinary symptoms and ill-defined conditions (1 source) Procedure carried out on subject; Translations: [Encounter for fitting and adjustment of urinary device] Onset: 11-20-2023 Chronic Heart valve disorders (2 sources) Nonrheumatic mitral (valve) insufficiency; Translations: [Nonrheumatic mitral (valve) insufficiency] Onset: 02-20-2024 Chronic Other acquired deformities (8 sources) Contracture of joint of right ankle; Translations: [Contracture, right ankle] 02-10-2024 Chronic Other acquired deformities (4 sources) Contracture of joint of left ankle; Translations: [Contracture, left ankle] 03-13-2024 Chronic Other aftercare (1 source) Long-term current use of anticoagulant; Translations: [snf (current) use of anticoagulants] Onset: 11-12-2023 Episodic Other aftercare (14 sources) Drug therapy finding; Translations: [long term care phlebotomist (current) use of anticoagulants] Onset: 01-02-2024 01-02-2024 Episodic Other aftercare (14 sources) Long-term current use of aspirin; Translations: [long term care phlebotomist (current) use of aspirin] Onset: 01-02-2024 01-02-2024 Episodic Other and ill-defined heart disease (2 sources) Other ill-defined heart diseases; Translations: [Other ill-defined heart diseases] Onset: 02-20-2024 Chronic Other connective tissue disease (8 sources) Plantar fasciitis; Translations: [Plantar fascial fibromatosis] 02-10-2024 Episodic Other connective tissue disease (2 sources) Calcaneal spur of right foot; Translations: [Calcaneal spur, right foot] 02-28-2024 Episodic Other connective tissue disease (6 sources) Calcaneal spur of left foot; Translations: [Calcaneal spur, left foot] 02-28-2024 Episodic Other diseases of kidney and ureters (2 sources) Urinary tract obstruction; Translations: [Hydronephrosis with renal and ureteral calculous obstruction] Onset: 11-12-2023 Episodic Other diseases of kidney and ureters (14 sources) Hydronephrosis with renal and ureteral calculous obstruction; Translations: [Calculus of ureter] Onset: 01-02-2024 01-02-2024 Episodic Other screening for suspected conditions (not mental disorders or infectious disease) (20 sources) Encounter for screening mammogram for malignant neoplasm of breast; Translations: [Patient encounter status] Onset: 01-25-2021 Episodic Phlebitis; thrombophlebitis and thromboembolism (18 sources) Embolism from thrombosis of vein of [...] Date Documented Da te Episodic/Chronic Allergic reactions (14 sources) Contact dermatitis due to poison kateryna; Translations: [Allergic contact dermatitis due to plants, except food] Onset: 12-03-2023 Resolved: 01-02-2024 01-02-2024 Episodic Other diseases of kidney and ureters (14 sources) Hydroureter; Translations: [Hydroureter] Onset: 11-06-2023 11-06-2023 Episodic Results Test Name Value Interpretation Reference Range Facility 36on 03-11-2024 36 Regarding echo ----- Message ----- From: Divya Grande MD Sent: 03/06/2024 7:20 PM EST To: Tori Galdamez MA Subject: RE: Scan Please let the patient know the echo shows a valve disorder that may need further work-up. I'd like to see her in follow up in the next 2-4 weeks please. Gave her the message Normal [facility] Office Visiton 02-20-2024 Follow-up visit [id number] Jordan Holly 1960 F Date Provider Department Center 02/20/2024 DIVYA MOTT SHERRON Connelly Family History Problem Relation Age of Onset Coronary artery disease Mother Diabetes Paternal Grandmother Family Status - Relation Status Age at Mother Paternal Grandmother Level of Service:73966 [place] OFFICE/OUTPATIENT NEW MODERATE MDM 45 MINUTES Normal [facility] Inpatient Patient Summaryon 11-20-2023 Inpatient Patient Summary Inpatient Patient Summary [place] [address] Clinical Summary Person Information Name: JORDAN HOLLY Age: 63 Years : 1960 Sex: Female PCP: LATA WORKMAN CNP Marital Status: Race: White Ethnicity: Non- or Language: Spanish Visit Id: Visit Reason: URETERAL STONE WITH HYDRONEPHROSIS Speciality: Acuity: Enc Type: Outpatient Med Service: Surgery Arrival: 11/20/2023 07:48:23 Discharge: Dispo Type: Address: [address] [id number] Provider Notes: Diagnosis: Encounter for removal of [...] Follow up: With: Address: When: Vanessa Schultz [address] [place] [id number] [phone] Business (1) [address], [address], [place] [phone] Business (1) Comments: Office to schedule follow up in 6 months with renal US and KUB. Obtain renal US in 6 weeks to ensure no blockage develops after surgery, will call with results Patient Education Information: Dietary Guidelines to Help Prevent Kidney Stones; EU - Cystoscopy with Stent Removal Discharge Instructions (CUSTOM) [facility] Main OR Intraoperative Recor don 11-20-2023 Main OR Intraoperative Record Main OR Intraoperative Record IntraOp Document Type FTURO Summary Primary Physician: Vanessa Schultz MD Finalized Date/Time: 11/20/23 08:53:11 Pt. Name: JORDAN HOLLY /Sex: 1960 Female Med Rec #: [id number] Physician: Vanessa Schultz MD Financial #: [id number] Pt. Type: O Room/Bed: / Admit/Disch: 11/20/23 [...] Jackson CST Role Performed Surgeon - Primary Accounting Administrative Assistant - Primary Scrub - Primary Time In [...] Prep Agents Betadine Solution Skin. Condition Intact, Norphlet, Warm, and Dry Additional None Specimens Collected [...] By: Hillary Forman RN 11/20/23 08:53 Normal [facility] Main OR Preoperative Recordo n 11-20-2023 Main OR Preoperative Record Main OR Preoperative Record Holding Area Document Type FTURO Summary Primary Physician: Vanessa Schultz MD Finalized Date/Time: 11/20/23 08:20:18 Pt. Name: JORDAN HOLLY Edgardo Patel/Sex: 1960 Female Med Rec #: [id number] Physician: Vanessa Schultz MD Financial #: [id number] Pt. Type: O Room/Bed: / Admit/Disch: 11/20/23 [...] JASON Boyce RN, Ruthann 11/20/23 08:20 Normal [facility] Operative Reporton Operative Report Operative Report Patient: JORDAN HOLLY Age: 63 years Sex: Female : 1960 Associated Diagnoses: None Author: Vanessa Schultz MD Procedure Operative Information Details: Date/ Time: 11/20/2023 08:55:00. Pre-Op Dx: Encounter for removal of ureteral stent ([id number] Z46.6, Discharge, Medical). Post-Op Dx: Same. Anesthesia [...] for dietary modifications and increased fluids. Normal [facility] Comment on above: Result Comment: Elec tronically Signed By: Vanessa Schultz MD\.br\Date and Time Signed: 11/20/23 08:56 EDT Outpatient Surgery Discharge Instructionon 11-20-2023 Outpatient Surgery Discharge Instruction Outpatient Surgery Discharge Instruction [address] [address] Patient Discharge Instructions PERSON INFORMATION Name: JORDAN [...] Vanessa Schultz [address], [place] [phone] Business (1) [address], [address], [facility] [address] [place] [address] [phone] Business (1) Comments: Office to schedule follow [...] Spinach (cooked), rhubarb, beets, sweet potatoes, and Mosotho chard. ? Peanuts. ? Potato chips, polish fries, and baked potatoes with skin on. ? Nuts and nut products. ? Chocolate. ? If you regularly take a diuretic medicine, make sure to eat at least 1 or 2 servings of fruits or vegetables that are high in potassium each day. These include: ? Avocado. ? Banana. ? Hamlin, prune, carrot, or tomato juice. ? Baked potato. ? Cabbage. ? Beans and split peas. Lifestyle (more content not included)... Normal [facility] Reminderson 11-20-2023 Reminders Reminders - From: Lashanda Cummins To: EU - Recalls [...] scheduled for 05/05/24 @ 12:30 PM in [place]. (Patient wanted the f/u prior to the beginning of the year due to insurance cost/concerns.) Normal [facility] Ambulatory Visit Summaryon 0 11-12-2023 Ambulatory [...] including vitamins, herbs, eye drops, creams, and crdf-epi-yxtrnne medicines. ? Any problems you or family [...] health c (more content not included)... Normal [facility] Ambulatory Visit Summary Ambulatory Visit Summary [...] including vitamins, herbs, eye drops, creams, and eldu-qao-kwagsen medicines. ? Any problems you or family [...] health c (more content not included)... Normal [facility] Urology Office/Clinic Noteon 11-12-2023 Urology Office/Clinic [...] new to our office due to recent [facility] ER visit for 7 mm left ureteral stone. S/p hysterectomy. BBSQ 19 (stent) 1. Ureteral stone with hydronephrosis (N13.2: Hydronephrosis with renal and ureteral calculous obstruction) Hx of stones. Has always passed on her own. Last episode was >12 mos ago. Pt presented to [facility] ER 11/01/23 with abdominal pain, right and [...] was discharged home with Flomax, Keflex, and Amawalk and told to follow up with our office. Pt presented back to [facility] ER 11/02/23 due to left flank pain and left lower quadrant pain. KUB 11/02/23 [facility] - suspected 9 mm left ureterolith. Labs [...] Risks li (more content not included)... Normal [facility] Comment on above: Result Comment: Elec tronically Signed By: Antoine PEREZ, Vanessa Montgomery\.br\Date and Time Signed: 11/12/23 14:14 EDT\.br\Electronically Co-Signed By: Jennifer Ashley\Date and Time Co-Signed: 11/12/23 14:07 EDT GLYCOHEMOGLOBIN A1Con 2020 ADA RECOMMENDATION ADA THERAPEUTIC TARGET 6.0 - 7.0 ACTION SUGGESTED > 7.0 Normal [facility] Comment on above: Performed By: #### A 1C #### [facility] [address] [place] [address] [address] Quirino Zelaya Glucose [Mass/Vol] 154 mg/dL Normal [facility] Comment on above: Performed By: #### A 1C #### [facility] [address] [place] [address] [address] Quirino Zelaya HbA1c (Bld) [Mass fraction] 7.0 % Critically high <=6.0 [facility] Comment on above: Performed By: #### A 1C #### [facility] [address] [place] [address] [address] Quirino Zelaya XR KUB 1 VIEWon [...] by: PASTORA TY Date: 2021-02-08 09:53 Normal [facility] MG MAMM SCREEN 3D HAY CADon 01-25-2021 MG MAMM SCREEN 3D HAY CAD Patient: JORDAN HOLLY Exam Date: 01/25/2021 : 1960 Gender:F Ordering : CHRYSTAL WORKMAN CNP Admission #: [id number] Family : Order #: [id number] CLICK HERE TO VIEW EXAM RADIOLOGY REPORT [...] Treatments None Family Cancers None LOCATION: [facility] BREAST COMPOSITION: Scattered areas fibroglandular density. [...] MD on 01/25/2021 at 11:21 Normal [facility] AMYLASEon 01-19-2021 Amylase [Catalytic activity/Vol] 34 U/L Normal 31-110 [facility] Comment on above: Performed By: #### L HILLARY JUSTIN, CMP ####[facility] [address] [place] [address]Dr. Quirino Zelaya CBC W MANUAL DIFFon 01-20-20 21 ATYPICAL LYMPH # Normal [facility] Comment on above: Performed By: #### C JANIA ####[facility] [address] [place] [address]Dr. Quirino Zelaya ATYPICAL LYMPH % Normal [facility] Comment on above: Performed By: #### C JANIA ####[facility] [address] [place] [address]Dr. Quirino Zelaya BAND # Normal 0.0-0.3 [facility] Comment on above: Performed By: #### C BCMAN ####[facility] [address] [place] [address]Dr. Ayshalan Zelaya BAND % Normal 0-5 [facility] Comment on above: Performed By: #### C BCMAN ####[facility] [address] [place] [address]Dr. Quirino Zelaya BASOM # 0.08 103/ul Normal 0.00-0.10 [facility] Comment on above: Performed By: #### C JANIA ####[facility] [address] [place] [address]Dr. Quirino Zelaya BASOM % 1.0 % Normal 0.2-2.0 [facility] Comment on above: Performed By: #### C JANIA ####[facility] [address] [place] [address]Dr. Quirino Zelaya BLAST # Normal [facility] Comment on above: Performed By: #### C JANIA ####[facility] [address] [place] [address]Dr. Quirino Zelyaa BLAST % Normal [facility] Comment on above: Performed By: #### C JANIA ####[facility] [address] [place], [place] [address]Dr. Quirino Zelaya CORRECTED WBC Normal 4.0-11.0 [facility] Comment on above: Performed By: #### C JANIA ####[facility] [address] [place], [place] [address]Dr. Quirino Zelaya EOS # 0.24 103/ul Normal 0.00-0.70 [facility] Comment on above: Performed By: #### C JANIA ####[facility] [address] [place], [place] [address]Dr. Quirino Zelaya EOS% 3.0 % Normal 0.9-7.0 [facility] Comment on above: Performed By: #### C JANIA ####[facility] [address] [place], [place] [address]Dr. Quirino Zelaya HCT 40.3 % Normal 36.0-48.0 [facility] Comment on above: Performed By: #### C JANIA ####[facility] [address] [place], [place] [address]Dr. Quirino Zelaya HGB 13.1 g/dl Normal 12.0-16.0 [facility] Comment on above: Performed By: #### C JANIA ####[facility] [address] [place], [place] [address]Dr. Quirino Zelaya LYMPHM # 1.68 103/ul Normal 1.20-3.80 [facility] Comment on above: Performed By: #### C JANIA ####[facility] [address] [place] [address]Dr. Quirino Zelaya LYMPHM% 21.0 % Normal 20.5-60.0 [facility] Comment on above: Performed By: #### C JANIA ####[facility] [address] [place] [address]Dr. Quirino Zelaya MCH 28.9 pg Normal 26.7-34.0 [facility] Comment on above: Performed By: #### C JANIA ####[facility] [address] [place] [address]Dr. Quirino Zelaya MCHC 32.5 g/dl Normal 29.9-35.2 [facility] Comment on above: Performed By: #### C JANIA ####[facility] [address] [place] [address]Dr. Quirino Zelaya MCV 88.8 fL Normal 81.0-99.0 [facility] Comment on above: Performed By: #### C JANIA ####[facility] [address] [place] [address]Dr. Quirino Zelaya METAMYELOCYTE # Normal [facility] Comment on above: Performed By: #### C JANIA ####[facility] [address] [place] [address]Dr. Quirino Zelaya METAMYELOCYTE % Normal [facility] Comment on above: Performed By: #### C JANIA ####[facility] [address] [place] [address]Dr. Quirino Zelaya MONOM# 0.56 103/ul Normal 0.30-0.80 [facility] Comment on above: Performed By: #### C JANIA ####[facility] [address] [place] [address]Dr. Quirino Zelaya MONOM% 7.0 % Normal 1.7-12.0 [facility] Comment on above: Performed By: #### C JANIA ####[facility] [address] [place] [address]Dr. Quirino Zelaya MPV 11.1 fL Normal 9.5-13.5 [facility] Comment on above: Performed By: #### C JANIA ####[facility] [address] [place] [address]Dr. Quirino Zelaya MYELOCYTE # Normal [facility] Comment on above: Performed By: #### C JANIA ####[facility] [address] [place] [address]Dr. Quirino Zelaya MYELOCYTE % Normal [facility] Comment on above: Performed By: #### C JANIA ####[facility] Lly[address]dhakt[address] [place] [address]Dr. Quirino Zelaya NRBC Normal [facility] Comment on above: Performed By: #### C JANIA ####[facility] Z[address]wrqmdu[address]3 [place] [address]Dr. Quirino Zelaya PLT 180 103/ul Normal 150-450 [facility] Comment on above: Performed By: #### C JANIA ####[facility] [address] [place], [place] [address]Dr. Quirino Zelaya RBC 4.54 106/ul Normal 4.20-5.40 [facility] Comment on above: Performed By: #### C JANIA ####[facility] [address] [place] [address]Dr. Quirino Zelaya RDW 12.9 % Normal 11.0-15.0 [facility] Comment on above: Performed By: #### C JANIA ####[facility] Drlsdmqtwr6904 [place] [address]Dr. Quirino Zelaya SEG # 5.44 103/ul Normal 1.40-6.50 [facility] Comment on above: Performed By: #### C JANIA ####[facility] [address] [place], [place] [id number]. Quirino Zelaya SEG % 68.0 % Normal 43.0-75.0 [facility] Comment on above: Performed By: #### Alexander DYKES ####[facility] [address] [place], [place] [id number]. Quirino Zelaya WBC 8.0 103/ul Normal 4.0-11.0 [facility] Comment on above: Performed By: #### C BCMAN ####[facility] [address] [place], [place] [address] ABD/PELVIS WO CONon 01-19 CT [...] LEANDRA SERNA Date: 2021-01-19 04:54 Normal [facility] CULTURE URINEon 01-19-2021 CULTURE URINE Culture Observations: MODERATE GROWTH OF MIXED GENITAL DAVID. NO POTENTIAL PATHOGENS SEEN. Normal [facility] Comment on above: Performed By: #### U RCX ####[facility] [address] [place], [place] [address]Xs. Quirino Zelaya ER URINE PROFILEon Bilirubin Ql (U) Negative Normal NEGATIVE [facility] Comment on above: Performed By: #### U MICRO, ERUR #### [facility] [address] [address] [address] Quirino Zelaya Clarity (U) CLEAR Normal CLEAR [facility] Comment on above: Performed By: #### U MICRO, ERUR #### [facility] [address] [address] [address] Quirino Zelaya Color (U) YELLOW Normal YELLOW [facility] Comment on above: Performed By: #### U MICRO, ERUR #### [facility] [address] [place] [address] Dr. Quirino Zelaya ERUAHD A micrscopic examination will be performed if indicated. Normal [facility] Comment on above: Performed By: #### U MICRO, ERUR #### [facility] [address] [place] [address] Dr. Quirino Zelaya Glucose Ql (U) Negative Normal NEGATIVE [facility] Comment on above: Performed By: #### U MICRO, ERUR #### [facility] [address] [place] [address] Dr. Quirino Zelaya Hemoglobin Ql (U) LARGE Abnormal NEGATIVE [facility] Comment on above: Performed By: #### U MICRO, ERUR #### [facility] [address] [place] [address] Dr. Quirino Zelaya Ketones Ql (U) TRACE Abnormal NEGATIVE [facility] Comment on above: Performed By: #### U MICRO, ERUR #### [facility] [address] [address] [address] Quirino Zelaya LEUKOCYTES TRACE Abnormal NEGATIVE [facility] Comment on above: Performed By: #### U MICRO, ERUR #### [facility] [address] [address] [address] Quirino Zelaya Nitrite Ql (U) Negative Normal NEGATIVE [facility] Comment on above: Performed By: #### U MICRO, ERUR #### [facility] [address] [place] [address] Dr. Quirino Zelaya pH (U) 5.0 [pH] Normal 5-9 [facility] Comment on above: Performed By: #### U MICRO, ERUR #### [facility] [address] [address] [address] Quirino Zelaya SPEC GRAVITY >=1.030 Abnormal 1.005-<=1.025 [facility] Comment on above: Performed By: #### U MICRO, ERUR #### [facility] [address] [address] [address] Quirnio Zelaya UA PROTEIN Negative Normal NEGATIVE/ TRACE [facility] Comment on above: Performed By: #### U MICRO, ERUR #### [facility] [address] [address] [address] Quirino Zelaya UR MICRO IND INDICATED Normal [facility] Comment on above: Performed By: #### U MICRO, ERUR #### [facility] [address] [place] [address] Dr. Quirino Zelaya Urobilinogen Qn (U) 0.2 {Joan'U}/dL Normal 0.2 - 1. 0 [facility] Comment on above: Performed By: #### U MICRO, ERUR #### [facility] [address] [address] [address] Quirino Zelaya LIPASEon 01-19-2021 Lipase [Catalytic activity/Vol] 104.0 U/L Normal 23.0-300.0 [facility] Comment on above: Performed By: #### L IPA, HILLARY, CMP ####[facility] [address] [address]DrFish Zelaya PROF 14(COMP METB)on 021 Albumin [Mass/Vol] 3.8 g/dL Normal 3.5-5.0 [facility] Comment on above: Performed By: #### L IPA, HILLARY, CMP ####[facility] [address] [address]DrFish Zelaya Albumin/Globulin [Mass ratio] 1.2 {ratio} Normal [facility] Comment on above: Performed By: #### L IPA, HILLARY, CMP ####[facility] [address] [address]DrFish Zelaya ALP [Catalytic activity/Vol] 71 U/L Normal 38-126 [facility] Comment on above: Performed By: #### L HILLARY JUSTIN, CMP ####[facility] [address] [address]Dr. Quirino Zelaya ALT [Catalytic activity/Vol] 29 U/L Normal 9-52 [facility] Comment on above: Performed By: #### L IPA HILLARY, CMP ####[facility] [address] [address]Dr. Quirino Zelaya Anion gap [Moles/Vol] 14.4 mmol/L Normal [facility] Comment on above: Performed By: #### L NHAN HILLARY, CMP ####[facility] [address] [place], [place] [address]Dr. Quirino Zelaya AST [Catalytic activity/Vol] 22 U/L Normal 14-36 [facility] Comment on above: Performed By: #### L NHAN HILLARY, CMP ####[facility] [address] [place], [place] [address]Dr. Quirino Zelaya Bilirubin [Mass/Vol] 0.7 mg/dL Normal 0.2-1.3 [facility] Comment on above: Performed By: #### L HILLARY JUSTIN, CMP ####[facility] [address] [place], [place] [address]Dr. Quirino Zelaya Calcium [Mass/Vol] 9.4 mg/dL Normal 8.4-10.2 [facility] Comment on above: Performed By: #### L IPA HILLARY, CMP ####[facility] [address] [place], [place] [address]Dr. Quirino Zelaya Chloride [Moles/Vol] 101 mmol/L Normal 98-107 [facility] Comment on above: Performed By: #### L IPA HILLARY, CMP ####[facility] [address] [place], [place] [address]Dr. Quirino Zelaya CO2 [Moles/Vol] 28.5 mmol/L Normal 22.0-30.0 [facility] Comment on above: Performed By: #### L IPA HILLARY, CMP ####[facility] [address] [address]Dr. Quirino Zelaya Creatinine [Mass/Vol] 0.85 mg/dL Normal 0.52-1.04 [facility] Comment on above: Performed By: #### L HILLARY JUSTIN, CMP ####[facility] [address] [id number]. Quirino Zelaya EGFR-AF KOSOVAN >60 Normal >=60 [facility] Comment on above: Performed By: #### L HILLARY JUSTIN, CMP ####[facility] [address] [address]Dr. Quirino Zelaya EGFR-NON AF KOSOVAN >60 Normal >=60 [facility] Comment on above: Performed By: #### L HILLARY JUSTIN, CMP ####[facility] [address] [address]Dr. Quirino Zelaya Globulin (S) [Mass/Vol] 3.1 g/dL Normal [facility] Comment on above: Performed By: #### L HILLARY JUSTIN, CMP ####[facility] [address] [address]Dr. Quirino Zelaya Glucose [Mass/Vol] 124 mg/dL Critically high 74-106 [facility] Comment on above: Performed By: #### L HILLARY JUSTIN, CMP ####[facility] [address] [address]Dr. Quirino Zelaya Potassium [Moles/Vol] 3.9 mmol/L Normal 3.4-5.0 [facility] Comment on above: Performed By: #### L HILLARY JUSTIN, CMP ####[facility] [address] [address]Dr. Quirino Zelaya Protein [Mass/Vol] 6.9 g/dL Normal 6.1-8.2 [facility] Comment on above: Performed By: #### L HILLARY JUSTIN, CMP ####[facility] [address] [address]Dr. Quirino Zelaya Sodium [Moles/Vol] 140 mmol/L Normal 137-145 [facility] Comment on above: Performed By: #### L HILLARY JUSTIN, CMP ####[facility] [address] [address]Dr. Quirino Zelaya Urea nitrogen [Mass/Vol] 17.0 mg/dL Normal 7.0-17.0 [facility] Comment on above: Performed By: #### L HILLARY JUSTIN, CMP ####[facility] [address] [address]Dr. Quirino Zelaya Urea nitrogen/Creatinine [Mass ratio] 20.0 mg/mg Normal [facility] Comment on above: Performed By: #### L HILLARY JUSTIN, CMP ####[facility] [address] [address]Dr. Quirino Zelaya URINE MICROSCOPIC ONLYon BACTERIA MODERATE Abnormal NONE SEEN [facility] Comment on above: Performed By: #### U MICRO, ERUR ####[facility] [address] [address]Dr. Quirino Zelaya Bacteria identified Cx Nom (U) INDICATED Normal [facility] Comment on above: Performed By: #### U MICRO, ERUR ####[facility] [address] [address]Dr. Quirino Zelaya CA OX CRYSTALS FEW Normal [facility] Comment on above: Performed By: #### U MICRO, ERUR ####[facility] [address] [address]Dr. Quirino Zelaya CAST NONE SEEN Normal NONE SEEN [facility] Comment on above: Performed By: #### U MICRO, ERUR ####[facility] [address] [address]Dr. Quirino Zelaya Crystals LM Nom (Urine sed) SEEN Abnormal NONE SEEN [facility] Comment on above: Performed By: #### U MICRO, ERUR ####[facility] [address] [address]Dr. Quirino Zelaya Epithelial cells LM Ql (Urine sed) MODERATE Abnormal NONE SEEN /RARE [facility] Comment on above: Performed By: #### U MICRO, ERUR ####[facility] [address] [place], [place] [address]Dr. Quirino Zelaya MUCOUS TRACE Abnormal NONE SEEN [facility] Comment on above: Performed By: #### U MICRO, ERUR ####[facility] [address] [address]Dr. Ayshakai Zelaya RBC NONE SEEN Abnormal 0-2 [facility] Comment on above: Performed By: #### U MICRO, ERUR ####[facility] [address] [id number]. Quirino Zelaya WBC 0-2 Abnormal NONE SEEN [facility] Comment on above: Performed By: #### U MICRO, ERUR ####[facility] [address] [address]Dr. Ayshakai Zelaya PROF CHEM 8 (BAS METB)on Anion gap [Moles/Vol] 9.7 mmol/L Normal [facility] Comment on above: Performed By: #### B MP #### [facility] [address] [address] Navi Maria Dolores Calcium [Mass/Vol] 9.3 mg/dL Normal 8.4-10.2 [facility] Comment on above: Performed By: #### B MP #### [facility] [address] [address] Navi Maria Dolores Chloride [Moles/Vol] 104 mmol/L Normal 98-107 [facility] Comment on above: Performed By: #### B MP #### [facility] [address] [address] Navi Maria Dolores CO2 [Moles/Vol] 31.8 mmol/L Critically high 22.0-30.0 [facility] Comment on above: Performed By: #### B MP #### [facility] [address] [address] Navi Maria Dolores Creatinine [Mass/Vol] 0.93 mg/dL Normal 0.52-1.04 [facility] Comment on above: Performed By: #### B MP #### [facility] [address] [address] Navi Maria Dolores EGFR-AF KOSOVAN >60 Normal >=60 [facility] Comment on above: Performed By: #### B MP #### [facility] [address] [place], [place] [address] Navi Maria Dolores EGFR-NON AF KOSOVAN >60 Normal >=60 [facility] Comment on above: Performed By: #### B MP #### [facility] [address] [place], [place] [address] Navi Maria Dolores Glucose [Mass/Vol] 118 mg/dL Critically high 74-106 [facility] Comment on above: Performed By: #### B MP #### [facility] [address] [address] Navi Maria Dolores Potassium [Moles/Vol] 4.5 mmol/L Normal 3.4-5.0 [facility] Comment on above: Performed By: #### B MP #### [facility] [address] [place] [address] Navi Maria Dolores Sodium [Moles/Vol] 141 mmol/L Normal 137-145 [facility] Comment on above: Performed By: #### B MP #### [facility] [address] [place] [address] Navi Maria Dolores Urea nitrogen [Mass/Vol] 18.0 mg/dL Critically high 7.0-17.0 [facility] Comment on above: Performed By: #### B MP #### [facility] [address] [place], [place] [id number] Navi Maria Dolores Urea nitrogen/Creatinine [Mass ratio] 19.4 mg/mg Normal [facility] Comment on above: Performed By: #### B MP #### [facility] [address] [place], [place] [address] Navi Maria Dolores CBC AUTO DIFFon 07-26-2020 BASO # 0.1 103/ul Normal 0.0-0.1 [facility] Comment on above: Performed By: #### C BC #### [facility] [address] [place], [place] [id number] Navi Maria Dolores Basophils/100 WBC (Bld) 0.8 % Normal 0.2-2.0 [facility] Comment on above: Performed By: #### C BC #### [facility] [address] [place], [place] [address] Navi Maria Dolores EO # 0.2 103/ul Normal 0.0-0.7 [facility] Comment on above: Performed By: #### C BC #### [facility] [address] [place], [place] [phone] Navi Maria Dolores Eosinophils/100 WBC (Bld) 3.3 % Normal 0.9-7.0 [facility] Comment on above: Performed By: #### C BC #### [facility] [address] [place] [address] Navi Maria Dolores Erythrocyte distribution width (RBC) [Ratio] 13.6 % Normal 11.0-15.0 [facility] Comment on above: Performed By: #### C BC #### [facility] [address] [place] [address] Navi Maria Dolores Hematocrit (Bld) [Volume fraction] 42.5 % Normal 36.0-48.0 [facility] Comment on above: Performed By: #### C BC #### [facility] [address] [place] [address] Navi Maria Dolores Hemoglobin (Bld) [Mass/Vol] 13.3 g/dL Normal 12.0-16.0 [facility] Comment on above: Performed By: #### C BC #### [facility] [address] [place] [address] Navi Maria Dolores IG # 0.03 10e3/ul Normal 0.00-0.03 [facility] Comment on above: Performed By: #### C BC #### [facility] [address] [place] [address] Navi Maria Dolores IG % 0.5 % Normal 0.0-0.5 [facility] Comment on above: Performed By: #### C BC #### [facility] [address] [place] [address] Navi Maria Dolores LYMPH # 1.5 103/ul Normal 1.2-3.8 [facility] Comment on above: Performed By: #### C BC #### [facility] [address] [place] [address] Navi Maria Dolores Lymphocytes/100 WBC (Bld) 22.7 % Normal 20.5-60.0 [facility] Comment on above: Performed By: #### C BC #### [facility] [address] [place], [place] [phone] Navi Whitten MANUAL DIFF REQ NO Normal [facility] Comment on above: Performed By: #### C BC #### [facility] [address] [place], [place] [phone] Navihumphrey Whitten MCH (RBC) [Entitic mass] 29.1 pg Normal 26.7-34.0 [facility] Comment on above: Performed By: #### C BC #### [facility] [address] [place] [address] Navihumphrey Whitten MCHC (RBC) [Mass/Vol] 31.3 g/dL Normal 29.9-35.2 [facility] Comment on above: Performed By: #### C BC #### [facility] [address] [place] [address] Navihumphrey Whitten MCV (RBC) [Entitic vol] 93.0 fL Normal 81.0-99.0 [facility] Comment on above: Performed By: #### C BC #### [facility] [address] [place], [place] [id number] Navihumphrey Whitten MONO # 0.5 103/ul Normal 0.3-0.8 [facility] Comment on above: Performed By: #### C BC #### [facility] [address] [place] [address] Navihumphrey Whitten Monocytes/100 WBC (Bld) 7.6 % Normal 1.7-12.0 [facility] Comment on above: Performed By: #### C BC #### [facility] [address] [place], [place] [address] Navi Maria Dolores NEUT # 4.3 103/ul Normal 1.4-6.5 [facility] Comment on above: Performed By: #### C BC #### [facility] [address] [place], [place] [phone] Navi Maria Dolores Neutrophils/100 WBC (Bld) 65.1 % Normal 43.0-75.0 [facility] Comment on above: Performed By: #### C BC #### [facility] [address] [place], [place] [address] Navi Whitten Platelet mean volume (Bld) [Entitic vol] 11.2 fL Normal 9.5-13.5 [facility] Comment on above: Performed By: #### C BC #### [facility] [address] [place], [place] [address] Navihumphrey Bellamyen PLT 198 103/ul Normal 150-450 [facility] Comment on above: Performed By: #### C BC #### [facility] [address] [place], [place] [address] Navi Maria Dolores RBC 4.57 106/ul Normal 4.20-5.40 [facility] Comment on above: Performed By: #### C BC #### [facility] [address] [place], [place] [address] Navihumphrey Bellamyen WBC 6.6 103/ul Normal 4.0-11.0 [facility] Comment on above: Performed By: #### C BC #### [facility] [address] [place], [place] [address] Navi Whitten GLYCOHEMOGLOBIN A1Con 2020 ADA RECOMMENDATION ADA THERAPEUTIC TARGET 6.0 - 7.0 ACTION SUGGESTED > 7.0 Normal [facility] Comment on above: Performed By: #### A 1C ####[facility] [address] [id number] Whitten Glucose [Mass/Vol] 146 mg/dL Normal [facility] Comment on above: Performed By: #### A 1C ####[facility] [address] [place], [place] [address]DirwcuNavi Whitten HbA1c (Bld) [Mass fraction] 6.7 % Critically high <=6.0 [facility] Comment on above: Performed By: #### A 1C ####[facility] [address] [id number] Whitten LIPID PROFILEon 07-26-2020 CHOL-HDL RATIO NORM SEE BELOW Normal [facility] Comment on above: Result Comment: 3.3 - 4.4 LOW RISK 4.4 - 7.1 AVERAGE RISK 7.1 - 11.0 MODERATE RISK >11.0 HIGH RISK Performed By: #### L IPID, CMP #### [facility] [address] [id number] Navi Maria Dolores Cholesterol [Mass/Vol] 132 mg/dL Normal <=200 [facility] Comment on above: Performed By: #### L IPID, CMP #### [facility] [address] [id number] Anvi Maria Dolores Cholesterol in HDL [Mass/Vol] 51 mg/dL Normal [facility] Comment on above: Performed By: #### L IPID, CMP #### [facility] [address] [place], [place] [phone] Navi Maria Dolores Cholesterol in LDL [Mass/Vol] 64.8 mg/dL Normal [facility] Comment on above: Performed By: #### L IPID, CMP #### [facility] [address] [place], [place] [phone] Navi Maria Dolores Cholesterol.total/Ch olesterol in HDL [Mass ratio] 2.6 {ratio} Normal [facility] Comment on above: Performed By: #### L IPID, CMP #### [facility] [address] [place], [place] [phone] Navi Maria Dolores HDL NORMAL > or = 60 mg/dl - LOW CARDIOVASCULAR RISK <40 mg/dl - HIGH CARDIOVASCULAR RISK Normal [facility] Comment on above: Performed By: #### L IPID, CMP #### [facility] [address] [place] [address] Navi Maria Dolores LDL CALC NORMAL SEE BELOW Normal [facility] Comment on above: Result Comment: <100 mg/dl OPTIMAL 100 - 129 mg/dl NEAR OR ABOVE OPTIMAL 130 - 159 mg/dl BORDERLINE HIGH 160 - 189 mg/dl HIGH >190 mg/dl VERY HIGH Performed By: #### L IPID, CMP #### [facility] [address] [place], [place] [id number] Navi Maria Dolores Triglyceride [Mass/Vol] 81 mg/dL Normal <=150 [facility] Comment on above: Performed By: #### L IPID, CMP #### [facility] [address] [place] [address] Navi Maria Dolores VLDL CALC 16.2 mg/dL Normal [facility] Comment on above: Performed By: #### L IPID, CMP #### [facility] [address] [place] [address] Navi Maria Dolores MICROALBUMIN, RAND URon 07-06 mALB <1.3 Normal <=30.0 [facility] Comment on above: Performed By: #### M ALBR #### [facility] [address] [place], [place] [phone] Navihumphrey Bellamyen PROF 14(COMP METB)on 021 Albumin [Mass/Vol] 3.8 g/dL Normal 3.5-5.0 [facility] Comment on above: Performed By: #### L IPID, CMP #### [facility] [address] [place], [place] [phone] Navi Maria Dolores Albumin/Globulin [Mass ratio] 1.3 {ratio} Normal [facility] Comment on above: Performed By: #### L IPID, CMP #### [facility] [address] [place], [place] [phone] Navi Maria Dolores ALP [Catalytic activity/Vol] 67 U/L Normal 38-126 [facility] Comment on above: Performed By: #### L IPID, CMP #### [facility] [address] [place], [place] [phone] Navi Maria Dolores ALT [Catalytic activity/Vol] 36 U/L Normal 9-52 [facility] Comment on above: Performed By: #### L IPID, CMP #### [facility] [address] [place] [address] Navi Maria Dolores Anion gap [Moles/Vol] 10.5 mmol/L Normal [facility] Comment on above: Performed By: #### L IPID, CMP #### [facility] [address] [place], [place] [phone] Navi Maria Dolores AST [Catalytic activity/Vol] 20 U/L Normal 14-36 [facility] Comment on above: Performed By: #### L IPID, CMP #### [facility] [address] [phone] Navi Maria Dolores Bilirubin [Mass/Vol] 0.7 mg/dL Normal 0.2-1.3 [facility] Comment on above: Performed By: #### L IPID, CMP #### [facility] [address] [phone] Navi Maria Dolores Calcium [Mass/Vol] 9.4 mg/dL Normal 8.4-10.2 [facility] Comment on above: Performed By: #### L IPID, CMP #### [facility] [address] [place], [place] [address] Navi Maria Dolores Chloride [Moles/Vol] 104 mmol/L Normal 98-107 [facility] Comment on above: Performed By: #### L IPID, CMP #### [facility] [address] [place] [address] Navi Maria Dolores CO2 [Moles/Vol] 30.9 mmol/L Critically high 22.0-30.0 [facility] Comment on above: Performed By: #### L IPID, CMP #### [facility] [address] [place], [place] [phone] Navi Maria Dolores Creatinine [Mass/Vol] 0.87 mg/dL Normal 0.52-1.04 [facility] Comment on above: Performed By: #### L IPID, CMP #### [facility] [address] [place], [place] [id number] Navi Maria Dolores EGFR-AF KOSOVAN >60 Normal >=60 [facility] Comment on above: Performed By: #### L IPID, CMP #### [facility] [address] [place], [place] [id number] Navi Maria Dolores EGFR-NON AF KOSOVAN >60 Normal >=60 [facility] Comment on above: Performed By: #### L IPID, CMP #### [facility] [address] [place], [place] [id number] Navi Maria Dolores Globulin (S) [Mass/Vol] 3.0 g/dL Normal [facility] Comment on above: Performed By: #### L IPID, CMP #### [facility] [address] [place], [place] [address] Navi Maria Dolores Glucose [Mass/Vol] 118 mg/dL Critically high 74-106 [facility] Comment on above: Performed By: #### L IPID, CMP #### [facility] [address] [place], [place] [address] Navi Maria Dolores Potassium [Moles/Vol] 4.4 mmol/L Normal 3.4-5.0 [facility] Comment on above: Performed By: #### L IPID, CMP #### [facility] [address] [place] [id number] Navi Maria Dolores Protein [Mass/Vol] 6.8 g/dL Normal 6.1-8.2 [facility] Comment on above: Performed By: #### L IPID, CMP #### [facility] [address] [place], [place] [phone] Navi Maria Dolores Sodium [Moles/Vol] 141 mmol/L Normal 137-145 [facility] Comment on above: Performed By: #### L IPID, CMP #### [facility] [address] [place] [id number] Navi Maria Dolores Urea nitrogen [Mass/Vol] 26.0 mg/dL Critically high 7.0-17.0 [facility] Comment on above: Performed By: #### L IPID, CMP #### [facility] [address] [place] [place] [id number] Navi Maria Dolores Urea nitrogen/Creatinine [Mass ratio] 29.9 mg/mg Normal [facility] Comment on above: Performed By: #### L IPID, CMP #### [facility] [address] [place] [address] Navi Maria Dolores UA RANDOM W/MICROSCOPICon BACTERIA NONE SEEN Normal NONE SEEN [facility] Comment on above: Performed By: #### U AMIC #### [facility] [address] [place], [place] [address] Navi Maria Dolores Bilirubin Ql (U) Negative Normal NEGATIVE [facility] Comment on above: Performed By: #### U AMIC #### [facility] [address] [place] [address] Navi Maria Dolores CAST NONE SEEN Normal NONE SEEN [facility] Comment on above: Performed By: #### U AMIC #### [facility] [address] [place] [address] Navi Maria Dolores Clarity (U) CLEAR Normal CLEAR [facility] Comment on above: Performed By: #### U AMIC #### [facility] [address] [place] [address] Navi Maria Dolores Color (U) LT. YELLOW Normal YELLOW [facility] Comment on above: Performed By: #### U AMIC #### [facility] [address] [place] [address] Navi Maria Dolores Crystals LM Nom (Urine sed) NONE SEEN Normal NONE SEEN [facility] Comment on above: Performed By: #### U AMIC #### [facility] [address] [place] [address] Navi Maria Dolores Epithelial cells LM Ql (Urine sed) MODERATE Abnormal NONE SEEN /RARE [facility] Comment on above: Performed By: #### U AMIC #### [facility] [address] [place] [address] Navi Maria Dolores Glucose Ql (U) Negative Normal NEGATIVE [facility] Comment on above: Performed By: #### U AMIC #### [facility] [address] [place] [address] Navi Maria Dolores Hemoglobin Ql (U) Negative Normal NEGATIVE [facility] Comment on above: Performed By: #### U AMIC #### [facility] [address] [place] [address] Navi Maria Dolores Ketones Ql (U) Negative Normal NEGATIVE [facility] Comment on above: Performed By: #### U AMIC #### [facility] [address] [place] [address] Navi Maria Dolores LEUKOCYTES Negative Normal NEGATIVE [facility] Comment on above: Performed By: #### U AMIC #### [facility] [address] [place] [address] Navi Maria Dolores MUCOUS TRACE Abnormal NONE SEEN [facility] Comment on above: Performed By: #### U AMIC #### [facility] [address] [place] [id number] Navi Maria Dolores Nitrite Ql (U) Negative Normal NEGATIVE [facility] Comment on above: Performed By: #### U AMIC #### [facility] [address] [place], [place] [phone] Navi Maria Dolores pH (U) 5.0 [pH] Normal 5-9 [facility] Comment on above: Performed By: #### U AMIC #### [facility] [address] [place], [place] [phone] Navi Maria Dolores RBC NONE SEEN Abnormal 0-2 [facility] Comment on above: Performed By: #### U AMIC #### [facility] [address] [place] [address] Navi Maria Dolores SPEC GRAVITY 1.025 Normal 1.005-<=1.[address] [facility] Comment on above: Performed By: #### U AMIC #### [facility] [address] [place] [address] Navi Maria Dolores UA PROTEIN Negative Normal NEGATIVE/ TRACE [facility] Comment on above: Performed By: #### U AMIC #### [facility] [address] [place], [place] [phone] Navi Maria Dolores Urobilinogen Qn (U) 0.2 {Joan'U}/dL Normal 0.2 - 1. 0 [facility] Comment on above: Performed By: #### U AMIC #### [facility] [address] [place], [place] [phone] Navi Maria Dolores WBC 0-2 Abnormal NONE SEEN [facility] Comment on above: Performed By: #### U AMIC #### [facility] [address] [place], [place] [phone] Navi Maria Dolores Vital Signs Date Time Vital Sign Value Performing Clinician Facility 03-27-2024 11:06-0500 Body height 176.5 cm Carlos Harman DPUmu Work Phone: [facility] 03-27-2024 11:06-0500 Body mass index (BMI) [Ratio] 26.05 kg/m2 Carlos Harman DPM Work Phone: [facility] 03-27-2024 11:06-0500 Body weight 81.19 kg Carlos Harman DPM Work Phone: [facility] 03-27-2024 11:06-0500 Respiratory rate 18 /min Carlos Harman DPM Work Phone: [facility] 03-13-2024 08:58-0500 Body height 176.5 cm Carlos Kimani DPM Work Phone: [facility] 03-13-2024 08:58-0500 Body mass index (BMI) [Ratio] 26.05 kg/m2 Carlos Brown DPM Work Phone: [facility] 03-13-2024 08:58-0500 Body weight 81.19 kg Carlos Harman DPM Work Phone: [facility] 03-13-2024 08:58-0500 Diastolic blood pressure 79 mm[Hg] Carlos Brown DPM Work Phone: [facility] 03-13-2024 08:58-0500 Heart rate 81 /min Carlos Harman DPM Work Phone: [facility] 03-13-2024 08:58-0500 Systolic blood pressure 133 mm[Hg] Carlos Harman DPM Work Phone: [facility] 02-28-2024 08:58-0400 Body height 176.5 cm Carlospeggy aHrman DPM Work Phone: [facility] 02-28-2024 08:58-0400 Body mass index (BMI) [Ratio] 26.05 kg/m2 Carlos Brown DPM Work Phone: [facility] 02-28-2024 08:58-0400 Body weight 81.19 kg Carlos Brown DPM Work Phone: [facility] 02-28-2024 08:58-0400 Diastolic blood pressure 79 mm[Hg] Carlos Brown DPM Work Phone: [facility] 02-28-2024 08:58-0400 Heart rate 88 /min Carlos Harman DPM Work Phone: [facility] 02-28-2024 08:58-0400 Systolic blood pressure 126 mm[Hg] Carlos Harman DPM Work Phone: [facility] 02-14-2024 13:13-0400 Body height 176.5 cm Carlos Harman DPM Work Phone: [facility] 02-14-2024 13:13-0400 Body mass index (BMI) [Ratio] 26.05 kg/m2 Carlos Harman DPM Work Phone: [facility] 02-14-2024 13:13-0400 Body weight 81.19 kg Carlos Harman DPM Work Phone: [facility] 02-14-2024 13:13-0400 Respiratory rate 18 /min Carlos Harman DPM Work Phone: [facility] 02-12-2024 11:09-0400 Body height 175.3 cm [facility] 02-12-2024 11:09-0400 Body mass index (BMI) [Ratio] 26.43 kg/m2 [facility] 02-12-2024 11:09-0400 Body weight 81.19 kg [facility] 02-05-2024 14:06-0400 Body height 175.3 cm Allyson Garcia [employer] 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 Work Phone: [facility] 02-05-2024 14:06-0400 Body mass index (BMI) [Ratio] 26.4 kg/m2 Allyson Garcia [employer] 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 Work Phone: [facility] 02-05-2024 14:06-0400 Body weight 81.1 kg Allyson Garcia [employer] 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 Work Phone: [facility] 02-05-2024 14:06-0400 Diastolic blood pressure 67 mm[Hg] Allyson Garcia [employer] 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 Work Phone: [facility] 02-05-2024 14:06-0400 Systolic blood pressure 124 mm[Hg] Allyson Garcia [employer] 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 Work Phone: [facility] 11-12-2023 13:21-0400 Blood Pressure Location Vanessa Lue [facility] 11-12-2023 13:21-0400 Diastolic blood pressure 69 mm[Hg] Vanessa Lue [facility] 11-12-2023 13:21-0400 Heart rate 72 /min Vanessa Lue [facility] 11-12-2023 13:21-0400 Respiratory rate 19 /min Vanessa Lue [facility] 11-12-2023 13:21-0400 Systolic blood pressure 131 mm[Hg] Vanessa Lue [facility] Encounters Encounter Date Encounter Type Care Provider Facility Start: 05-05-2024 ambulatory Vanessa M. Lue Facility:[facility] Start: 03-27-2024 End: 03-27-2024 Bamboo Identifiedheet Carlos Harman DPM Work Phone: [facility] Start: 03-27-2024 End: 03-27-2024 Bamboo Identifiedheet Carlso Hamran DPM Work Phone: [facility] Start: 03-27-2024 End: 03-27-2024 Office outpatient visit 25 minutes Carlos Harman DPM Work Phone: [facility] Comment on above: Plantar fasciitis (P rimary Dx); Contracture of left ankle; Contracture of right ankle; Heel spur, left Start: 03-27-2024 End: 03-27-2024 ambulatory CARLOS HARMAN Not Available Start: 03-13-2024 End: 03-13-2024 Bamboo flowsheet Carlos Bárbara Kimani DPM Work Phone: [facility] Start: 03-13-2024 End: 03-13-2024 Bamboo flowsheet Carlos Bárbara Brown DPM Work Phone: [facility] Start: 03-13-2024 End: 03-13-2024 Office outpatient visit 15 minutes Carlos Bárbara Kimani DPM Work Phone: [facility] Comment on above: Heel spur, left (Ginger lila Dx); Plantar fasciitis; Contracture of right ankle; Contracture of left ankle Start: 03-13-2024 End: 03-13-2024 ambulatory CARLOS Bárbara HARMAN Not Available Start: 03-03-2024 End: 03-03-2024 Refill Lata Workman OPERATIONS ASST Work Phone: [facility] Comment on above: 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 ([facility]) Start: 02-28-2024 End: 02-28-2024 Bamboo flowsheet Carlos Bárbara Brown DPM Work Phone: [facility] Start: 02-28-2024 End: 02-28-2024 Bamboo flowsheet Carlos Bárbara Brown DPM Work Phone: [facility] Start: 02-28-2024 End: 02-28-2024 Office outpatient visit 25 minutes Carlos Bárbara Kimani DPM Work Phone: [facility] Comment on above: Plantar fasciitis (P rimary Dx); Contracture of right ankle; Heel spur, right; Heel spur, left Start: 02-28-2024 End: 02-28-2024 ambulatory CARLOS Bárbara HARMAN Not Available Start: 02-20-2024 End: 02-21-2024 Refill Lata Workman [employer]PERATIONS ASST Work Phone: [facility] Comment on above: Type 2 diabetes jerrell itus without complications ([facility]); Essential (primary) hypertension ([facility]); 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 ([facility]) Start: 02-20-2024 End: 02-20-2024 ambulatory [facility] Start: 02-20-2024 End: 02-20-2024 Encounter for other preprocedural examination [facility] Start: 02-18-2024 End: 02-18-2024 [facility] Start: 02-14-2024 End: 02-14-2024 Bamboo flowsheet Carlos Harman DPM Work Phone: [facility] Start: 02-14-2024 End: 02-14-2024 Bamboo flowsheet Carlos Harman DPM Work Phone: [facility] Start: 02-14-2024 End: 02-14-2024 Office outpatient visit 15 minutes Carlos Harman DPM Work Phone: [facility] Comment on above: Plantar fasciitis (P rimary Dx); Contracture of right ankle Start: 02-14-2024 End: 02-14-2024 ambulatory CARLOS HARMAN Not Available Start: 02-12-2024 End: 02-12-2024 ambulatory [facility] Phone Call Provider 1 [facility] Pre Ad[facility] Start: 02-12-2024 End: 02-12-2024 ambulatory LATA LASTSACHI [facility] Start: 02-05-2024 End: 02-05-2024 Patient encounter procedure Allyson Garcia [employer] 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 Work Phone: [facility] Comment on above: Encounter for screen ing colonoscopy (Primary Dx) Start: 02-05-2024 End: 02-05-2024 ambulatory ALLYSON GARCIA [facility] Start: 01-31-2024 End: 01-31-2024 ambulatory CARLOS HARMAN Not Available Start: 01-02-2024 Patient encounter status Clinton Harman M Work Phone: [facility] Start: 01-02-2024 End: 01-02-2024 ambulatory LATA WORKMAN Not Available Start: 11-20-2023 End: 11-20-2023 ambulatory Vanessa M. Lue Facility:[facility] Start: 11-20-2023 End: 11-20-2023 Patient encounter procedure Vanessa M. Lue [facility] Start: 11-14-2023 End: 11-14-2023 ambulatory Vanessa M. Lue Facility:[facility] Start: 11-14-2023 End: 11-14-2023 Patient encounter procedure Vanessa M. Lue [facility] [place] Start: 11-14-2023 End: 11-14-2023 ambulatory Vanessa M. Lue Facility: [facility] Start: 11-14-2023 End: 11-14-2023 Off-Site Vanessa M. Lue [facility] Start: 11-12-2023 End: 11-12-2023 Patient encounter procedure Vanessa M. Lue [facility] [place] Start: 11-12-2023 End: 11-12-2023 ambulatory Vanessa M. Lue Facility:[facility] [place] Start: 11-06-2023 End: 11-06-2023 ambulatory Vanessa M. Lue Facility: [facility] Start: 11-06-2023 End: 11-06-2023 Off-Site Vanessa M. Lue [facility] Start: 11-03-2023 End: 11-03-2023 ambulatory Elton Tamez Facility:[id number] Start: 02-08-2021 End: 02-09-2021 ambulatory CHRYSTAL WORKMAN Facility:[facility] Start: 01-25-2021 End: 01-26-2021 ambulatory CHRYSTAL WORKMAN Facility:[facility] Start: 01-19-2021 End: 01-19-2021 ambulatory KAIT SALDIVAR Facility:[facility] Start: 08-30-2020 End: 08-31-[address] DIVYA GRANDE Facility:[facility] Start: 07-26-2020 End: 07-27-2020 ambulatory CHRYSTAL WORKMAN Facility:[facility] Start: 06-19-2017 End: 06-20-2017 Ambulatory DEFAULT PHYSICIAN Facility:[facility] Procedures Date Procedure Procedure Detail Performing Clinician Start: 02-18-2024 Colonoscopy Lata Smith valdemar OPERATIONS ASST Work Phone: Start: 01-14-2024 Mammography Carlos ballard DPM Work Phone: Start: 11-03-2023 Cystotomy w/insj ure teral cath/stent spx Vanessa Schultz Start: 12-19-2022 Colonoscopy Carlos ballard DPM Work Phone: Appendectomy Vanessa Schultz Placement of stent i n cardiac conduit Vanessa Schultz Tonsillectomy Vanessa Luroe Vaginal hysterectomy w/tot/prtl vaginectomy Vanessa Schultz Plan of Treatment Date Care Activity Detail Author Start: 02-17-2034 Screening for malign ant neoplasm of colon [facility] Start: 12-19-2032 Screening for malign ant neoplasm of colon [facility] Start: 02-04-2025 Adult BMI Screening Adult BMI Screen ing [facility] Start: 02-04-2025 Tobacco Screening Tobacco Screening [facility] Start: 01-13-2025 Screening for malign ant neoplasm of breast Mammogram [facility] Start: 01-07-2025 Urine screening for protein Diabetes: Urine Protein Screening [facility] Start: 07-07-2024 Hemoglobin A1c measurement Diabetes: Hemoglobin A1C [facility] Start: 04-17-2024 End: 04-17-2024 Patient encounter procedure 04/17/2024 9:00 AM EST Office Visit [facility] [address] [place] [address] Lata Workman NP [address] [place] [address] [facility] Start: 03-27-2024 End: 03-27-2024 Patient encounter procedure [facility] Comment on above: Plantar fasciitis (P rimary Dx); Contracture of left ankle; Contracture of right ankle Start: 03-13-2024 End: 03-13-2024 Patient encounter procedure [facility] Comment on above: Plantar fasciitis (P rimary Dx); Contracture of right ankle; Heel spur, left Start: 02-28-2024 End: 02-28-2024 Patient encounter procedure 02/28/2024 9:00 AM EDT Office Visit [facility] [address] [facility] [address] [place] [id number] Carlos Harman, DPM [address] [facility] [address] [place] [address] Plantar fasciitis (Primary Dx); Contracture of right ankle [facility] Comment on above: Plantar fasciitis (P rimary Dx); Contracture of right ankle Start: 02-18-2024 End: 02-18-2024 Admission to same day surgery center 02/18/2024 12:45 PM EDT - 02/18/2024 1:15 PM EDT Surgery [facility] [address] [place] [id number] Shira Kelly, [address] [place] [address] [id number] COLONOSCOPY DIAGNOSTIC / SCREENING [20668 (CPT )] [facility] Comment on above: COLONOSCOPY DIAGNOST IC / SCREENING [36179 (CPT )] Start: 02-18-2024 End: 02-18-2024 Colonoscopy flx dx w/collj spec when pfrmd COLONOSCOPY DIAGNOSTIC / SCREENING Screen for colon cancer 02/18/2024 12:45 PM EDT [facility] Start: 02-18-2024 Subsequent hospital visit by physician 02/18/2024 12:45 PM EDT Hospital Encounter [facility] [address] [place] [id number] [place] [address] [place] [id number] [facility] Start: 02-14-2024 End: 02-14-2024 Patient encounter procedure 02/14/2024 1:20 PM EDT Office Visit [facility] [address] [facility] [address] [place] [address] Carlos Harman, DPUmu [address] [facility] [address] [place] [address] Plantar fasciitis (Primary Dx); Contracture of right ankle [facility] Comment on above: Plantar fasciitis (P rimary Dx); Contracture of right ankle Start: 02-12-2024 End: 02-12-2024 ambulatory 02/12/2024 2:30 PM EDT Support Visit [facility] Admit [address] [place] [id number] [facility] Start: 07-16-2023 Hemoglobin A1c measurement Diabetes: Hemoglobin A1C [facility] Start: 03-27-2021 DTaP,Tdap and Td Vaccines (2 - Td or Tdap) DTaP,Tdap and Td Vaccines (2 - Td or Tdap) [facility] Start: 07-20-1991 Screening for malign ant neoplasm of cervix HPV/Cotest [facility] Start: 1982 Screening for malign ant neoplasm of cervix Pap Smear [facility] Start: 1980 Urine screening for protein Diabetes: Urine Protein Screening [facility] Start: 07-20-1979 Adult BMI Follow Up Plan Adult BMI Follow Up Plan [facility] Start: 1973 Depression Screening Depression Scre ening [facility] Start: 07-20-1971 Glaucoma screening Diabetes: R etinopathy Screening [facility] Start: 1961 Screening for malign ant neoplasm of colon [facility] End: 02-04-2025 Colonoscopy Colonoscopy GI Routine Encounter for screening colonoscopy 1 Occurrences starting 02/05/2024 until 02/04/2025 [facility] Work Phone: Comment on above: 1 Occurrences starti ng 02/05/2024 until 02/04/2025 Immunizations Immunization Date Immunization Notes Care Provider Morelia farley 01-30-2023 Seasonal, quadrivale nt, recombinant, injectable influenza vaccine, preservative free Carlos Brown DPM Work Phone: [facility] 11-09-2022 zoster vaccine recombinant Carlos Brown DPM Work Phone: [facility] 07-04-2022 zoster vaccine recombinant Carlos Brown DPM Work Phone: [facility] 02-09-2022 influenza, injectabl e, quadrivalent, preservative free Carlos Brown DPM Work Phone: [facility] 05-24-2017 Influenza, injectabl e, Madin [place] Canine Kidney, preservative free, quadrivalent Carlos Brown DPM Work Phone: [facility] 02-05-2016 influenza, injectabl e, quadrivalent, preservative free Carlos Brown DPM Work Phone: [facility] 05-31-2014 influenza, seasonal, injectable, preservative free Carlos Brown DPM Work Phone: [facility] 03-27-2011 tetanus toxoid, redu marie diphtheria toxoid, and acellular pertussis vaccine, adsorbed Carlos Harman DPUmu Work Phone: [facility] Payers Date Payer Category Payer Private Health Insurance OLE ALEJANDRA [id number] 2022 Unknown 2022 Unknown [id number] 1961 Unknown [id number] 2.16.840.1.585595.3.579. 2.593 1961 Unknown [id number] 2.16.840.1.340811.3.579. 2.593 1961 Unknown [id number] 2.16.840.1.942229.3.579. 2.593 1961 Unknown [id number] 2.16.840.1.656433.3.579. 2.593 1961 Unknown [id number] 2.16.840.1.097439.3.579. 2.593 1961 Unknown [id number] 2.16.840.1.477695.3.579. 2.727 1961 Unknown [id number] 2.16.840.1.456557.3.579. 2.727 1961 Unknown [id number] 2.16.840.1.270957.3.579. 2.727 1961 Unknown [id number] 2.16.840.1.780313.3.579. 2.727 1961 Unknown [id number] 2.16.840.1.770659.3.579. 2.727 1961 Unknown [id number] 2.16.840.1.797321.3.579. 2.1286 1961 Unknown [id number] 2.16.840.1.104321.3.579. 2.1286 1961 Unknown [id number] 2.16.840.1.228592.3.579. 2.1286 1961 Unknown [id number] 2.16.840.1.064806.3.579. 2.1259 1961 Unknown [id number] 2.16.840.1.270340.3.579. 2.1259 1961 Unknown [id number] 2.16.840.1.555762.3.579. 2.1259 1961 Unknown [id number] 2.16.840.1.165566.3.579. 2.1259 1961 Unknown [id number] 2.16.840.1.021876.3.579. 2.9 1961 Unknown [id number] 2.16.840.1.177658.3.579. 2.1259 1959 Private Health Insurance [id number] 1959 Private Health Insurance [id number] Social History Date Type Detail Facility Tobacco smoking status [facility] Start: 02-05-2024 End: 03-27-2024 Sex Assigned At Female [facility] Start: 11-12-2023 End: 01-02-2024 Tobacco smoking status Never smoked tobacco (finding) [facility] Start: 01-02-2024 End: 02-05-2024 Tobacco use and exposure Smokeless tobacco non-user [facility] Start: 02-05-2024 End: 02-12-2024 Alcoholic beverage intake Current non-drinker of alcohol (finding) [facility] Start: 02-05-2024 End: 03-27-2024 History of Social function [facility] Childcare Unknown [facility] Start: 1960 Sex assigned at Not on file [facility] Start: 02-14-2024 End: 03-27-2024 Alcoholic beverage intake Lifetime non-drinker (finding) [facility] Start: 01-02-2024 Alcohol Comment caffine: 1 cup of coffee daily [facility] Functional Status Date Assessment Result Facility 11-12-2023 Functional Status N/A [facility] Clinical Notes 11-12-2023 to 03-27-2024 Carlos Harman, DP - 03/27/2024 10:50 AM Gini Harman, DPM - 02/28/2024 9:00 AM EDHadley Harman, DP - 02/14/2024 1:20 PM EDTJeestuardo Garcia, COMPRESS 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 - 02/05/2024 2:00 PM EDT Note Date & Type Note Facility 03-27-2024 History of Presen t illness Narrative Patient: Jordan Holly : 1960 PCP: Robin Poe MD SUBJECTIVE This is a 63 y.o. female that presents today 22 days s/p right plantar fasciotomy Pt denies n/f/v/c and has minimal pain to post op site. Pt states that they have been keeping dressing dry and intact and have been wb with walking boot. Pt presents today for follow up. She also presents today for follow up of left HSS. Pt has had previous treatment of 1st steroid injection, nsaids, stretching with minimal relief in the past. Pt states current pain on a 1-10 scale is a six Pt presents to day for follow up tx. Condition unrelated to prior sx. Patient presents today for fitting of orthotics She would like left PF sx in the April time frame and would like to be scheduled. Patient be scheduled for left plantar fasciotomy in the near future unrelated to prior procedure and preoperative evaluation and examination done today for plantar fasciitis that has been unremitting with many previous treatments prior to my office visits in the past Allergies: Allergies Allergen Reactions Penicillins Anaphylaxis, Rash [...] 28 days, Disp: 3 mL, Rfl: 2 ROS: Gastrointestinal: denies abdominal pain, ulcers, or changes in appetite or bowel habits Musculoskeletal: denies arthritis, denies loss of strength, pain to hip, knees, back Cardiovascular: denies CP, palpitations, irregular rhythms OBJECTIVE LE EXAM: Derm: Sutures intact to right foot with negative erythema, negative drainage, minimal edema with negative clinical signs of infection. Vascular: Palpable pedal pulses to right foot Neuro: Gross sensation intact to right foot. Musculoskeletal: Negative pain on palpation to right calf. Positive POP to left plantar fascia. Ortho: Ankle range of motion less than 10 degrees of dorsiflexion at right ankle joint. ASSESSMENT 22 days s/p right plantar fasciotomy 1. Plantar fasciitis 2. Contracture of left ankle 3. Contracture of right ankle 4. Heel spur, left PLAN Patient to continue with oral anti - inflammatories as needed for pain and recommended OTC medications such as tylenol or Ibuprofen Pt was fitted for custom made orthotics today. Orthotics were deemed to fit appropriately and patient was informed of proper break in of devices. Patient education on break in of device. ABN signed and in chart if warranted. Patient given prescription for pain medication to be taken postoperatively. Decision for surgery today and patient medically cleared from a podiatric standpoint for surgery and to proceed with surgery. Pt to have pre op H/P per PCP for medical clearance for surgery and will be reviewed along with labs prior to surgery. Pt scheduled for left foot plantar fasciotomy unrelated to prior procedure Discussed with the patient the nature of condition and operative vs nonoperative care. 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 RSDS,neuroma,duty limitations,DVT/PE, FL,nerve damage, scar, loss of sensation, swelling. Pt [...] of a 2. Carlos Harman DPM, FACFAS H&P up to date and current (date) 03/27/2024 Carlos Harman DPM documented in this encounter [facility] 02-28-2024 History of Presen t illness Narrative Patient: oJrdan Holly : 1960 PCP: Robin Poe MD SUBJECTIVE Jordan Holly 63 y.o. presents today for follow up [...] risks, alternatives, benefits, post op complications and mcc expectations were discussed including but not limited to: infection,bone infection,wound dehiscence hardware failure and irritation,wound dehiscence,delay union/mal union/non union of bone. RSDS,neuroma,duty limitations,DVT/PE, FL,nerve damage, scar, loss of sensation, swelling. Pt [...] Carlos Harman DPM documented in this encounter [facility] 02-20-2024 Note [facility] Cardiology Clinic Note Chief Complaint: [...] the LAD on 06/21. Was discharged from [facility] on 06/22. She thinks the metoprolol [...] problems arise. Divya Grande MD, MPH, FACC, [facility], FSVM Interventional Cardio (more content not included)... [facility] 02-14-2024 History of Presen t illness Narrative Patient: Jordan Holly : 1960 PCP: Robin Poe MD SUBJECTIVE Jordan Holly 63 y.o. presents today for follow up [...] Patient may continue with conservative treatments including xgsh-eag-uxmtmri anti-inflammatories and other treatments suggested today. Patient may want to be scheduled for surgical intervention in the near future. Patient have the right plantar fasciotomy in the near future with [employer]walk for postoperative pain. She sees cardiology at [facility] and will need cardio clearance. Her PCP is Lata Harman DPM documented in this encounter [facility] 02-12-2024 Miscellaneous Notes Preoperative Education Checklist- General Surgery date: 02/18/24 Surgery time: 1245 Arrival time: 1045 1. Bring a photo ID and your insurance card with you the day of surgery. You will check in at the main lobby of the [facility]- registration desk is straight ahead as soon as you walk in. Tell them you are here for surgery. 2. If you have a Living Will/Durable Power of Solar Sales Energy Advisor for Health Care that is not on [...] after you have bathed. 5. NO nail nicaraguan/acrylic on at least one finger. If you are having a hand, wrist or foot surgery then all nail nicaraguan and artificial/acrylic nails must be removed from [...] please call the Preadmission Testing office at [phone], Mon.-Fri. 7 a.m.-3 p.m. Leave a voicemail [...] prior to procedure documented in this encounter [facility] 02-12-2024 Nurse Note Preoperative Education Checklist- General Surgery date: 02/18/24 Surgery time: 1245 Arrival time: 1045 1. Bring a photo ID and your insurance card with you the day of surgery. You will check in at the main lobby of the [facility]- registration desk is straight ahead as soon as you walk in. Tell them you are here for surgery. 2. If you have a Living Will/Durable Power of Solar Sales Energy Advisor for Health Care that is not on [...] after you have bathed. 5. NO nail nicaraguan/acrylic on at least one finger. If you are having a hand, wrist or foot surgery then all nail nicaraguan and artificial/acrylic nails must be removed from [...] please call the Preadmission Testing office at [phone], Mon.-Fri. 7 a.m.-3 p.m. Leave a voicemail [...] Stop taking 1 [address] prior to procedure [facility] 02-05-2024 History of Presen t illness Narrative [...] Past Medical History: Diagnosis Date Diabetes mellitus ([facility]) DVT (deep venous thrombosis) ([facility]) Hyperlipidemia Hypertension Kidney stone Past Surgical History: Procedure Laterality Date APPENDECTOMY CARDIAC SURGERY 2000, 07/2016 stents placed, cardiac ablation CARPAL TUNNEL RELEASE Bilateral EXCISION MASS KNEE Left 10/18/2016 Performed by Chase Andujar DO at [facility] bilateral faschitis, tumors removed [...] a week., Disp: , Rfl: peg 3350-sod sulf,iuiw-inp-xnl 178.7-7.3-0.5 gram recon soln, Take 1 kit [...] patient/family/caregiver Referring and communicating with other health care transition coordinator Encounter for screening colonoscopy [Z12.11] ALYSSA DENTON [facility] General Surgery [place] This note was created with the assistance of a speech recognition program. While intending to generate a timely document that accurately reflects the content of the visit, no guarantee can be provided that every grammatical or spelling mistake has been or will be identified or corrected. Thank you for your understanding. ALYSSA Denton 02/05/24 1433 documented in this encounter [facility] 11-20-2023 Hospital Discharg e instructions Patient Education [...] include: ?8 oz (237 mL) of milk, bycruht-nothdtzocpvu-zdfdp milk, and calcium-fortifiedfruit juice. Calcium-fortified means that [...] ?Spinach (cooked), rhubarb, beets, sweet potatoes, and Mosotho chard. ?Peanuts. ?Potato chips, polish fries, and baked potatoes with skin on. ?Nuts and nut products. ?Chocolate. If you regularly take a diuretic medicine, make sure to eat at least 1 or 2 servings of fruits or vegetables that are high in potassium each day. These include: ?Avocado. ?Banana. ?Hamlin, prune, carrot, or tomato juice. ?Baked potato. [...] magnesium, fish oil, or vitamin B6. Take zizm-sys-sbxshng and prescription medicines only as told by [...] Casseroles. Pizza. Lasagna. Frozen meals. Potato chips. Russian fries. The items listed above may not [...] provider. Document Revised: 08/03/2022 Document Reviewed: 08/03/2022 [employer] Patient Education 2022 [employer]. 11/20/2023 08:54:31 EU - Cystoscopy with Stent [...] Up Care 11/19/2023 11:47:38 With:Vanessa Schultz Address: [address] [place] [phone] Business (1) [address], [address] [phone] Business (1) When: Unknown Comments:Office to schedule follow up in 6 months with renal US and KUB. Obtain renal US in 6 weeks to ensure no blockage develops after surgery, will call with results [facility] 11-20-2023 Note Patient Education Cystoscopy with Stent [...] ? 8 oz (237 mL) of milk, elepxwy-axrslouaojkw-gbjab milk, and calcium-fortifiedfruit juice. Calcium-fortified means that [...] Spinach (cooked), rhubarb, beets, sweet potatoes, and Mosotho chard. ? Peanuts. ? Potato chips, polish fries, and baked potatoes with skin on. ? Nuts and nut products. ? Chocolate. ? If you regularly take a diuretic medicine, make sure to eat at least 1 or 2 servings of fruits or vegetables that are high in potassium each day. These include: ? Avocado. ? Banana. ? Hamlin, prune, carrot, or tomato juice. ? Baked [...] (148 mL), o (more content not included)... [facility] 11-12-2023 Hospital Discharg e instructions Patient [...] including vitamins, herbs, eye drops, creams, and yjpl-acc-edanfya medicines. Any problems you or family members [...] provider tells you to take them. Taking lwph-zdz-xaxdiuq medicines, vitamins, herbs, and supplements. Tests You [...] provider. Document Revised: 03/20/2022 Document Reviewed: 12/26/2021 [employer] Patient Education 2022 [employer]. Follow Up Care 11/09/2023 13:32:06 With:Antoine PEREZ, BAUTISTA Arnold, URO Address: When: Unknown [facility] 11-12-2023 Note Patient Education Nephrology Lithotripsy Lithotripsy [...] including vitamins, herbs, eye drops, creams, and ixro-wgy-qvmdpoe medicines. ? Any problems you or family [...] tells you to take them. ? Taking myvk-rrc-ogrllwb medicines, vitamins, herbs, and supplements. Tests You [...] that it i (more content not included)... [facility] Evaluation + Plan note Future Appointments Appointment Date:11/14/2023 09:15:00 AM Scheduled Provider:Vanessa Schultz MD Location:[facility] Appointment Type:URO New Patient [facility] Evaluation + Plan note Future Appointments Appointment Date:05/05/2024 12:30:00 PM Scheduled Provider:Vanessa Schultz MD Location:[facility] Appointment Type:URO Office Visit [facility] Evaluation note Diagnosis Encounter for screening colonoscopy- Primary Screen for colon cancer Special screening for malignant neoplasms, colon documented [facility] Diagnosis Plantar fasciitis- Primary Plantar fascial fibromatosis Contracture of right ankle documented in this encounter [facility]* Diagnosis Wellness examination- Primary Type 2 diabetes mellitus without complication, without long-term current use of insulin (CMS/HCC) Mixed hyperlipidemia (CMS/HCC) Mixed hyperlipidemia Aspirin long-term use Encounter for long-term (current) use of aspirin Essential hypertension (CMS/HCC) Unspecified essential hypertension 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 (CMS/HCC) Encounter for screening mammogram for malignant neoplasm of breast History of kidney stones Type 2 diabetes mellitus without complications (CMS/HCC) Essential (primary) hypertension (CMS/HCC) Unspecified essential hypertension 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) documented in this encounter [facility] Healthcare[facility]* Diagnosis Wellness examination- Primary Type 2 diabetes mellitus without complication, without long-term current use of insulin (CMS/HCC) Mixed hyperlipidemia (CMS/HCC) Mixed hyperlipidemia Aspirin long-term use Encounter for long-term (current) use of aspirin Essential hypertension (CMS/HCC) Unspecified essential hypertension 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 (CMS/HCC) Encounter for screening mammogram for malignant neoplasm of breast History of kidney stones Plantar fasciitis- Primary Plantar fascial fibromatosis Contracture of right ankle Heel spur, right Heel spur, left documented in this encounter [facility]* Diagnosis Wellness examination- Primary Type 2 diabetes mellitus without complication, without long-term current use of insulin (CMS/HCC) Mixed hyperlipidemia (CMS/HCC) Mixed hyperlipidemia Aspirin long-term use Encounter for long-term (current) use of aspirin Essential hypertension (CMS/HCC) Unspecified essential hypertension 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 (CMS/HCC) Encounter for screening mammogram for malignant neoplasm of breast History of kidney stones 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) documented in this encounter [facility] Healthcare[facility] note* Diagnosis Wellness examination- Primary Type 2 diabetes mellitus without complication, without long-term current use of insulin (CMS/HCC) Mixed hyperlipidemia (CMS/HCC) Mixed hyperlipidemia Aspirin long-term use Encounter for long-term (current) use of aspirin Essential hypertension ([facility]) Unspecified essential hypertension 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 ([facility]) Encounter for screening mammogram for malignant neoplasm of breast History of kidney stones Heel spur, left- Primary Plantar fasciitis Plantar fascial fibromatosis Contracture of right ankle Contracture of left ankle documented in this encounter [facility]* Diagnosis Wellness examination- Primary Type 2 diabetes mellitus without complication, without long-term current use of insulin (CMS/HCC) Mixed hyperlipidemia ([facility]/HCC) Mixed hyperlipidemia Aspirin long-term use Encounter for long-term (current) use of aspirin Essential hypertension ([facility]/HCC) Unspecified essential hypertension 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 female that presents today 8 days s/p right plantar fasciotomy Pt denies n/f/v/c and has minimal pain to post op site. Pt states that they have been keeping dressing dry and intact and have been minimal weight-bearing to post op foot Pt presents today for follow up. She also presents today for follow up of left HSS. Pt has had previous treatment of 1st steroid injection, nsaids, stretching with minimal relief. Pt states current pain on a 1-10 scale is a 8 Pt presents to day for follow up tx. Condition unrelated to prior sx. Pt is covered for custom orthotics. Allergies: Allergies Allergen Reactions Penicillins Anaphylaxis, Rash [...] 1 tablet (25 mg) by mouth Daily, Disp:90 tablet, Rfl: 1 prasugrel (Effient) 10 MG tablet, Take 1 tablet (10 mg) by mouth in the morning., Disp: 90 tablet, Rfl: 1 Semaglutide,0.25 or 0.5MG/DOS, (Ozempic, 0.25 or 0.5 MG/DOSE,) 2 MG/3ML solution pen-injector, Inject 0.25 mg under the skin every 7 (seven) days for 28 days, Disp: 3 mL, Rfl: 2 ROS: General: denies fever, chills, fatigue, malaise OBJECTIVE LE EXAM: Derm: Sutures intact to right foot with negative erythema, negative drainage, minimal edema with negative clinical signs of infection. Vascular: Palpable pedal pulses to right foot Neuro: Gross sensation intact to right foot. Musculoskeletal: Negative pain on palpation to right calf. Positive POP to left plantar fascia. Ortho: Ankle range of motion less than 10 degrees of dorsiflexion at right ankle joint. ASSESSMENT 8 days s/p right plantar fasciotomy 1. Plantar fasciitis 2. Contracture of right ankle 3. Heel spur, left PLAN Patient to keep dry sterile dressing intact and keep dressing dry with partial weightbearing. Patient may take anti-inflammatories as needed for pain. May continue with ice to foot as needed p.r.n. Pt was dispensed a pneumatic CAM walker (L4361) today to maintain 90 degree foot to ankle position.Pt informed to only remove walker when at rest or bathing. ABN signed and in chart for device if warranted. The boot was assembled and adjusted liner and straps and pneumatically inflated for proper custom fitting by Carlos Harman DPM and staff. A verbal order was given for dispensing of device. The patient is ambulatory and may benefit functionally from this device. It may be used for the following conditions as noted per medical diagnosis. Pt presents today for casting of a removable foot inserts/orthotics today that was accomplished with scanning of feet and sent to orthotics lab.(L3020 right and L3020 left foot). Pt to have signed ABN for device if needed. It was explained to the patient of a break in period for the devices. The patient is ambulatory maybenefit functionally for this device. It may be used for the following conditions as noted per EMR. Patient like to discuss surgical intervention in the near future for the left foot in April 09 time. Carlos Harman DPM [facility] Narrative No data available for this section [facility] Hospital Discharge instructions No data available for this section [facility] InstructionsNot on filedocumented in this encounter [facility] filedocumented in this encounter [facility] No data available for this section [facility] Summary Purpose Family History No Family History [...] section and content) DATE CREATED AUTHOR 10/29/2017 [facility] DATE CREATED AUTHOR AUTHOR'S ORGANIZ ATION 02/26/2021 [facility] DATE CREATED AUTHOR AUTHOR'S ORGANIZ ATION 11/23/[address] [facility] DATE CREATED AUTHOR AUTHOR'S ORGANIZ ATION 02/07/2024 [facility] DATE CREATED AUTHOR AUTHOR'S ORGANIZ ATION 02/19/2024 [facility] DATE CREATED AUTHOR AUTHOR'S ORGANIZ ATION 03/13/2024 [facility] DATE CREATED AUTHOR AUTHOR'S ORGANIZ ATION 03/30/2024 [facility] dical Specialists EPIC Patient Care team informatio n (unrecognized section and content) Synchro Assembler Relationship Specialty Start Date End Date Robin Poe MD [address] [place] [phone] PCP - General Family Medicine 01/02/24 Lata Workman NP [address] [place] [phone] Referring Physician Nurse Practitioner 05/07/22 Synchro Assembler Relationship Specialty Start Date End Date Lata Workman APRN-CHRYSTAL [address] [place] [address] PCP - General Nurse Practitioner 02/05/24 Personnel Name: LATA WORKMAN CNP Address: Address: [address] [place] [address] [place] Reason for Visit (unrecogniz ed section and content) Reason Comments Colon Cancer Screening Specialty Diagnoses / Procedures Referred By Matt t Referred To Contact General Surgery Diagnoses Colon cancer screening Procedures [place] OFFICE OUTPATIENT VISIT 60-74 MINS HIGH MDM AMB REFERRAL TO GENERAL SURGERY Lata Workman, COMPRESS 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 [address] [place] [address] Shira Kelly DO [address] [place] [address] Referral ID Status Reason Start Date Expiration Date Visits Re quested Visits Authorized [id number] Closed 01/23/2024 07/21/2024 1 1 Reason Comments Follow-up Rt heel spur inj Reason Comments Med Refill Reason Comments Consult Surgery consult Reason Comments Post-op 1st post op PF Reason Comments Post-op 22d s/p pfa Consent Or Instructions Orthotic fiber picker FOR RECORDS PERTAINING TO PATIENTS WHO ARE [...] BE BASED ON THE PRIMARY CLINICAL RECORDS. [facility] marker.to [facility]. provides no warranty or guarantee of the accuracy or completeness of information in this document.
[2024-04-01 10:11] LABS: Alanine Aminotransferase 32 U/L (14-59); Albumin Globulin Ratio 1.2; Albumin Level 3.6 g/dL (3.4-5.0); Alkaline Phosphatase 60 U/L (46-116); Aspartate Amino Transferase 20 U/L (15-37); Bilirubin Direct 0.2 mg/dL (0.0-0.2); Bilirubin Total 0.7 mg/dL (0.2-1.0); Chol HDL Ratio 2.3; Cholesterol 114 mg/dL (<=200); Globulin 2.9 g/dL; HDL Cholesterol 50 mg/dL (40-60); LDL Cholesterol Calculated 48.6 mg/dL; Total Protein 6.5 g/dL (6.4-8.2); Triglycerides 77 mg/dL (<=150); VLDL CHOLESTEROL 15.4 mg/dL
== END 2024-04-01 09:06 | disposition home or self-care (01) ==
LOC: LAB 09:07
PROVIDERS: PCP Nurse Practitioner; Visit Provider Internal Medicine Interventional Cardiology
DX: I25.10 Atherosclerotic heart disease of native coronary artery without angina pectoris (principal); E78.5 Hyperlipidemia, unspecified
CPT/HCPCS: 36415; 80061; 80076

== ENCOUNTER 2024-04-01 09:09 | Outpatient (OUT) | payer OTHER, SELFPAY ==
[2024-04-01 09:35] LABS: Basophils Absolute Auto 0.1 10^3/uL (0.0-0.1); Basophils Percent Auto 0.6 % (0.2-2.0); Eosinophils Absolute Auto 0.3 10^3/uL (0.0-0.7); Eosinophils Percent Auto 3.2 % (0.9-7.0); Hematocrit 41.7 % (36.0-48.0); Hemoglobin 13.4 g/dL (12.0-16.0); Immature Granulocytes Abs Auto 0.03 10^3/uL (0.00-0.03); Immature Granulocytes Pct Auto 0.4 % (0.0-0.5); Lymphocytes Absolute Auto 1.4 10^3/uL (1.2-3.8); Lymphocytes Percent Auto 18.2 % (20.5-60.0); Mean Corpuscular HGB Conc 32.1 g/dL (29.9-35.2); Mean Corpuscular Hemoglobin 29.5 pg (26.7-34.0); Mean Corpuscular Volume 91.9 fL (81.0-99.0); Mean Platelet Volume 10.2 fL (9.5-13.5); Monocytes Absolute Auto 0.6 10^3/uL (0.3-0.8); Monocytes Percent Auto 7.3 % (1.7-12.0); Neutrophils Absolute Auto 5.5 10^3/uL (1.4-6.5); Neutrophils Percent Auto 70.3 % (43.0-75.0); Platelet Count 223 10^3/uL (150-450); Red Blood Count 4.54 10^6/uL (4.20-5.40); Red Cell Distribution Width 13.7 % (11.0-15.0); White Blood Count 7.8 10^3/uL (4.0-11.0)
[2024-04-01 13:22] LABS: Anion Gap 14.1; BUN Creatinine Ratio 23.5; Calcium 9.8 mg/dL (8.5-10.1); Carbon Dioxide 28.3 mmol/L (21.0-32.0); Chloride 104 mmol/L (98-107); Estimated GFR (African America >60 (>=60 mL/min/1.73m^2); Estimated GFR (Non-African Ame >60 (>=60 mL/min/1.73m^2); Glucose 120 mg/dL (74-106); Potassium 4.4 mmol/L (3.5-5.1); Sodium 142 mmol/L (136-145)
== END 2024-04-01 09:10 | disposition home or self-care (01) ==
LOC: LAB 09:10
PROVIDERS: PCP Nurse Practitioner
DX: Z01.818 Encounter for other preprocedural examination (principal); I25.10 Atherosclerotic heart disease of native coronary artery without angina pectoris; E78.5 Hyperlipidemia, unspecified
CPT/HCPCS: 36415; 80048; 80061; 80076; 85025

== ENCOUNTER 2024-04-24 07:20 | Outpatient (OUT) | payer OTHER, SELFPAY ==
--- NOTE | 2024-04-24 | XR_ITS ---
The [address] [address] Patient Name: JORDAN HOLLY MRN: [id number] date: 1960 Sex: F Assigned Patient Location: Current Patient Location: Accession/Order Number: [id number] Exam Date: 04/24/2024 07:48 Report Date: 04/25/2024 08:22 At the request of: JUAN F MCGUIRE Procedure: XR abdomen 1V EXAMINATION: XR abdomen 1V HISTORY: Ureteral stone with hydronephrosis COMPARISON: 10/27/2023 FINDINGS: KIDNEY/URETER - RIGHT: No visible renal or ureteral calcifications. KIDNEY/URETER - LEFT: No visible renal or ureteral calcifications. PELVIS: No visible ureteral calcifications. Any visible calcifications favor phleboliths. BOWEL: No abnormal dilation or deviation. BONES: No acute abnormality. Degenerative spondylosis of the spine. Mild bilateral hip osteoarthropathy OTHER: Negative. No abnormal gaseous collections. XR/XR abdomen 1V IMPRESSION: No definite urinary tract calculi Electronically authenticated by: LEANDRA SERNA Date: 04/25/2024 08:22
--- NOTE | 2024-04-24 07:22 | US_ITS ---
[address] [address] Patient Name: JORDAN HOLLY MRN: [id number] date: 1960 Sex: F Assigned Patient Location: Current Patient Location: Accession/Order Number: [id number] Exam Date: 04/24/2024 07:23 Report Date: 04/25/2024 09:44 At the request of: JUAN F MCGUIRE Procedure: US renal BI EXAMINATION: US renal BI HISTORY: Ureteral stone with hydronephrosis COMPARISON: No relevant comparison available. TECHNIQUE: Ultrasound examination was performed of the bladder. FINDINGS: Right Kidney: Normal in size, contour and echotexture. The cortex measures 1.1 cm. 8 mm hyperechogenic lesion, nonobstructing nephrolith. No solid cortical mass or hydronephrosis. Height: 5.72 cm Length: 10.95 cm Width: 5.03 cm Left Kidney: Normal in size, contour and cortical echotexture. The cortex measures 1.0 cm. No nephrolithiasis, cortical mass or hydronephrosis. Possible renal collecting system duplication Height: 4.89 cm Length: 12.46 cm Width: 4.56 cm Urinary bladder: 87 cc US/US renal BI IMPRESSION: 8 mm right nonobstructing nephrolith Electronically authenticated by: LEANDRA SERNA Date: 04/25/2024 09:44
--- OUTSIDE RECORDS SUMMARY | 2024-04-24 07:24 | XMS_ITS | CCD ---
Author Organization [facility] Care Team Providers Care Printed Circuit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 Name Role Phone PHYSICIAN, DEFAULT Unavailable Unavailable PHYSICIAN, DEFAULT Unavailable Unavailable SERA CHAPPELL Unavailable Unavailable AICHHOLZ, ROLL MILL OPERATOR LATA Admitting Unavailable AICHHOLZ, ROLL MILL OPERATOR LATA Attending Unavailable AICHHOLZ, ROLL MILL OPERATOR LATA Consulting Unavailable AICHHOLZ, ROLL MILL OPERATOR LATA Primary Care Unavailable KAIT SALDIVAR Admitting Unavailable AICHHOLZ, ROLL MILL OPERATOR LATA Primary Care Unavailable KAIT SALDIVAR Attending Unavailable DAPHNE, DR LEANDRA Cavanaugh Consulting Unavailable KAIT SALDIVAR Consulting Unavailable AICHHOLZ, ROLL MILL OPERATOR LATA Primary Care Unavailable AICHHOLZ, ROLL MILL OPERATOR LATA Admitting Unavailable AICHHOLZ, ROLL MILL OPERATOR LATA Attending Unavailable AICHHOLZ, ROLL MILL OPERATOR LATA Consulting Unavailable MELONY, DR PASTORA Garcia Consulting Unavailable AICHHOLZ, ROLL MILL OPERATOR LATA Primary Care Unavailable AICHHOLZ, ROLL MILL OPERATOR LATA Admitting Unavailable AICHHOLZ, ROLL MILL OPERATOR LATA Attending Unavailable DAPHNE, DR LEANDRA Cavanaugh Consulting Unavailable AICHHOLZ, ROLL MILL OPERATOR LATA Consulting Unavailable ELTAGLADIS, DR DICKERSON Attending Unavailable ELTAHAWY, DR DICKERSON Consulting Unavailable AITAGLADIS, DR DICKERSON Admitting Unavailable AICHHOLZ, ROLL MILL OPERATOR LATA Primary Care Unavailable AICHHOLZ, LATA J Primary Care Physician [phone] Vanessa Schultz Attending Unavailable Vanessa Schultz Referring Unavailable Vanessa Schultz Admitting Unavailable Vanessa Schultz Attending Unavailable Vanessa Schultz Attending Unavailable Vanessa Schultz Attending Unavailable Elton Tamez Attending [place]av[place]ton [place] Referring UnavailVanessa Peres Attending Unavailable Vanessa Schultz Attending Unavailable Vanessa Schultz Attending Unavailable Aichholz RETAIL FURNITURE SALES-CHRYSTAL Lata J Primary Care Provider ALLYSON GARCIA Attending Unavailable SERA CHAPPELL Referring Unavailable ALTA WORKMAN Primary Care Unavailable Ji PACHECO, Lata Unavailable Robin Poe MD Primary Care Provider LATA WORKMAN Referring Unavailable LATA WORKMAN Primary Care Unavailable SHIRA KELLY Admitting Unavailable SHRIA KELLY Attending Unavailable LATA WORKMAN Primary Care Unavailable AITAGLADIS, EHAB Attending Unavailable ELTAGLADIS, EHAB Attending Unavailable JI, LATA Attending Unavailable DAMARIS HARMANS A Attending Unavailable BROWN, CARLOS A Attending Unavailable BROWN, CARLOS A Attending Unavailable BROWN CARLOS A Attending Unavailable BROWN, CARLOS A Attending Unavailable AICHSACHI, LATA Attending Unavailable BROWN, CARLOS A Attending Unavailable Allergies Allergy Classification Reported Allergen(s) Allergy Type Date of Onset Reaction(s) Facility (5 sources) Penicillins; Translations: [PENICILLINS] Drug allergy (disorder) 6 AOF [facility] Repository (5 sources) Penicillin; Translations: [penicillin] Drug Allergy Anaphylaxis (disorder) [facility] (2 sources) Penicillins Propensity to adverse reactions to drug 7 Shortness Of Breath, Rash [facility] (20 sources) Penicillins Drug Intolerance 7 Anaphylaxis, Rash, Shortness of breath [facility] Work Phone: Medications Current Medications Medication Drug Class(es) Dates Sig (Normalized) Sig (Original) acetaminophen 325 mg / HYDROcodone bitartrate 5 mg oral tablet (3 sources) Opioid Agonist Start: 02-28-2024 End: 03-04-2024 take 1 tablet by mouth every eight hours as needed for pain HYDROcodone-acet aminophen ([place]) 5-325 MG tablet Indications: Pain Take 1 [...] MG tablet Indications: Atherosclerotic heart disease of ambler coronary artery without angina pectoris (CMS/HCC) Take 1 tablet (80 mg) by mouth at bedtime 90 tablet 1 02/21/2024 05/21/2024 Active take 2 tablets by mouth in the m orning atorvastatin (LIPITOR) 40 mg tablet Take 2 tablets (80 mg total) by mouth in the morning. Active ezetimibe 10 mg oral tablet (4 sources) Dietary Cholesterol Absorption Inhibitor Start: 02-20-2024 End: 02-19-2025 take 1 tablet by mouth once daily ezetimibe (Zetia) 10 MG tablet Take 10 mg by mouth Daily 02/20/2024 02/19/2025 Active lisinopril 10 mg oral tablet (20 [...] hr tablet Indications: Atherosclerotic heart disease of ambler coronary artery without angina pectoris (CMS/HCC) Take 1 tablet (25 mg) by mouth Daily 90 tablet 1 02/21/2024 05/21/2024 Active take 1 tablet by mouth in the mo rning metoprolol tartrate (LOPRESSOR) 25 mg tablet Take 1 tablet (25 mg total) by mouth in the morning. Active peg 3350-sod sulf,gqmj-yqh-cez 178.7-7.3-0.5 gram recon soln (1 source) Start: 02-05-2024 End: 02-06-2024 peg 3350-sod sulf,vluk-cod-aoa 178.7-7.3-0.5 gram recon soln Indications: Encounter for [...] or 0.5 MG/DOSE,) 2 MG/3ML solution pen-injector (20 sources) Start: 04-17-2024 End: 05-15-2024 Semaglutide,0.25 or 0.5MG/DO S, (Ozempic, 0.25 or 0.5 MG/DOSE,) 2 MG/3ML solution pen-injector Indications: 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 (CMS/HCC) , Type 2 diabetes mellitus without complication, without long-term current use of insulin (CMS/HCC) Inject 0.25 mg under the skin every 7 (seven) days for 28 days 3 mL 6 04/17/2024 05/15/2024 Active Start: 01-02-2024 End: 04-17-2024 Semaglutide,0.25 or 0.5MG/DO S, (Ozempic, 0.25 or 0.5 MG/DOSE,) 2 MG/3ML solution pen-injector Indications: Type 2 diabetes mellitus without complication, without long-term current use of insulin (CMS/HCC) , 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 (CMS/HCC) Inject 0.25 mg under the skin every 7 (seven) days for 28 days 3 mL 2 01/02/2024 04/17/2024 Discontinued (Reorder) Start: 01-02-2024 Semaglutide,0. 25 or 0.5MG/DOS, (Ozempic, 0.25 or 0.5 MG/DOSE,) 2 MG/3ML solution pen-injector Indications: Type 2 diabetes mellitus without complication, without long-term current use of insulin (CMS/HCC) , 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 (CMS/HCC) Inject 0.25 mg under the skin every 7 (seven) days for 28 days 3 mL 2 01/02/2024 Active Start: 01-02-2024 End: 01-30-2024 Semaglutide,0.25 or 0.5MG/DO S, (Ozempic, 0.25 or 0.5 MG/DOSE,) 2 MG/3ML solution pen-injector Indications: Type 2 diabetes mellitus without complication, without long-term current use of insulin (CMS/HCC) , 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 (CMS/HCC) Inject 0.25 mg under the skin every 7 (seven) days for 28 days 3 mL 2 01/02/2024 01/30/2024 Active Completed/Discontinued Medications Medication Drug Class(es) Dates Sig (Normalized) Sig (Original) Ticagrelor (1 source) End: 02-05-2024 TICAGRELOR (BRILINTA ORAL) Take by mouth. 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 Conduction disorders (20 sources) Jggdv-Vtmaptsbb-Sjear pattern; Translations: [Pre-excitation syndrome] Onset: 06-01-2016 01-02-2024 Chronic Coronary atherosclerosis and other heart disease (20 sources) Atherosclerotic heart disease of ambler coronary artery without angina pectoris; Translations: [Coronary [...] device] Onset: 11-20-2023 Chronic Heart valve disorders (4 sources) Nonrheumatic tricuspid (valve) insufficiency; Translations: [Nonrheumatic mitral (valve) insufficiency] Onset: 02-20-2024 Chronic Other acquired deformities (8 sources) Contracture of joint of right ankle; Translations: [Contracture, right ankle] 02-10-2024 Chronic Other acquired deformities (6 sources) Contracture of joint of left ankle; Translations: [Contracture, left ankle] 03-13-2024 Chronic Other aftercare (1 source) Long-term current use of anticoagulant; Translations: [intermission coordinator (current) use of anticoagulants] Onset: 11-12-2023 Episodic Other and ill-defined heart disease (2 sources) Other ill-defined heart diseases; Translations: [Other ill-defined heart diseases] Onset: 02-20-2024 Chronic Other connective tissue disease (10 sources) Plantar fasciitis; Translations: [Plantar fascial fibromatosis] [...] Translations: [Patient encounter status] Onset: 01-25-2021 Episodic Unclassified (4 sources) Drug therapy finding 11-12-2023 Unclassified (4 sources) Long-term current use of aspirin 11-12-2023 Unclassified (4 sources) Obstructive hydronephrosis 11-12-2023 Unclassified (1 source) Colon Cancer Screening Onset: 02-05-2024 Unclassified (1 source) screening Onset: 02-18-2024 Past or Other Problems Problem Classification Problem Date Documented Da te Episodic/Chronic Allergic reactions (20 sources) Contact dermatitis due to poison kateryna; Translations: [Allergic contact dermatitis due to plants, except food] Onset: 12-03-2023 Resolved: 01-02-2024 01-02-2024 Episodic Calculus of urinary tract (20 sources) Calculus of kidney; Translations: [History of calculus of kidney] Onset: 01-21-2021 Episodic Other aftercare (20 sources) Drug therapy finding; Translations: [intermission coordinator (current) use of anticoagulants] Onset: 01-02-2024 01-02-2024 Episodic Other aftercare (20 sources) Long-term current use of aspirin; Translations: [prison (current) use of aspirin] Onset: 01-02-2024 01-02-2024 Episodic Other diseases of kidney and ureters (20 sources) Hydroureter; Translations: [Hydroureter] Onset: 11-06-2023 11-06-2023 Episodic Other diseases of kidney and ureters (20 sources) Hydronephrosis with renal and ureteral calculous obstruction; Translations: [Calculus of ureter] Onset: 01-02-2024 01-02-2024 Episodic Phlebitis; thrombophlebitis and thromboembolism (20 sources) Embolism from thrombosis of vein of lower extremity ; Translations: [Acute embolism and thrombosis of unspecified deep veins of unspecified lower extremity] Onset: 01-02-2024 11-07-2023 Episodic Results Test Name Value Interpretation Reference Range Facility HbA1c (Bld) [Mass fraction]o n 04-17-2024 Interpretation and review [facility] laboratory results [facility] count[facility] 04-17-2024 HbA1c (Bld) [Mass fraction] 7.10 % [facility] Office Visiton 04-07-2024 Follow-up visit [id number] Jordan Holly 1960 F Date Provider Department Center 04/07/2024 271-DIVYA GRANDE CARD Dung Connelly Family History Problem Relation Age of Onset Coronary artery disease Mother Diabetes Paternal Grandmother Family Status - Relation Status Age at Mother Paternal Grandmother Level of Service:79211 MI OFFICE/OUTPATIENT ESTABLISHED LOW MDM 20 MIN Normal [facility] ALL BASIC METABOLIC PANELon 04-01-2024 Anion gap [Moles/Vol] 14.1 mmol/L [facility] Calcium [Mass/Vol] 9.8 mg/dL 8.5 - 10. 1 mg/dL [facility] Chloride [Moles/Vol] 104 mmol/L 98 - 10 7 mmol/L [facility] CO2 [Moles/Vol] 28.3 mmol/L 21.0 - 32.0 mmol/L [facility] Creatinine [Mass/Vol] 0.85 mg/dL 0.55 - 1.02 mg/dL [facility] GFR/1.73 sq M.predicted CKD-EPI (S/P/Bld) [Vol rate/Area] >60 >=60 mL/min/1.73m 2 [facility] Glucose [Mass/Vol] 120 mg/dL High 74 - 106 mg/dL [facility] Interpretation and review of laboratory results Abnormal [facility] Potassium [Moles/Vol] 4.4 mmol/L 3.5 - 5.1 mmol/L [facility] Sodium [Moles/Vol] 142 mmol/L 136 - 145 mmol/L [facility] EGFR-NON AF GUINEAN >60 >=60 mL/min/1.73m 2 [facility] Urea nitrogen [Mass/Vol] 20 mg/dL High 7.0 - 18.0 mg/dL [facility] Urea nitrogen/Creatinine [Mass ratio] 23.5 mg/mg [facility] ALL CBC WITH AUTO DIFFon BASOPHILS ABSOLUTE AUTO 0.1 [facility] Basophils/100 WBC (Bld) 0.6 % 0.2 - 2.0 % [facility] Eosinophils/100 WBC (Bld) 3.2 % 0.9 - 7.0 % [facility] Erythrocyte distribution width (RBC) [Ratio] 13.7 % 11.0 - 15.0 % [facility] Hematocrit (Bld) [Volume fraction] 41.7 % 36.0 - 48.0 % [facility] ([facility] [Mass/Vol] 13.4 g/dL 12.0 - 16.0 g/dL [facility] IMMATURE GRANULOCYTES ABS AUTO 0.03 [facility] Immature granulocytes/100 WBC (Bld) 0.4 % 0.0 - 0.5 % [facility] Interpretation and review of laboratory results Abnormal [facility] LYMPHOCYTES ABSOLUTE AUTO 1.4 [facility] Lymphocytes/100 WBC (Bld) 18.2 % Low 20.5 - 60.0 % [facility] MCH (RBC) [Entitic mass] 29.5 pg 26.7 - 34.0 pg [facility] MCHC (RBC) [Mass/Vol] 32.1 g/dL 29.9 - 35.2 g/dL [facility] MCV (RBC) [Entitic vol] 91.9 fL 81.0 - 99.0 fL [facility] MONOCYTES ABSOLUTE AUTO 0.6 [facility] Monocytes/100 WBC (Bld) 7.3 % 1.7 - 12.0 % [facility] NEUTROPHILS ABSOLUTE AUTO 5.5 [facility] Neutrophils/100 WBC (Bld) 70.3 % 43.0 - 75.0 % [facility] Platelet mean volume (Bld) [Entitic vol] 10.2 fL 9.5 - 13.5 fL [facility] E[facility] # 0.3 [facility] PLT 223 [facility] RBC 4.54 [facility] WBC 7.8 [facility] ALL LIPID PROFILE (FASTING)o n 04-01-2024 [facility] Comment on above: 3.3 - 4.4 LOW RISK 4.4 - 7.1 AVERAGE RISK 7.1 - 11.0 MODERATE RISK >11.0 HIGH RISK Cholesterol [Mass/Vol] 114 mg/dL NINF - 200 mg/dL [facility] Cholesterol in HDL [Mass/Vol] 50 mg/dL 40 - 60 mg/dL [facility] Comment on above: > or =60 mg/dl - LOW CARDIOVASCULAR RISK <40 mg/dl - HIGH CARDIOVASCULAR RISK Magnesium [Mass/Vol] 48.6 mg/dL [facility] Comment on above: <100 mg/dl OPTIMAL 100-129 mg/dl NEAR OR ABOVE OPTIMAL 130-159 mg/dl BORDERLINE HIGH 160-189 mg/dl HIGH >190 mg/dl VERY HIGH Magnesium [Mass/Vol] 15.4 mg/dL [facility] Triglyceride [Mass/Vol] 77 mg/dL NINF - 150 mg/dL [facility] Albumin [Mass/Vol] 3.6 g/dL 3.4 - 5.0 g/dL [facility] ALBUMIN GLOBULIN RATIO 1.2 [facility] ALP [Catalytic activity/Vol] 60 U/L 46 - 116 U/L [facility] ALT [Catalytic activity/Vol] 32 U/L 14 - 59 U/L [facility] AST [Catalytic activity/Vol] 20 U/L 15 - 37 U/L [facility] Bilirubin [Mass/Vol] 0.7 mg/dL 0.2 - 1 .0 mg/dL [facility] Bilirubin.indirect [Mass/Vol] 0.2 mg/dL 0.0 - 0.2 mg/dL [facility] Globulin (S) [Mass/Vol] 2.9 g/dL [facility] Protein [Mass/Vol] 6.5 g/dL 6.4 - 8.2 g/dL NO [facility] No Panel Informationon 04-[address] [facility] 36on 03-11-2024 36 Regarding echo ----- Message ----- From: Divya Grande MD Sent: 03/06/2024 7:20 PM EST To: Tori Galdamez MA Subject: RE: Scan Please let the patient know the echo shows a valve disorder that may need further work-up. I'd like to see her in follow up in the next 2-4 weeks please. Gave her the message Normal [facility] Office Visiton 02-20-2024 Follow-up visit [id number] Jordan Holly 1960 F Date Provider Department Center 02/20/2024 Mitch-DIVYA GRANDE CARD [facility] Family History Problem Relation Age of Onset Coronary artery disease Mother Diabetes Paternal Grandmother Family Status - Relation Status Age at Mother Paternal Grandmother Level of Service:54537 MI OFFICE/OUTPATIENT NEW MODERATE MDM 45 MINUTES Normal [facility] Inpatient Patient Summaryon 11-20-2023 Inpatient Patient Summary Inpatient Patient Summary [place] [address] Clinical Summary Person Information Name: JORDAN HOLLY Age: 63 Years : 1960 Sex: Female PCP: LATA WORKMAN CNP Marital Status: Race: White Ethnicity: Non- or Language: Romanian Visit Id: Visit Reason: URETERAL STONE WITH HYDRONEPHROSIS Speciality: Acuity: Enc Type: Outpatient Med Service: Surgery Arrival: 11/20/2023 07:48:23 Discharge: Dispo Type: Address: [address] [place] [address] [phone] Provider Notes: Diagnosis: Encounter for removal of [...] Address: When: Vanessa Schultz [address], [place] [id number] [phone] Business (1) [address], [place] [address], [place] [phone] Business (1) Comments: Office to schedule follow up in 6 months with renal US and KUB. Obtain renal US in 6 weeks to ensure no blockage develops after surgery, will call with results Patient Education Information: Dietary Guidelines to Help Prevent Kidney Stones; EU - Cystoscopy with Stent Removal Discharge Instructions (CUSTOM) [facility] Main OR Intraoperative Recor don 11-20-2023 Main OR Intraoperative Record Main OR Intraoperative Record IntraOp Document Type FTURO Summary Primary Physician: Vanessa Schultz MD Finalized Date/Time: 11/20/23 08:53:11 Pt. Name: JORDAN HOLLY/Sex: 1960 Female Med Rec #: [id number] Physician: Vanessa Schultz MD Financial #: [id number] Pt. Type: O Room/Bed: / Admit/Disch: 11/20/23 [...] [place] CST Role Performed Surgeon - Primary Resource Development Manager - Primary Scrub - Primary Time In [...] Prep Agents Betadine Solution Skin. Condition Intact, [place], Warm, and Dry Additional None Specimens Collected [...] By: Hillary Forman RN 11/20/23 08:53 Normal [facility] Main OR Preoperative Recordo n 11-20-2023 Main OR Preoperative Record Main OR Preoperative Record Holding Area Document Type FTURO Summary Primary Physician: Vanessa Schultz MD Finalized Date/Time: 11/20/23 08:20:18 Pt. Name: JORDAN HOLLY /Sex: 1960 Female Med Rec #: [id number] Physician: Vanessa Schultz MD Financial #: [id number] Pt. Type: O Room/Bed: / Admit/Disch: 11/20/23 [...] JASON Boyce RN, Ruthann 11/20/23 08:20 Normal [facility] Operative Reporton Operative Report Operative Report Patient: JORDAN HOLLY Age: 63 years Sex: Female : 1960 Associated Diagnoses: None Author: Vanessa Schultz MD Procedure Operative Information Details: Date/ Time: 11/20/2023 08:55:00. Pre-Op Dx: Encounter for removal of ureteral stent ([id number] Z46.6, Discharge, Medical). Post-Op Dx: Same. Anesthesia [...] for dietary modifications and increased fluids. Normal [facility] Comment on above: Result Comment: Elec tronically Signed By: Vanessa Schultz MD\.br\Date and Time Signed: 11/20/23 08:56 EDT Outpatient Surgery Discharge Instructionon 11-20-2023 Outpatient Surgery Discharge Instruction Outpatient Surgery Discharge Instruction [address] [address] Patient Discharge Instructions PERSON INFORMATION [...] Follow up: With: Address: When: Vanessa Schultz [address] [place] [address] [phone] [employer] (1) [address], [address], [facility] [address] [place] [address] [phone] [employer] (1) Comments: Office to schedule follow up [...] Spinach (cooked), rhubarb, beets, sweet potatoes, and Pakistani chard. ? Peanuts. ? Potato chips, icelandic fries, and baked potatoes with skin on. ? Nuts and nut products. ? Chocolate. ? If you regularly take a diuretic medicine, make sure to eat at least 1 or 2 servings of fruits or vegetables that are high in potassium each day. These include: ? Avocado. ? Banana. ? [place], prune, carrot, or tomato juice. ? Baked potato. ? Cabbage. ? Beans and split peas. Lifestyle (more content not included)... Normal [facility] Reminderson 11-20-2023 Reminders Reminders - From: Lashanda Cummins To: ELA - Recallbud Schultz; Sent: 11/20/2023 09:13:00 EDT Show up: 04/07/2024 09:12:00 EST Subject: 6 Month w/SHEREE&KUB Due Date/Time: 05/05/2024 08:59:00 EST Reminder/Recall Per KML, patient to have 6 month f/u with SHEREE and KUB. Patient prefers [facility]. Need to add the orders and then send to [facility]. Patient has a 6 month f/u scheduled for 05/05/24 @ 12:30 PM in [place]. (Patient wanted the f/u prior to the beginning of the year due to insurance cost/concerns.) Normal [facility] Ambulatory Visit Summaryon 0 11-12-2023 [...] including vitamins, herbs, eye drops, creams, and upjx-sru-sniuaia medicines. ? Any problems you or family [...] health c (more content not included)... Normal [facility] Ambulatory Visit Summary Ambulatory Visit [...] including vitamins, herbs, eye drops, creams, and vphz-nom-uowogni medicines. ? Any problems you or family [...] health c (more content not included)... Normal [facility] Urology Office/Clinic Noteon 11-12-2023 Urology [...] new to our office due to recent [facility] ER visit for 7 mm left ureteral stone. S/p hysterectomy. BBSQ 19 (stent) 1. Ureteral stone with hydronephrosis (N13.2: Hydronephrosis with renal and ureteral calculous obstruction) Hx of stones. Has always passed on her own. Last episode was >12 mos ago. Pt presented to [facility] ER 11/01/23 with abdominal pain, right [...] was discharged home with Flomax, Keflex, and [place] and told to follow up with our office. Pt presented back to [facility] ER 11/02/23 due to left flank pain and left lower quadrant pain. KUB 11/02/23 [facility] - suspected 9 mm left ureterolith. Labs [...] Risks li (more content not included)... Normal [facility] Comment on above: Result Comment: Elec tronically Signed By: Vanessa Schultz MD\.br\Date and Time Signed: 11/12/23 14:14 EDT\.br\Electronically Co-Signed By: Jennifer Ashley.br\Date and Time Co-Signed: 11/12/23 14:07 EDT GLYCOHEMOGLOBIN A1Con 2020 ADA RECOMMENDATION ADA THERAPEUTIC TARGET 6.0 - 7.0 ACTION SUGGESTED > 7.0 Normal [facility] Comment on above: Performed By: #### A 1C #### [facility] [address] [place] [address] Dr. Quirino Zelaya Glucose [Mass/Vol] 154 mg/dL Normal [facility] Comment on above: Performed By: #### A 1C #### [facility] [address] [place] [address] [address] Quirino Zelaya HbA1c (Bld) [Mass fraction] 7.0 % Critically high <=6.0 [facility] Comment on above: Performed By: #### A 1C #### [facility] [address] [place] [address] [address] Quirino Zelaya XR KUB 1 VIEWon [...] PASTORA TY Date: 2021-02-08 09:53 Normal [facility] MAMM SCREEN 3D HAY CADon 01-25-2021 MG MAMM SCREEN 3D HAY CAD Patient: JORDAN HOLLY Exam Date: 01/25/2021 : 1960 Gender:F Ordering : CHRYSTAL WORKMAN [facility] Admission #: [id number] Family : Order #: [id number] CLICK HERE TO VIEW EXAM RADIOLOGY REPORT [...] Treatments None Family Cancers None LOCATION: [facility] BREAST COMPOSITION: Scattered areas fibroglandular density. FINDINGS: [...] MD on 01/25/2021 at 11:21 Normal [facility] AMYLASEon 01-19-2021 Amylase [Catalytic activity/Vol] 34 U/L Normal 31-110 [facility] Comment on above: Performed By: #### L IPA, HILLARY, CMP ####[facility] [id number] [place] [address]Dr. Yilan Zelaya CBC W MANUAL DIFFon 01-20-20 21 ATYPICAL LYMPH # Normal [facility] Comment on above: Performed By: #### C JANIA ####[facility] [id number] [place] [address]Dr. Yilan Zelaya ATYPICAL LYMPH % Normal [facility] Comment on above: Performed By: #### C BCAMISHA ####[facility] [id number] [place] [address]Dr. Yilan Zelaya BAND # Normal 0.0-0.3 [facility] Comment on above: Performed By: #### C BCAMISHA ####[facility] [id number] [place] [address]Dr. Yilan Zelaya BAND % Normal 0-5 [facility] Comment on above: Performed By: #### C BCMAN ####[facility] [address] [place] [address]Dr. Yilan Zelaya BASOM # 0.08 103/ul Normal 0.00-0.10 [facility] Comment on above: Performed By: #### C BCMAN ####[facility] Cxiedbhhcf[address] [place], [place] [address]Dr. Yilan Zelaya BASOM % 1.0 % Normal 0.2-2.0 [facility] Comment on above: Performed By: #### C BCMAN ####[facility] Apurlnfium[address] [place] [address]Dr. Yilan Zelaya BLAST # Normal [facility] Comment on above: Performed By: #### C JANIA ####[facility] [address]zky[address] [place] [address]Dr. Quirino Zelaya BLAST % Normal [facility] Comment on above: Performed By: #### C JANIA ####[facility] [address] [place] [id number]. Quirino Zelaya CORRECTED WBC Normal 4.0-11.0 [facility] Comment on above: Performed By: #### C JANIA ####[facility] Pr[address]cc[address]slf[address] [address]Dr. Quirino Zelaya EOS # 0.24 103/ul Normal 0.00-0.70 [facility] Comment on above: Performed By: #### C JANIA ####[facility] [address]ak[address] [place] [address]Dr. Quirino Zelaya EOS% 3.0 % Normal 0.9-7.0 [facility] Comment on above: Performed By: #### C JANIA ####[facility] Rbhfffixqc[address] [place], [place] [address]Dr. Quirino Zelaya HCT 40.3 % Normal 36.0-48.0 [facility] Comment on above: Performed By: #### C JANIA ####[facility] V[address]nqn[address] [place], [place] [address]Dr. Quirino Zelaya HGB 13.1 g/dl Normal 12.0-16.0 [facility] Comment on above: Performed By: #### C JANIA ####[facility] Zqu[address]it[address] [place], [place] [address]Dr. Quirino Zelaya LYMPHM # 1.68 103/ul Normal 1.20-3.80 [facility] Comment on above: Performed By: #### C JANIA ####[facility] [address] [place], [place] [address]Dr. Quirino Zelaya LYMPHM% 21.0 % Normal 20.5-60.0 [facility] Comment on above: Performed By: #### C JANIA ####[facility] Ey[address] [place], [place] [address]Dr. Quirino Zelaya MCH 28.9 pg Normal 26.7-34.0 [facility] Comment on above: Performed By: #### C JANIA ####[facility] [address]qbdigpq[address] [place] [address]Dr. Quirino Zelaya MCHC 32.5 g/dl Normal 29.9-35.2 [facility] Comment on above: Performed By: #### C JANIA ####[facility] Kerimcipkj[address] [place] [address]Dr. Quirino Zelaya MCV 88.8 fL Normal 81.0-99.0 [facility] Comment on above: Performed By: #### C JANIA ####[facility] Trerizbhad[address] [address]Dr. Quirino Zelaya METAMYELOCYTE # Normal The [facility] Comment on above: Performed By: #### C JANIA ####[facility] Bbymbyykmv[address] [place] [address]Dr. Quirino Zelaya METAMYELOCYTE % Normal [facility] Comment on above: Performed By: #### C JANIA ####[facility] Bpffvkcjgf[address] [place] [address]Dr. Quirino Zelaya MONOM# 0.56 103/ul Normal 0.30-0.80 [facility] Comment on above: Performed By: #### C JANIA ####[facility] [address]ikkab[address] [address]Dr. Quirino Zelaya MONOM% 7.0 % Normal 1.7-12.0 [facility] Comment on above: Performed By: #### C JANIA ####[facility] Iawvprdilo[address] [place] [address]Dr. Quirino Zelaya MPV 11.1 fL Normal 9.5-13.5 [facility] Comment on above: Performed By: #### C JANIA ####[facility] Ndcwjmcqua6[address] [place] [address]Dr. Quirino Zelaya MYELOCYTE # Normal [facility] Comment on above: Performed By: #### C JANIA ####[facility] [address] [place], [place] [address]Ug. Quirino Zelaya MYELOCYTE % Normal [facility] [place] [facility] Comment on above: Performed By: #### C BCAMISHA ####[facility] Fmapyoiyrr[address] [place] [address]Dr. Quirino Zelaya NRBC Normal [facility] Comment on above: Performed By: #### C JANIA ####[facility] Llqjjexphu[address] [place] [address]Dr. Quirino Zelaya PLT 180 103/ul Normal 150-450 [facility] Comment on above: Performed By: #### C JANIA ####[facility] Qebvxxcyrk25[address] [place] [address]Dr. Quirino Zelaya RBC 4.54 106/ul Normal 4.20-5.40 [facility] [place] [facility] Comment on above: Performed By: #### C JANIA ####[facility] Mssazlxtze[address] [place] [address]Dr. Quirino Zelaya RDW 12.9 % Normal 11.0-15.0 [facility] [place] [facility] Comment on above: Performed By: #### C JANIA ####[facility] Ygydnbnnct[address] [place] [address]Dr. Quirino Zelaya SEG # 5.44 103/ul Normal 1.40-6.50 [facility] [place] [facility] Comment on above: Performed By: #### C JANIA ####[facility] Zujheyhgfi[address] [place] [address]Dr. Quirino Zelaya SEG % 68.0 % Normal 43.0-75.0 [facility] [place] [facility] Comment on above: Performed By: #### C JANIA ####[facility] Xjnwczdiyy35[address] [place] [address]Dr. Quirino Zelaya WBC 8.0 103/ul Normal 4.0-11.0 [facility] [place] [facility] Comment on above: Performed By: #### C JANIA ####[facility] Umbjqahkes[address] [place] [address]Dr. Quirino Zelaya CT ABD/PELVIS WO CONon 01-19 [...] LEANDRA SERNA Date: 2021-01-19 04:54 Normal [facility] CULTURE URINEon 01-19-2021 CULTURE URINE Culture Observations: MODERATE GROWTH OF MIXED GENITAL DAVID. NO POTENTIAL PATHOGENS SEEN. Normal [facility] Comment on above: Performed By: #### U RCX ####[facility] [address] [place] [address]Dr. Quirino Zelaya ER URINE PROFILEon 1 Bilirubin Ql (U) Negative Normal NEGATIVE [facility] Comment on above: Performed By: #### U MICRO, ERUR #### [facility] [address] [address] [address] Quirino Zelaya Clarity (U) CLEAR Normal CLEAR [facility] [place] [facility] Comment on above: Performed By: #### U MICRO, ERUR #### [facility] [address] [address] [address] Quirino Zelaya Color (U) YELLOW Normal YELLOW [facility] Comment on above: Performed By: #### U MICRO, ERUR #### [facility] [address] [address] [address] Quirino HUSTON A micrscopic examination will be performed if indicated. Normal [facility] Comment on above: Performed By: #### U MICRO, ERUR #### [facility] [address] [address] [address] Quirino Zelaya Glucose Ql (U) Negative Normal NEGATIVE The [facility] Comment on above: Performed By: #### U MICRO, ERUR #### [facility] [address] [address] [address] Quirino Zelaya Hemoglobin Ql (U) LARGE Abnormal NEGATIVE The [facility] Comment on above: Performed By: #### U MICRO, ERUR #### [facility] [address] [place] [address] Dr. Quirino Zelaya Ketones Ql (U) TRACE Abnormal NEGATIVE [facility] Comment on above: Performed By: #### U MICRO, ERUR #### [facility] [address] [address] [address] Quirino Zelaya LEUKOCYTES TRACE Abnormal NEGATIVE [facility] [place] [facility] Comment on above: Performed By: #### U MICRO, ERUR #### [facility] [address] [address] [address] Quirino Zelaya Nitrite Ql (U) Negative Normal NEGATIVE [facility] Comment on above: Performed By: #### U MICRO, ERUR #### [facility] [address] [address] [address] Quirino Zelaya pH (U) 5.0 [pH] Normal 5-9 [facility] [place] [facility] Comment on above: Performed By: #### U MICRO, ERUR #### [facility] [address] [address] [address] Quirino Zelaya SPEC GRAVITY >=1.030 Abnormal 1.005-<=1.025 [facility] Comment on above: Performed By: #### U MICRO, ERUR #### [facility] [address] [place] [address] Dr. Quirino Zelaya UA PROTEIN Negative Normal NEGATIVE/ TRACE [facility] Comment on above: Performed By: #### U MICRO, ERUR #### [facility] [address] [address] [address] Quirino Zelaya UR MICRO IND INDICATED Normal [facility] [place] [facility] Comment on above: Performed By: #### U MICRO, ERUR #### [facility] [address] [address] [address] Quirino Zelaya Urobilinogen Qn (U) 0.2 {Joan'U}/dL Normal 0.2 - 1. 0 [facility] [place] [facility] Comment on above: Performed By: #### U MICRO, ERUR #### [facility] [address] [address] [address] Quirino Zelaya LIPASEon 01-19-2021 Lipase [Catalytic activity/Vol] 104.0 U/L Normal 23.0-300.0 [facility] [place] [facility] Comment on above: Performed By: #### L HILLARY JUSTIN, CMP ####[facility] [address] [place] [address]Dr. Quirino Zelaya PROF 14(COMP METB)on 021 Albumin [Mass/Vol] 3.8 g/dL Normal 3.5-5.0 [facility] Comment on above: Performed By: #### L HILLARY JUSTIN, CMP ####[facility] [address]rsfyxi[address] [address]Dr. Quirino Zelaya Albumin/Globulin [Mass ratio] 1.2 {ratio} Normal [facility] [place] [facility] Comment on above: Performed By: #### L HILLARY JUSTIN, CMP ####[facility] Ms[address]ihnyc[address] [address]Dr. Quirino Zelaya ALP [Catalytic activity/Vol] 71 U/L Normal 38-126 [facility] Comment on above: Performed By: #### L HILLARY JUSTIN, CMP ####[facility] [address] [address]Dr. Quirino Zelaya ALT [Catalytic activity/Vol] 29 U/L Normal 9-52 [facility] [place] [facility] Comment on above: Performed By: #### L HILLARY JUSTIN, CMP ####[facility] [address]fudrbfuz[address] [place] [id number]. Quirino Zelaya Anion gap [Moles/Vol] 14.4 mmol/L Normal [facility] [place] [facility] Comment on above: Performed By: #### L HILLARY JUSTIN, CMP ####[facility] [address]rph[address] [place] [address]Dr. Quirino Zelaya AST [Catalytic activity/Vol] 22 U/L Normal 14-36 [facility] Comment on above: Performed By: #### L HILLARY JUSTIN, CMP ####[facility] [address] [place] [address]Dr. Quirino Zelaya Bilirubin [Mass/Vol] 0.7 mg/dL Normal 0.2-1.3 [facility] Comment on above: Performed By: #### L HILLARY JUSTIN, CMP ####[facility] [address]edoinreoc[address] [place] [address]Dr. Quirino Zelaya Calcium [Mass/Vol] 9.4 mg/dL Normal 8.4-10.2 [facility] Comment on above: Performed By: #### L HILLARY JUSTIN, CMP ####[facility] Tacbvkeywb[address] [address]Dr. Quirino Zelaya Chloride [Moles/Vol] 101 mmol/L Normal 98-107 [facility] Comment on above: Performed By: #### L HILLARY JUSTIN, CMP ####[facility] F[address]oswegv[address] [address]Dr. Quirino Zelaya CO2 [Moles/Vol] 28.5 mmol/L Normal 22.0-30.0 [facility] Comment on above: Performed By: #### L HILLARY JUSTIN, CMP ####[facility] [address]ym[address] [place] [address]Dr. Quirino Zelaya Creatinine [Mass/Vol] 0.85 mg/dL Normal 0.52-1.04 [facility] Comment on above: Performed By: #### L HILLARY JUSTNI, CMP ####[facility] Qxeemwrtbl[address] [place] [id number]. Quirino Zelaya EGFR-AF GUINEAN >60 Normal >=60 [facility] Comment on above: Performed By: #### L IPAHILLARY, CMP ####[facility] [address]epqixh[address] [place] [address]Dr. Quirino Zelaya EGFR-NON AF GUINEAN >60 Normal >=60 [facility] [place] [facility] Comment on above: Performed By: #### L IPA HILLARY, CMP ####[facility] Hotehcgjjo[address] [place] [address]Dr. Quirino Zelaya Globulin (S) [Mass/Vol] 3.1 g/dL Normal [facility] [place] [facility] Comment on above: Performed By: #### L IPA HILLARY, CMP ####[facility] [address]ekjy[address] [place] [address]Dr. Quirino Zelaya Glucose [Mass/Vol] 124 mg/dL Critically high 74-106 [facility] Comment on above: Performed By: #### L NHAN HILLARY, CMP ####[facility] [address]iws[address] [place] [address]Dr. Quirino Zelaya Potassium [Moles/Vol] 3.9 mmol/L Normal 3.4-5.0 [facility] [place] [facility] Comment on above: Performed By: #### L HILLARY JUSTIN, CMP ####[facility] [address] [place], [place] [address]Dr. Quirino Zelaya Protein [Mass/Vol] 6.9 g/dL Normal 6.1-8.2 [facility] Comment on above: Performed By: #### L NHAN HILLARY, CMP ####[facility] Rdcghcvwmo[address] [place] [address]Dr. Quirino Zelaya Sodium [Moles/Vol] 140 mmol/L Normal 137-145 [facility] Comment on above: Performed By: #### L IPA HILLARY, CMP ####[facility] [address] [place], [place] [address]Dr. Quirino Zelaya Urea nitrogen [Mass/Vol] 17.0 mg/dL Normal 7.0-17.0 [facility] [place] [facility] Comment on above: Performed By: #### L IPA HILLARY, CMP ####[facility] [address]asftb[address] [place], [place] [address]Dr. Quirino Zelaya Urea nitrogen/Creatinine [Mass ratio] 20.0 mg/mg Normal [facility] Comment on above: Performed By: #### L HILLARY JUSTIN, CMP ####[facility] [address]jje[address] [place] [address]Dr. Quirino Zelaya URINE MICROSCOPIC ONLYon BACTERIA MODERATE Abnormal NONE SEEN [facility] Comment on above: Performed By: #### U MICRO, ERUR ####[facility] F[address]ldtoy[address] [place] [address]Dr. Quirino Zelaya Bacteria identified Cx Nom (U) INDICATED Normal [facility] Comment on above: Performed By: #### U MICRO, ERUR ####[facility] [address] [place], [place] [address]Dr. Quirino Zelaya CA OX CRYSTALS FEW Normal [facility] Comment on above: Performed By: #### U MICRO, ERUR ####[facility] [address]pe[address]omkqkk[address] [place] [address]Dr. Quirino Zelaya CAST NONE SEEN Normal NONE SEEN [facility] Comment on above: Performed By: #### U MICRO, ERUR ####[facility] [address] [place] [address]Dr. Quirino Zelaya Crystals LM Nom (Urine sed) SEEN Abnormal NONE SEEN [facility] Comment on above: Performed By: #### U MICRO, ERUR ####[facility] [address]wby[address] [place] [address]Dr. Quirino Zelaya Epithelial cells LM Ql (Urine sed) MODERATE Abnormal NONE SEEN /RARE [facility] Comment on above: Performed By: #### U MICRO, ERUR ####[facility] [address]ql[address]qrz[address] [place] [address]Dr. Quirino Zelaya MUCOUS TRACE Abnormal NONE SEEN [facility] Comment on above: Performed By: #### U MICRO, ERUR ####[facility] [address]bfimoylb34[address] [place] [address]Dr. Quirino Zelaya RBC NONE SEEN Abnormal 0-2 [facility] Comment on above: Performed By: #### U MICRO, ERUR ####[facility] [address]arihj[address] [place] [id number]. Quirino Zelaya WBC 0-2 Abnormal NONE SEEN [facility] Comment on above: Performed By: #### U MICRO, ERUR ####[facility] [address]vb[address]cl[address] [place], [place] [address]Kp. Ayshakai Zelaya PROF CHEM 8 (BAS METB)on Anion gap [Moles/Vol] 9.7 mmol/L Normal [facility] Comment on above: Performed By: #### B MP #### [facility] [address] [address] Navi Maria Dolores Calcium [Mass/Vol] 9.3 mg/dL Normal 8.4-10.2 [facility] Comment on above: Performed By: #### B MP #### [facility] [address] [address] Navi Maria Dolores Chloride [Moles/Vol] 104 mmol/L Normal 98-107 [facility] Comment on above: Performed By: #### B MP #### [facility] [address] [address] Navi Maria Dolores CO2 [Moles/Vol] 31.8 mmol/L Critically high 22.0-30.0 [facility] Comment on above: Performed By: #### B MP #### [facility] [address] [address] Navi Maria Dolores Creatinine [Mass/Vol] 0.93 mg/dL Normal 0.52-1.04 [facility] Comment on above: Performed By: #### B MP #### [facility] [address] [address] Navi Maria Dolores EGFR-AF GUINEAN >60 Normal >=60 [facility] Comment on above: Performed By: #### B MP #### [facility] [address] [id number] Navi Maria Dolores EGFR-NON AF GUINEAN >60 Normal >=60 [facility] Comment on above: Performed By: #### B MP #### [facility] [address] [address] Navi Maria Dolores Glucose [Mass/Vol] 118 mg/dL Critically high 74-106 [facility] Comment on above: Performed By: #### B MP #### [facility] [address] [place], [place] [id number] Navi Maria Dolores Potassium [Moles/Vol] 4.5 mmol/L Normal 3.4-5.0 [facility] [place] [facility] Comment on above: Performed By: #### B MP #### [facility] [address] [place], [place] [address] Navi Maria Dolores Sodium [Moles/Vol] 141 mmol/L Normal 137-145 [facility] Comment on above: Performed By: #### B MP #### [facility] [address] [place], [place] [address] Navi Maria Dolores Urea nitrogen [Mass/Vol] 18.0 mg/dL Critically high 7.0-17.0 [facility] [place] [facility] Comment on above: Performed By: #### B MP #### [facility] [address] [place] [address] Navi Maria Dolores Urea nitrogen/Creatinine [Mass ratio] 19.4 mg/mg Normal [facility] [place] [facility] Comment on above: Performed By: #### B MP #### [facility] [address] [place], [place] [address] Navi Maria Dolores CBC AUTO DIFFon 07-26-2020 BASO # 0.1 103/ul Normal 0.0-0.1 [facility] [place] [facility] Comment on above: Performed By: #### C BC #### [facility] [address] [place], [place] [address] Navi Maria Dolores Basophils/100 WBC (Bld) 0.8 % Normal 0.2-2.0 [facility] [place] [facility] Comment on above: Performed By: #### C BC #### [facility] [address] [place], [place] [address] Navi Maria Dolores EO # 0.2 103/ul Normal 0.0-0.7 [facility] [place] [facility] Comment on above: Performed By: #### C BC #### [facility] [address] [place], [place] [address] Navi Maria Dolores Eosinophils/100 WBC (Bld) 3.3 % Normal 0.9-7.0 [facility] Comment on above: Performed By: #### C BC #### [facility] [address] [place] [address] Navihumphrey Whitten Erythrocyte distribution width (RBC) [Ratio] 13.6 % Normal 11.0-15.0 [facility] [place] [facility] Comment on above: Performed By: #### C BC #### [facility] [address] [place] [address] Navi Maria Dolores Hematocrit (Bld) [Volume fraction] 42.5 % Normal 36.0-48.0 [facility] [place] [facility] Comment on above: Performed By: #### C BC #### [facility] [address] [place] [address] Navi Maria Dolores Hemoglobin (Bld) [Mass/Vol] 13.3 g/dL Normal 12.0-16.0 [facility] [place] [facility] Comment on above: Performed By: #### C BC #### [facility] [address] [place] [address] Navi Maria Dolores IG # 0.03 10e3/ul Normal 0.00-0.03 [facility] [place] [facility] Comment on above: Performed By: #### C BC #### [facility] [address] [place] [address] Navi Maria Dolores IG % 0.5 % Normal 0.0-0.5 [facility] [place] [facility] Comment on above: Performed By: #### C BC #### [facility] [address] [place] [address] Navi Maria Dolores LYMPH # 1.5 103/ul Normal 1.2-3.8 [facility] Comment on above: Performed By: #### C BC #### [facility] [address] [place] [address] Navi Whitten Lymphocytes/100 WBC (Bld) 22.7 % Normal 20.5-60.0 [facility] [place] [facility] Comment on above: Performed By: #### C BC #### [facility] [address] [place] [address] Navi Whitten MANUAL DIFF REQ NO Normal [facility] Comment on above: Performed By: #### C BC #### [facility] [address] [id number] Navi Whitten MCH (RBC) [Entitic mass] 29.1 pg Normal 26.7-34.0 [facility] Comment on above: Performed By: #### C BC #### [facility] [address] [id number] Navi Whitten MCHC (RBC) [Mass/Vol] 31.3 g/dL Normal 29.9-35.2 [facility] Comment on above: Performed By: #### C BC #### [facility] [address] [place], [place] [id number] Navihumphrey Whitten MCV (RBC) [Entitic vol] 93.0 fL Normal 81.0-99.0 [facility] Comment on above: Performed By: #### C BC #### [facility] [address] [place] [address] Navi Whitten MONO # 0.5 103/ul Normal 0.3-0.8 [facility] Comment on above: Performed By: #### C BC #### [facility] [address] [place], [place] [address] Navi Whitten Monocytes/100 WBC (Bld) 7.6 % Normal 1.7-12.0 [facility] Comment on above: Performed By: #### C BC #### [facility] [address] [place] [address] Navi Whitten NEUT # 4.3 103/ul Normal 1.4-6.5 [facility] Comment on above: Performed By: #### C BC #### [facility] [address] [place], [place] [id number] Navihumphrey Whitten Neutrophils/100 WBC (Bld) 65.1 % Normal 43.0-75.0 [facility] Comment on above: Performed By: #### C BC #### [facility] [address] [place], [place] [id number] Navi Maria Dolores Platelet mean volume (Bld) [Entitic vol] 11.2 fL Normal 9.5-13.5 [facility] Comment on above: Performed By: #### C BC #### [facility] [address] [place], [place] [address] Navi Whitten PLT 198 103/ul Normal 150-450 [facility] [place] [facility] Comment on above: Performed By: #### C BC #### [facility] [address] [place], [place] [address] Navi Whitten RBC 4.57 106/ul Normal 4.20-5.40 [facility] [place] [facility] Comment on above: Performed By: #### C BC #### [facility] [address] [place], [place] [address] Navi Whitten WBC 6.6 103/ul Normal 4.0-11.0 [facility] [place] [facility] Comment on above: Performed By: #### C BC #### [facility] [address] [place] [id number] Navi Whitten GLYCOHEMOGLOBIN A1Con 2020 ADA RECOMMENDATION ADA THERAPEUTIC TARGET 6.0 - 7.0 ACTION SUGGESTED > 7.0 Normal [facility] [place] [facility] Comment on above: Performed By: #### A 1C ####[facility] [id number] [place], [place] [address]CxdulrNavi Whitten Glucose [Mass/Vol] 146 mg/dL Normal [facility] Comment on above: Performed By: #### A 1C ####[facility] [id number] [place], [place] [address]YjluxuNavi Whitten HbA1c (Bld) [Mass fraction] 6.7 % Critically high <=6.0 [facility] [place] [facility] Comment on above: Performed By: #### A 1C ####[facility] [id number] [place], [place] [address]UrbccyNavi Whitten LIPID PROFILEon 07-26-2020 CHOL-HDL RATIO NORM SEE BELOW Normal [facility] Comment on above: Result Comment: 3.3 - 4.4 LOW RISK 4.4 - 7.1 AVERAGE RISK 7.1 - 11.0 MODERATE RISK >11.0 HIGH RISK Performed By: #### L IPID, CMP #### [facility] [address] [place], [place] [address] Navi Whitten Cholesterol [Mass/Vol] 132 mg/dL Normal <=200 [facility] [place] [facility] Comment on above: Performed By: #### L IPID, CMP #### [facility] [address] [place], [place] [address] Navi Maria Dolores Cholesterol in HDL [Mass/Vol] 51 mg/dL Normal [facility] [place] [facility] Comment on above: Performed By: #### L IPID, CMP #### [facility] [address] [place], [place] [address] Navi Maria Dolores Cholesterol in LDL [Mass/Vol] 64.8 mg/dL Normal [facility] Comment on above: Performed By: #### L IPID, CMP #### [facility] [address] [place], [place] [address] Navi Maria Dolores Cholesterol.total/Ch olesterol in HDL [Mass ratio] 2.6 {ratio} Normal [facility] [place] [facility] Comment on above: Performed By: #### L IPID, CMP #### [facility] [address] [place], [place] [address] Navi Maria Dolores HDL NORMAL > or = 60 mg/dl - LOW CARDIOVASCULAR RISK <40 mg/dl - HIGH CARDIOVASCULAR RISK Normal [facility] [place] [facility] Comment on above: Performed By: #### L IPID, CMP #### [facility] [address] [place], [place] [address] Navi Maria Dolores LDL CALC NORMAL SEE BELOW Normal [facility] Comment on above: Result Comment: <100 mg/dl OPTIMAL 100 - 129 mg/dl NEAR OR ABOVE OPTIMAL 130 - 159 mg/dl BORDERLINE HIGH 160 - 189 mg/dl HIGH >190 mg/dl VERY HIGH Performed By: #### L IPID, CMP #### [facility] [address] [place], [place] [address] Navi Maria Dolores Triglyceride [Mass/Vol] 81 mg/dL Normal <=150 [facility] Comment on above: Performed By: #### L IPID, CMP #### [facility] [address] [place] [id number] Navi Maria Dolores VLDL CALC 16.2 mg/dL Normal [facility] [place] [facility] Comment on above: Performed By: #### L IPID, CMP #### [facility] [address] [place], [place] [address] Navi Maria Dolores MICROALBUMIN, RAND URon 03-2 mALB <1.3 Normal <=30.0 [facility] [place] [facility] Comment on above: Performed By: #### M ALBR #### [facility] [address] [place], [place] [phone] Navi Maria Dolores PROF 14(COMP METB)on 021 Albumin [Mass/Vol] 3.8 g/dL Normal 3.5-5.0 [facility] Comment on above: Performed By: #### L IPID, CMP #### [facility] [address] [place], [place] [address] Navi Maria Dolores Albumin/Globulin [Mass ratio] 1.3 {ratio} Normal [facility] [place] [facility] Comment on above: Performed By: #### L IPID, CMP #### [facility] [address] [place], [place] [address] Navi Maria Dolores ALP [Catalytic activity/Vol] 67 U/L Normal 38-126 [facility] [place] [facility] Comment on above: Performed By: #### L IPID, CMP #### [facility] [address] [place] [address] Navi Maria Dolores ALT [Catalytic activity/Vol] 36 U/L Normal 9-52 [facility] [place] [facility] Comment on above: Performed By: #### L IPID, CMP #### [facility] [address] [place], [place] [phone] Navi Maria Dolores Anion gap [Moles/Vol] 10.5 mmol/L Normal [facility] [place] [facility] Comment on above: Performed By: #### L IPID, CMP #### [facility] [address] [place], [place] [address] Navi Maria Dolores AST [Catalytic activity/Vol] 20 U/L Normal 14-36 [facility] Comment on above: Performed By: #### L IPID, CMP #### [facility] [address] [place], [place] [address] Navi Maria Dolores Bilirubin [Mass/Vol] 0.7 mg/dL Normal 0.2-1.3 [facility] [place] [facility] Comment on above: Performed By: #### L IPID, CMP #### [facility] [address] [place], [place] [address] Navi Maria Dolores Calcium [Mass/Vol] 9.4 mg/dL Normal 8.4-10.2 [facility] Comment on above: Performed By: #### L IPID, CMP #### [facility] [address] [place] [address] Navi Maria Dolores Chloride [Moles/Vol] 104 mmol/L Normal 98-107 [facility] [place] [facility] Comment on above: Performed By: #### L IPID, CMP #### [facility] [address] [place] [address] Navi Maria Dolores CO2 [Moles/Vol] 30.9 mmol/L Critically high 22.0-30.0 [facility] [place] [facility] Comment on above: Performed By: #### L IPID, CMP #### [facility] [address] [place] [address] Navi Maria Dolores Creatinine [Mass/Vol] 0.87 mg/dL Normal 0.52-1.04 [facility] [place] [facility] Comment on above: Performed By: #### L IPID, CMP #### [facility] [address] [place] [address] Navi Maria Dolores EGFR-AF GUINEAN >60 Normal >=60 [facility] Comment on above: Performed By: #### L IPID, CMP #### [facility] [address] [place] [address] Navi Maria Dolores EGFR-NON AF GUINEAN >60 Normal >=60 [facility] [place] [facility] Comment on above: Performed By: #### L IPID, CMP #### [facility] [address] [place] [address] Navi Maria Dolores Globulin (S) [Mass/Vol] 3.0 g/dL Normal [facility] [place] [facility] Comment on above: Performed By: #### L IPID, CMP #### [facility] [address] [place] [address] Navi Maria Dolores Glucose [Mass/Vol] 118 mg/dL Critically high 74-106 [facility] Comment on above: Performed By: #### L IPID, CMP #### [facility] [address] [place] [address] Navi Maria Dolores Potassium [Moles/Vol] 4.4 mmol/L Normal 3.4-5.0 [facility] [place] [facility] Comment on above: Performed By: #### L IPID, CMP #### [facility] [address] [place] [address] Navi Maria Dolores Protein [Mass/Vol] 6.8 g/dL Normal 6.1-8.2 [facility] Comment on above: Performed By: #### L IPID, CMP #### [facility] [address] [place] [address] Navi Maria Dolores Sodium [Moles/Vol] 141 mmol/L Normal 137-145 [facility] Comment on above: Performed By: #### L IPID, CMP #### [facility] [address] [place] [address] Navi Maria Dolores Urea nitrogen [Mass/Vol] 26.0 mg/dL Critically high 7.0-17.0 [facility] [place] [facility] Comment on above: Performed By: #### L IPID, CMP #### [facility] [address] [place] [address] Navi Maria Dolores Urea nitrogen/Creatinine [Mass ratio] 29.9 mg/mg Normal [facility] [place] [facility] Comment on above: Performed By: #### L IPID, CMP #### [facility] [address] [place] [address] Navi Maria Dolores UA RANDOM W/MICROSCOPICon BACTERIA NONE SEEN Normal NONE SEEN [facility] [place] [facility] Comment on above: Performed By: #### U AMIC #### [facility] [address] [place] [address] Navi Maria Dolores Bilirubin Ql (U) Negative Normal NEGATIVE [facility] Comment on above: Performed By: #### U AMIC #### [facility] [address] [place], [place] [phone] Navi Maria Dolores CAST NONE SEEN Normal NONE SEEN [facility] [place] [facility] Comment on above: Performed By: #### U AMIC #### [facility] [address] [place], [place] [address] Navi Maria Dolores Clarity (U) CLEAR Normal CLEAR [facility] Comment on above: Performed By: #### U AMIC #### [facility] [address] [place] [address] Navi Maria Dolores Color (U) LT. YELLOW Normal YELLOW [facility] Comment on above: Performed By: #### U AMIC #### [facility] [address] [place] [address] Navi Maria Dolores Crystals LM Nom (Urine sed) NONE SEEN Normal NONE SEEN [facility] Comment on above: Performed By: #### U AMIC #### [facility] [address] [place] [address] Navi Maria Dolores Epithelial cells LM Ql (Urine sed) MODERATE Abnormal NONE SEEN /RARE [facility] Comment on above: Performed By: #### U AMIC #### [facility] [address] [place] [address] Navi Mari Adolores Glucose Ql (U) Negative Normal NEGATIVE [facility] Comment on above: Performed By: #### U AMIC #### [facility] [address] [place] [address] Navi Maria Dolores Hemoglobin Ql (U) Negative Normal NEGATIVE [facility] Comment on above: Performed By: #### U AMIC #### [facility] [address] [place] [address] Navi Maria Dolores Ketones Ql (U) Negative Normal NEGATIVE [facility] Comment on above: Performed By: #### U AMIC #### [facility] [address] [place] [address] Navi Maria Dolores LEUKOCYTES Negative Normal NEGATIVE [facility] Comment on above: Performed By: #### U AMIC #### [facility] [address] [place] [address] Navi Maria Dolores MUCOUS TRACE Abnormal NONE SEEN [facility] [place] [facility] Comment on above: Performed By: #### U AMIC #### [facility] [address] [place] [address] Navi Maria Dolores Nitrite Ql (U) Negative Normal NEGATIVE [facility] Comment on above: Performed By: #### U AMIC #### [facility] [address] [place] [address] Navi Maria Dolores pH (U) 5.0 [pH] Normal 5-9 [facility] Comment on above: Performed By: #### U AMIC #### [facility] [address] [place], [place] [address] Navi Maria Dolores RBC NONE SEEN Abnormal 0-2 [facility] Comment on above: Performed By: #### U AMIC #### [facility] [address] [place] [address] Navi Maria Dolores SPEC GRAVITY 1.025 Normal 1.005-<=1.025 [facility] Comment on above: Performed By: #### U AMIC #### [facility] [address] [place] [address] Navi Maria Dolores UA PROTEIN Negative Normal NEGATIVE/ TRACE [facility] Comment on above: Performed By: #### U AMIC #### [facility] [address] [place] [address] Navihumphrey Whitten Urobilinogen Qn (U) 0.2 {Joan'U}/dL Normal 0.2 - 1. 0 [facility] [place] [facility] Comment on above: Performed By: #### U AMIC #### [facility] [address] [place] [address] Navi Maria Dolores WBC 0-2 Abnormal NONE SEEN [facility] Comment on above: Performed By: #### U AMIC #### [facility] [address] [place] [address] Navihumphrey Whitten Vital Signs Date Time Vital Sign Value Performing Clinician Facility 04-17-2024 10:07050 Body height 176.5 cm Carlos Harman DPM Work Phone: [facility] 04-17-2024 10:07-0500 Body mass index (BMI) [Ratio] 25.47 kg/m2 Carlos Harman DPM Work Phone: [facility] 04-17-2024 10:07-0500 Body weight 79.38 kg Carlos Harman DPM Work Phone: [facility] 04-17-2024 10:07-0500 Respiratory rate 18 /min Carlos Harman DPM Work Phone: [facility] 04-17-2024 08:57-0500 Body height 176.5 cm Latabárbara Manriquez [employer] CONSULTANT Work Phone: [facility] 04-17-2024 08:57-0500 Body mass index (BMI) [Ratio] 25.53 kg/m2 Latabárbara Smithholz WARDROBE CONSULTANT Work Phone: [facility] 04-17-2024 08:57-0500 Body temperature 98.1 [degF] Lata Manriquez WARDROBE CONSULTANT Work Phone: [facility] 04-17-2024 08:57-0500 Body weight 79.56 kg Lata Sarahholz W[employer] CONSULTANT Work Phone: [facility] 04-17-2024 08:57-0500 Diastolic blood pressure 72 mm[Hg] Lata Sarahholz W[employer] CONSULTANT Work Phone: [facility] 04-17-2024 08:57-0500 Heart rate 73 /min Lata Hilariaz WAR[employer]OBE CONSULTANT Work Phone: [facility] 04-17-2024 08:57-0500 Respiratory rate 18 /min Lata Yarahholz WARDROBE CONSULTANT Work Phone: [facility] 04-17-2024 08:57-0500 SaO2% (BldA) [Mass fraction] 97 % Latabárbaar Smithholz WARDROBE CONSULTANT Work Phone: [facility] 04-17-2024 08:57-0500 Systolic blood pressure 120 mm[Hg] Lata Smithholz WARDROBE CONSULTANT Work Phone: [facility] 03-27-2024 11:06-0500 Body height 176.5 cm Carlos Harman DPM Work Phone: [facility] 03-27-2024 11:06-0500 Body mass index (BMI) [Ratio] 26.05 kg/m2 Carlos Harman DPM Work Phone: [facility] 03-27-2024 11:06-0500 Body weight 81.19 kg Carlos Harman DPM Work Phone: [facility] 03-27-2024 11:06-0500 Respiratory rate 18 /min Carlos Kimani DPM Work Phone: [facility] 03-13-2024 08:58-0500 Body height 176.5 cm Carlos Harman DPM Work Phone: [facility] 03-13-2024 08:58-0500 Body mass index (BMI) [Ratio] 26.05 kg/m2 Carlos Harman DPM Work Phone: [facility] 03-13-2024 08:58-0500 Body weight 81.19 kg Carlos Kimani DPM Work Phone: [facility] 03-13-2024 08:58-0500 Diastolic blood pressure 79 mm[Hg] Carlos Harman DPM Work Phone: [facility] 03-13-2024 08:58-0500 Heart rate 81 /min Carlos Harman DPM Work Phone: [facility] 03-13-2024 08:58-0500 Systolic blood pressure 133 mm[Hg] Carlos Harman DPM Work Phone: [facility] 02-28-2024 08:58-0400 Body height 176.5 cm Carlospeggy Harman DPM Work Phone: [facility] 02-28-2024 08:58-0400 Body mass index (BMI) [Ratio] 26.05 kg/m2 Carlos Harman DPM Work Phone: [facility] 02-28-2024 08:58-0400 Body weight 81.19 kg Carlos Brown DPM Work Phone: [facility] 02-28-2024 08:58-0400 Diastolic blood pressure 79 mm[Hg] Carlos Harman DPM Work Phone: [facility] 02-28-2024 08:58-0400 Heart rate 88 /min Carlos Harman DPM Work Phone: [facility] 02-28-2024 08:58-0400 Systolic blood pressure 126 mm[Hg] Carlos Harman DPM Work Phone: [facility] 02-14-2024 13:13-0400 Body height 176.5 cm Carlos Harman DPM Work Phone: [facility] 02-14-2024 13:13-0400 Body mass index (BMI) [Ratio] 26.05 kg/m2 Carlos Harman DPM Work Phone: [facility] 02-14-2024 13:13-0400 Body weight 81.19 kg Carlos Harman DPM Work Phone: [facility] 02-14-2024 13:13-0400 Respiratory rate 18 /min Carlos Harman DPM Work Phone: [facility] 02-12-2024 11:09-0400 Body height 175.3 cm P[facility] 1 [facility] 02-12-2024 11:09-0400 Body mass index (BMI) [Ratio] 26.43 kg/m2 P[facility] 1 [facility] 02-12-2024 11:09-0400 Body weight 81.19 kg Pmh 1 [facility] 02-05-2024 14:06-0400 Body height 175.3 cm Allyson Garcia [employer] 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 Work Phone: [facility] 02-05-2024 14:06-0400 Body mass index (BMI) [Ratio] 26.4 kg/m2 Allyson Garcia [employer] 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 Work Phone: [facility] 02-05-2024 14:06-0400 Body weight 81.1 kg Allyson Garcia [employer] 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 Work Phone: [facility] 02-05-2024 14:06-0400 Diastolic blood pressure 67 mm[Hg] Allyson Garcia [employer] 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 Work Phone: [facility] 02-05-2024 14:06-0400 Systolic blood pressure 124 mm[Hg] Allyson Garcia [employer] 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 Work Phone: [facility] 11-12-2023 13:21-0400 Blood Pressure Location Vanessa Lue [facility] 11-12-2023 13:21-0400 Diastolic blood pressure 69 mm[Hg] Vanessa Lue [facility] 11-12-2023 13:21-0400 Heart rate 72 /min Vanessa Lue [facility] 11-12-2023 13:21-0400 Respiratory rate 19 /min Vanessa Lue [facility] 11-12-2023 13:21-0400 Systolic blood pressure 131 mm[Hg] Vanessa Lue [facility] Encounters Encounter Date Encounter Type Care Provider Facility Start: 05-05-2024 ambulatory Vanessa Schultz Facility:[facility] Start: 04-17-2024 End: 04-17-2024 ambulatory CARLOS HARMAN Not Available Start: 04-17-2024 End: 04-17-2024 Postop follow up visit related to original px Carlos Harman DPM Work Phone: [facility] Comment on above: Plantar fasciitis (P rimary Dx); Contracture of left ankle Start: 04-17-2024 End: 04-17-2024 Office outpatient visit 25 minutes Lata Workman W[employer] CONSULTANT Work Phone: [facility] Comment on above: Type 2 diabetes jerrell itus without complication, without long- term current use of insulin (CMS/HCC) (Primary Dx); 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 (CMS/HCC); Essential hypertension (CMS/HCC); Mixed hyperlipidemia (CMS/HCC); Ebstein's anomaly Start: 04-17-2024 End: 04-17-2024 ambulatory LATA WORKMAN Not Available Start: 04-07-2024 End: 04-07-2024 ambulatory [facility] Start: 04-02-2024 End: 04-02-2024 Orders Only Lata Workman WAR[employer] CONSULTANT Work Phone: [facility] Start: 04-01-2024 End: 04-01-2024 Clinisync Result Encounter Generic External Data Provider [facility] External Department Unsolicited Start: 04-01-2024 End: 04-01-2024 Clinisync Result Encounter Generic External Data Provider [facility] External [facility] Unsolicited Start: 03-27-2024 End: 03-27-2024 Bamboo flowsparveen Harman DPM Work Phone: [facility] Start: 03-27-2024 End: 03-27-2024 Bamboo flowsheet Carlos Harman DPM Work Phone: [facility] Start: 03-27-2024 End: 03-27-2024 Office outpatient visit 25 minutes Carlos Harman DPM Work Phone: [facility] Comment on above: Plantar fasciitis (P rimary Dx); Contracture of left ankle; Contracture of right ankle; Heel spur, left Start: 03-27-2024 End: 03-27-2024 ambulatory CARLOS HARMAN Not Available Start: 03-13-2024 End: 03-13-2024 Bamboo flowsheet Carlos Harman DPM Work Phone: [facility] Start: 03-13-2024 End: 03-13-2024 Bamboo flowsheet Carlos Harman DPM Work Phone: [facility] Start: 03-13-2024 End: 03-13-2024 Office outpatient visit 15 minutes Carlos Harman DPM Work Phone: [facility] Comment on above: Heel spur, left (Ginger lila Dx); Plantar fasciitis; Contracture of right ankle; Contracture of left ankle Start: 03-13-2024 End: 03-13-2024 ambulatory CARLOS HARMAN Not Available Start: 03-03-2024 End: 03-03-2024 Refill Lata Workman WARDROBE CONSULTANT Work Phone: [facility] Comment on above: Atherosclerotic hear t disease of ambler coronary artery without angina pectoris ([facility]/HCC) Start: 02-28-2024 End: 02-28-2024 Bamboo flowsheet Carlos Harman DPM Work Phone: [facility] Start: 02-28-2024 End: 02-28-2024 Bamboo flowsheet Carlos Harman DPM Work Phone: [facility] Start: 02-28-2024 End: 02-28-2024 Office outpatient visit 25 minutes Carlos Harman DPM Work Phone: [facility] Comment on above: Plantar fasciitis (P rimary Dx); Contracture of right ankle; Heel spur, right; Heel spur, left Start: 02-28-2024 End: 02-28-2024 ambulatory CARLOS HARMAN Not Available Start: 02-20-2024 End: 02-21-2024 Refill Lata Workman WARDROBE CONSULTANT Work Phone: [facility] Comment on above: Type 2 diabetes jerrell itus without complications ([facility]); Essential (primary) hypertension ([facility]); Atherosclerotic heart disease of ambler coronary artery without angina pectoris ([facility]/HCC) Start: 02-20-2024 End: 02-20-2024 ambulatory [facility] Start: 02-20-2024 End: 02-20-2024 Encounter for other preprocedural examination [facility] Start: 02-18-2024 End: 02-18-2024 Evaluation and management of inpatient [facility] Start: 02-14-2024 End: 02-14-2024 Bamboo flowsheet Carlos Harman DPM Work Phone: [facility] Start: 02-14-2024 End: 02-14-2024 Bamboo flowsheet Carlos Harman DPM Work Phone: [facility] Start: 02-14-2024 End: 02-14-2024 Office outpatient visit 15 minutes Carlos Harman DPM Work Phone: [facility] Comment on above: Plantar fasciitis (P rimary Dx); Contracture of right ankle Start: 02-14-2024 End: 02-14-2024 ambulatory CARLOS HARMAN Not Available Start: 02-12-2024 End: 02-12-2024 ambulatory h Pat Phone Call Provider 1 [facility] - Pre Admit Start: 02-12-2024 End: 02-12-2024 [facility] Start: 02-05-2024 End: 02-05-2024 Patient encounter procedure Allyson Bárbara TheodoreGarcia RETAIL FURNITURE 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 Work Phone: [facility] Comment on above: Encounter for screen ing colonoscopy (Primary Dx) Start: 02-05-2024 End: 02-05-2024 ambulatory [facility] Start: 01-31-2024 End: 01-31-2024 ambulatory CARLOS HARMAN Not Available Start: 01-23-2024 End: 01-23-2024 Orders Only Lata Workman WARDROBE CONSULTANT Work Phone: [facility] Comment on above: Colon cancer screeni ng (Primary Dx) Start: 01-02-2024 Patient encounter status Lata Workman WARDROBE CONSULTANT Work Phone: [facility] Start: 01-02-2024 End: 01-02-2024 ambulatory LATA WORKMAN Not Available Start: 11-20-2023 End: 11-20-2023 ambulatory Vanessa Schultz Facility:[facility] Start: 11-20-2023 End: 11-20-2023 Patient encounter procedure Vanessa M. Lue [facility] Start: 11-14-2023 End: 11-14-2023 ambulatory Vanessa M. Lue Facility:[facility] Start: 11-14-2023 End: 11-14-2023 Patient encounter procedure Vanessa M. Lue [facility] Dung Start: 11-14-2023 End: 11-14-2023 ambulatory Vanessa M. Lue Facility:[facility] Start: 11-14-2023 End: 11-14-2023 Off-Site Vanessa M. Lue [facility] Jorge Start: 11-12-2023 End: 11-12-2023 Patient encounter procedure Vanessa M. Lue [facility] Sonal Start: 11-12-2023 End: 11-12-2023 ambulatory Vanessa M. Lue Facility:[facility] Start: 11-06-2023 End: 11-06-2023 ambulatory Vanessa M. Lue Facility:[facility] Start: 11-06-2023 End: 11-06-2023 Off-Site Vanessa M. Lue [facility] Start: 11-03-2023 End: 11-03-2023 ambulatory Elton Tamez Facility:CD:[id number] Start: 02-08-2021 End: 02-09-2021 ambulatory ROLL MILL OPERATOR LATA JI Facility:[facility] Start: 01-25-2021 End: 01-26-2021 ambulatory ROLL MILL OPERATOR LATA JI Facility:[facility] Start: 01-19-2021 End: 01-19-2021 ambulatory KAIT SALDIVAR Facility:[facility] Start: 08-30-2020 End: 08-31-[address] DIVYA GRANDE Facility:[facility] Start: 07-26-2020 End: 07-27-2020 ambulatory ROLL MILL OPERATOR LATA WORKMAN Facility:[facility] Start: 06-19-2017 End: 06-20-2017 Ambulatory DEFAULT PHYSICIAN Facility:[facility] Procedures Date Procedure Procedure Detail Performing Clinician Start: 04-17-2024 Hemoglobin glycosylated a1c Lata Workman WARDROBE CONSULTANT Work Phone: Start: 04-01-2024 ALL BASIC METABOLIC PANEL Generic External Data Provider Start: 04-01-2024 ALL CBC WITH AUTO DIFF Generic External Data Provider Start: 04-01-2024 ALL LIPID PROFILE (FASTING) Generic External Data Provider Start: 04-01-2024 HMHP LIVER PANEL Generi c External Data Provider Start: 02-18-2024 Colonoscopy Lata aldrich WARDROBE CONSULTANT Work Phone: Start: 01-14-2024 Mammography Lata aldrich WARDROBE CONSULTANT Work Phone: Start: 11-03-2023 Cystotomy w/insj ure teral cath/stent spx Vanessa Schultz Start: 12-19-2022 Colonoscopy Lata aldrich WARDROBE CONSULTANT Work Phone: Appendectomy Vanessa Schultz Placement of stent i n cardiac conduit Vanessa Schultz Tonsillectomy Vanessa Schultz Vaginal hysterectomy w/tot/prtl vaginectomy Vanessa Schultz Plan of Treatment Date Care Activity Detail Author Start: 02-17-2034 Screening for malign ant neoplasm of colon [facility] Start: 12-19-2032 Screening for malign ant neoplasm of colon [facility] Start: 01-14-2026 Glaucoma screening Diabetes: R etinopathy Screening [facility] Start: 02-04-2025 Adult BMI Screening Adult BMI Screen ing [facility] Start: 02-04-2025 Tobacco Screening Tobacco Screening [facility] Start: 01-13-2025 Screening for malign ant neoplasm of breast Mammogram [facility] Start: 01-07-2025 Urine screening for protein Diabetes: Urine Protein Screening [facility] Start: 10-16-2024 Hemoglobin A1c measurement Diabetes: Hemoglobin A1C [facility] Start: 08-14-2024 End: 08-14-2024 Patient encounter procedure 08/14/2024 9:20 AM EDT Office Visit [facility] [address] [place] [address] Lata Workman, JUNIOR [address] [place] [address] [facility] Start: 07-07-2024 Hemoglobin A1c measurement Diabetes: Hemoglobin A1C [facility] Start: 05-01-2024 End: 05-01-2024 Patient encounter procedure 05/01/2024 9:10 AM EST Office Visit [facility] [address] [place] [address] [place] [id number] Carlos Harman DPM [address] [address] [facility] Start: 04-17-2024 End: 04-17-2024 Patient encounter procedure [facility] Start: 03-27-2024 End: 03-27-2024 Patient encounter procedure [...] Visit [facility] [address] [facility] [address] [place] [id number] Carols Harman DPM [address] [address] Plantar fasciitis (Primary Dx); Contracture of right ankle [facility] Comment on above: Plantar fasciitis (P rimary Dx); Contracture of right ankle Start: 02-18-2024 End: 02-18-2024 Admission to same day surgery center 02/18/2024 12:45 PM EDT - 02/18/2024 1:15 PM EDT Surgery [facility] [address] [place] [phone] Shira Kelly, DO [address] [place], [place] [id number] COLONOSCOPY DIAGNOSTIC / SCREENING [58132 (CPT )] [facility] Comment on above: COLONOSCOPY DIAGNOST IC / SCREENING [37484 (CPT )] Start: 02-18-2024 End: 02-18-2024 Colonoscopy flx dx w/collj spec when pfrmd COLONOSCOPY DIAGNOSTIC / SCREENING Screen for colon cancer 02/18/2024 12:45 PM EDT [facility] Start: 02-18-2024 Subsequent hospital visit by physician 02/18/2024 12:45 PM EDT Hospital Encounter [facility] [address] [place] [phone] Shira Kelly, DO [address] [place], [place] [phone] [facility] Start: 02-14-2024 End: 02-14-2024 Patient encounter procedure 02/14/2024 1:20 PM EDT Office Visit [facility] [address] [facility] [address] [place] [address] Carlos Harman DPM [address] [facility] [address] [place] [address] Plantar fasciitis (Primary Dx); Contracture of right ankle [facility] Comment on above: Plantar fasciitis (P rimary Dx); Contracture of right ankle Start: 02-12-2024 End: 02-12-2024 ambulatory 02/12/2024 2:30 PM EDT Support Visit [facility] - Pre Admit [address] [place] [phone] [facility] Start: 01-31-2024 End: 01-31-2024 Patient encounter procedure 01/31/2024 1:30 PM EDT Office Visit [facility] [address] [facility] [address] [place] [phone] Carlos Harman, NAVI [address] [facility] [address] [place] [address] [facility] Start: 01-06-2024 Influenza vaccination Influenza Vacc ine (#1) [facility] Start: 07-16-2023 Hemoglobin A1c measurement Diabetes: Hemoglobin A1C [facility] Start: 03-27-2021 DTaP,Tdap and Td Vaccines (2 - Td or Tdap) DTaP,Tdap and Td Vaccines (2 - Td or Tdap) [facility] Start: 07-20-1991 Screening for malign ant neoplasm of cervix HPV/Cotest [facility] Start: 1982 Screening for malign ant neoplasm of cervix Pap Smear [facility] Start: 1980 Urine screening for protein Diabetes: Urine Protein Screening [facility] Start: 07-20-1979 Adult BMI Follow Up Plan Adult BMI Follow Up Plan [facility] Start: 1973 Depression Screening Depression Scre ening [facility] Start: 07-20-1971 Glaucoma screening Diabetes: R etinopathy Screening [facility] Start: 1961 Screening for malign ant neoplasm of colon [facility] End: 02-04-2025 Colonoscopy Colonoscopy GI Routine Encounter for screening colonoscopy 1 Occurrences starting 02/05/2024 until 02/04/2025 [facility] Work Phone: Comment on above: 1 Occurrences starti ng 02/05/2024 until 02/04/2025 Immunizations Immunization Date Immunization Notes Care Provider Fa cility 01-30-2024 influenza, injectabl e, madin [place] canine kidney, preservative free Lata Aichholz WARDROBE CONSULTANT Work Phone: [facility] 01-30-2023 Seasonal, quadrivale nt, recombinant, injectable influenza vaccine, preservative free Lata Aichholz WARDROBE CONSULTANT Work Phone: [facility] 01-30-2023 influenza virus vacc ine, unspecified formulation Lata Aichholz WARDROBE CONSULTANT Work Phone: [facility] 11-09-2022 zoster vaccine recombinant Lata Aichholz WARDROBE CONSULTANT Work Phone: [facility] 07-04-2022 zoster vaccine recombinant Lata Aichholz WARDROBE CONSULTANT Work Phone: [facility] 02-09-2022 influenza, injectabl e, quadrivalent, preservative free Lata Aichholz WARDROBE CONSULTANT Work Phone: [facility] 05-24-2017 Influenza, injectabl e, Madin [place] Canine Kidney, preservative free, quadrivalent Lata Aichholz WARDROBE CONSULTANT Work Phone: [facility] 02-05-2016 influenza, injectabl e, quadrivalent, preservative free Lata Aichholz WARDROBE CONSULTANT Work Phone: [facility] 05-31-2014 influenza, seasonal, injectable, preservative free Lata Aichholz WARDROBE CONSULTANT Work Phone: [facility] 03-27-2011 tetanus toxoid, redu marie diphtheria toxoid, and acellular pertussis vaccine, adsorbed Lata Aichholz WARDROBE CONSULTANT Work Phone: [facility] Payers Date Payer Category Payer Private Health Insurance LOE ALEJANDRA [id number] 2022 Unknown 2022 Unknown [id number] 1960 Unknown [id number] 2.16.840.1.197303.3.579. 2.593 1961 Unknown [id number] 2.16.840.1.434183.3.579. 2.593 1961 Unknown [id number] 2.16.840.1.830015.3.579. 2.593 1961 Unknown [id number] 2.16.840.1.855216.3.579. 2.593 1961 Unknown [id number] 2.16.840.1.373234.3.579. 2.593 1961 Unknown [id number] 2.16.840.1.372833.3.579. 2.727 1961 Unknown [id number] 2.16.840.1.299085.3.579. 2.727 1961 Unknown [id number] 2.16.840.1.035453.3.579. 2.727 1961 Unknown [id number] 2.16.840.1.146998.3.579. 2.727 1961 Unknown [id number] 2.16.840.1.500064.3.579. 2.727 1961 Unknown [id number] 2.16.840.1.069942.3.579. 2.1286 1961 Unknown [id number] 2.16.840.1.617928.3.579. 2.1286 1961 Unknown [id number] 2.16.840.1.013608.3.579. 2.1286 1961 Unknown [id number] 2.16.840.1.173965.3.579. 2.9 1961 Unknown [id number] 2.16.840.1.596865.3.579. 2.9 1961 Unknown [id number] 2.16.840.1.454360.3.579. 2.1258 1961 Unknown [id number] 2.16.840.1.030416.3.579. 2.9 1961 Unknown [id number] 2.16.840.1.473121.3.579. 2.1258 1961 Unknown [id number] 2.16.840.1.152932.3.579. 2.9 1961 Unknown [id number] 2.16.840.1.750373.3.579. 2.1258 1961 Unknown [id number] 2.16.840.1.671725.3.579. 2.1259 1959 Private Health Insurance [id number] 1959 Private Health Insurance [id number] Social History Date Type Detail Facility Tobacco smoking status [facility] Start: 02-05-2024 End: 04-17-2024 Sex Assigned At [facility] Start: 11-12-2023 End: 01-02-2024 Tobacco smoking status Never smoked tobacco (finding) [facility] Start: 01-02-2024 End: 02-05-2024 Tobacco use and exposure Smokeless tobacco non-user [facility] Start: 02-05-2024 End: 02-12-2024 Alcoholic beverage intake Current non-drinker of alcohol (finding) [facility] Start: 02-05-2024 End: 04-17-2024 History of Social function [facility] Childcare Unknown [facility] Start: 1960 Sex assigned at Not on file [facility] Start: 02-14-2024 End: 04-17-2024 Alcoholic beverage intake Lifetime non-drinker (finding) [facility] Start: 01-02-2024 Alcohol Comment caffine: 1 cup of coffee daily [facility] Functional Status Date Assessment Result Facility 11-12-2023 Functional Status N/A [facility] Clinical Notes 11-12-2023 to 04-17-2024 Carlos Harman, NAVI - 04/17/2024 9:50 AM ESTLisa Aichholz, WARDROBE CONSULTANT - 04/17/2024 9:20 AM ESTCHEPE SPAULDING - 04/17/2024 9:00 AM ESTLisa Aichholz, WARDROBE CONSULTANT - 04/17/2024 9:00 AM ESTPatient Instructions Note Date & Type Note Facility 04-17-2024 History of Presen t illness Narrative Patient: Jordan Holly : 1960 PCP: Robin Poe MD SUBJECTIVE This is a 63 y.o. female that presents today 8 days s/p left plantar fasciotomy Pt denies n/f/v/c and has minimal pain to post op site. Pt states that they have been keeping dressing dry and intact and have been minimal weight-bearing to post op foot Pt presents today for follow up. Allergies: Allergies Allergen Reactions Penicillins Anaphylaxis, Rash [...] OBJECTIVE LE EXAM: Derm: Sutures intact to left foot with negative erythema, negative drainage, minimal edema with negative clinical signs of infection. Vascular: Palpable pedal pulses to left foot Neuro: Gross sensation intact to left foot. Musculoskeletal: Negative pain on palpation to left calf. Ortho: Ankle range of motion less than 10 degrees of dorsiflexion at left ankle joint. ASSESSMENT 8 days s/p lef tplantar fasciotomy 1. Plantar fasciitis 2. Contracture of left ankle PLAN Patient to keep dry sterile dressing intact and keep dressing dry with partial weightbearing. Patient may take anti-inflammatories as needed for pain. May continue with ice to foot as needed p.r.n. Pt may begin PWB to left foot with walking boot. 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 female presents with chief complaint of Diabetes HPI: Diabetes She presents for her follow-up diabetic visit. She has type 2 diabetes mellitus. Her disease course has been stable. There are no hypoglycemic associated symptoms. Pertinent negatives for hypoglycemia include no dizziness, headaches, nervousness/anxiousness, seizures or tremors. There are no diabetic associated symptoms. Pertinent negatives for diabetes include no blurred vision, no chest pain, no polydipsia, no polyphagia and no polyuria. There are no hypoglycemic complications. Symptoms are stable. Diabetic complications include heart disease. Pertinent negatives for diabetic complications include no nephropathy or peripheral neuropathy. Risk factors for coronary artery disease include diabetes mellitus, dyslipidemia and hypertension. Current diabetic treatment includes oral agent (monotherapy) (GLP 1). Her overall blood glucose range is 110-130 mg/dl. An TOMAS inhibitor/angiotensin II receptor mert is being taken. Eye exam is not current. Hypertension This is a chronic problem. The current episode started more than 1 year ago. The problem is unchanged. The problem is controlled. Pertinent negatives include no blurred vision, chest pain, headaches, neck pain, palpitations or shortness of breath. There are no associated agents to hypertension. Risk factors for coronary artery disease include diabetes mellitus and dyslipidemia. Past treatments include beta blockers and TOMAS inhibitors. The current treatment provides significant improvement. There are no compliance problems. Hypertensive end-organ damage includes CAD/[place]. There is no history of heart failure. SUBJECTIVE: MEDICATIONS: Current Outpatient Medications Medication Instructions aspirin 81 MG EC tablet 1 tablet, Oral, Daily atorvastatin (LIPITOR) 80 mg, Oral, Nightly ezetimibe (ZETIA) 10 mg, Daily lisinopril 10 mg, Oral, Every morning metFORMIN (GLUCOPHAGE) 1,000 mg, Oral, 2 times daily with meals metoprolol succinate XL (TOPROL-XL) 25 mg, Oral, Daily Ozempic (0.25 or 0.5 MG/DOSE) 0.25 mg, Subcutaneous, Every 7 days prasugrel (EFFIENT) 10 mg, Oral, Every morning ALLERGIES: Allergies Allergen Reactions Penicillins Anaphylaxis, Rash and Shortness of breath REVIEW OF SYMPTOMS: Review of Systems Constitutional: Negative for appetite change, chills and fever. HENT: Negative for congestion, ear pain and sore throat. Eyes: Negative for blurred vision, pain, discharge, redness and visual disturbance. Respiratory: Negative for cough, shortness of breath and wheezing. Cardiovascular: Negative for chest pain, palpitations and leg swelling. Gastrointestinal: Negative for abdominal pain, blood in stool, constipation, diarrhea, nausea and vomiting. Genitourinary: Negative for difficulty urinating, dysuria and frequency. Musculoskeletal: Positive for arthralgias. Negative for back pain, joint swelling, myalgias and neck pain. Skin: Negative for rash and wound. Neurological: Negative for dizziness, tremors, seizures, syncope and headaches. Psychiatric/Behavioral: Negative for behavioral problems, self-injury and suicidal ideas. The patient is not nervous/anxious. Hematological: Does not bruise/bleed easily. Endocrine: Negative for polydipsia, polyphagia and polyuria. Allergic/Immunologic: Negative for environmental allergies and food allergies. PAST MEDICAL HISTORY Past Medical History: Diagnosis Date Kidney stones History reviewed. No pertinent surgical history. family history is not on file. OBJECTIVE: Visit Vitals BP 120/72 (BP Location: Left arm, Patient Position: Sitting, BP Cuff Size: Adult long) Pulse 73 Temp 98.1 F (Temporal) Resp 18 Ht 5' 9.5 Wt 175 lb 6.4 oz SpO2 97% BMI 25.53 kg/m Smoking Status Never BSA 1.98 m Physical Exam Vitals and nursing note reviewed. Constitutional: General: She is not in acute distress. Appearance: Normal appearance. HENT: Head: Normocephalic and atraumatic. Right Ear: External ear normal. Left Ear: External ear normal. Nose: Nose normal. Mouth/Throat: Mouth: Mucous membranes are moist. Eyes: Extraocular Movements: Extraocular movements intact. Conjunctiva/sclera: Conjunctivae normal. Neck: Vascular: No carotid bruit. Cardiovascular: Rate and Rhythm: Normal rate and regular rhythm. Pulses: Normal pulses. Heart sounds: Normal heart sounds. Pulmonary: Effort: Pulmonary effort is normal. Breath sounds: Normal breath sounds. Abdominal: General: Bowel sounds are normal. There is no distension. Palpations: Abdomen is soft. There is no mass. Tenderness: There is no abdominal tenderness. Musculoskeletal: Cervical back: Normal range of motion and neck supple. Right lower leg: No edema. Left lower leg: No edema. Comments: Wearing post op shoe in left foot Lymphadenopathy: Cervical: No cervical adenopathy. Skin: General: Skin is warm and dry. Capillary Refill: Capillary refill takes 2 to 3 seconds. Findings: No rash. Neurological: General: No focal deficit present. Mental Status: She is alert and oriented to person, place, and time. Psychiatric: Mood and Affect: Mood normal. Behavior: Behavior normal. Thought Content: Thought content normal. Judgment: Judgment normal. ASSESSMENT AND PLAN: No follow-ups on file. Problem List Items Addressed This Visit CAD (coronary artery disease) ([facility]/HCC) - Primary Follows with [facility] Cardiology Current meds: asa, statin, tomas, b mert and effient Control risk factors Essential hypertension ([facility]) Please check blood pressure daily and record DASH diet Limit caffeine Take medication as directed Contact office if chest pain, pressure, dizziness, shortness of breath, swelling legs Recommend slow position changes Current meds: lisinopril, metoprolol Hyperlipidemia ([facility]) Continue statin use Check labs yearly and prn dose changes Type 2 diabetes mellitus without complications ([facility]) Check blood sugars daily, notify if <70 or >200. Take medications (pills or insulin) as directed. Monitor for s/s of hypoglycemia (sweaty, dizziness, nausea, vomiting, or shakiness). Watch for increase in thirst, urination, or appetite. Inspect feet frequently monitoring for open wounds , and also recommend yearly eye exam. Pt should attempt to remain as physically active as chronic conditions allow, as well as trying to follow a diet low in carbohydrates, and simple sugars. Current meds: asa, statin, tomas, metformin, GLP 1 A1c 7.1% Relevant Orders POCT glycosylated hemoglobin (Hb A1C) docked device Associated Problem(s): Hyperlipidemia ([facility]) Continue statin use Check labs yearly and prn dose changes Associated Problem(s): Type 2 diabetes mellitus without complications ([facility]) Check blood sugars daily, notify if <70 or >200. Take medications (pills or insulin) as directed. Monitor for s/s of hypoglycemia (sweaty, dizziness, nausea, vomiting, or shakiness). Watch for increase in thirst, urination, or appetite. Inspect feet frequently monitoring for open wounds , and also recommend yearly eye exam. Pt should attempt to remain as physically active as chronic conditions allow, as well as trying to follow a diet low in carbohydrates, and simple sugars. Current meds: asa, statin, tomas, metformin, GLP 1 A1c 7.1% Associated Problem(s): Essential hypertension (CMS/HCC) Please check blood pressure daily and record DASH diet Limit caffeine Take medication as directed Contact office if chest pain, pressure, dizziness, shortness of breath, swelling legs Recommend slow position changes Current meds: lisinopril, metoprolol Associated Problem(s): CAD (coronary artery disease) (CMS/HCC) Follows with [facility] Cardiology Current meds: asa, statin, tomas, b mert and effient Control risk factors documented in this encounter [facility] 04-17-2024 Instructions Lata Workman NP - 04/17/2024 9:00 AM EST Pneumonia vaccine: Pneumovax 23, you could ask about the Prevnar 13 and Prevnar 20 A1c 7.1% no dose changes in diabetes meds documented in this encounter [facility] 04-07-2024 Note [facility] Cardiology Clinic Note Chief Complaint: Patient here for follow up recent echo and lab work. She still denies chest pain, SOB, and palpitations. HPI: Jordan Holly is a 63 y.o. [...] the LAD on 06/21. Was discharged from [facility] on 06/22. She thinks the metoprolol [...] extremity edema. Cardiology ROS: Review of Systems Neurological: Positive for light-headedness (when bending over). All other systems reviewed and are negative. Past Medical History She has a past medical history of Coronary artery disease, Diabetes mellitus ([facility]), Hyperlipidemia, and Hypertension. Surgical History She has a past surgical history that includes Cardiac catheterization; Coronary stent placement; Carpal tunnel release; Appendectomy; and Tonsillectomy. Social History She reports that she has never smoked. She has never used smokeless tobacco. She reports that she does not currently use alcohol. No history on file for drug use. Family History Family History Problem Relation Name Age of Onset Coronary artery disease Mother Diabetes Paternal Grandmother Allergies Penicillins Medications Current Outpatient Medications: aspirin 81 mg EC tablet, Take 81 mg by mouth in the morning., Disp: , Rfl: atorvastatin (Lipitor) 80 mg tablet, Take 80 mg by mouth at bedtime., Disp: , Rfl: ezetimibe (Zetia) 10 mg tablet, Take 1 tablet (10 mg) by mouth once daily as directed., Disp: 90 tablet, Rfl: 3 lisinopril 10 mg tablet, Take 1 tablet (10 mg) by mouth in the morning., Disp: 90 tablet, Rfl: 3 metFORMIN (Glucophage) 500 mg tablet, Take 1,000 mg by mouth with breakfast and with evening meal., Disp: , Rfl: metoprolol succinate XL (Toprol-XL) 25 mg 24 hr tablet, Take 25 mg by mouth in the morning., Disp: , Rfl: Ozempic 0.25 mg or 0.5 mg (2 mg/3 mL) pen injector, INJECT 0.25mg SUBCUTANEOUSLY (UNDER THE SKIN) EVERY 7 DAYS, Disp: , Rfl: prasugrel (Effient) 10 mg tablet, Take 10 mg by mouth in the morning., Disp: , Rfl: Last Recorded Vitals BP 132/78 (BP Location: Left arm, Patient Position: Sitting) Pulse 81 Ht 1.753 m (5' 9 ) Wt 81.2 kg (179 lb) SpO2 95% BMI 26.43 kg/m??? Physical Examination: GENERAL: alert [...] wave changes Nonischemic stress test in 2018 Echocardiogram 02/2024: Conclusion: Normal left ventricular size and systolic function. 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 [facility] 03-27-2024 History of Presen t illness Narrative [...] risks, alternatives, benefits, post op complications and snf expectations were discussed including but not limited to: infection,bone infection,wound dehiscence hardware failure and irritation,wound dehiscence,delay union/mal union/non union of bone. RSDS,neuroma,duty limitations,DVT/PE, [place],nerve damage, scar, loss of sensation, swelling. Pt [...] Carlos Harman DPM documented in this encounter [facility] 02-28-2024 History of Presen t illness Narrative [...] risks, alternatives, benefits, post op complications and snf expectations were discussed including but not limited to: infection,bone infection,wound dehiscence hardware failure and irritation,wound dehiscence,delay union/mal union/non union of bone. RSDS,neuroma,duty limitations,DVT/PE, [place],nerve damage, scar, loss of sensation, swelling. Pt [...] Carlos Harman DPM documented in this encounter [facility] 02-20-2024 Note [facility] Cardiology Clinic Note Chief Complaint: New [...] the LAD on 06/21. Was discharged from [facility] on 06/22. She thinks the metoprolol [...] should problems arise. Divya Grande MD, MPH, [facility], [facility], [facility] Interventional Cardio (more content not included)... [facility] 02-14-2024 History of Presen t illness Narrative [...] Patient may continue with conservative treatments including iyni-ngu-czghqwh anti-inflammatories and other treatments suggested today. Patient may want to be scheduled for surgical intervention in the near future. Patient have the right plantar fasciotomy in the near future with Derek for postoperative pain. She sees cardiology at [facility] and will need cardio clearance. Her PCP is Lata Harman DPM documented in this encounter [facility] 02-12-2024 Miscellaneous Notes Preoperative Education Checklist- General Surgery date: 02/18/24 Surgery time: 1245 Arrival time: 1045 1. Bring a photo ID and your insurance card with you the day of surgery. You will check in at the main lobby of the [facility]- registration desk is straight ahead as soon as you walk in. Tell them you are here for surgery. 2. If you have a Living Will/Durable Power of Stamp Mounter for Health Care that is not on [...] after you have bathed. 5. NO nail belizean/acrylic on at least one finger. If you are having a hand, wrist or foot surgery then all nail belizean and artificial/acrylic nails must be removed from [...] please call the Preadmission Testing office at [phone], Mon.-Fri. 7 a.m.-3 p.m. Leave a voicemail [...] prior to procedure documented in this encounter [facility] 02-12-2024 Nurse Note Preoperative Education Checklist- General Surgery date: 02/18/24 Surgery time: 1245 Arrival time: 1045 1. Bring a photo ID and your insurance card with you the day of surgery. You will check in at the main lobby of the [facility]- registration desk is straight ahead as soon as you walk in. Tell them you are here for surgery. 2. If you have a Living Will/Durable Power of Stamp Mounter for Health Care that is not on [...] after you have bathed. 5. NO nail belizean/acrylic on at least one finger. If you are having a hand, wrist or foot surgery then all nail belizean and artificial/acrylic nails must be removed from [...] please call the Preadmission Testing office at [phone], Mon.-Fri. 7 a.m.-3 p.m. Leave a voicemail [...] Stop taking 1 week prior to procedure [facility] 02-05-2024 History of Presen t illness [...] Past Medical History: Diagnosis Date Diabetes mellitus ([facility]) DVT (deep venous thrombosis) ([facility]) Hyperlipidemia Hypertension Kidney stone Past Surgical History: Procedure Laterality Date APPENDECTOMY CARDIAC SURGERY 2000, 07/2016 stents placed, cardiac ablation CARPAL TUNNEL RELEASE Bilateral EXCISION MASS KNEE Left 10/18/2016 Performed by Chase Andujar DO at [facility] bilateral faschitis, tumors removed [...] a week., Disp: , Rfl: peg 3350-sod sulf,laay-fub-ovn 178.7-7.3-0.5 gram recon soln, Take 1 kit [...] patient/family/caregiver Referring and communicating with other health live in caregiver Encounter for screening colonoscopy [Z12.11] ALYSSA DENTON [facility] General Surgery [place] This note was created with the assistance of a speech recognition program. While intending to generate a timely document that accurately reflects the content of the visit, no guarantee can be provided that every grammatical or spelling mistake has been or will be identified or corrected. Thank you for your understanding. ALYSSA Denton 02/05/24 1433 documented in this encounter [facility] 11-20-2023 Hospital Discharg e instructions Patient [...] include: ?8 oz (237 mL) of milk, aydvprl-zvgfaldumtxr-ixsua milk, and calcium-fortifiedfruit juice. Calcium-fortified means that [...] ?Spinach (cooked), rhubarb, beets, sweet potatoes, and Pakistani chard. ?Peanuts. ?Potato chips, icelandic fries, and baked potatoes with skin on. ?Nuts and nut products. ?Chocolate. If you regularly take a diuretic medicine, make sure to eat at least 1 or 2 servings of fruits or vegetables that are high in potassium each day. These include: ?Avocado. ?Banana. ?[place], prune, carrot, or tomato juice. ?Baked potato. [...] magnesium, fish oil, or vitamin B6. Take jdav-ynv-pakegch and prescription medicines only as told by [...] Casseroles. Pizza. Lasagna. Frozen meals. Potato chips. Israeli fries. The items listed above may not [...] provider. Document Revised: 08/03/2022 Document Reviewed: 08/03/2022 [employer] Patient Education 2022 [employer]. 11/20/2023 08:54:31 EU - Cystoscopy with Stent [...] Up Care 11/19/2023 11:47:38 With:Vanessa Schultz Address: [address] [place] [address] [phone] Business (1) [address] Iglesias [address] [phone]- [phone] Business (1) When: Unknown Comments:Office to schedule follow up in 6 months with renal US and KUB. Obtain renal US in 6 weeks to ensure no blockage develops after surgery, will call with results [facility] 11-20-2023 Note Patient Education Cystoscopy with Stent [...] ? 8 oz (237 mL) of milk, khcfegf-zvfcbtxcvcki-mxcau milk, and calcium-fortifiedfruit juice. Calcium-fortified means that [...] Spinach (cooked), rhubarb, beets, sweet potatoes, and Pakistani chard. ? Peanuts. ? Potato chips, icelandic fries, and baked potatoes with skin on. ? Nuts and nut products. ? Chocolate. ? If you regularly take a diuretic medicine, make sure to eat at least 1 or 2 servings of fruits or vegetables that are high in potassium each day. These include: ? Avocado. ? Banana. ? [place], prune, carrot, or tomato juice. ? Baked [...] (148 mL), o (more content not included)... [facility] 11-12-2023 Hospital Discharg e instructions Patient Education [...] including vitamins, herbs, eye drops, creams, and bakf-mjt-jfejvnf medicines. Any problems you or family members [...] provider tells you to take them. Taking wkfp-qie-tdoscze medicines, vitamins, herbs, and supplements. Tests You [...] provider. Document Revised: 03/20/2022 Document Reviewed: 12/26/2021 [employer] Patient Education 2022 [employer]. Follow Up Care 11/09/2023 13:32:06 With:Antoine PEREZ, BAUTISTA Arnold, URO Address: When: Unknown [facility] 11-12-2023 Note Patient Education Nephrology Lithotripsy Lithotripsy [...] including vitamins, herbs, eye drops, creams, and gfvj-smm-ggtlkdk medicines. ? Any problems you or family [...] tells you to take them. ? Taking nlro-jiw-elyiits medicines, vitamins, herbs, and supplements. Tests You [...] that it i (more content not included)... [facility] Evaluation + Plan note Future Appointments Appointment Date:11/14/2023 09:15:00 AM Scheduled Provider:Vanessa Schultz MD Location:[facility] Appointment Type:URO New Patient [facility] Evaluation + Plan note Future Appointments Appointment Date:05/05/2024 12:30:00 PM Scheduled Provider:Vanessa Schultz MD Location:[facility] Appointment Type:URO Office Visit [facility] Evaluation note Diagnosis Encounter for screening colonoscopy- Primary Screen for colon cancer Special screening for malignant neoplasms, colon [facility] Diagnosis Plantar fasciitis- Primary Plantar fascial fibromatosis Contracture of right ankle documented in this encounter [facility] HealthcareEvaluation note* Diagnosis Wellness examination- Primary Type 2 diabetes mellitus without complication, without long-term current use of insulin (CMS/HCC) Mixed hyperlipidemia (CMS/HCC) Mixed hyperlipidemia Aspirin long-term use Encounter for long-term (current) use of aspirin Essential hypertension (CMS/HCC) Unspecified essential hypertension 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 (CMS/HCC) Encounter for screening mammogram for malignant neoplasm of breast History of kidney stones Type 2 diabetes mellitus without complications (CMS/HCC) Essential (primary) hypertension (CMS/HCC) Unspecified essential hypertension Atherosclerotic heart disease of ambler coronary artery without angina pectoris (CMS/HCC) documented in this encounter [facility] HealthcareEvaluation note* Diagnosis Wellness examination- Primary Type 2 diabetes mellitus without complication, without long-term current use of insulin (CMS/HCC) Mixed hyperlipidemia (CMS/HCC) Mixed hyperlipidemia Aspirin long-term use Encounter for long-term (current) use of aspirin Essential hypertension (CMS/HCC) Unspecified essential hypertension 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 (CMS/HCC) Encounter for screening mammogram for malignant neoplasm of breast History of kidney stones Plantar fasciitis- Primary Plantar fascial fibromatosis Contracture of right ankle Heel spur, right Heel spur, left documented in this encounter [facility] HealthcareEvaluation note* Diagnosis Wellness examination- Primary Type 2 diabetes mellitus without complication, without long-term current use of insulin (CMS/HCC) Mixed hyperlipidemia (CMS/HCC) Mixed hyperlipidemia Aspirin long-term use Encounter for long-term (current) use of aspirin Essential hypertension (CMS/HCC) Unspecified essential hypertension 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 (CMS/HCC) Encounter for screening mammogram for malignant neoplasm of breast History of kidney stones Atherosclerotic heart disease of ambler coronary artery without angina pectoris (CMS/HCC) documented in this encounter [facility] HealthcareEvaluation note* Diagnosis Wellness examination- Primary Type 2 diabetes mellitus without complication, without long-term current use of insulin (CMS/HCC) Mixed hyperlipidemia (CMS/HCC) Mixed hyperlipidemia Aspirin long-term use Encounter for long-term (current) use of aspirin Essential hypertension (CMS/HCC) Unspecified essential hypertension 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 (CMS/HCC) Encounter for screening mammogram for malignant neoplasm of breast History of kidney stones Heel spur, left- Primary Plantar fasciitis Plantar fascial fibromatosis Contracture of right ankle Contracture of left ankle documented in this encounter [facility] HealthcareEvaluation note* Diagnosis Wellness examination- Primary Type 2 diabetes mellitus without complication, without long-term current use of insulin (CMS/HCC) Mixed hyperlipidemia (CMS/HCC) Mixed hyperlipidemia Aspirin long-term use Encounter for long-term (current) use of aspirin Essential hypertension (CMS/HCC) Unspecified essential hypertension 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 (CMS/HCC) Encounter for screening mammogram for malignant neoplasm of breast History of kidney stones Plantar fasciitis- Primary Plantar fascial fibromatosis Contracture of left ankle Contracture of right ankle Heel spur, left documented in [facility] encounter [facility]* Diagnosis Colon cancer screening- Primary Special screening for malignant neoplasms, colon documented in this encounter [facility]* Diagnosis Wellness examination- Primary Type 2 diabetes mellitus without complication, without long-term current use of insulin (CMS/HCC) Mixed hyperlipidemia (CMS/HCC) Mixed hyperlipidemia Aspirin long-term use Encounter for long-term (current) use of aspirin Essential hypertension (CMS/HCC) Unspecified essential hypertension 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 (CMS/HCC) Encounter for screening mammogram for malignant neoplasm of breast History of kidney stones Type 2 diabetes mellitus without complication, without long-term current use of insulin (CMS/HCC)- Primary 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 (CMS/HCC) Essential hypertension (CMS/HCC) Unspecified essential hypertension Mixed hyperlipidemia (CMS/HCC) Mixed hyperlipidemia Ebstein's anomaly Plantar fasciitis- Primary Plantar fascial fibromatosis Contracture of left ankle documented in this encounter [facility]* Diagnosis Wellness examination- Primary Type 2 diabetes mellitus without complication, without long-term current use of insulin (CMS/HCC) Mixed hyperlipidemia (CMS/HCC) Mixed hyperlipidemia Aspirin long-term use Encounter for long-term (current) use of aspirin Essential hypertension (CMS/HCC) Unspecified essential hypertension 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 (CMS/HCC) Encounter for screening mammogram for malignant neoplasm of breast History of kidney stones Type 2 diabetes mellitus without complication, without long-term current use of insulin (CMS/HCC)- Primary 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 Carlos Harman DPM [facility] Narr[facility] No data available for this section [facility] Discharge instructions No data available for this section [facility] InstructionsNot on filedocumented in this encounter [facility] [place] SystemInstructionsNot on filedocumented in this encounter [facility] No data available for this section [facility] Jorge Reason for referral (narrative)* Consultation (Routine) - Pending Review Specialty Diagnoses / Procedures Referred By Matt meehan Referred To Contact General Surgery Diagnoses Colon cancer screening Procedures [place] OFFICE/OUTPATIENT NEW HIGH MDM 60 MINUTES Lata Workman NP [address] [place] [address] Shira Kelly DO [address] [place] [id number] Referral ID Status Reason Start Date Expiration Date Visits Requested Visits Authorized [id number] Pending Review Specialty Services Required 01/23/2024 07/21/2024 1 1 [facility] Summary Purpose Family History No Family History [...] section and content) DATE CREATED AUTHOR 10/29/2017 [facility] DATE CREATED AUTHOR AUTHOR'S ORGANIZ ATION 02/26/2021 [facility] DATE CREATED AUTHOR AUTHOR'S ORGANIZ ATION 11/23/2023 [facility] DATE CREATED AUTHOR AUTHOR'S ORGANIZ ATION 02/07/2024 [facility] DATE CREATED AUTHOR AUTHOR'S ORGANIZ ATION 02/19/2024 [facility] DATE CREATED AUTHOR AUTHOR'S ORGANIZ ATION 04/08/2024 [facility] DATE CREATED AUTHOR AUTHOR'S ORGANIZ ATION 04/20/2024 [facility] Special[facility] EPIC Patient Care team informatio n (unrecognized section and content) [employer]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 Relationship Specialty Start Date End Date Robin Poe MD [address] [place] [phone] PCP - General Family Medicine 01/02/24 Lata Workman NP [address] [place] [phone] Referring Physician Nurse Practitioner 05/07/22 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 Relationship Specialty Start Date End Date Lata Workman, ZOE-CHRYSTAL [address] [place] [address] PCP - General Nurse Practitioner 02/05/24 Personnel Name: LATA WORKMAN CNP Address: Address: [address] [place] [address] Reason for Visit (unrecogniz ed section and content) Reason Comments Colon Cancer Screening Specialty Diagnoses / Procedures Referred By Matt t Referred To Contact General Surgery Diagnoses Colon cancer screening Procedures [place] OFFICE OUTPATIENT VISIT 60-74 MINS HIGH MDM AMB REFERRAL TO GENERAL SURGERY Lata Workman, [employer] 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 [address] [place] [address] Shira Kelly DO [address] [place] [id number] Referral ID Status Reason Start Date Expiration Date Visits Re quested Visits Authorized [id number] Closed 01/23/2024 07/21/2024 1 1 Reason Comments Follow-up Rt heel spur inj Reason Comments Med Refill Reason Comments Consult Surgery consult Reason Comments Post-op 1st post op PF Reason Comments Post-op 22d s/p pfa Consent Or 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 [facility]. provides no warranty or guarantee of the accuracy or completeness of information in this document.
== END 2024-04-24 07:21 | disposition home or self-care (01) ==
LOC: US 07:20
PROVIDERS: PCP Nurse Practitioner; Visit Provider Urology
DX: N20.1 Calculus of ureter (principal); N13.30 Unspecified hydronephrosis; N20.0 Calculus of kidney
CPT/HCPCS: 74018; 76775

== ENCOUNTER 2024-11-11 06:33 | Outpatient (OUT) | payer OTHER, SELFPAY ==
--- OUTSIDE RECORDS SUMMARY | 2024-08-14 09:03 | XMS_ITS ---
Author Name Auto Generated Organization [place] Care Team Providers Care Organ Installer Name Role Phone DIVYA GRANDE Attending Unavailable DIVYA GRANDE Attending Unavailable Cecelia Leung Attending Unavailable Vanessa Schultz Attending Unavailable Vanessa Schultz Attending Unavailable Vanessa Schultz Attending Unavailable Vanessa Schultz Attending Unavailable Vanessa Schultz Admitting Unavailable Vanessa Schultz Referring Unavailable Cecelia Leung Attending Unavailable JENNA GARCIA Attending Unavailable SERA CHAPPELL Referring Unavailable AICHHOLZ, CASSIDY J Primary Care Unavailable AICHHOLZ, CASSIDY J Referring Unavailable AICHHOLZ, CASSIDY J Primary Care Unavailable SHIRA KELLY Admitting Unavailable SHIRA KELLY Attending Unavailable AICHHOLZ, CASSIDY Ulloa Primary Care Unavailable AICLACHO, CASSIDY Attending Unavailable IMELDA GOLDBERG Attending Unavailable BROWN, IMELDA A Attending Unavailable BROWN, IMELDA A Attending Unavailable BROWN, IMELDA A Attending Unavailable AICHHOLJames, CASSIDY Attending Unavailable BROWN, IMELDA A Attending Unavailable BROWN, IMELDA A Attending Unavailable AICHHOLZ, CASSIDY Attending Unavailable BROWN, IMELDA A Attending Unavailable BROWN, IMELDA A Attending Unavailable PROBLEMS DATE TYPE CONDITION / CODE ATTENDING STATUS [facility] 04/07/2024 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) [facility] Admitting Diagnosis Nonrheumatic tricuspid (valve) insufficiency / I36.1(ICD-10) [facility] 02/20/2024 Admitting Diagnosis Nonrheumatic mitral (valve) insufficiency / I34.0(ICD-10) [facility] 02/20/2024 Admitting Diagnosis Encounter for other preprocedural examination / Z01.818(ICD-10) [facility] 02/20/2024 Admitting Diagnosis Atherosclerotic heart disease of [place] coronary artery without angina pectoris / I25.10(ICD-10) [facility] 02/20/2024 Admitting Diagnosis Hyperlipidemia, unspecified / E78.5(ICD-10) [facility] 02/20/2024 Admitting Diagnosis Other ill-defined heart diseases / I51.89(ICD-10) [facility] 02/18/2024 Unknown Encounter for screening for malignant neoplasm, site unspecified / Z12.9(ICD-10) SHIRA KELLY [facility] 02/18/2024 Unknown screening / UNK(Unknown) SHIRA KELLY [facility] 02/05/2024 Unknown Encounter for screening for malignant neoplasm of colon / Z12.11(ICD-10) JENNA GARCIA [facility] 02/05/2024 Unknown Colon Cancer Screening / FREETEXT(AOF) [facility]ED[facility] No Procedure Records Found RESULTS AMBULATORY VISIT SUMMARY Observed: 05/02 12:58 PM Status: F Source: [facility] Ambulatory Visit Summary JORDAN HOLLY :1960 Visit Date:05/02/2024 Ambulatory Visit Instructions Your Diagnosis Kidney stone Anticoagulated Glucosuria Your Care Team Attending Physician - DASH Leung APRN, Cecelia Fortune Primary Care Physician - CASSIDY BERUMEN CNP [...] catheter or stent (separate procedure) (11/03/2023), Appendectomy, Colonoscopy, Placement of stent in cardiac conduit, Procedure on foot, Tonsillectomy, Vaginal hysterectomy, with total or partial vaginectomy;. Discharge Vitals Height 176 cm Height 69 in Weight 84 kg Weight 185.188 lb BMI 27.12 Medications What How Much When Instructions Unchanged [...] Essential hypertension History of kidney stones Hyperlipidemia Kidney stone Type 2 diabetes mellitus without complications Ureteral stone with hydronephrosis Patient Survey You may receive a survey via text or e-mail asking about your office visit. Please share your experience with us by completing your survey. We appreciate your feedback and thank you for choosing us for your care. Education Materials Kidney Stones Kidney stones are rock-like masses that form inside of the kidneys. Kidneys are organs that make pee (urine). A kidney stone may move into other parts of the urinary tract, including: ??? The tubes that connect the kidneys to the bladder (ureters). ??? The bladder. ??? The tube that carries urine out of the body (urethra). Kidney stones can cause very bad pain and can block the flow of pee. The stone usually leaves your body through your pee. A doctor may need to take out the stone. What are the causes? Kidney stones may be caused by: ??? Too much calcium in the body. This may be caused by too much parathyroid hormone in the blood. ??? Uric acid crystals in the bladder. The body makes uric acid when you eat certain foods. ??? Narrowing of one or both of the ureters. ??? A kidney blockage that you were born with. ??? Past surgery on the kidney or the ureters. What increases the risk? You are more likely to develop this condition if: ??? You have had a kidney stone in the past. ??? Other people in your family have had kidney stones. ??? You do not drink enough water. ??? You eat a diet that is high in protein, salt (sodium), or sugar. ??? You are very overweight (obese). What are the signs or symptoms? Symptoms of a kidney stone may include: ??? Pain in the side of the belly, right below the ribs. Pain usually spreads to the groin. ??? Needing to pee often or right away. ??? Pain when peeing. ??? Blood in your pee. ??? Feeling like you may vomit (nauseous). ??? Vomiting. ??? Fever and chills. How is this treated? Treatment depends on the size, location, and makeup of the kidney stones. The stones will often pass out of the body when you pee. You may need to: ??? Drink more fluid to help pass the stone. ? In some cases, you may be given fluids through an IV tube at the hospital. ??? Take medicine for pain. ??? Change your diet to help keep kidney stones from coming back. Sometimes, you may need: ??? A procedure to break up kidney stones using a beam of light (laser) or shock waves. ??? Surgery to remove the kidney stones. Follow these instructions at home: Medicines ??? Take qxun-plx-jyvgvkf and prescription medicines only as told by your doctor. ??? Ask your doctor if the medicine prescribed to you requires you to avoid driving or using machinery. Eating and drinking ??? Drink enough fluid to keep your pee pale yellow. ? You may be told to drink at least 8???10 glasses of water each day. This will help you pass the stone. ??? If told by your doctor, change your diet. You may be told to: ? Limit how much salt you eat. ? Eat more fruits and vegetables. ? Limit how much meat, poultry, fish, and eggs you eat. ??? Follow instructions from your doctor about what you may eat and drink. General instructions ??? Collect pee samples as told by your doctor. You may need to collect a pee sample: ? 24 hours after a stone comes out. ? 8???12 weeks after a stone comes out, and every 6???12 months after that. ??? Strain your pee every time you pee. Use the strainer that your doctor recommends. ??? Do not throw out the stone. Keep it so that it can be tested by your doctor. ??? Keep all follow-up visits. You may need X-rays and ultrasounds to make sure the stone has come out. How is this prevented? To prevent another kidney stone: ??? Drink enough fluid to keep your pee pale yellow. This is the best way to prevent kidney stones. ??? Eat healthy foods. ??? Avoid certain foods as told by your doctor. You may be told to eat less protein. ??? Stay at a healthy weight. Where to find more information ??? National Kidney Foundation (NKF): kidney.org ??? U[employer] Care Foundation (UCF): urologyhealth.org Contact a doctor if: ??? You have pain that gets worse or does not get better with medicine. Get help right away if: ??? You have a fever or chills. ??? You get very bad pain. ??? You get new pain in your belly. ??? You faint. ??? You cannot pee. This information is not intended to replace advice given to you by your health care provider. Make sure you discuss any questions you have with your health care provider. Document Revised: 12/15/2022 Document Reviewed: 12/15/2022 [employer] Patient Education ??? 2023 [employer] Dietary Guidelines to Help Prevent Kidney Stones [...] for following this plan? Reading food labels ??? Choose foods with no salt added or low-salt labels. Limit your salt (sodium) intake to less than 1,500 mg a day. ??? Choose foods with calcium for each meal and snack. Try to eat about 300 mg of calcium at each meal. Foods that contain 200???500 mg of calcium a serving include: ? 8 oz (237 mL) of milk, oorkanc-oikpayitlwdj-gfqnm milk, and calcium- fortifiedfruit juice. Calcium-fortified means that calcium has been [...] of sardines or mackerel. Most people need 1,000???1,500 mg of calcium a day. Talk to your dietitian about how much calcium is recommended for you. Shopping ??? Buy plenty of fresh fruits and vegetables. Most people do not need to avoid fruits and vegetables, even if these foods contain nutrients that may contribute to kidney stones. ??? When shopping for convenience foods, choose: ? Whole pieces of fruit. ? Pre-made salads with dressing on the side. ? Low-fat fruit and yogurt smoothies. ??? Avoid buying frozen meals or prepared deli foods. These can be high in sodium. ??? Look for foods with live cultures, such as yogurt and kefir. ??? Choose high-fiber grains, such as whole-wheat breads, oat bran, and wheat cereals. Cooking ??? Do not add salt to food when cooking. Place a salt shaker on the table and allow each person to add their own salt to taste. ??? Use vegetable protein, such as beans, textured vegetable protein (TVP), or tofu, instead of meat in pasta, casseroles, and soups. Meal planning ??? Eat less salt, if told by your dietitian. To do this: ? Avoid eating processed or pre-made food. ? Avoid eating fast food. ??? Eat less animal protein, including cheese, meat, [...] size of the palm of your hand. ??? Eat at least five servings of fresh fruits and vegetables each day. To do this: ? Keep fruits and vegetables on hand for snacks. ? Eat one piece of fruit or a handful of berries with breakfast. ? Have a salad and fruit at lunch. ? Have two kinds of vegetables at dinner. ??? You may be told to limit foods that are high in a substance called oxalate. These include: ? Spinach (cooked), rhubarb, beets, sweet potatoes, and [place]oan chard. ? Peanuts. ? Potato chips, guamanian fries, and baked potatoes with skin on. ? Nuts and nut products. ? Chocolate. ??? If you regularly take a diuretic medicine, make sure to eat at least 1 or 2 servings of fruits or vegetables that are high in potassium each day. These include: ? Avocado. ? Banana. ? [place], prune, carrot, or tomato juice. ? Baked potato. ? Cabbage. ? Beans and split peas. Lifestyle ??? Drink enough fluid to keep your urine pale yellow. This is the most important thing you can do. Spread your fluid intake throughout the day. ??? If you drink alcohol: ? Limit how much you have to: ? 0???1 drink a day for women who are not . ? 0???2 drinks a day for men. ? Know how much alcohol is in your drink. In the [place] one drink equals one 12 oz bottle of beer (355 mL), one 5 oz glass of wine (148 mL), or one 1??? oz glass of hard liquor (44 mL). ??? Lose weight if told by your health care provider. Work with your dietitian to find an eating plan and weight loss strategies that work best for you. General information ??? Talk to your health care provider and dietitian about taking daily supplements. Depending on your health and the cause of your kidney stones, you may be told: ? Do not take high-dose supplements of vitamin C (1,000 mg a day or more). ? To take a calcium supplement. ? To take a daily probiotic supplement. ? To take other supplements such as magnesium, fish oil, or vitamin B6. ??? Take gljt-qfh-auxsmrg and prescription medicines only as told by [...] Casseroles. Pizza. Lasagna. Frozen meals. Potato chips. Irish fries. The items listed above may not [...] Contact a dietitian for more information. Summary ??? Kidney stones are deposits of minerals and salts that form inside your kidneys. ??? You can lower your risk of kidney stones by making changes to your diet. ??? The most important thing you can do is drink enough fluid. Drink enough fluid to keep your urine pale yellow. ??? Talk to your dietitian about how much calcium you should have each day, and eat less salt and animal protein as told by your dietitian. This information is not intended to replace advice given to you by your health care provider. Make sure you discuss any questions you have with your health care provider. Document Revised: 08/03/2022 Document Reviewed: 08/03/2022 [employer] Patient Education ??? 2023 [employer] 24-Hour Urine Collection Why am I having this test? A 24-hour urine specimen is a lab test that requires you to collect all of your urine for an entire day. This is sometimes called a timed urine test. It can provide more information than a single urine sample. There are many reasons to have this test. Your health care provider may order the test to check for or monitor the following conditions: ??? High blood pressure. ??? Kidney disease. ??? Kidney stones. ??? Urinary tract infections. ??? . ??? Diabetes. How do I prepare for this test? You may be asked to follow a special diet during or before the collection period. Follow any instructions from your health care provider. If no special instructions are given, you may eat and drink normally. ??? Take gfkl-tvq-xdirkmn and prescription medicines only as told by your health care provider. ??? Let your health care provider know about any medicines that you are taking, including ygdv-qii-cqrgjjg medicines, vitamins, herbs, and supplements. ??? Choose a collection day when you can be at home or when you have a place to store the urine. All urine must be collected during the testing period. How do I do a 24-hour urine collection? When you get up in the morning, urinate in the toilet and flush. Write down the time. This will be your start time on the day of collection and your end time on the next morning. ??? From the start time on, all of your urine should be kept in the collection jug that you received from the lab. ??? If the jug that is given to you already has liquid in it, that is okay. Do not throw out the liquid or rinse out the jug. ??? Urinate into a specimen container, such as a urinal or lindsey that sits over the toilet. Pour the urine from the container into the collection jug. Be careful not to spill any of the urine. Use the equipment provided by the lab. ??? Do not let any toilet paper or stool (feces) get into the jug. This will contaminate the sample. ??? Stop collecting your urine 24 hours after you started. Collect the last specimen as close as possible to the end of the 24-hour period. ??? Keep the jug cool in an ice chest or keep it in the refrigerator during collection. ??? When the 24-hour collection is complete, take the jug to the lab as soon as possible. Keep the jug cool in an ice chest while you are bringing it to the lab. What do the results mean? Talk with your health care provider about what your results mean. Questions to ask your health care provider Ask your health care provider, or the department that is doing the test: ??? When will my results be ready? How will I get my results? What are my treatment options? What other tests do I need? What are my next steps? Summary ??? A 24-hour urine specimen is a lab test that requires you to collect all of your urine for an entire day. ??? When you get up in the morning, urinate in the toilet and flush. Write down the time. For the next 24 hours, collect all of your urine in the collection jug that you received from the lab. ??? Keep the jug cool while collecting the urine and while bringing it back to the lab. ??? Take the jug of urine back to the lab as soon as possible after the collection period has ended. This information is not intended to replace advice given to you by your health care provider. Make sure you discuss any questions you have with your health care provider. Document Revised: 10/28/2021 Document Reviewed: 10/28/2021 [employer] Patient Education ??? 2023 [employer] UROLOGY OFFICE/CLINIC NOTE Observed: 11:57 AM Status: F Source: [facility] Urology Office/Clinic Note HPI Staff 63 year old female presents for 6 mo follow up with KUB. Prev dx: Ureteral stone w/ hydro, s/p cysto with L stent placement (11/03/23), kidney stone, anticoagulated. KUB & SHEREE done 04/24/24 Dysuria: no Incomplete bladder emptying: no Hematuria: no Frequency: 2-3 hours Urgency: rarely Nocturia: 2x's Stream: good stream Post void dripping: no Wearing pads/ Depends: no Urge incontinence: no Stress incontinence: no Incontinence without Sensory Awareness: no Abdominal pain: no Flank pain: no History of Present Illness I have reviewed and verified the staff HPI to be accurate for this encounter. Portions of this record may have been created with voice recognition artificial intelligence software, specifically [employer], [employer]d High and or [email or web address]. Substitutions may have occurred due to the inherent limitations of voice recognition and artificial intelligence software. Review of Systems PHQ Score Initial Depression Screen Score: 0 SCORE Physical Exam Vitals & Measurements HT: 69 in HT: 176 cm WT: 84 kg WT: 185.188 lb BMI: 27.12 General: Well developed, well nourished, in no acute distress. Genitourinary: Flank Pain: none. Bladder: nonpalpable. Assessment/Plan KML pt BBS 10 1. Kidney stone (N20.0: Calculus of kidney) hx of stones, has typically passed on own s/p cysto, left stent placement 11/03/23 s/p cysto, left RGP, URS, laser litho, stone extraction, stent exchange 11/14/23 for 9 mm left ureteral stone Stone analysis 11/14/2023 80% Ca ox mono, 20% ca ox dihyd KUB 04/24/2024 negative Renal ultrasound 04/24/2024 - 8 mm nonobstructing right nephrolith Discussed imaging results w/ pt. SHEREE typically overestimates size of stone, but does appear to have decent sized stone present in right kidney. Discussed continued monitoring for stones and size, as may require intervention in the future. Also discussed metabolic workup, in order to prevent stones in the future. Pt declined stating that she is financially recovering from previous year of health needs. She declined any further workup or monitoring at this time. I advised pt to contact office if she wishes to proceed w/ further monitoring or metabolic workup Discussed generalized stone prevention - pt encouraged to increase fluid intake so that he/she producing 2.5L of urine daily. Add 1/4 cup of lemon juice to water throughout the day or can also drink sugar free lemonade or clear soda. Avoid dark danny. Restrict sodium intake. Restrict animal protein. -f/u PRN per pt preference 2. 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 Glucosuria (R81: Glycosuria) >1000 on UA today No signs of blood or infection TYPE II DM, following w/ PCP regarding this -cont to monitor w/ PCP Orders: Urnls Dip Stick Auto w/o Microscopy POC 18833 Follow-up No qualifying data available Patient Education Kidney Stones, Xfmz-ho-Ngsf Dietary Guidelines to Help Prevent Kidney Stones 24-Hour Urine Collection Problem List/Past Medical History Ongoing Acute embolism and thrombosis of unspecified deep veins of unspecified lower extremity Anticoagulated Aspirin long-term use CAD (coronary artery disease) Essential hypertension History of kidney stones Hyperlipidemia Kidney stone Type 2 diabetes mellitus without complications Ureteral stone with hydronephrosis Historical No qualifying data Procedure/Surgical History Cystotomy, with insertion of ureteral catheter or stent (separate procedure) (11/03/2023), Appendectomy, Colonoscopy, Placement of stent in cardiac conduit, Procedure on foot, Tonsillectomy, Vaginal hysterectomy, with total or partial vaginectomy;. Medications aspirin 81 mg oral capsule, Oral atorvastatin 80 mg Tab, 80 mg= 1 tab(s) lisinopril 10 mg Tab, 10 mg= 1 tab(s) metformin 500 mg Tab, 500 mg= 1 tab(s) metoprolol succinate 25 mg ER Tab, 25 mg= 1 tab(s), Oral, Daily prasugrel 10 mg Tab, 10 mg= 1 tab(s), Oral, Daily Allergies penicillin (Anaphylaxis) Social History Alcohol - Denies Alcohol Use, 11/12/2023 Tobacco Never (less than 100 in lifetime) Tobacco Use:., 05/02/2024 Family History Alcoholism: Father. Congenital heart disease: Grandparent. Dementia: Mother. Diabetes mellitus: Grandparent. Immunizations Vaccine Date Status influenza virus vaccine, inactivated 01/30/2024 Recorded influenza virus vaccine, inactivated 01/30/2023 Recorded zoster vaccine, inactivated 11/09/2022 Recorded zoster vaccine, inactivated 07/04/2022 Recorded influenza virus vaccine, inactivated 02/09/2022 Recorded SARS-CoV-2 (COVID-19) [id number] 02/09/2022 Recorded SARS-CoV-2 (COVID-19) mRNA BNT-162b2 vax 03/22/2021 Recorded SARS-CoV-2 (COVID-19) mRNA BNT-162b2 vax 08/03/2020 Recorded SARS-CoV-2 (COVID-19) mRNA BNT-162b2 vax 07/13/2020 Recorded influenza virus vaccine, inactivated 05/24/2017 Recorded influenza virus vaccine, inactivated 02/05/2016 Recorded influenza virus vaccine, inactivated 05/31/2014 Recorded diphtheria/pertussis, acel/tetanus adult 03/27/2011 Recorded Lab Results Ambulatory Point of Care Results Bilirubin Urine Dipstick: Negative (05/02/24 11:38:00) Blood Urine Dipstick: Negative (05/02/24 11:38:00) Glucose Urine Dipstick: Negative (05/02/24 11:38:00) Ketones Urine Dipstick: Negative (05/02/24 11:38:00) Leukocytes Urine Dipstick: Negative (05/02/24 11:38:00) Nitrite Urine Dipstick: Negative (05/02/24 11:38:00) Protein Urine Dipstick: Negative (05/02/24 11:38:00) Specific [place] Urine Dipstick: >=1.030 (05/02/24 11:38:00) Urine Appearance Urine Dipstick: Clear (05/02/24 11:38:00) Urine Color Urine Dipstick: Yellow (05/02/24 11:38:00) Urobilinogen Urine Dipstick: Normal 0.2-1 EU/dl (05/02/24 11:38:00) pH Urine Dipstick: 5.5 (05/02/24 11:38:00) Result Comment: Electronical ly Signed By: DASH Leung APRN, [place] X\.br\Date and Time Signed: 05/02/24 11:58 EST PATIENT EDUCATION Observed: 05/02/2024 11:57 AM Status: C Source: [facility] Patient Education Nephrology Dietary Guidelines to Help Prevent Kidney [...] for following this plan? Reading food labels ??? Choose foods with no salt added or low-salt labels. Limit your salt (sodium) intake to less than 1,500 mg a day. ??? Choose foods with calcium for each meal and snack. Try to eat about 300 mg of calcium at each meal. Foods that contain 200?500 mg of calcium a serving include: ? 8 oz (237 mL) of milk, pxbtzqb-rmpaioxdqlgz-elpkv milk, and calcium- fortifiedfruit juice. Calcium-fortified means that calcium has been [...] much calcium is recommended for you. Shopping ??? Buy plenty of fresh fruits and vegetables. Most people do not need to avoid fruits and vegetables, even if these foods contain nutrients that may contribute to kidney stones. ??? When shopping for convenience foods, choose: ? Whole pieces of fruit. ? Pre-made salads with dressing on the side. ? Low-fat fruit and yogurt smoothies. ??? Avoid buying frozen meals or prepared deli foods. These can be high in sodium. ??? Look for foods with live cultures, such as yogurt and kefir. ??? Choose high-fiber grains, such as whole-wheat breads, oat bran, and wheat cereals. Cooking ??? Do not add salt to food when cooking. Place a salt shaker on the table and allow each person to add their own salt to taste. ??? Use vegetable protein, such as beans, textured vegetable protein (TVP), or tofu, instead of meat in pasta, casseroles, and soups. Meal planning ??? Eat less salt, if told by your dietitian. To do this: ? Avoid eating processed or pre-made food. ? Avoid eating fast food. ??? Eat less animal protein, including cheese, meat, [...] size of the palm of your hand. ??? Eat at least five servings of fresh fruits and vegetables each day. To do this: ? Keep fruits and vegetables on hand for snacks. ? Eat one piece of fruit or a handful of berries with breakfast. ? Have a salad and fruit at lunch. ? Have two kinds of vegetables at dinner. ??? You may be told to limit foods that are high in a substance called oxalate. These include: ? Spinach (cooked), rhubarb, beets, sweet potatoes, and Samoan chard. ? Peanuts. ? Potato chips, guamanian fries, and baked potatoes with skin on. ? Nuts and nut products. ? Chocolate. ??? If you regularly take a diuretic medicine, make sure to eat at least 1 or 2 servings of fruits or vegetables that are high in potassium each day. These include: ? Avocado. ? Banana. ? Cocolalla, prune, carrot, or tomato juice. ? Baked potato. ? Cabbage. ? Beans and split peas. Lifestyle ??? Drink enough fluid to keep your urine pale yellow. This is the most important thing you can do. Spread your fluid intake throughout the day. ??? If you drink alcohol: ? Limit how much you have to: ? 0?1 drink a day for women who are not . ? 0?2 drinks a day for men. ? Know how much alcohol is in your drink. In the [place] one drink equals one 12 oz bottle of beer (355 mL), one 5 oz glass of wine (148 mL), or one 1? oz glass of hard liquor (44 mL). ??? Lose weight if told by your health care provider. Work with your dietitian to find an eating plan and weight loss strategies that work best for you. General information ??? Talk to your health care provider and dietitian about taking daily supplements. Depending on your health and the cause of your kidney stones, you may be told: ? Do not take high-dose supplements of vitamin C (1,000 mg a day or more). ? To take a calcium supplement. ? To take a daily probiotic supplement. ? To take other supplements such as magnesium, fish oil, or vitamin B6. ??? Take bhyw-yvm-tmvcqrw and prescription medicines only as told by [...] Casseroles. Pizza. Lasagna. Frozen meals. Potato chips. Irish fries. The items listed above may not [...] Contact a dietitian for more information. Summary ??? Kidney stones are deposits of minerals and salts that form inside your kidneys. ??? You can lower your risk of kidney stones by making changes to your diet. ??? The most important thing you can do is drink enough fluid. Drink enough fluid to keep your urine pale yellow. ??? Talk to your dietitian about how much calcium you should have each day, and eat less salt and animal protein as told by your dietitian. This information is not intended to replace advice given to you by your health care provider. Make sure you discuss any questions you have with your health care provider. Document Revised: 08/03/2022 Document Reviewed: 08/03/2022 [employer] Patient Education ? 2023 [employer].Urology Kidney Stones Kidney stones are rock-like masses that form inside of the kidneys. Kidneys are organs that make pee (urine). A kidney stone may move into other parts of the urinary tract, including: ??? The tubes that connect the kidneys to the bladder (ureters). ??? The bladder. ??? The tube that carries urine out of the body (urethra). Kidney stones can cause very bad pain and can block the flow of pee. The stone usually leaves your body through your pee. A doctor may need to take out the stone. What are the causes? Kidney stones may be caused by: ??? Too much calcium in the body. This may be caused by too much parathyroid hormone in the blood. ??? Uric acid crystals in the bladder. The body makes uric acid when you eat certain foods. ??? Narrowing of one or both of the ureters. ??? A kidney blockage that you were born with. ??? Past surgery on the kidney or the ureters. What increases the risk? You are more likely to develop this condition if: ??? You have had a kidney stone in the past. ??? Other people in your family have had kidney stones. ??? You do not drink enough water. ??? You eat a diet that is high in protein, salt (sodium), or sugar. ??? You are very overweight (obese). What are the signs or symptoms? Symptoms of a kidney stone may include: ??? Pain in the side of the belly, right below the ribs. Pain usually spreads to the groin. ??? Needing to pee often or right away. ??? Pain when peeing. ??? Blood in your pee. ??? Feeling like you may vomit (nauseous). ??? Vomiting. ??? Fever and chills. How is this treated? Treatment depends on the size, location, and makeup of the kidney stones. The stones will often pass out of the body when you pee. You may need to: ??? Drink more fluid to help pass the stone. ? In some cases, you may be given fluids through an IV tube at the hospital. ??? Take medicine for pain. ??? Change your diet to help keep kidney stones from coming back. Sometimes, you may need: ??? A procedure to break up kidney stones using a beam of light (laser) or shock waves. ??? Surgery to remove the kidney stones. Follow these instructions at home: Medicines ??? Take tcga-ahe-nqedfsr and prescription medicines only as told by your doctor. ??? Ask your doctor if the medicine prescribed to you requires you to avoid driving or using machinery. Eating and drinking ??? Drink enough fluid to keep your pee pale yellow. ? You may be told to drink at least 8?10 glasses of water each day. This will help you pass the stone. ??? If told by your doctor, change your diet. You may be told to: ? Limit how much salt you eat. ? Eat more fruits and vegetables. ? Limit how much meat, poultry, fish, and eggs you eat. ??? Follow instructions from your doctor about what you may eat and drink. General instructions ??? Collect pee samples as told by your doctor. You may need to collect a pee sample: ? 24 hours after a stone comes out. ? 8?12 weeks after a stone comes out, and every 6?12 months after that. ??? Strain your pee every time you pee. Use the strainer that your doctor recommends. ??? Do not throw out the stone. Keep it so that it can be tested by your doctor. ??? Keep all follow-up visits. You may need X-rays and ultrasounds to make sure the stone has come out. How is this prevented? To prevent another kidney stone: ??? Drink enough fluid to keep your pee pale yellow. This is the best way to prevent kidney stones. ??? Eat healthy foods. ??? Avoid certain foods as told by your doctor. You may be told to eat less protein. ??? Stay at a healthy weight. Where to find more information ??? National Kidney Foundation (NKF): kidney.org ??? U[employer] Care Foundation (UCF): urologyhealth.org Contact a doctor if: ??? You have pain that gets worse or does not get better with medicine. Get help right away if: ??? You have a fever or chills. ??? You get very bad pain. ??? You get new pain in your belly. ??? You faint. ??? You cannot pee. This information is not intended to replace advice given to you by your health care provider. Make sure you discuss any questions you have with your health care provider. Document Revised: 12/15/2022 Document Reviewed: 12/15/2022 [employer] Patient Education ? 2023 [employer]24-Hour Urine Collection Why am I having this test? A 24-hour urine specimen is a lab test that requires you to collect all of your urine for an entire day. This is sometimes called a timed urine test. It can provide more information than a single urine sample. There are many reasons to have this test. Your health care provider may order the test to check for or monitor the following conditions: ??? High blood pressure. ??? Kidney disease. ??? Kidney stones. ??? Urinary tract infections. ??? . ??? Diabetes. How do I prepare for this test? You may be asked to follow a special diet during or before the collection period. Follow any instructions from your health care provider. If no special instructions are given, you may eat and drink normally. ??? Take xyyg-hyy-qsbqhap and prescription medicines only as told by your health care provider. ??? Let your health care provider know about any medicines that you are taking, including rswz-qms-zxyjina medicines, vitamins, herbs, and supplements. ??? Choose a collection day when you can be at home or when you have a place to store the urine. All urine must be collected during the testing period. How do I do a 24-hour urine collection? When you get up in the morning, urinate in the toilet and flush. Write down the time. This will be your start time on the day of collection and your end time on the next morning. ??? From the start time on, all of your urine should be kept in the collection jug that you received from the lab. ??? If the jug that is given to you already has liquid in it, that is okay. Do not throw out the liquid or rinse out the jug. ??? Urinate into a specimen container, such as a urinal or lindsey that sits over the toilet. Pour the urine from the container into the collection jug. Be careful not to spill any of the urine. Use the equipment provided by the lab. ??? Do not let any toilet paper or stool (feces) get into the jug. This will contaminate the sample. ??? Stop collecting your urine 24 hours after you started. Collect the last specimen as close as possible to the end of the 24-hour period. ??? Keep the jug cool in an ice chest or keep it in the refrigerator during collection. ??? When the 24-hour collection is complete, take the jug to the lab as soon as possible. Keep the jug cool in an ice chest while you are bringing it to the lab. What do the results mean? Talk with your health care provider about what your results mean. Questions to ask your health care provider Ask your health care provider, or the department that is doing the test: ??? When will my results be ready? How will I get my results? What are my treatment options? What other tests do I need? What are my next steps? Summary ??? A 24-hour urine specimen is a lab test that requires you to collect all of your urine for an entire day. ??? When you get up in the morning, urinate in the toilet and flush. Write down the time. For the next 24 hours, collect all of your urine in the collection jug that you received from the lab. ??? Keep the jug cool while collecting the urine and while bringing it back to the lab. ??? Take the jug of urine back to the lab as soon as possible after the collection period has ended. This information is not intended to replace advice given to you by your health care provider. Make sure you discuss any questions you have with your health care provider. Document Revised: 10/28/2021 Document Reviewed: 10/28/2021 [employer] Patient Education ? 2023 [employer] PROGRESS Observed: 04/07/2024 11:15 AM Status: COMPLETED Source: [facility] Cardiology Clinic Note Chief Complaint: Patient [...] the LAD on 06/21. Was discharged from [facility] on 06/22. She thinks the metoprolol may [...] history of Coronary artery disease, Diabetes mellitus (CMS/HCC), Hyperlipidemia, and Hypertension. 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 I reassured her that at her age, it is doubtful that this will cause significant abnormalities apart from the previous SVT. I provided printed information regarding Ebstein's anomaly. Can be associated with ASD, Rrunc-Rtntytfyz-Sabnu syndrome, pulmonic stenosis, bicuspid or atretic aortic valve, subaortic stenosis, coarctation, mitral valve prolapse, VSD and chromosomal abnormalities Ebstein's anomaly is often mild and doesn't require treatment. However, adults with Ebstein's anomaly should be monitored regularly by a casing running machine tender, and most will need yearly echocardiograms. Return to clinic in 1 year or sooner should problems arise. Divya Grande MD, MPH, FACC, [facility], [facility] Interventional Cardiology Pager Email: [email or web address] OFFICE VISIT Observed: 04/07/2024 11:15 AM Status: COMPLETED Source: [facility] [id number] Jordan Holly Edgardo [birth year] F Date Provider Department Center 04/07/2024 271-DIVYA GRANDE CARD [facility] Family History Problem Relation Age of Onset Coronary artery disease Mother Diabetes Paternal Grandmother Family Status - Relation Status Age at Mother Paternal Grandmother Level of Service:91943 HI OFFICE/OUTPATIENT ESTABLISHED LOW MDM 20 MIN 36 Observed: 03/11/2024 4:10 PM Status: COMPLETED Source: [facility] Regarding echo ----- Message ----- From: Divya Grande MD Sent: 03/06/2024 7:20 PM EST To: Tori Galdamez MA Subject: RE: Scan Please let the patient know the echo shows a valve disorder that may need further work-up. I'd like to see her in follow up in the next 2-4 weeks please. Gave her the message TELEPHONE Observed: 03/11/2024 12:00 AM Status: COMPLETED Source: [facility] [id number] Jordan Holly [birth year] F Date Provider Department Center 03/11/2024 [id number] [facility] Family History Problem Relation Age of Onset Coronary artery disease Mother Diabetes Paternal Grandmother Family Status - Relation Status Age at Mother Paternal Grandmother PROGRESS Observed: 02/20/2024 9:15 AM Status: COMPLETED Source: [facility] Cardiology Clinic Note Chief Complaint: New [...] the LAD on 06/21. Was discharged from [facility] on 06/22. She thinks the metoprolol may [...] should problems arise. Divya Grande MD, MPH, [facility], [facility], [facility] Interventional Cardiology Pager Email: [email or web address] OFFICE VISIT Observed: 02/20/2024 9:15 AM Status: COMPLETED Source: [facility] [id number] Jordan Holly [birth year] F Date Provider Department Center 02/20/2024 271-DIVYA GRANDE CARD [facility] Family History Problem Relation Age of Onset Coronary artery disease Mother Diabetes Paternal Grandmother Family Status - Relation Status Age at Mother Paternal Grandmother Level of Service:63673 HI OFFICE/OUTPATIENT NEW MODERATE MDM 45 MINUTES REMINDERS Observed: 11/20/2023 9:13 AM Status: C Source: [facility] Reminders From: Lashanda Cummins To: EU - Recalls Lue; Sent: 11/20/2023 09:13:00 EDT Show up: 04/07/2024 09:12:00 EST Subject: 6 Month w/[facility] Due Date/Time: 05/05/2024 08:59:00 EST Reminder/Recall Per KML, patient to have 6 month f/u with [facility]. Patient prefers [facility]. Need to add the orders and then send to [facility]. Patient has a 6 month f/u scheduled for 05/05/24 @ 12:30 PM in [place]. (Patient wanted the f/u prior to the beginning of the year due to insurance cost/concerns.) Orders were created and sent to [facility]. Patient is scheduled for f/u with Cecelia on 05/02/24. addressed at office visit on 05/02 OPERATIVE REPORT Observed: 11/20/2023 8:55 AM Status: F Source: [facility] Operative Report Patient: JORDAN HOLLY Age: 63 years Sex: Female : 1960 Associated Diagnoses: None Author: Vanessa Schultz MD Procedure Operative Information Details: Date/ Time: 11/20/2023 08:55:00. Pre-Op Dx: Encounter for removal of ureteral stent ([id number] Z46.6, Discharge, Medical). Post-Op Dx: Same. Anesthesia Type: Local. Procedure: Local Cystoscopy with Stent Removal. Complications: None. Risks/Benefits/Informed Consent: Surgical risks, benefits, details of the [...] opts for dietary modifications and increased fluids. Result Comment: Electronical ly Signed By: Vanessa Schultz MD\.br\Date and Time Signed: 11/20/23 08:56 EDT PATIENT EDUCATION Observed: 11/20/2023 8:54 AM Status: F Source: [facility] Patient Education Cystoscopy with Stent Removal ? [...] ? 8 oz (237 mL) of milk, kqdchfp-jnmqwntjenhi-imydo milk, and calcium- fortifiedfruit juice. Calcium-fortified means that calcium has been [...] Spinach (cooked), rhubarb, beets, sweet potatoes, and Samoan chard. ? Peanuts. ? Potato chips, guamanian fries, and baked potatoes with skin on. ? Nuts and nut products. ? Chocolate. ? If you regularly take a diuretic medicine, make sure to eat at least 1 or 2 servings of fruits or vegetables that are high in potassium each day. These include: ? Avocado. ? Banana. ? Cocolalla, prune, carrot, or tomato juice. ? Baked [...] glass of wine (148 mL), or one 1? oz glass of hard liquor (44 mL). ? Lose weight if told by your health care provider. Work with your dietitian to find an eating plan and weight loss strategies that work best for you. General information ? Talk to your health care provider and dietitian about taking daily supplements. Depending on your health and the cause of your kidney stones, you may be told: ? Do not take high-dose supplements of vitamin C (1,000 mg a day or more). ? To take a calcium supplement. ? To take a daily probiotic supplement. ? To take other supplements such as magnesium, fish oil, or vitamin B6. ? Take mqau-aql-lxkykja and prescription medicines only as told by [...] Casseroles. Pizza. Lasagna. Frozen meals. Potato chips. Irish fries. The items listed above may not [...] Contact a dietitian for more information. Summary ? Kidney stones are deposits of minerals and salts that form inside your kidneys. ? You can lower your risk of kidney stones by making changes to your diet. ? The most important thing you can do is drink enough fluid. Drink enough fluid to keep your urine pale yellow. ? Talk to your dietitian about how much calcium you should have each day, and eat less salt and animal protein as told by your dietitian. This information is not intended to replace advice given to you by your health care provider. Make sure you discuss any questions you have with your health care provider. Document Revised: 08/03/2022 Document Reviewed: 08/03/2022 [employer] Patient Education ? 2022 [employer]. OUTPATIENT SURGERY DISCHARGE INSTRUCTION Observed: 11/20/2023 8:54 AM Status: F Source: [facility] Outpatient Surgery Discharge Instruction [address] [address] Patient Discharge Instructions PERSON INFORMATION [...] Follow up: With: Address: When: Vanessa Schultz [address] [place] [address] [phone] Business (1) [address], [address] [address] [phone] Business (1) Comments: Office to schedule follow [...] ? 8 oz (237 mL) of milk, zhdgayl-sxorueqwplxa-yjdtx milk, and calcium- fortifiedfruit juice. Calcium-fortified means that calcium has been [...] Spinach (cooked), rhubarb, beets, sweet potatoes, and Samoan chard. ? Peanuts. ? Potato chips, guamanian fries, and baked potatoes with skin on. ? Nuts and nut products. ? Chocolate. ? If you regularly take a diuretic medicine, make sure to eat at least 1 or 2 servings of fruits or vegetables that are high in potassium each day. These include: ? Avocado. ? Banana. ? Cocolalla, prune, carrot, or tomato juice. ? Baked [...] glass of wine (148 mL), or one 1? oz glass of hard liquor (44 mL). ? Lose weight if told by your health care provider. Work with your dietitian to find an eating plan and weight loss strategies that work best for you. General information ? Talk to your health care provider and dietitian about taking daily supplements. Depending on your health and the cause of your kidney stones, you may be told: ? Do not take high-dose supplements of vitamin C (1,000 mg a day or more). ? To take a calcium supplement. ? To take a daily probiotic supplement. ? To take other supplements such as magnesium, fish oil, or vitamin B6. ? Take duby-zlr-ofmcflf and prescription medicines only as told by [...] Casseroles. Pizza. Lasagna. Frozen meals. Potato chips. Irish fries. The items listed above may not [...] Contact a dietitian for more information. Summary ? Kidney stones are deposits of minerals and salts that form inside your kidneys. ? You can lower your risk of kidney stones by making changes to your diet. ? The most important thing you can do is drink enough fluid. Drink enough fluid to keep your urine pale yellow. ? Talk to your dietitian about how much calcium you should have each day, and eat less salt and animal protein as told by your dietitian. This information is not intended to replace advice given to you by your health care provider. Make sure you discuss any questions you have with your health care provider. Document Revised: 08/03/2022 Document Reviewed: 08/03/2022 [employer] Patient Education ? 2022 [employer] Cystoscopy with Stent Removal ? Voiding after [...] you have a fever over 100 degrees. [employer] TRACIE L, have received the attached patient education materials/instructions and have verbalized understanding: May we do a follow up call? Yes No I was present when discharge instructions were given Patient Signature Date Clinican/Nurse Signature Date You may receive a survey from [employer] asking you to rate your care experience. Your feedback is important and will help us understand what we do well and how we can improve the quality of care we provide to you, your loved ones and our community. It?s an honor to serve you. Thank you for choosing [facility] INPATIENT PATIENT SUMMARY Observed: 11/04 8:54 AM Status: F Source: [facility] Inpatient Patient Summary [place] [address] Clinical Summary Person Information Name: JORDAN HOLLY Age: 63 Years : 1960 Sex: Female PCP: CASSIDY BERUMEN CNP Marital Status: Race: White Ethnicity: Non- or Language: Moldovan Visit Id: Visit Reason: URETERAL STONE WITH HYDRONEPHROSIS Speciality: Acuity: Enc Type: Outpatient Med Service: Surgery Arrival: 11/20/2023 07:48:23 Discharge: Dispo Type: Address: [address] [place] [address] [phone] Provider Notes: Diagnosis: Encounter for removal of [...] Address: When: Vanessa Schultz [address] [place] [address] [phone] Business (1) [address], [place] [address], [facility] [address] [place] [phone] Business (1) Comments: Office to schedule follow up in 6 months with renal US and KUB. Obtain renal US in 6 weeks to ensure no blockage develops after surgery, will call with results Patient Education Information: Dietary Guidelines to Help Prevent Kidney Stones; EU - Cystoscopy with Stent Removal Discharge Instructions (CUSTOM) MAIN OR INTRAOPERATIVE RECORD Observed: 11/20/2023 8:50 AM Status: F Source: [facility] Main OR Intraoperative Recor d IntraOp Document Type FTURO Summary Primary Physician: Vanessa Schultz MD Finalized Date/Time: 11/20/23 08:53:11 Pt. Name: ETTAJORDAN PATEL/Sex: 1960 Female Med Rec #: [id number] Physician: Vanessa Schultz MD Financial #: [id number] Pt. Type: O Room/Bed: / Admit/Disch: 11/20/23 07:48:23 - Institution: Case Times FTURO Entry 1 Patient Times In Room 11/20/23 08:45:00 Out Room 11/20/23 08:54:00 Procedure Times Start 11/20/23 08:50:00 Stop 11/20/23 08:51:00 Anesthesia Times Last Modified By: Hillary Forman RN 11/20/23 08:53:06 Case Attendance FTURO Entry 1 Entry 2 Entry 3 Case Attendee Antoine PEREZ, Vanessa Forman RN, Hillary Tinsley CST, Pratibha Granger Role Performed Surgeon - Primary Hip Hop Dance Instructor - Primary Scrub - Primary Time In [...] Procedure Yes Primary Surgeon Antoine PEREZ, Vanessa Montgomery Start 11/20/23 08:50:00 Stop 11/20/23 08:51:00 Anesthesia [...] Verified (If Participants Hillary Forman RN, Applicable) Praitbha Tinsley CST Time Out Complete 11/20/23 08:49:00 Allergies Reviewed? Yes Allergies Reviewed Self/Patient With Body Position Frog Legged Prep Area PERINEUM Prep Agents Betadine Solution Skin. Condition Intact, [place], Warm, and Dry Additional None Specimens Collected [...] Hillary Forman RN 11/20/23 08:51:24 Case Comments <None> Finalized By: Hillary Forman RN Document Signatures Signed By: Hillary Forman RN 11/20/23 08:53 MAIN OR PREOPERATIVE RECORD Observed: 8:30 AM Status: C Source: [facility] Main OR Preoperative Record Holding Area Document Type FTURO Summary Primary Physician: Vanessa Schultz MD Finalized Date/Time: 11/20/23 08:20:18 Pt. Name: JORDAN HOLLY/Sex: 1960 Female Med Rec #: [id number] Physician: Vanessa Schultz MD Financial #: [id number] Pt. Type: O Room/Bed: / Admit/Disch: 11/20/23 [...] 08:08 JASON Boyce RN, Ruthann 11/20/23 08:20 AMBULATORY VISIT SUMMARY Observed: 11/11 2:15 PM Status: F Source: [facility] Ambulatory Visit Summary JORDAN HOLLY :1960 Visit [...] including vitamins, herbs, eye drops, creams, and rbtv-rnt-qymwzrw medicines. ? Any problems you or family [...] tells you to take them. ? Taking tfuk-ojg-cegleip medicines, vitamins, herbs, and supplements. Tests You [...] provider says that it is safe. Summary ? Lithotripsy is a treatment that can help break up kidney stones that are too large to pass on their own. ? Lithotripsy is a nonsurgical procedure that crushes a kidney stone with shock waves. ? Generally, this is a safe procedure. However, problems may occur, including damage to the kidney or other organs, infection, or obstruction of the tube that carries urine from the kidney to the bladder (ureter). ? You may have a stent placed in your ureter to help drain your urine. This stent may stay in place for a few weeks. ? After the procedure, you will need to drink plenty of water. You may be asked to strain your urine to collect pieces of the kidney stone for testing. This information is not intended to replace advice given to you by your health care provider. Make sure you discuss any questions you have with your health care provider. Document Revised: 03/20/2022 Document Reviewed: 12/26/2021 [employer] Patient Education ? 2022 [employer]. AMBULATORY VISIT SUMMARY Observed: 11/11 2:15 PM Status: F Source: [facility] Ambulatory Visit Summary JORDAN HOLLY :1960 Visit [...] including vitamins, herbs, eye drops, creams, and ejvm-uow-ztwstol medicines. ? Any problems you or family [...] tells you to take them. ? Taking jwnm-vzm-sinvpaa medicines, vitamins, herbs, and supplements. Tests You [...] provider says that it is safe. Summary ? Lithotripsy is a treatment that can help break up kidney stones that are too large to pass on their own. ? Lithotripsy is a nonsurgical procedure that crushes a kidney stone with shock waves. ? Generally, this is a safe procedure. However, problems may occur, including damage to the kidney or other organs, infection, or obstruction of the tube that carries urine from the kidney to the bladder (ureter). ? You may have a stent placed in your ureter to help drain your urine. This stent may stay in place for a few weeks. ? After the procedure, you will need to drink plenty of water. You may be asked to strain your urine to collect pieces of the kidney stone for testing. This information is not intended to replace advice given to you by your health care provider. Make sure you discuss any questions you have with your health care provider. Document Revised: 03/20/2022 Document Reviewed: 12/26/2021 [employer] Patient Education ? 2022 [employer] UROLOGY OFFICE/CLINIC NOTE Observed: 12/2023 2:05 PM Status: F Source: [facility] Urology Office/Clinic Note Chief Complaint Dr. Tamez [...] new to our office due to recent H ER visit for 7 mm left ureteral stone. S/p hysterectomy. BBSQ 19 (stent) 1. Ureteral stone with hydronephrosis (N13.2: Hydronephrosis with renal and ureteral calculous obstruction) Hx of stones. Has always passed on her own. Last episode was >12 mos ago. Pt presented to [facility] ER 11/01/23 with abdominal pain, right and left lower quadrant. CT AP wo IV con 11/01/23 - 7.7 mm proximal left ureterolith. Mild left hydroureteronephrosis. Mild left perinephric stranding and asymmetric enlargement. Labs 11/01/23 Cr 0.93, eGFR >60. UA 11/01/[address] Tamez's note, culture pending but there are no results on Clinisync. IVPB Rocephin. Urology was not consulted at the point due to no call coverage. Pt was discharged home with Flomax, Keflex, and [place] and told to follow up with our office. Pt presented back to [facility] ER 11/02/23 due to left flank pain and left lower quadrant pain. KUB 11/02/23 [facility] - suspected 9 mm left ureterolith. [...] laser lithotripsy, stent removal vs exchange. Risks listed above -Pt prefers stent removal IO rather than self removal via string -Complete metabolic workup once stone free 2. 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 Has 3 stents which were placed 3 years ago. Pt states she is able to hold her blood thinners. Has not seen a casing running machine tender recently. Elevated risk for periop complications. -Cont holding in prep for surgery. Will defer to anesthesia regarding cardiac clearance, pt recently underwent anesthesia for stent placement at [facility] 3. History of kidney stones (Z87.442: Personal history of urinary calculi) Hx of stones. Has always passed on her own. Last episode was >12 mos ago. -Metabolic workup after acute stone event Follow-up With When Contact Information Antoine PEREZ, Vanessa Montgomery, URL, URO Additional Instructions: Sched cysto, L urs, laser litho w/ poss stent/exchange Patient Education Lithotripsy I, Jennifer Ashley, personally scribed for Dr. Schultz on 11/12/2023 14:05:27. . Documentation recorded by the scribe, Jennifer Ashley, accurately reflects the services(s) I performed and decisions made by me. Authenticated by Dr. Schultz on 11/12/2023 14:13:51. Problem List/Past Medical History Ongoing Acute embolism and thrombosis of unspecified deep veins of unspecified lower extremity Anticoagulated Aspirin long-term use CAD (coronary artery disease) Essential hypertension Hyperlipidemia Type 2 diabetes mellitus without complications Ureteral stone with hydronephrosis Historical No qualifying data Procedure/Surgical History Cystotomy, with insertion of ureteral catheter or stent (separate procedure) (11/03/2023), Appendectomy, Placement of stent in cardiac conduit, Tonsillectomy, Vaginal hysterectomy, with total or partial vaginectomy;. Medications aspirin 81 mg oral capsule, Oral atorvastatin 80 mg Tab, 80 mg= 1 tab(s) lisinopril 10 mg Tab, 10 mg= 1 tab(s) metformin 500 mg Tab, 500 mg= 1 tab(s) metoprolol succinate 25 mg ER Tab, 25 mg= 1 tab(s), Oral, Daily prasugrel 10 mg Tab, 10 mg= 1 tab(s), Oral, Daily Allergies penicillin (Anaphylaxis) Social History Alcohol - Denies Alcohol Use, 11/12/2023 Tobacco Never (less than 100 in lifetime) Tobacco Use:., 11/12/2023 Family History Alcoholism: Father. Congenital heart disease: Grandparent. Dementia: Mother. Diabetes mellitus: Grandparent. Result Comment: Electronical ly Signed By: Vanessa Schultz MD\.br\Date and Time Signed: 11/12/23 14:14 EDT\.br\Electronically Co-Signed By: Jennifer Ashley\.br\Date and Time Co-Signed: 11/12/23 14:07 EDT PATIENT EDUCATION Observed: 11/12/2023 1:56 PM Status: F Source: [facility] Patient Education Nephrology Lithotripsy Lithotripsy is a [...] including vitamins, herbs, eye drops, creams, and azkl-uwh-fdbksxo medicines. ? Any problems you or family [...] tells you to take them. ? Taking hkqr-gez-rbgbiiu medicines, vitamins, herbs, and supplements. Tests You [...] provider says that it is safe. Summary ? Lithotripsy is a treatment that can help break up kidney stones that are too large to pass on their own. ? Lithotripsy is a nonsurgical procedure that crushes a kidney stone with shock waves. ? Generally, this is a safe procedure. However, problems may occur, including damage to the kidney or other organs, infection, or obstruction of the tube that carries urine from the kidney to the bladder (ureter). ? You may have a stent placed in your ureter to help drain your urine. This stent may stay in place for a few weeks. ? After the procedure, you will need to drink plenty of water. You may be asked to strain your urine to collect pieces of the kidney stone for testing. This information is not intended to replace advice given to you by your health care provider. Make sure you discuss any questions you have with your health care provider. Document Revised: 03/20/2022 Document Reviewed: 12/26/2021 [employer] Patient Education ? 2022 [employer] ALLERGIES DATE TYPE / CODE NAME / CODE REACTION SEVERITY SOURCE 10/10/2016 Drug Class/575696475 (SNOMED CT) PENICILLINS Anaphylaxis~Other~ Rash~Sob High [facility] 10/10/2016 Drug Class~NON-CBORD /907269791(SNOM ED CT) PENICILLINS Sob~Rash High [facility]/554868685(SN OMED CT) penicillin 03627086 [facility] ENCOUNTERS ADMIT/DISCHARGE ACCOUNT NUMBER ADMITTING ENCOUNTER CLASS LOCATION SOURCE 08/14/2024/08/15/19 [id number] Ambulatory Building:[facility] EPIC 06/12/2024/06/12/19 25 [id number] Ambulatory Building:NO MS CI POD [facility] EPIC 05/02/2024/05/02/20 24 [id number] [place] [facility] 05/02/2024/05/02/20 24 [id number] Ambulatory EU [place]:EU [place] : Exam 4 [facility] 05/01/2024/05/01/20 24 [id number] Ambulatory Building:NO MS CI POD [facility] EPIC 04/17/2024/04/17/20 24 [id number] Ambulatory Building:NO [place] CI POD [facility] EPIC 04/17/2024/04/17/20 24 [id number] Ambulatory Building:[facility] 04/07/2024/04/07/20 24 [id number] Ambulatory Building:[facility] 03/27/2024/03/27/20 24 [id number] Ambulatory Building:NO MS CI POD [facility] EPIC 03/13/2024/03/13/20 24 [id number] Ambulatory Building:NO [place] CI POD [facility] EPIC 02/28/2024/02/28/20 24 [id number] Ambulatory Building:NO [place] CI POD [facility] EPIC 02/20/2024/02/20/20 24 [id number] Ambulatory Building:[facility] 02/18/2024/02/18/20 24 [id number] SHIRA KELLY Inpatient Encounter Building:PF M_PERIOPRoo m: POOLBed: [facility] 02/14/2024/02/14/20 24 [id number] Ambulatory Building:NO MS CI POD [facility] EPIC 02/12/2024/02/12/20 24 [id number] Ambulatory Building:PF M_PAT [facility] 02/05/2024/02/05/20 24 [id number] Ambulatory Buildin [address] [facility] 01/31/2024/01/31/20 24 [id number] Ambulatory Building:NO MS CI POD [facility] EPIC 01/02/2024/01/02/20 24 [id number] [facility] EPIC 11/20/2023/11/20/19 24 [id number] Vanessa Schultz Ambulatory FTMCBuildin g:FT.URO [facility] 11/14/2023/11/14/19 24 [id number] Ambulatory [place] [facility] 11/14/2023/11/14/19 24 [id number] Ambulatory [place] [facility] 11/12/2023/11/12/19 24 [id number] Ambulatory EU [place]:EU [place] : Exam 2 [facility] PAYERS ENCOUNTER GUARANTOR PAYER SUBSCRIBER SOURCE 08/14/2024 JORDAN [place]B: [place] [address]Uyx: (HP) Primary Insurance:PLAYSTUDIOSPolicy Number: [id number] Date:2024-05-07 JORDAN MCCAULEYB: [id number] [place] [address] [facility] EPIC 06/12/2024 JORDAN [place]CCAULEYB: [place] [address]Wre: (HP) Primary Insurance:PLAYSTUDIOSPolicy Number: [id number] Date:2024-05-07 JORDAN MCCAULEYB: [id number] [place] [address] [facility] EPIC 05/02/2024 JORDANBETY [facility]LLYDOB: [facility] ~(4 19 (HP) Primary Insurance:Miscellaneous Insurance CompanyPolicy Number: [id number] Date:[id number] [address] [address]QE: [phone] JORDAN DELEON [facility] 05/02/2024 JORDANBETY HOLLYDOB: N [facility] ~(4 19 (HP) Primary Insurance:Miscellaneous Insurance CompanyPolicy Number: [id number] Date:3057-42-04GD [address] [address]IO: [phone] JORDAN DELEON [facility] 05/01/2024 JORDANBETY [place]LLYDOB: [place] [address]Rhb: (HP) Primary Insurance:CAITLIN Hilario Number: [id number] Date:2022-05-07 JORDAN HOLLYDOB: [id number] [place] [address] [facility] EPIC 04/17/2024 JORDAN [place]LLYDOB: [place] [address]Dit: (HP) Primary Insurance:CAITLIN ALEJANDRAPolicy Number: [id number] Date:2022-05-07 JORDAN HOLLYDOB: [id number] [place] [address] [facility] EPIC 04/17/2024 JORDAN GUAMANDADOB: [place] [address]Vqh: (HP) Primary Insurance:AMBJAREDRadha MARTINEZSal Number: [id number] Date:2022-05-07 JORDAN MCCAULEYB: [id number] [address] [facility] [place] [address] [facility] EPIC 04/07/2024 Primary Insurance:SCIONHEALTH PLANPolicy Number: [id number] Date:2023-05-07 JORDAN L GARRICKB: [id number] [address] [facility] [place] [address] [facility] 03/27/2024 JORDAN GUAMANDADOB: N [facility] [place] [address]Nxy: (HP) Primary Insurance:OLERadha MARTINEZSal Number: [id number] Date:2022-05-07 JORDAN GUAMANDADOB: [id number] [facility] [place] [address] [facility] EPIC 03/13/2024 JORDAN GUAMANDADOB: N [facility] [place] [address]Wsu: (HP) Primary Insurance:KIRSTINJAREDRadha MARTINEZSal Number: [id number] Date:2022-05-07 JORDAN HOLLYDOB: [id number] [address] [facility] [place] [address] [facility] EPIC 02/28/2024 JORDAN GUAMANDADOB: N [facility] [place] [address]Yjy: (HP) Primary Insurance:KIRSTINJAREDRadha MARTINEZSal Number: [id number] Date:2022-05-07 JORDAN HOLLYDOB: [id number] N [facility] [place] [place] [address] [facility] EPIC 02/20/2024 Primary Insurance:SCIONHEALTH PLANPolicy Number: [id number] Date:2023-05-07 JORDAN HOLLYB: [id number] [place] [address] [facility] 02/18/2024 JORDAN HOLLYB: [place], [place] [address]Oon: (HP) Primary Insurance:ZAHRAA FULTONJAREDRadha Jane Number: [id number] Date:2023-05-07 JORDAN HOLLYB: [id number] [place], [place] [address]Yvc: (HP) (WP) [facility] 02/14/2024 JORDAN HOLLYB: [place] [address]Chj: (HP) Primary Insurance:OLERadha Sulaiman Number: [id number] Date:2022-05-07 JORDAN HOLLYB: [id number] [place] [address] [facility] 02/12/2024 JORDAN HOLLYB: [place], [place] [address]Cgy: (HP) Primary Insurance:ZAHRAA FULTONJAREDRadha Jane Number: [id number] Date:2023-05-07 JORDAN QUILESSHEB: [id number] [place], [place] [address]Jht: (HP) (WP) [facility] 02/05/2024 JORDAN QUILESSHEB: [place], [place] [address]Jlz: (HP) Primary Insurance:ZAHRAA FULTONJAREDRadha Jane Number: [id number] Date:2023-05-07 JORDAN MCCAULEYB: [id number] [place], [place] [address]Ekr: (HP) () [facility] 01/31/2024 JORDAN [place]CCAULEYB: [place] [address]Quf: (HP) Primary Insurance:CAITLIN Hilario Number: [id number] Date:2022-05-07 JORDAN HOLLYB: [id number] [place] [address] [facility] EPIC 01/02/2024 JORDAN HOLLYB: [place] [address]Mlk: (HP) Primary Insurance:CAITLIN Hilario Number: [id number] Date:2022-05-07 JORDAN GUSHEB: [id number] [place] [address] [facility] EPIC 11/20/2023 JORDAN Edgardo MCCAULEYB: [facility] ~(4 19 (HP) Primary Insurance:Miscellaneous Insurance CompanyPolicy Number: [id number] Date:3748-67-00EF [address] [address]TF: [id number] JORDAN DELEON [facility] 11/14/2023 JORDAN HOLLYDOB: [facility] ~(4 19 (HP) Primary Insurance:Miscellaneous Insurance CompanyPolicy Number: [id number] Date:8521-23-53OW [address] [place] [address]: [phone] JORDAN DELEON [facility] 11/12/2023 JORDAN CISNEROS: [id number] N [facility]: ~(4 19 (HP) Primary Insurance:Miscellaneous Insurance CompanyPolicy Number: [id number] Date:4668-62-77YS [address] [place] [address]RY: [phone] JORDAN DELEON [facility]
--- OUTSIDE RECORDS SUMMARY | 2024-11-11 06:36 | XMS_ITS | Encounter Summary ---
Author Organization [facility] Address [address] [place] [address] Care Team Providers Care Roller Mill Operator Name Role Phone Lata Workman NP Unavailable [phone] Robin Poe MD Primary Care Provider [phone] Encounter Details Date Type Department Care Team ([facility] Contact Info) Description 01/11/2024 Clinisync Result Encounter [facility] External Department Unsolicited Lata Workman NP [address] [place] [address] Social History Tobacco Use Types Packs/Day Years Used Date Smoking Tobacco: Never Smokeless Tobacco: Never Alcohol Use Standard Drinks/Week Comments Never 0 (1 standard drink = 0.6 oz pur e alcohol) caffine: 1 cup of coffee daily Comments Unknown Sex and Gender Information Value Date Recorded Sex Assigned at Not on file Legal Sex Female 7:09 PM EDT Gender Identity Not on file Sexual Orientation Not on file documented as of this encounter Plan of Treatment Upcoming Encounters Date Type Department Care Team ([facility] Contact Info) Description 02/12/2025 9:00 AM EDT [facility] [address] [place] [address] Lata Workman NP [address] [place] [address] documented as of this encounter Procedures Procedure Name Priority Date/Time Associated Diagnosis Comments MM TOMOSYNTHESIS SCREENING BI 01/11/2024 2:41 PM EDT documented in this encounter Results * MM TOMOSYNTHESIS SCREENING BI (01/11/2024 2:41 PM EDT) Anatomical Region Laterality Modality Other 01/11/2024 2:41 PM EDT Narrative 01/11/2024 2:42 [place] [address] Mammography Report Signed Patient: JORDAN ROWE MR#: [id number] : 1960 Acct:[id number] Age/Sex: 63 / F ADM Date: 01/10/24 Loc: MAMMO Attending Dr: Lata Workman NP Ordering Physician: Lata Workman NP Results: Date of Service: 01/10/24 Follow Up: Procedure(s): MM tomosynthesis screening BI Accession Number(s): [id number] cc: Lata Workman NP Patient Name: JORDAN ROWE MR#: [id number] : 1960 Exam Date: 01/10/2024 Ordering Doctor: CHRYSTAL Workman CNP RADIOLOGY REPORT PROCEDURE: MM TOMOSYNTHESIS SCREENING BI COMPARISON: MG MAMM SCREEN 3D HAY CAD, 01/25/2021. MG MAMM SCREEN HAY W CAD, 12/23/2019. MG MAMM HAY SCRN W CAD DIG, 08/31/2015. MG MAMM RT UNI W CAD DIG, 12/09/2012. INDICATIONS: Screening Calculator Name NCI Breast Cancer Risk Assessment Tool 5 Year Breast Cancer Risk 1.40% Lifetime Breast Cancer Risk 6.20% Personal Breast Cancer No Personal Ovarian Cancer No Treatments None Family Cancers None LOCATION: [facility] BREAST COMPOSITION: There are scattered areas of fibroglandular density. FINDINGS: DIAGNOSTIC CATEGORY 1--NEGATIVE. RIGHT BREAST: No significant suspicious finding. No significant change has occurred. LEFT BREAST: No significant suspicious finding. No significant change has occurred. RECOMMENDATIONS: ROUTINE MAMMOGRAM AND CLINICAL EVALUATION IN 12 MONTHS. PLEASE NOTE: A NORMAL MAMMOGRAM DOES NOT EXCLUDE THE POSSIBILITY OF BREAST CANCER. A CLINICALLY SUSPICIOUS PALPABLE LUMP SHOULD BE BIOPSIED. Dictated by: Eliazar Chung M.D. on 01/11/2024 at 14:39 Approved by: Eliazar Chung M.D. on 01/11/2024 at 14:41 Dictated By: Eliazar Chung M.D. Signed By: 01/11/24 1442 DD/ 144 TD/TT: Back Wedger: Procedure Note Radiology, Radiologist, MD - 01/11/2024 [place] [address] Mammography Report Signed Patient: JORDAN ROWE LMR#: [id number] : 1960cct:[id number] Age/Sex: 63 / FADM Date: 01/10/24 Loc: MAMMO Attending Dr: Lata Workman NP Ordering Physician: Lata Workman NPResults: Date of Service: 01/10/24Follow Up: Procedure(s): MM tomosynthesis screening BI Accession Number(s): [id number] cc: Lata Workman NP Patient Name: JORDAN ROWE MR#: [id number] : 1960 Exam Date: 01/10/2024 Ordering Doctor: CHRYSTAL Workman MAT INSPECTOR RADIOLOGY REPORT PROCEDURE: MM TOMOSYNTHESIS SCREENING BI COMPARISON: MG MAMM SCREEN 3D HAY CAD, 01/25/2021. MG MAMM SCREEN BILW CAD, 12/23/2019. MG MAMM HAY SCRN W CAD DIG, 08/31/2015. MG MAMM RT UNI WCAD DIG, 12/09/2012. INDICATIONS: Screening Calculator Name NCI Breast Cancer Risk Assessment Tool 5 Year Breast Cancer Risk 1.40% Lifetime Breast Cancer Risk 6.20% Personal Breast Cancer No Personal Ovarian Cancer No Treatments None Family Cancers None LOCATION: [facility] BREAST COMPOSITION: There are scattered areas of fibroglandulardensity. FINDINGS: DIAGNOSTIC CATEGORY 1--NEGATIVE. RIGHT BREAST: No significant suspicious finding. No significant changehas occurred. LEFT BREAST: No significant suspicious finding. No significant changehas occurred. RECOMMENDATIONS: ROUTINE MAMMOGRAM AND CLINICAL EVALUATION IN 12 MONTHS. PLEASE NOTE: A NORMAL MAMMOGRAM DOES NOT EXCLUDE THE POSSIBILITY OFBREAST CANCER. A CLINICALLY SUSPICIOUS PALPABLE LUMP SHOULD BE BIOPSIED. Dictated by: Eliazar Chung M.D. on 01/11/2024 at 14:39 Approved by: Eliazar Chung M.D. on 01/11/2024 at 14:41 Dictated By: Eliazar Chung M.D. Signed By:01/11/24 1442 DD/ 1441 TD/TT: Back Wedger: us Lata Workman NP [facility] Final Result documented in this encounter Visit Diagnoses Not on filedocumented in this encounter Care Teams Roller Mill Operator Relationship Specialty Start Date End Date Robin Poe MD [address] [place] [address] PCP - General Family Medicine 01/02/24 Lata Workman NP [address] [place] [address] Referring Physician Nurse Practitioner 05/07/22 documented as of this encounter
--- OUTSIDE RECORDS SUMMARY | 2024-11-11 06:36 | XMS_ITS | Encounter Summary ---
Author Organization [facility] Address [address] [place] [address] Care Team Providers Care Senior Accountant Name Role Phone Lata Workman NP Unavailable [phone] Robin Poe MD Primary Care Provider [phone] Encounter Details Date Type Department Care Team ([facility] Contact Info) Description 04/25/2024 Clinisync Result Encounter [facility] External Department Unsolicited Provider, Generic External Data Social History Tobacco Use Types Packs/Day Years [...] Upcoming Encounters Date Type Department Care Team ([facility] Contact Info) Description 02/12/2025 9:00 AM EDT Office Visit [facility] [address] [place] [address] Lata Workman NP [address] [place] [address] documented as of this encounter Procedures Procedure Name Priority Date/Time Associated Diagnosis Comments XR ABDOMEN 1V 04/25/2024 8:22 AM EST documented in this encounter Results * XR ABDOMEN 1V (04/25/2024 8:22 AM EST) Anatomical Region Laterality Modality Other 04/25/2024 8:22 AM EST Narrative 04/25/2024 2:40 PM EST The [address] [address] XRay Report Signed Patient: JORDAN ROWE MR#: [id number] : 1960 Acct:[id number] Age/Sex: 63 / F ADM Date: 04/24/24 Loc: US Attending Dr: Juan F Mcguire M.D. Ordering Physician: Juan F Mcguire M.D. Date of Service: 04/24/24 Procedure(s): XR abdomen 1V Accession Number(s): [id number] cc: Lata Workman ANIMAL HUSBANDRY MANAGER; Juan F Mcguire M.D. [address] [address] Patient Name: JORDAN ROWE MRN: [facility]:[id number] date: 1960 Sex: F Assigned Patient Location: Current Patient Location: Accession/Order Number: [id number] Exam Date: 04/24/2024 07:48 Report Date: 04/25/2024 08:22 At the request of: JUAN F MCGUIRE Procedure: XR abdomen 1V EXAMINATION: XR abdomen 1V HISTORY: Ureteral stone with hydronephrosis COMPARISON: 10/27/2023 FINDINGS: KIDNEY/URETER - RIGHT: No visible renal or ureteral calcifications. KIDNEY/URETER - LEFT: No visible renal or ureteral calcifications. PELVIS: No visible ureteral calcifications. Any visible calcifications favor phleboliths. BOWEL: No abnormal dilation or deviation. BONES: No acute abnormality. Degenerative spondylosis of the spine. Mild bilateral hip osteoarthropathy OTHER: Negative. No abnormal gaseous collections. XR/XR abdomen 1V IMPRESSION: No definite urinary tract calculi Electronically authenticated by: LEANDRA SERNA Date: 04/25/2024 08:22 Dictated By: Leandra Serna M.D. Signed By: 04/25/24 1440 DD/ 1 TD/TT: Engine Lathe Operator: Procedure Note Radiology, Radiologist, - 04/25/[address] [address] XRay Report Signed Patient: JORDAN ROWE LMR#: [id number] : 1960cct:[id number] Age/Sex: 63 / FADM Date: 04/24/24 Loc: US Attending Dr: Juan F Mcguire M.D. Ordering Physician: Juan F Mcguire M.D. Date of Service: 04/24/24 Procedure(s): XR abdomen 1V Accession Number(s): [id number] cc: Lata Workman ANIMAL HUSBANDRY MANAGER; Juan F Mcguire M.D. The [place] [id number] Patient Name: JORDAN ROWE MRN: [id number]:[id number] date: 1960 Sex: F Assigned Patient Location: US Current Patient Location: Accession/Order Number: [id number] Exam Date: 04/24/2024 07:48 Report Date: 04/25/2024 08:22 At the request of: JUAN F MCGUIRE Procedure: XR abdomen 1V EXAMINATION: XR abdomen 1V HISTORY: Ureteral stone with hydronephrosis COMPARISON: 10/27/2023 FINDINGS: KIDNEY/URETER - RIGHT: No visible renal or ureteral calcifications. KIDNEY/URETER - LEFT: No visible renal or ureteral calcifications. PELVIS: No visible ureteral calcifications. Any visible calcificationsfavor phleboliths. BOWEL: No abnormal dilation or deviation. BONES: No acute abnormality. Degenerative spondylosis of the spine. Mild bilateral hip osteoarthropathy OTHER: Negative. No abnormal gaseous collections. XR/XR abdomen 1V IMPRESSION: No definite urinary tract calculi Electronically authenticated by: LEANDRA SERNA Date: 04/25/2024 08:22 Dictated By: Leandra Serna M.D. Signed By:04/25/24 1440 DD/ 1 TD/TT: Engine Lathe Operator: us Generic External Data Provider [facility] Final Result documented in this encounter Visit Diagnoses Not on filedocumented in this encounter Care Teams Senior Accountant Relationship Specialty Start Date End Date Robin Poe MD [address] [place] [address] PCP - General Family Medicine 01/02/24 Lata Workman NP [address] [place] [address] Referring Physician Nurse Practitioner 05/07/22 documented as of this encounter
--- OUTSIDE RECORDS SUMMARY | 2024-11-11 06:36 | XMS_ITS | Clinical Summary ---
Author Organization The [facility] Address [address] [place] [address] Care Team Providers Care Museum Tour Guide Name Role Phone Lata Workman MD Primary Care Provider [phone] Allergies Active Allergy Reactions Criticality Noted Date Comments Penicillins Anaphylaxis,Other,Ra sh,Shortness of breath High 10/10/2016 Medications lisinopril 10 mg tabletIndication s:Essential hypertension Take 1 tablet (10 mg) by mouth in the morning. 90 tablet 3 05/23/19 23 Active aspirin 81 mg EC tablet Take 81 mg by mouth in the morning. Active Ozempic 0.25 mg or 0.5 mg (2 mg/3 mL) pen injector INJECT 0.25mg SUBCUTANEOUSLY (UNDER THE SKIN) EVERY 7 DAYS Active metFORMIN (Glucophage) 500 mg tablet Take 1,000 mg by mouth with breakfast and with evening meal. 11/12/19 24 Active atorvastatin (Lipitor) 80 mg tablet Take 80 mg by mouth at bedtime. 11/12/19 24 Active prasugrel (Effient) 10 mg tablet Take 10 mg by mouth in the morning. Active metoprolol succinate XL (Toprol-XL) 25 mg 24 hr tablet Take 25 mg by mouth in the morning. 04/21/20 21 Active ezetimibe (Zetia) 10 mg tabletIndication s:Dyslipidemia Take 1 tablet (10 mg) by mouth once daily as directed. 90 tablet 3 02/20/20 24 025 Active Active Problems Problem Noted Date Diagnosed Date Acute embolism and thrombosi s of unspecified deep veins of unspecified lower extremity 01/02/2024 Anticoagulated 01/02/2024 Aspirin long-term use 01/02/2024 Encounter for screening mamm ogram for malignant neoplasm of breast 01/02/2024 Wellness examination 01/02/2024 Overview (01/04/2024): Last Assessment & Plan: Reviewed Ht/Wt/BMI Recommend eye exam yearly Recommend dental exams twice a year Balance work/leisure activities Exercises is recommended most days of the week (appropriate as chronic conditions allow) Follow up yearly and prn History of kidney stones 01/02/2024 Overview (01/04/2024): Last Assessment & Plan: Continue with Urology Type 2 diabetes mellitus without complications 0 01/02/2024 Overview (01/04/2024): Last Assessment & Plan: Check blood sugars daily, notify if <70 [...] diet low in carbohydrates, and simple sugars. Would like to add joanic will see if insurance approves or not Ureteral stone with hydronephrosis 01/02/2024 Hydroureter on left 11/06/2023 Kidney stone on left side 11/06/2023 Essential hypertension 08/30/2020 Overview (01/04/2024): Last Assessment & Plan: At goal Check labs Coronary arteriosclerosis 05/28/2018 Hyperlipidemia 06/01/2016 Bffbr-Czypwbzto-Vlsvt pattern 06/01/2016 Family History Medical History Relation Name Comments Coronary artery disease Mother Diabetes Paternal Grandmother Relation Name Status Comments Mother Paternal Grandmother Social History Tobacco Use Types Packs/Day Years Used Date Smoking Tobacco: Never Smokeless Tobacco: Never Tobacco Cessation:Counseling Given: Not Answered Alcohol Use Standard Drinks/Week Comments Not Currently 0 (1 standard drink = 0.6 oz pur e alcohol) Comments Unknown Sex and Gender Information Value Date Recorded Sex Assigned at Not on file Legal Sex Female 10:27 PM EDT Gender Identity Not on file Sexual Orientation Not on file Last Filed Vital Signs Vital Sign Reading Time Taken Comments Blood Pressure 132/78 04/07/2024 11:30 AM EST Pulse 81 04/07/2024 11:30 AM EST Temperature - - Respiratory Rate - - Oxygen Saturation 95% 04/07/2024 11:30 AM EST Inhaled Oxygen Concentration - - Weight 81.2 kg (179 lb) 04/07/2024 11:30 AM EST Height 175.3 cm (5' 9 ) 04/07/2024 11:30 AM EST Body Mass Index 26.43 04/07/2024 11:30 AM EST Plan of Treatment Health Maintenance Due Date Last Done Comments CT Colonography 1960 Diabetes: Hemoglobin A1C 1960 FIT-DNA 1960 FIT 1960 FOBT 1960 Sigmoidoscopy 1960 Diabetes: Retinopathy Screening 07/20/1971 Depression Screening 1973 Diabetes: Urine Protein Screening 1980 Pneumococcal Vaccine: Pediatrics (0 to 5 Years) and At-Risk Patients (6 to 64 Years) (1 of 2 - PCV) 1980 Pap Smear 1982 Cervical Cancer Screening 07/20/1991 HPV/Cotest 07/20/1991 Adult Tetanus 03/27/2021 03/27/2011 COVID-19 Vaccine ( season) 2024 01/30/2024, 02/09/2022, 03/22/2021, Additional history exists Influenza Vaccine (#1) 2025 , 01/30/2023, 02/09/2022, Additional history exists Mammogram 01/13/2026 01/14/2024 Colonoscopy 02/17/2034 02/18/2024, 02/04, 02/18/2024 Colorectal Cancer Screening 02/17/2034 Zoster Vaccines Completed 11/09/2022, 07/04/2022 HIB Vaccines Aged Out No longer eligi ble based on patient's age to complete this topic HPV Vaccines Aged Out No longer eligi ble based on patient's age to complete this topic IPV Vaccines Aged Out No longer eligi ble based on patient's age to complete this topic Meningococcal B Vaccine Aged Out No l onger eligible based on patient's age to complete this topic Meningococcal Vaccine Aged Out No pavel steve eligible based on patient's age to complete this topic Rotavirus Vaccines Aged Out No longer eligible based on patient's age to complete this topic Insurance [facility] Care Teams Museum Tour Guide Relationship Specialty Start Date End Date Lata Workman MD [address] [place] [address] PCP - General Nurse Practitioner 01/04/24
--- OUTSIDE RECORDS SUMMARY | 2024-11-11 06:36 | XMS_ITS | Encounter Summary ---
Author Organization [facility] Address [address] [place] [address] Care Team Providers Care Transport Operations Inspector Name Role Phone Robin Poe MD Primary Care Provider [phone] Lata Workman NP Unavailable [phone] Robin Poe MD Primary Care Provider [phone] Encounter Details Date Type Department Care Team ([facility] Contact Info) Description 11/06/2023 Orders Only [facility] [address] [place] [address] Lata Workman, JUNIOR [address] [place] [address] Kidney stone on left side (Primary Dx); Hydroureter on left Social History Tobacco Use Types Packs/Day Years Used Date Smoking Tobacco: Never Assessed Comments Unknown Sex and Gender Information Value Date Recorded Sex Assigned at Not on file Legal Sex Female 7:09 PM EDT Gender Identity Not on file Sexual Orientation Not on file documented as of this encounter Plan of Treatment Upcoming Encounters Date Type Department Care Team ([facility] Contact Info) Description 02/12/2025 9:00 AM EDT Office Visit [facility] [address] [place] [address] Lata Workman, MECHANIC DRIVER [address] [place] [address] documented as of this encounter Visit Diagnoses Diagnosis Kidney stone on left side- Primary Hydroureter on left Hydroureter documented in this encounter Care Teams Transport Operations Inspector Relationship Specialty Start Date End Date Robin Poe MD PCP - General Family Medicine 05/07/22 01/01/24 Robin Poe MD [address] [place] [address] PCP - General Family Medicine 01/02/24 Lata Workman NP [address] [place] [address] Referring Physician Nurse Practitioner 05/07/22 documented as of this encounter
--- OUTSIDE RECORDS SUMMARY | 2024-11-11 06:36 | XMS_ITS | Encounter Summary ---
Author Organization [facility] Address [address] [place] [address] Care Team Providers Care Survey Manager Name Role Phone Lata Workman NP Unavailable [phone] Robin Poe MD Primary Care Provider [phone] Encounter Details Date Type Department Care Team ([facility] Contact Info) Description 04/25/2024 Clinisync Result [...] Upcoming Encounters Date Type Department Care Team ([facility] Contact Info) Description 02/12/2025 9:00 AM EDT Office Visit [facility] [address] [place] [address] Lata Workman NP [address] [place] [address] documented as of this encounter Procedures Procedure Name Priority Date/Time Associated Diagnosis Comments US RENAL BI 04/25/2024 9:44 AM EST documented in this encounter Results * US RENAL BI (04/25/2024 9:44 AM EST) Anatomical Region Laterality Modality Other 04/25/2024 9:44 AM EST Narrative 04/25/2024 2:41 PM EST The [place] [id number] Ultrasound Report Signed Patient: JORDAN ROWE MR#: [id number] : 1960 Acct:[id number] Age/Sex: 63 / F ADM Date: 04/24/24 Loc: US Attending Dr: Juan F Mcguire M.D. Ordering Physician: Juan F Mcguire M.D. Date of Service: 04/24/24 Procedure(s): US renal BI Accession Number(s): [id number] cc: Lata Workman WOOD BARKER; Juan F Mcguire M.D. [address] [address] Patient Name: JORDAN ROWE MRN: [facility]:[id number] date: 1960 Sex: F Assigned Patient Location: US Current Patient Location: Accession/Order Number: [id number] Exam Date: 04/24/2024 07:23 Report Date: 04/25/2024 09:44 At the request of: JUAN F MCGUIRE Procedure: US renal BI EXAMINATION: US renal BI HISTORY: Ureteral stone with hydronephrosis COMPARISON: No relevant comparison available. TECHNIQUE: Ultrasound examination was performed of the bladder. FINDINGS: Right Kidney: Normal in size, contour and echotexture. The cortex measures 1.1 cm. 8 mm hyperechogenic lesion, nonobstructing nephrolith. No solid cortical mass or hydronephrosis. Height: 5.72 cm Length: 10.95 cm Width: 5.03 cm Left Kidney: Normal in size, contour and cortical echotexture. The cortex measures 1.0 cm. No nephrolithiasis, cortical mass or hydronephrosis. Possible renal collecting system duplication Height: 4.89 cm Length: 12.46 cm Width: 4.56 cm Urinary bladder: 87 cc US/US renal BI IMPRESSION: 8 mm right nonobstructing nephrolith Electronically authenticated by: LEANDRA SERNA Date: 04/25/2024 09:44 Dictated By: Leandra Serna M.D. Signed By: 04/25/24 1441 DD/ 0944 TD/TT: Global Climate Change Researcher: Procedure Note Radiology, Radiologist, - 04/25/2024 [place] [address] Ultrasound Report Signed Patient: JORDAN ROWE LMR#: [id number] : 1960cct:[id number] Age/Sex: 63 / FADM Date: 04/24/24 Loc: US Attending Dr: Juan F Mcguire M.D. Ordering Physician: Juan F Mcguire M.D. Date of Service: 04/24/24 Procedure(s): US renal BI Accession Number(s): [id number] cc: Lata Workman WOOD BARKER; Juan F Mcguire M.D. The [place] [address] Patient Name: JORDAN ROWE MRN: [id number]:[id number] date: 1960 Sex: F Assigned Patient Location: US Current Patient Location: Accession/Order Number: [id number] Exam Date: 04/24/2024 07:23 Report Date: 04/25/2024 09:44 At the request of: JUAN F MCGUIRE Procedure: US renal BI EXAMINATION: US renal BI HISTORY: Ureteral stone with hydronephrosis COMPARISON: No relevant comparison available. TECHNIQUE: Ultrasound examination was performed of the bladder. FINDINGS: Right Kidney: Normal in size, contour and echotexture. The cortex measures1.1 cm. 8 mm hyperechogenic lesion, nonobstructing nephrolith. No solidcortical mass or hydronephrosis. Height: 5.72 cm Length: 10.95 cm Width: 5.03 cm Left Kidney: Normal in size, contour and cortical echotexture. The cortex measures 1.0 cm. No nephrolithiasis, cortical mass or hydronephrosis.Possible renal collecting system duplication Height: 4.89 cm Length: 12.46 cm Width: 4.56 cm Urinary bladder: 87 cc US/US renal BI IMPRESSION: 8 mm right nonobstructing nephrolith Electronically authenticated by: LEANDRA SERNA Date: 04/25/2024 09:44 Dictated By: Leandra Serna M.D. Signed By:04/25/24 1441 DD/ 0944 TD/TT: Global Climate Change Researcher: us Generic External Data Provider [facility] Final Result documented in this encounter Visit Diagnoses Not on filedocumented in this encounter Care Teams Survey Manager Relationship Specialty Start Date End Date Robin Poe MD [address] [place] [address] PCP - General Family Medicine 01/02/24 Lata Workman NP [address] [place] [address] Referring Physician Nurse Practitioner 05/07/22 documented as of this encounter
--- OUTSIDE RECORDS SUMMARY | 2024-11-11 06:36 | XMS_ITS | Encounter Summary ---
Author Organization [facility] Address [address] [place] [address] Care Team Providers Care Lidder Name Role Phone Robin Poe MD Primary Care Provider [phone] Lata Workman NP Unavailable [phone] Robin Poe MD Primary Care Provider [phone] Encounter Details Date Type Department Care Team ([facility] Contact Info) Description 11/05/2023 Orders Only [facility] [address] [facility] [address] [place] [address] Laron Dobbs MD [address] [place], [place] [id number] Social History Tobacco Use Types Packs/Day Years Used Date Smoking Tobacco: Never Assessed Comments Unknown Sex and Gender Information Value Date Recorded Sex Assigned at Not on file Legal Sex Female 7:09 PM EDT Gender Identity Not on file Sexual Orientation Not on file documented as of this encounter Plan of Treatment Upcoming Encounters Date Type Department Care Team ([facility] Contact Info) Description 02/12/2025 9:00 AM EDT Office Visit [facility] [address] [place] [address] Lata Workman NP [address] [place] [address] documented as of this encounter Procedures Procedure Name Priority Date/Time Associated Diagnosis Comments CT ABDOMEN & PELVIS W Routine 11/01/2023 10:01 AM EDT documented in this encounter Results * CT ABDOMEN & PELVIS W (11/01/2023 10:01 AM EDT) Anatomical Region Laterality Modality Radiographic Rosemary ging us Laron Dobbs MD IMG XR PROCEDURES Final Res ult documented in this encounter Visit Diagnoses Not on filedocumented in this encounter Care Teams Lidder Relationship Specialty Start Date End Date Robin Poe MD PCP - General Family Medicine 05/07/22 01/01/24 Robin Poe MD [address] [place] [address] PCP - General Family Medicine 01/02/24 Lata Workman NP [address] [place] [address] Referring Physician Nurse Practitioner 05/07/22 documented as of this encounter
--- OUTSIDE RECORDS SUMMARY | 2024-11-11 06:36 | XMS_ITS | Encounter Summary ---
Author Organization [facility] Address [address] [place] [address] Care Team Providers Care Accounting Lecturer Name Role Phone Lata Workman NP Unavailable [phone] Robin Poe MD Primary Care Provider [phone] Encounter Details Date Type Department Care Team ([facility] Contact Info) Description 02/18/2024 [facility] [address] [place] [address] Kemar Molina, DO [address] [place] [address] Social History Tobacco Use Types Packs/Day Years [...] Upcoming Encounters Date Type Department Care Team ([facility] Contact Info) Description 02/12/2025 9:00 AM EDT [facility] [address] [place] [address] Lata Workman, HEALTH CARE AIDE [address] [place] [address] documented as of this encounter Procedures Procedure Name Priority Date/Time Associated Diagnosis Comments COLONOSCOPY Routine 02/18/2024 1:15 PM EDT documented in this encounter Results * Colonoscopy (02/18/2024 1:15 PM EDT) Anatomical Region Laterality Modality Endoscopy Kemar Kitchendanabud DO ENDOSCOPY PROCEDURE ORDERABLE S Final Result documented in this encounter Visit Diagnoses Not on filedocumented in this encounter Care Teams Accounting Lecturer Relationship Specialty Start Date End Date Robin Poe MD [address] [place] [address] PCP - General Family Medicine 01/02/24 Lata Workman NP [address] [place] [address] Referring Physician Nurse Practitioner 05/07/22 documented as of this encounter
--- OUTSIDE RECORDS SUMMARY | 2024-11-11 06:36 | XMS_ITS | Clinical Summary ---
Author Organization [facility] Address [id number] [address] [place] [address] Care Team Providers Care Grease Cup Filler Name Role Phone Lata Workman APRN-LEAD FRONT DESK AGENT Primary Care Provider Allergies Active Allergy Reactions Criticality Noted Date Comments Penicillins Shortness Of Breath,Rash High 10/10/2016 Medications metoprolol tartrate (LOPRESSOR) 25 mg tablet Take 1 tablet (25 mg total) by mouth in the morning. Active aspirin 81 mg Take 1 tablet (81 mg total) by mouth in the morning. Active atorvastatin (LIPITOR) 40 mg tablet Take 2 tablets (80 mg total) by mouth in the morning. Active lisinopriL (PRINIVIL,ZESTR IL) 10 mg tablet Take 1 tablet (10 mg total) by mouth in the morning. Active metFORMIN (GLUCOPHAGE) 1000 mg tablet Take 1 tablet (1,000 mg total) by mouth in the morning and 1 tablet (1,000 mg total) in the evening. Take with meals. Active prasugreL (EFFIENT) 10 mg tablet Take 1 tablet (10 mg total) by mouth in the morning. Active semaglutide (OZEMPIC SUBQ) Inject 2.5 mg under the skin once a week. Sunday Active Active Problems No known active problems Family History Medical History Relation Name Comments No Known Problems Father Heart attack Maternal Grandfather No Known Problems Mother Leukemia Paternal Grandmother Relation Name Status Comments Father Maternal Grandfather Mother Paternal Grandmother Social History Tobacco Use Types Packs/Day Years Used Date Smoking Tobacco: Never Smokeless Tobacco: Never Tobacco Cessation:Counseling Given: Not Answered Alcohol Use Standard Drinks/Week Comments No 0 (1 standard drink = 0.6 oz pur e alcohol) Childcare Answer Date Recorded Childcare Unknown 10/16/2018 Employment Answer Date Recorded Employment Unknown 10/16/2018 Purpose - Life Answer Date Recorded Purpose and direction in life Unknown Comments No Sex and Gender Information Value Date Recorded Sex Assigned at Not on file Legal Sex Female 11:30 AM EDT Gender Identity Not on file Sexual Orientation Not on file Last Filed Vital Signs Vital Sign Reading Time Taken Comments Blood Pressure 152/78 02/18/2024 1:25 PM EDT Pulse 64 02/18/2024 1:25 PM EDT Temperature 36.3 C (97.4 F) 02/18/2024 11:13 AM EDT Respiratory Rate 20 02/18/2024 1:25 PM EDT Oxygen Saturation 95% 02/18/2024 1:25 PM EDT Inhaled Oxygen Concentration - - Weight 81 kg (178 lb 9.2 oz) 02/18/2024 11:13 AM EDT Height 175 cm (5' 8.9 ) 02/18/2024 11:13 AM EDT Body Mass Index 26.45 02/18/2024 11:13 AM EDT Plan of Treatment Health Maintenance Due Date Last Done Comments Depression Screening 1973 Adult BMI Follow Up Plan 07/20/1979 DTaP,Tdap and Td Vaccines (2 - Td or Tdap) 03/27/2021 03/27/2011 Influenza Vaccine 01/05/2025 01/30/2024, , 02/09/2022, Additional history exists Adult BMI Screening 02/17/2025 02/18/2024 Tobacco Screening 02/17/2025 02/18/2024 Colonoscopy 02/17/2034 02/18/2024, 02/18/2024 Zoster (Shingles) Vaccine Completed 11/09/2022, COVID-19 Vaccine Completed 01/30/2024, 10/2021, 03/22/2021, Additional history exists Medical Devices Not on file Procedures Procedure Name Priority Date/Time Associated Diagnosis Comments PROVATION COLONOSCOPY Routine 02/18/2024 10:59 AM EDT from Last 3 Months or Most Recently Relevant to Health Maintenance Results * Colonoscopy Report (02/18/2024 10:59 AM EDT) Narrative SYSTEMGENERATED, DOCUMENTATION - 02/18/2024 10:59 AM EDT This order has been auto-finalized for image and report archival in PACs. *For full report details, please reach out to your physician. This image is visible to you in MyChart.* us Kemar Molina DO IMG OR IMG ORDERABLES Final Result from Last 3 Months or Most Recently Relevant to Health Maintenance Insurance [place] [employer] Care Teams Grease Cup Filler Relationship Specialty Start Date End Date Lata Workman, CORK INSULATION SETTER-LEAD FRONT [place]K [place] [address] PCP - General Nurse Practitioner 02/05/24
--- OUTSIDE RECORDS SUMMARY | 2024-11-11 06:36 | XMS_ITS | Encounter Summary ---
Author Organization [facility] Address [address] [place] [address] Care Team Providers Care B2B Appointment Setter Name Role Phone Lata Workman NP Unavailable [phone] Robin Poe MD Primary Care Provider [phone] Encounter Details Date Type Department Care Team (Late Contact Info) Description 03/05/2024 [facility] [address] [place] [address] Divya Grande MD [address] [facility] [address] [facility] [place] [phone] Social History Tobacco Use Types Packs/Day Years [...] Upcoming Encounters Date Type Department Care Team (Late Contact Info) Description 02/12/2025 9:00 AM EDT Office Visit [facility] [address] [place] [address] Lata Workman, DIRECTOR OPERATING [address] [place] [address] documented as of this encounter Procedures Procedure Name Priority Date/Time Associated Diagnosis Comments ECHOCARDIOGRAM WITH DOPPLER IF INDICATED Routine 03/05/2024 9:14 AM EDT documented in this encounter Results * ECHOCARDIOGRAM WITH DOPPLER IF INDICATED (03/05/2024 9:14 AM EDT) Anatomical Region Laterality Modality Radiographic Rosemary ging Ehab Christiane PEREZ IMG XR PROCEDURES Final Result documented in this encounter Visit Diagnoses Not on filedocumented in this encounter Care Teams B2B Appointment Setter Relationship Specialty Start Date End Date Robin Poe MD [address] [place] [address] PCP - General Family Medicine 01/02/24 Lata Workman NP [address] [place] [address] Referring Physician Nurse Practitioner 05/07/22 documented as of this encounter
--- OUTSIDE RECORDS SUMMARY | 2024-11-11 06:36 | XMS_ITS | Encounter Summary ---
Author Organization [facility] Address [address] [place] [address] Care Team Providers Care Compressor Repairer Name Role Phone Lata Workman NP Unavailable [phone] Robin Poe MD Primary Care Provider [phone] Encounter Details Date Type Department Care Team ([facility] Contact Info) Description 02/20/2024 Orders Only [facility] [address] [place] [address] Lata Workman, JUNIOR [address] [place] [address] Social History Tobacco Use Types Packs/Day Years [...] Upcoming Encounters Date Type Department Care Team ([facility] Contact Info) Description 02/12/2025 9:00 AM EDT Office Visit [facility] [address] [place] [address] Lata Workman, JUNIOR [address] [place] [address] documented as of this encounter Procedures Procedure Name Priority Date/Time Associated Diagnosis Comments ECG 12-LEAD Routine 02/20/2024 4:13 PM EDT documented in this encounter Results * ECG 12 lead (02/20/2024 4:13 PM EDT) Lata Workman NP ECG ORDERABLES Final Result documented in this encounter Visit Diagnoses Not on filedocumented in this encounter Care Teams Compressor Repairer Relationship Specialty Start Date End Date Robin Poe MD [address] [place] [place] [address] PCP - General Family Medicine 01/02/24 Lata Workman NP [address] [place] [place] [address] Referring Physician Nurse Practitioner 05/07/22 documented as of this encounter
--- OUTSIDE RECORDS SUMMARY | 2024-11-11 06:36 | XMS_ITS | Encounter Summary ---
Author Organization [facility] Address [address] [place] [address] Care Team Providers Care Gambreler Name Role Phone aLta Workman NP Unavailable [phone] Robin Poe MD Primary Care Provider [phone] Reason for Visit * Reason Comments Med Refill Encounter Details Date Type Department Care Team ([facility] Contact Info) Description 08/20/2024 [facility]ill [facility] [address] [place] [address] Lata Workman NP [address] [place] [address] Essential (primary) hypertension ; Atherosclerotic heart disease of [place] coronary artery without angina pectoris ; Type 2 diabetes mellitus without complications (HCC) Social History Tobacco Use Types Packs/Day Years [...] on file documented as of this encounter Miscellaneous Notes * Telephone Encounter - Lata Workman NP - 08/20/2024 9:03 PM EDT Sent and received at pharmacy on 08/14/24 documented in this encounter Plan of Treatment Upcoming Encounters Date Type Department Care Team (Late st Contact Info) Description 02/12/2025 9:00 AM EDT Office Visit [facility] [address] [place] [address] Lata Workman NP [address] [place] [address] documented as of this encounter Visit Diagnoses Diagnosis Essential (primary) hypertension Unspecified essential hypertension Atherosclerotic heart disease of [place] coronary artery without angina pectoris Type 2 diabetes mellitus without complications (HCC) documented in this encounter Care Teams Gambreler Relationship Specialty Start Date End Date Robin Poe MD [address] [place] [address] PCP - General Family Medicine 01/02/24 Lata Workman NP [address] [place] [address] Referring Physician Nurse Practitioner 05/07/22 documented as of this encounter
--- OUTSIDE RECORDS SUMMARY | 2024-11-11 06:36 | XMS_ITS | Encounter Summary ---
Author Organization [facility] Address [address] [place] [address] Care Team Providers Care Agents' Records Clerk Name Role Phone Robin Poe MD Primary Care Provider [phone] Lata Workman NP Unavailable [phone] Robin oPe MD Primary Care Provider [phone] Encounter Details Date Type Department Care Team ([facility] Contact Info) Description 01/01/[address] [facility] [address] [place] [address] Vanessa Schultz MD [address] [place] [address] Social History Tobacco Use Types Packs/Day Years Used Date Smoking Tobacco: Never Assessed Comments Unknown Sex and Gender Information Value Date Recorded Sex Assigned at Not on file Legal Sex Female 7:09 PM EDT Gender Identity Not on file Sexual Orientation Not on file documented as of this encounter Plan of Treatment Upcoming Encounters Date Type Department Care Team ([facility] Contact Info) Description 02/12/2025 9:00 AM EDT Office Visit [facility] [address] [place] [phone] Lata Workman NP [address] [place] [address] documented as of this encounter Procedures Procedure Name Priority Date/Time Associated Diagnosis Comments US RENAL KIDNEY AND BLADDER Routine 01/01/2024 1:23 PM EDT documented in this encounter Results * US RENAL KIDNEY AND BLADDER (01/01/2024 1:23 PM EDT) Anatomical Region Laterality Modality Radiographic Rosemary ging Vanessa Schultz MD IMG XR PROCEDURES Final Result documented in this encounter Visit Diagnoses Not on filedocumented in this encounter Care Teams Agents' Records Clerk Relationship Specialty Start Date End Date Robin Poe MD PCP - General Family Medicine 05/07/22 01/01/24 Robin Poe MD [address] [place] [address] PCP - General Family Medicine 01/02/24 Lata Workman NP [address] [place] [address] Referring Physician Nurse Practitioner 05/07/22 documented as of this encounter
--- OUTSIDE RECORDS SUMMARY | 2024-11-11 06:36 | XMS_ITS | Encounter Summary ---
Author Organization [facility] Address [address] [place] [address] Care Team Providers Care Dental Chair Assembler Name Role Phone Lata Workman NP Unavailable [phone] Robin Poe MD Primary Care Provider [phone] Encounter Details Date Type Department Care Team ([facility] Contact Info) Description 01/14/2024 Orders Only [facility] [address] [place] [address] Lata Workman, JUNIOR [address] [place] [address] Social History Tobacco Use Types [...] Upcoming Encounters Date Type Department Care Team ([facility] Contact Info) Description 02/12/2025 9:00 AM EDT Office Visit [facility] [address] [place] [address] Lata Workman, JUNIOR [address] [place] [address] documented as of this encounter Procedures Procedure Name Priority Date/Time Associated Diagnosis Comments BI MAMMOGRAM SCREENING TOMOSYNTHESIS BILATERAL Routine 01/14/2024 10:39 AM EDT documented in this encounter Results * Bilateral screening mammogram with tomosynthesis (01/14/2024 10:39 AM EDT) Anatomical Region Laterality Modality Breast Bilateral Mammography Lata Workman NP IMG BI PROCEDURES Final Result documented in this encounter Visit Diagnoses Not on filedocumented in this encounter Care Teams Dental Chair Assembler Relationship Specialty Start Date End Date Robin Poe MD [address] [place] [address] PCP - General Family Medicine 01/02/24 Lata Workman NP [address] [place] [address] Referring Physician Nurse Practitioner 05/07/22 documented as of this encounter
--- OUTSIDE RECORDS SUMMARY | 2024-11-11 06:36 | XMS_ITS | Encounter Summary ---
Author Organization [facility] Address [address] [place] [address] Care Team Providers Care Grain Origination Specialist Name Role Phone Robin Poe MD Primary Care Provider [phone] Lata Workman ENGLISH PROFESSOR Unavailable [phone] Robin Poe MD Primary Care Provider [phone] Encounter Details Date Type Department Care Team ([facility] Contact Info) Description 01/01/2024 Clinisync Result Encounter [facility] External Department Unsolicited [...] Upcoming Encounters Date Type Department Care Team ([facility] Contact Info) Description 02/12/2025 9:00 AM EDT Office Visit [facility] [address] [place] [address] Lata Workman NP [address] [place] [address] documented as of this encounter Procedures Procedure Name Priority Date/Time Associated Diagnosis Comments US RENAL BI 01/01/2024 12:55 PM EDT documented in this encounter Results * US RENAL BI (01/01/2024 12:55 PM EDT) Anatomical Region Laterality Modality Other 01/01/2024 12:5 5 PM EDT Narrative 01/01/2024 12:57 PM EDT [address] [address] Ultrasound Report Signed Patient: JORDAN ROWE MR#: [id number] : 1960 Acct:[id number] Age/Sex: 63 / F ADM Date: 01/01/24 Loc: US Attending Dr: Vanessa Mcguire M.D. Ordering Physician: Vanessa Mcguire M.D. Date of Service: 01/01/24 Procedure(s): US renal BI Accession Number(s): [id number] cc: Lata Workman ENGLISH PROFESSOR; Vanessa Mcguire M.D. [place] [id number] Patient Name: JORDAN ROWE MRN: [id number] date: 1960 Sex: F Assigned Patient Location: US Current Patient Location: US Accession/Order Number: [id number] Exam Date: 01/01/2024 08:29 Report Date: 01/01/2024 12:55 At the request of: VANESSA MCGUIRE Procedure: US renal BI EXAMINATION: US renal BI HISTORY: History Of Kidney Stones, Ureteral Stone COMPARISON: No relevant comparison available. TECHNIQUE: Ultrasound examination was performed of the bladder. FINDINGS: Right Kidney: Normal in size, contour and cortical echotexture. No solid cortical mass, hydronephrosis or obstructing nephrolithiasis. Height: 5.83 cm Length: 10.50 cm Width: 5.19 cm Left Kidney: Normal in size, contour and cortical echotexture. No solid cortical mass, hydronephrosis or obstructing nephrolithiasis Height: 4.95 cm Length: 12.69 cm Width: 4.45 cm Urinary bladder: 46 mL US/US renal BI IMPRESSION: No acute abnormality Electronically authenticated by: LEANDRA SERNA Date: 01/01/2024 12:55 Dictated By: Leandra Serna M.D. Signed By: 01/01/24 1257 DD/ 1255 TD/TT: Salesforce Developer: Procedure Note Radiology, Radiologist, MD - 01/01/[address] [address] Ultrasound Report Signed Patient: JORDAN ROWE LMR#: [id number] : 1960cct:[id number] Age/Sex: 63 / FADM Date: 01/01/24 Loc: US Attending Dr: Vanessa Mcguire M.D. Ordering Physician: Vanessa Mcguire M.D. Date of Service: 01/01/24 Procedure(s): US renal BI Accession Number(s): [id number] cc: Lata Workman ENGLISH PROFESSOR; Vanessa Mcguire M.D. The [place] [id number] Patient Name: JORDAN ROWE MRN: [id number] date: 1960 Sex: F Assigned Patient Location: US Current Patient Location: US Accession/Order Number: [id number] Exam Date: 01/01/2024 08:29 Report Date: 01/01/2024 12:55 At the request of: VANESSA MCGUIRE Procedure: US renal BI EXAMINATION: US renal BI HISTORY: History Of Kidney Stones, Ureteral Stone COMPARISON: No relevant comparison available. TECHNIQUE: Ultrasound examination was performed of the bladder. FINDINGS: Right Kidney: Normal in size, contour and cortical echotexture. No solid cortical mass, hydronephrosis or obstructing nephrolithiasis. Height: 5.83 cm Length: 10.50 cm Width: 5.19 cm Left Kidney: Normal in size, contour and cortical echotexture. No solid cortical mass, hydronephrosis or obstructing nephrolithiasis Height: 4.95 cm Length: 12.69 cm Width: 4.45 cm Urinary bladder: 46 mL US/US renal BI IMPRESSION: No acute abnormality Electronically authenticated by: LEANDRA SERNA Date: 01/01/2024 12:55 Dictated By: Leandra Serna M.D. Signed By:01/01/24 1257 DD/ 1255 TD/TT: Salesforce Developer: us Generic External Data Provider [facility] Final Result documented in this encounter Visit Diagnoses Not on filedocumented in this encounter Care Teams Grain Origination Specialist Relationship Specialty Start Date End Date Robin Poe MD PCP - General Family Medicine 05/07/22 01/01/24 Robin Poe MD [address] [place] [address] PCP - General Family Medicine 01/02/24 Lata Workman NP [address] [place] [address] Referring Physician Nurse Practitioner 05/07/22 documented as of this encounter
--- OUTSIDE RECORDS SUMMARY | 2024-11-11 06:36 | XMS_ITS | Encounter Summary ---
Author Organization [facility] Address [address] [place] [address] Care Team Providers Care Docking Saw Operator Name Role Phone Lata Workman NP Unavailable [phone] Robin Poe MD Primary Care Provider [phone] Encounter Details Date Type Department Care Team ([facility] Contact Info) Description 03/04/2024 Clinisync Result Encounter [facility] External Department Unsolicited [...] Upcoming Encounters Date Type Department Care Team ([facility] Contact Info) Description 02/12/2025 9:00 AM EDT Office Visit [facility] [address] [place] [address] Lata Workman NP [address] [place] [address] documented as of this encounter Procedures Procedure Name Priority Date/Time Associated Diagnosis Comments CA ECHO DOPPLER COMPLETE 03/04/2024 5:20 PM EDT documented in this encounter Results * CA ECHO DOPPLER COMPLETE (03/04/2024 5:20 PM EDT) Anatomical Region Laterality Modality Other 03/04/2024 5:20 PM EDT Narrative 03/04/2024 5:22 PM EDT [address] [address] Cardiology Report Signed Patient: JORDAN ROWE MR#: [id number] : 1960 Acct:[id number] Age/Sex: 63 / F ADM Date: 03/04/24 Loc: CARD Attending Dr: Tuan Zelaya M.D. Ordering Physician: Tuan Zelaya M.D. Date of Service: 03/04/24 Procedure(s): CA echo doppler complete Accession Number(s): [id number] cc: Lata Workman NP; Tuan Zelaya M.D. Patient Name: JORDAN ROWE MR#: [id number] : 1960 Exam Date: 03/04/2024 Ordering Doctor: DR TUAN ZELAYA M.D. ECHOCARDIOGRAM REPORT PROCEDURE: CA ECHO DOPPLER COMPLETE INDICATIONS: CAD evaluation, cardiac stents, hypertension, diabetes COMPARISON: None. DESCRIPTION: COMPLETE ECHOCARDIOGRAM Real-time transthoracic echocardiography with 2D, M-mode, spectral and color flow Doppler performed. QUALITY: Technical quality was good. LEFT VENTRICLE: Normal chamber size. Normal left ventricular wall thickness. Normal systolic function. LV EF: Normal left ventricular ejection fraction, (>55%). DIASTOLIC: Diastolic function is indeterminate. ATRIAL SEPTUM: Visually appears intact. LEFT ATRIUM: Normal chamber size. RIGHT ATRIUM: Moderate dilatation. RIGHT VENTRICLE: Mild dilatation. Normal right ventricular systolic function. TRICUSPID VALVE: Normal mobility and thickness. There is evidence of apical displacement of the septal leaflet with atrial isolation of part of the right ventricle consistent with a mild form of Ebstein's anomaly. No stenosis with moderate regurgitation. Doppler studies reveal mildly (35-45) elevated right sided pressures. RVSP is 40 mmHg MITRAL VALVE: Normal mobility and thickness. No evidence of mitral valve stenosis. No mitral regurgitation. AORTIC VALVE: Normal trileaflet appearance. No visible sclerosis. Normal leaflet mobility. No evidence of aortic valve stenosis. No aortic regurgitation. AORTIC ROOT: Normal diameter and appearance. Ascending aorta is normal in size. PULMONIC VALVE: Normal thickness and mobility. No stenosis. Trivial regurgitation. PERICARDIUM: No evidence of pericardial effusion. IVC: Collapses with inspirations. IVC is normal in size. PLEURA: CONCLUSION: 1. Normal left ventricular size and systolic function. LVEF is estimated at 60%. 2. Mildly dilated right ventricle with normal systolic function. 3. 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 4. Moderately dilated right atrium. 5. Mildly elevated right-sided pressures. RVSP is 40 mmHg. Adult Echocardiography Procedure Report Left Ventricle LVEDD (3.7 - 5.6 cm): 4.29 cm LVESD (2.2 - 4.0 cm): 3.09 cm LVIVS thickness (0.6 - 1.2 cm): 1.03 cm LVPW thickness (0.5 - 1.0 cm): 0.98 cm e': 0.08 m/s E - e': 7.93 LVOT Max Gradient: 3.45 mm[Hg] LVOT Area (cm2): 0.93 m/s Peak Velocity (LVOT): 0.93 m/s Mean Velocity (LVOT): 0.61 m/s LVOT Diameter 2.13 cm Left Atrium LA Volume Index (2D A2C): 25.85 ml/m2 Left Atrium Systolic Dimension: 4.00 cm Mitral Valve MV E to A Ratio: 0.90 Mitral Valve A-Wave Peak Velocity: 0.73 m/s Mitral Valve E-Wave Peak Velocity: 0.66 m/s Right Ventricle Aorta AO Root Diam: 3.10 cm Ascending Ao Diam: 2.77 cm Aortic Valve AoV Area (Peak Everardo): 2.37 cm2, 2.37 cm2 AoV Area (VTI): 2.32 cm2, 2.32 cm2 Peak Velocity(Antegrade Flow): 1.40 m/s Peak Gradient(Antegrade Flow): 7.86 mm[Hg] Mean Velocity(Antegrade Flow): 0.89 m/s Mean Gradient(Antegrade Flow): 3.67 mm[Hg] Velocity Time Integral: 28.48 cm Tricuspid Valve Peak Velocity (Regurgitant Flow): 2.71 m/s, 3.05 m/s Pulmonic Valve Mean Gradient: 2.36 mm[Hg] Mean Velocity: 0.71 m/s Peak Velocity: 1.14 m/s, 1.16 m/s Peak Gradient: 5.41 mm[Hg], 5.21 mm[Hg] Right Atrium Right Atrium Systolic Pressure: 52.00 ml, 52.00 ml Dictated by: Pedro Piedra M.D. on 03/04/2024 at 17:06 Approved by: Pedro Piedra M.D. on 03/04/2024 at 17:20 Dictated By: PEDRO PIEDRA Signed By: 03/04/241721 DD/ 19 TD/TT: Printing Roller Polisher: Procedure Note Radiology, Radiologist, MD - 03/04/2024 [place] [address] Cardiology Report Signed Patient: JORDAN ROWE LMR#: [id number] : 1960cct:[id number] Age/Sex: 63 / FADM Date: 03/04/24 Loc: CARD Attending Dr: Tuan Zelaya M.D. Ordering Physician: Tuan Zelaya M.D. Date of Service: 03/04/24 Procedure(s): CA echo doppler complete Accession Number(s): [id number] cc: Lata Workman NP; Tuan Zelaya M.D. Patient Name: JORDAN ROWE MR#: [id number] : 1960 Exam Date: 03/04/2024 Ordering Doctor: DR TUAN ZELAYA M.D. ECHOCARDIOGRAM REPORT PROCEDURE: CA ECHO DOPPLER COMPLETE INDICATIONS: CAD evaluation, cardiac stents, hypertension, diabetes COMPARISON: None. DESCRIPTION: COMPLETE ECHOCARDIOGRAM Real-time transthoracic echocardiography with 2D, M-mode, spectral and color flow Dopplerperformed. QUALITY: Technical quality was good. LEFT VENTRICLE: Normal chamber size. Normal left ventricular wall thickness. Normal systolic function. LV EF: Normal left ventricular ejection fraction, (>55%). DIASTOLIC: Diastolic function is indeterminate. ATRIAL SEPTUM: Visually appears intact. LEFT ATRIUM: Normal chamber size. RIGHT ATRIUM: Moderate dilatation. RIGHT VENTRICLE: Mild dilatation. Normal right ventricular systolic function. TRICUSPID VALVE: Normal mobility and thickness. There is evidence ofapical displacement of the septal leaflet with atrial isolation of part of theright ventricle consistent with a mild form of Ebstein's anomaly. No stenosiswith moderate regurgitation. Doppler studies reveal mildly (35-45) elevatedright sided pressures. RVSP is 40 mmHg MITRAL VALVE: Normal mobility and thickness. No evidence of mitralvalve stenosis. No mitral regurgitation. AORTIC VALVE: Normal trileaflet appearance. No visible sclerosis.Normal leaflet mobility. No evidence of aortic valve stenosis. No aortic regurgitation. AORTIC ROOT: Normal diameter and appearance. Ascending aorta is normalin size. PULMONIC VALVE: Normal thickness and mobility. No stenosis. Trivial regurgitation. PERICARDIUM: No evidence of pericardial effusion. IVC: Collapses with inspirations. IVC is normal in size. PLEURA: CONCLUSION: 1. Normal left ventricular size and systolic function. LVEF is estimatedat 60%. 2. Mildly dilated right ventricle with normal systolic function. 3. 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 4. Moderately dilated right atrium. 5. Mildly elevated right-sided pressures. RVSP is 40 mmHg. Adult Echocardiography Procedure Report Left Ventricle LVEDD (3.7 - 5.6 cm): 4.29 cm LVESD (2.2 - 4.0 cm): 3.09 cm LVIVS thickness (0.6 - 1.2 cm): 1.03 cm LVPW thickness (0.5 - 1.0 cm): 0.98 cm e': 0.08 m/s E - e': 7.93 LVOT Max Gradient: 3.45 mm[Hg] LVOT Area (cm2): 0.93 m/s Peak Velocity (LVOT): 0.93 m/s Mean Velocity (LVOT): 0.61 m/s LVOT Diameter 2.13 cm Left Atrium LA Volume Index (2D A2C): 25.85 ml/m2 Left Atrium Systolic Dimension: 4.00 cm Mitral Valve MV E to A Ratio: 0.90 Mitral Valve A-Wave Peak Velocity: 0.73 m/s Mitral Valve E-Wave Peak Velocity: 0.66 m/s Right Ventricle Aorta AO Root Diam: 3.10 cm Ascending Ao Diam: 2.77 cm Aortic Valve AoV Area (Peak Everardo): 2.37 cm2, 2.37 cm2 AoV Area (VTI): 2.32 cm2, 2.32 cm2 Peak Velocity(Antegrade Flow): 1.40 m/s Peak Gradient(Antegrade Flow): 7.86 mm[Hg] Mean Velocity(Antegrade Flow): 0.89 m/s Mean Gradient(Antegrade Flow): 3.67 mm[Hg] Velocity Time Integral: 28.48 cm Tricuspid Valve Peak Velocity (Regurgitant Flow): 2.71 m/s, 3.05 m/s Pulmonic Valve Mean Gradient: 2.36 mm[Hg] Mean Velocity: 0.71 m/s Peak Velocity: 1.14 m/s, 1.16 m/s Peak Gradient: 5.41 mm[Hg], 5.21 mm[Hg] Right Atrium Right Atrium Systolic Pressure: 52.00 ml, 52.00 ml Dictated by: Pedro Piedra M.D. on 03/04/2024 at 17:06 Approved by: Pedro Piedra M.D. on 03/04/2024 at 17:20 Dictated By: PEDRO PIEDRA Signed By:03/04/241721 DD/ 19 TD/TT: Printing Roller Polisher: Generic External Data Provider [facility] Final Result documented in this encounter Visit Diagnoses Not on filedocumented in this encounter Care Teams Docking Saw Operator Relationship Specialty Start Date End Date Robin Poe MD [address] [place] [address] PCP - General Family Medicine 01/02/24 Lata Workman NP [address] [place] [address] Referring Physician Nurse Practitioner 05/07/22 documented as of this encounter
--- NOTE | 2024-11-11 06:43 | XR_ITS ---
The [address] [address] Patient Name: JORDAN HOLLY MRN: [id number] date: 1960 Sex: F Assigned Patient Location: US Current Patient Location: US Accession/Order Number: [id number] Exam Date: 11/11/2024 08:03 Report Date: 11/11/2024 08:16 At the request of: JUAN F MCGUIRE MD Procedure: XR abdomen 1V SINGLE VIEW ABDOMEN COMPARISON: 04/24/2024 CLINICAL DATA: Follow-up in patient with history of kidney stones. Bilateral flank pain. Supine views of the abdomen and pelvis were obtained. A small amount of air within the stomach. There is mild air and stool within the right and rectosigmoid colon. There is no dilated small bowel. No radiopaque renal or ureteral stones are identified. No soft tissue masses are seen. There are mild degenerative changes at the spine. There are enthesophytes at the iliac crests, greater trochanters and ischial tuberosities. XR/XR abdomen 1V IMPRESSION: NO RADIOPAQUE STONES. Impression dictated by: Maria Dolores Fang M.D. 11/11/2024 8:16 AM Dictation Location: [place] [address] Electronically authenticated by: [id number] Y Date: 11/11/2024 08:16
--- NOTE | 2024-11-11 06:45 | US_ITS ---
The [address] [address] Patient Name: JORDAN HOLLY MRN: [id number] date: 1960 Sex: F Assigned Patient Location: Current Patient Location: US Accession/Order Number: [id number] Exam Date: 11/11/2024 08:16 Report Date: 11/11/2024 08:21 At the request of: JUAN F MCGUIRE MD Procedure: US renal BI BILATERAL RENAL AND BLADDER ULTRASOUND CLINICAL HISTORY: N20.0 Kidney stones COMPARISON: 02/23/2024 Estimation of renal size is approximately 9.6 cm on the right and 12.1 cm on the left. There is a 3 - 4 mm echogenic focus at the medullary portion of the inferior pole of the right kidney with twinkle artifact that may be a stone. A suspected 3 to 4 mm stone is also present at the upper pole on the left. No hydronephrosis is identified. No renal mass lesions were imaged. There is no perinephric fluid. The urinary bladder is partially distended with a volume of 208 mL. No contour or intraluminal abnormalities are seen. US/US renal BI IMPRESSION: SUSPECTED BILATERAL NEPHROLITHIASIS. NO OBSTRUCTIVE UROPATHY. Impression dictated by: Maria Dolores Fnag M.D. 11/11/2024 8:21 AM Dictation Location: [place] [address] Electronically authenticated by: [id number] Y Date: 11/11/2024 08:21
== END 2024-11-11 06:34 | disposition home or self-care (01) ==
LOC: US 06:34
PROVIDERS: PCP Nurse Practitioner; Visit Provider Urology
DX: N20.0 Calculus of kidney (principal)
CPT/HCPCS: 74018; 76775

== ENCOUNTER 2025-03-19 08:42 | Outpatient (OUT) | payer OTHER, SELFPAY ==
--- OUTSIDE RECORDS SUMMARY | 2025-03-19 08:44 | XMS_ITS | Clinical Summary ---
Author Organization [facility] Healthcare Address [address] [place] [address] Care Team Providers Care Emu Farmer Name Role Phone Lata Workman NP Unavailable [phone] Robin Poe MD Primary Care Provider [phone] Allergies Active AllergyReactionsCriticalityNoted DateCommentsPenicillinsAnaphylaxis,Rash, Shortness of vmjgiqTama26/06/2017 Medications MedicationSigDispense QuantityRefillsLast FilledStart DateEnd DateStatus aspirin 81 MG EC tablet Take 1 tablet by mouth DailyActive prasugrel (Effient) 10 MG tablet Take 1 tablet by mouth DailyActive predniSONE (Deltasone) 20 MG tablet Indications:Irritant contact dermatitis, unspecified triggerTwice a day for 5 days, then once a day for 5 days, take with food 15 tablet 5Active atorvastatin (Lipitor) 80 MG tablet Indications:Atherosclerotic heart disease of [place] coronary artery without angina pectorisTake 1 tablet (80 mg) by mouth at bedtime 90 tablet 5Active ezetimibe (Zetia) 10 MG tablet Indications:Mixed hyperlipidemiaTake 1 tablet (10 mg) by mouth Daily 90 tablet 5Active lisinopril 10 MG tablet Indications:Essential (primary) hypertensionTake 1 tablet (10 mg) by mouth in the morning. 90 tablet 5Active metFORMIN (Glucophage) 500 MG tablet Indications:Type 2 diabetes mellitus without complications (HCC)Take 2 tablets (1,000 mg) by mouth in the morning and 2 tablets (1,000 mg) in the evening. Take with meals. 360 tablet 5Active metoprolol succinate XL (Toprol-XL) 25 MG 24 hr tablet Indications:Atherosclerotic heart disease of [place] coronary artery without angina pectorisTake 1 tablet (25 mg) by mouth Daily 90 tablet 5Active Active Problems ProblemNoted DateDiagnosed DateIrritant contact gogwwjszre84/27/2025Kidney stone 08/14/2024llergic kiyytgkq74/10/2025 Assessment & Plan (08/14/2024 9:57 AM EDT): Suspect with sneezing and current sxs may be more allergy driven Will trial nasal steroids and OTC allergy meds If not better contact office [facility] ([facility])04/17/2024 Assessment & Plan (04/17/2024 9:20 AM EST): Continue with cardiology Colon cancer /18/2024cute embolism and thrombosis of unspecified deep veins of unspecified lower uynvqwhhn00/28/5872Jbamrxulhzaivs71/28/2024 Aspirin long-term use01/02/2024AD (coronary artery disease)01/02/2024 Assessment & Plan (08/14/2024 6:22 AM EDT): Follows with [facility] Cardiology Current meds: asa, statin, tomas, b mert and effient Control risk factors Assessment & Plan (04/17/2024 6:38 AM EST): Follows with [facility] Cardiology Current meds: asa, statin, tomas, b mert and effient Control risk factors Assessment & Plan (01/02/2024 12:03 PM EDT): Check labs Cont b mert, statin, as well as brilinta and asa Type 2 diabetes mellitus without osweahkzwqomm09/28/2024 Assessment & Plan (08/14/2024 9:56 AM EDT): Check blood sugars daily, notify if <70 or >200. Take medications (pills or insulin) as directed. Monitor for s/s of hypoglycemia (sweaty, dizziness, nausea, vomiting, or shakiness). Watch for increase in thirst, urination, or appetite. Inspect feet frequently monitoring for open wounds , andalso recommend yearly eye exam. Pt should attempt to remain as physically active as chronic conditions allow, as well as trying to follow a diet low in carbohydrates, and simple sugars. Current meds: asa, statin, tomas, metformin, cannot afford GLP 1 A1c 7.3% 08/14/24 , 6.7% (01/28) Assessment & Plan (04/17/2024 9:13 AM EST): Check blood sugars daily, notify if <70 or >200. Take medications (pills or insulin) as directed. Monitor for s/s of hypoglycemia (sweaty, dizziness, nausea, vomiting, or shakiness). Watch for increase in thirst, urination, or appetite. Inspect feet frequently monitoring for open wounds , andalso recommend yearly eye exam. Pt should attempt to remain as physically active as chronic conditions allow, as well as trying to follow a diet low in carbohydrates, and simple sugars. Current meds: asa, statin, tomas, metformin, GLP 1 A1c 7.1% Assessment & Plan (01/02/2024 12:02 PM EDT): Check blood sugars daily, notify if <70 or >200. Take medications (pills or insulin) as directed. Monitor for s/s of hypoglycemia (sweaty, dizziness, nausea, vomiting, or shakiness). Watch for increase in thirst, urination, or appetite. Inspect feet frequently monitoring for open wounds , andalso recommend yearly eye exam. Pt should attempt to remain as physically active as chronic conditions allow, as well as trying to follow a diet low in carbohydrates, and simple sugars. Would like to add aston will see if insurance approves or not Ureteral stone with gfpgddnroqnphg92/28/2024Encounter for screening mammogram for malignant neoplasm of yuaggb0801/02/2024Wellness pyaooxtseuv23/28/2024 Assessment & Plan (01/02/2024 12:01 PM EDT): Reviewed Ht/Wt/BMI Recommend eye exam yearly Recommend dental exams twice a year Balance work/leisure activities Exercises is recommended most days of the week (appropriate as chronic conditions allow) Follow up yearly and prn Hydroureter on left11/06/2023Essential /26/2021 Assessment & Plan (08/14/2024 6:22 AM EDT): Please check blood pressure daily and record DASH diet Limit caffeine Take medication as directed Contact office if chest pain, pressure, dizziness, shortness of breath, swelling legs Recommend slow position changes Current meds: lisinopril, metoprolol Assessment & Plan (04/17/2024 6:39 AM EST): Please check blood pressure daily and record DASH diet Limit caffeine Take medication as directed Contact office if chest pain, pressure, dizziness, shortness of breath, swelling legs Recommend slow position changes Current meds: lisinopril, metoprolol Assessment & Plan (01/02/2024 12:02 PM EDT): At goal Check labs Aewnxoxkmgyjka01/26/2017 Assessment & Plan (08/14/2024 6:22 AM EDT): Continue statin use Check labs yearly and prn dose changes Assessment & Plan (04/17/2024 6:40 AM EST): Continue statin use Check labs yearly and prn dose changes Assessment & Plan (01/02/2024 12:01 PM EDT): Cont statin and check labs Iinqm-Vtvmmwtcv-Xcvwh dkyoafo7306/01/2016 Resolved Problems ProblemNoted DateDiagnosed DateResolved DateHistory of kidney uufatl4601/02/2024 08/14/2024 Assessment & Plan (01/02/2024 12:02 PM EDT): Continue with Urology Poison kateryna rnhzdlrtud99/29/202408/Kidney stone on left side11/06/2023 08/14/2024 Encounters DateTypeDepartmentCare UvjjSkqryrwllvs96/13/2025Refill [facility] [place] SERNA GUTIERREZ [facility] [address] [place] [address] Aichholz, Lata, COAL UNLOADER Wellness examination (Primary Dx); Atherosclerotic heart disease of [place] coronary artery without angina pectoris ; Mixed hyperlipidemia ; Essential (primary) hypertension ; Type 2 diabetes mellitus without complications (HCC)12/17/2024Orders Only [facility] [place]Jare[place] SERNA [facility]IER[facility]Z [facility] [address] [place] [address] Lata Workman, JUNIOR from Last 3 Months Immunizations ImmunizationAdministration DatesNext DueInfluenza, Injectable, MDCK, preservative free01/30/2024Influenza, Ifaqpzeohvx57/25/2024,01/30/2023, 02/09/2022,05/24/2017,02/05/2016,05/31/2014Influenza, injectable, MDCK, preservative free, gjxexhquwmzk37/18/2018Influenza, injectable, quadrivalent, preservative free02/09/2022,02/05/2016Influenza, recombinant, quadrivalent, injectable, preservative free01/30/2023Influenza, seasonal, injectable, preservative free05/31/2014Pneumococcal Conjugate PCV Tdap105/27/2010 Zoster, Wglujulaira10/06/2023,07/04/2022 Family History RelationNameStatusCommentsFatherDeceasedMotherAlive Social History Tobacco UseTypesPacks/DayYears UsedDateSmoking Tobacco: NeverSmokeless Tobacco: Never Tobacco Cessation:Counseling Given: Yes Alcohol UseStandard Drinks/WeekCommentsNever0 (1 standard drink = 0.6 oz pure alcohol)caffine: 1 cup of coffee dailyCommentsUnknownSex and Gender InformationValueDate RecordedSex Assigned at BirthNot on fileLegal SexFemale 2022 7:09 PM EDTGender IdentityNot on fileSexual OrientationNot on file Last Filed Vital Signs Vital SignReadingTime TakenCommentsBlood Fjdvmlqx073/7804 9:21 AM EDT Dzyrv9459 9:21 AM PWXZutepiqlzos06.9 ??C (98.5 ??F)08/14/2024 9:21 AM EDTRespiratory Wobd2609/02/2025 9:21 AM EDTOxygen Slwstydser03%08/14/2024 9:21 AM EDTInhaled Oxygen Concentration--Yzlndh02.4 kg (186 lb)08/14/2024 9:21 AM EDT Abxkuh680.3 cm (5' 9 )06/12/2024 11:21 AM ESTBody Mass Index27.47006/12/2024 11:21 AM EST Plan of Treatment Not on file Insurance Care Teams Team MemberRelationshipSpecialtyStart DateEnd Date Robin Poe MD PCP - GeneralFamily Medicine01/02/24 Lata Workman NP Referring PhysicianNurse Practitioner05/07/22
--- OUTSIDE RECORDS SUMMARY | 2025-03-19 08:44 | XMS_ITS | Clinical Summary ---
Author Organization [employer] [facility] Address [id number] [address] [place] [address] Care Team Providers Care Transmitter Engineer In Charge Name Role Phone Lata Workman APRN-SOFT WATER MECHANIC Primary Care Provider Allergies Active AllergyReactionsCriticalityNoted DateCommentsPenicillinsShortness Of Breath,NbryRobn35/06/2017 Medications MedicationSigDispense QuantityRefillsLast FilledStart DateEnd DateStatus metoprolol tartrate (LOPRESSOR) 25 mg tablet Take 1 tablet (25 mg total) by mouth in the morning.Active aspirin 81 mg Take 1 tablet (81 mg total) by mouth in the morning.Active atorvastatin (LIPITOR) 40 mg tablet Take 2 tablets (80 mg total) by mouth in the morning.Active lisinopriL (PRINIVIL,ZESTRIL) 10 mg tablet Take 1 tablet (10 mg total) by mouth in the morning.Active metFORMIN (GLUCOPHAGE) 1000 mg tablet Take 1 tablet (1,000 mg total) by mouth in the morning and 1 tablet (1,000 mg total) in the evening. Take with meals.Active prasugreL (EFFIENT) 10 mg tablet Take 1 tablet (10 mg total) by mouth in the morning.Active semaglutide (OZEMPIC SUBQ) Inject 2.5 mg under the skin once a week. SundayActive Active Problems No known active problems Family History Medical HistoryRelationNameCommentsNo Known ProblemsFatherHeart attackMaternal GrandfatherNo Known ProblemsMotherLeukemiaPaternal GrandmotherRelationNameStatus CommentsFatherMaternal GrandfatherMotherPaternal Grandmother Social History Tobacco UseTypesPacks/DayYears UsedDateSmoking Tobacco: NeverSmokeless Tobacco: Never Tobacco Cessation:Counseling Given: Not Answered Alcohol UseStandard Drinks/WeekCommentsNo0 (1 standard drink = 0.6 oz pure alcohol)ChildcareAnswerDate MxzgxaosYvocthxyhPtshwua71/12/2019EmploymentAnswer Date VsykrdinAgtcyqackdKzrdwdi02/12/2019Purpose - LifeAnswerDate RecordedPurpose and direction in dmezZazmrmo50/11/2021CommentsNoSex and Gender InformationValueDate RecordedSex Assigned at BirthNot on fileLegal SexFemale 12/10/2014 11:30 AM EDTGender IdentityNot on fileSexual OrientationNot on file Last Filed Vital Signs Vital SignReadingTime TakenCommentsBlood Qraomuot980/7802/18/2024 1:25 PM EDT Gpkqm540302/18/2024 1:25 PM MUYDwyhwhqbypl06.3 ??C (97.4 ??F)02/18/2024 11:13 AM EDTRespiratory Spsb0492 1:25 PM EDTOxygen Ghrherncge78%02/18/2024 1:25 PM EDTInhaled Oxygen Concentration--Csyzhi47 kg (178 lb 9.2 oz)02/18/2024 11:13 AM USWCmtdms715 cm (5' 8.9 )02/18/2024 11:13 AM EDTBody Mass Index26.45 02/18/2024 11:13 AM EDT Plan of Treatment Health MaintenanceDue DateLast DoneCommentsDepression Eeeamupue02/15/1974 DTaP,Tdap and Td Vaccines (2 - Td or Tdap)/COVID-19 Vaccine ( season), 02/09/2022, 03/22/2021, Additional history existsInfluenza Huxtgrc55, 01/30/2023, 02/09/2022, Additional history existsAdult BMI Niqevdjrm34Tobacco Hoywwsbhi05olonoscopy, 4RSV ( or age 60+ yrs) (1 - 1-dose 75+ series)2036Zoster (Shingles) UgobloyRmcnkxzom32/06/2023, 07/04/2022 Medical Devices Not on file Procedures Procedure NamePriorityDate/TimeAssociated DiagnosisCommentsPROVATION COLONOSCOPY Zsmbrbb4302/18/2024 10:59 AM EDT from Last 3 Months or Most Recently Relevant to Health Maintenance Results * Colonoscopy Report (02/18/2024 10:59 AM EDT)Specimen (Source)Anatomical Location / LateralityCollection Method / VolumeCollection TimeReceived Time Narrative SYSTEMGENERATED, DOCUMENTATION - 02/18/2024 10:59 AM EDT This order has been auto-finalized for image and report archival in PACs. *For full report details, please reach out to your physician. ??This image is visible to you in MyChart.* Authorizing ProviderResult TypeResult StatusMichael E Grillis DOIMG OR IMG ORDERABLESFinal Result from Last 3 Months or Most Recently Relevant to Health Maintenance Insurance Care Teams Team MemberRelationshipSpecialtyStart DateEnd Date Lata Workman, CONCRETE MIXER LOADER TRUCK MOUNTED-SOFT WATER MECHANIC [address] [place] [address] PCP - GeneralNurse Jpplfccupkum28/1/24
--- OUTSIDE RECORDS SUMMARY | 2025-03-19 08:44 | XMS_ITS | Clinical Summary ---
Author Organization [facility] Address [address] [place] [address] Care Team Providers Care Medical Data Entry Clerk Name Role Phone Lata Workman MD Primary Care Provider Allergies Active AllergyReactionsCriticalityNoted DateCommentsPenicillinsAnaphylaxis,Other ,Rash,Shortness of fazbvgWyce10/06/2017 Medications MedicationSigDispense QuantityRefillsLast FilledStart DateEnd DateStatus lisinopril 10 mg tablet Indications:Essential hypertensionTake 1 tablet (10 mg) by mouth in the morning. 90 tablet ctive aspirin 81 mg EC tablet Take 81 mg by mouth in the morning.Active Ozempic 0.25 mg or 0.5 mg (2 mg/3 mL) pen injector INJECT 0.25mg SUBCUTANEOUSLY (UNDER THE SKIN) EVERY 7 DAYSActive metFORMIN (Glucophage) 500 mg tablet Take 1,000 mg by mouth with breakfast and with evening meal.11/12/2023ctive atorvastatin (Lipitor) 80 mg tablet Take 80 mg by mouth at bedtime.11/12/2023ctive prasugrel (Effient) 10 mg tablet Take 10 mg by mouth in the morning.Active metoprolol succinate XL (Toprol-XL) 25 mg 24 hr tablet Take 25 mg by mouth in the morning.04/21/2021ctive ezetimibe (Zetia) 10 mg tablet Indications:DyslipidemiaTake 1 tablet (10 mg) by mouth once daily as directed. 90 tablet ctive Active Problems ProblemNoted DateDiagnosed DateAcute embolism and thrombosis of unspecified deep veins of unspecified lower izstgmudy79/28/2764Okqxnjhzlqfrni56/28/2024spirin long-term use01/02/2024Encounter for screening mammogram for malignant neoplasm of wnyzjs1401/02/2024Wellness txvjkaehrya70/28/2024 Overview (01/04/2024): Last Assessment & Plan: Reviewed Ht/Wt/BMI Recommend eye exam yearly Recommend dental exams twice a year Balance work/leisure activities Exercises is recommended most days of the week (appropriate as chronic conditions allow) Follow up yearly and prn History of kidney zsfibo0201/02/2024 Overview (01/04/2024): Last Assessment & Plan: Continue with Urology Type 2 diabetes mellitus without fiidnahvoqnfo48/28/2024 Overview (01/04/2024): Last Assessment & Plan: Check [...] insurance approves or not Ureteral stone with ijczwqpjtbrxlw47/28/2024Hydroureter on left11/06/2023Kidney stone on left side11/06/2023Essential fyeprlihcvcv73/26/2021 Overview (01/04/2024): Last Assessment & Plan: At goal Check labs Coronary jmfwgubkearmurky69/22/2274Iglonxlfpvrpac53/26/0460Jreoy-Wdvmknnuh-Ufeyi cwahwmc3306/01/2016 Family History Medical HistoryRelationNameCommentsCoronary artery diseaseMotherDiabetesPaternal GrandmotherRelationNameStatusCommentsMotherPaternal Grandmother Social History Tobacco UseTypesPacks/DayYears UsedDateSmoking Tobacco: NeverSmokeless Tobacco: Never Tobacco Cessation:Counseling Given: Not Answered Alcohol UseStandard Drinks/WeekCommentsNot Currently0 (1 standard drink = 0.6 oz pure alcohol)CommentsUnknownSex and Gender InformationValueDate Recorded Sex Assigned at BirthNot on fileLegal MckZncdpd19/29/2022 10:27 PM EDTGender IdentityNot on fileSexual OrientationNot on file Last Filed Vital Signs Vital SignReadingTime TakenCommentsBlood Vylbeass205/7804/07/2024 11:30 AM EST Ftybg641704/07/2024 11:30 AM ESTTemperature--Respiratory Rate--Oxygen Saturation 95%04/07/2024 11:30 AM ESTInhaled Oxygen Concentration--Lezdbg37.2 kg (179 lb) 04/07/2024 11:30 AM VMSViwsqi983.3 cm (5' 9 )04/07/2024 11:30 AM ESTBody Mass Index26.43106/08/2023 11:30 AM EST Plan of Treatment Health MaintenanceDue DateLast DoneCommentsCT Hokdrcddkzwm78/15/1962Diabetes: Hemoglobin A1C1961FIT-DNA1961FIT1961FOBT1961 Zaqlrplorgooc91/15/1962Diabetes: Retinopathy Moucqpssf18/15/1972Depression Hqhsggecs21/15/1974Diabetes: Urine Protein Glmhpkusg98/15/1981Pneumococcal Vaccine: Pediatrics (0 to 5 Years) and At-Risk Patients (6 to 64 Years) (1 of 2 - PCV)1980Pap Smear1982Cervical Cancer Lywziypfo95/15/1992HPV/Cotest 07/20/1991Adult Zxurftx71/COVID-19 Vaccine ( season) , 02/09/2022, 03/22/2021, Additional history existsInfluenza Vaccine (#1)/, 01/30/2023, 02/09/2022, Additional history ydbndlTeebdgwej28/09/202609/3191Xeqvzjtkucq76, 02/18/2024, 02/18/2024olorectal Cancer Eavgfljgd86/14/2034Zoster VaccinesCompleted 11/09/2022, 07/04/2022HIB VaccinesAged OutNo longer eligible based on patient's age to complete this topicHPV VaccinesAged OutNo longer eligible based on patient's age to complete this topicIPV VaccinesAged OutNo longer eligible based on patient's age to complete this topicMeningococcal B VaccineAged OutNo longer eligible based on patient's age to complete this topicMeningococcal VaccineAged OutNo longer eligible based on patient's age to complete this topicRotavirus VaccinesAged OutNo longer eligible based on patient's age to complete this topic Insurance Care Teams Team MemberRelationshipSpecialtyStart DateEnd Date Lata Workman MD [address] [place] [address] PCP - GeneralNurse Practitioner01/04/24
--- NOTE | 2025-03-19 08:54 | CA_ITS ---
Patient Name: OJRDAN HOLLY MR#: [id number] : 1960 Exam Date: 03/19/2025 Ordering Doctor: DR TUAN ZELAYA M.D. ECHOCARDIOGRAM REPORT PROCEDURE: CA ECHO DOPPLER COMPLETE INDICATIONS: Valvular regurgitation COMPARISON: None. DESCRIPTION: COMPLETE ECHOCARDIOGRAM Real-time transthoracic echocardiography with 2D, M-mode, spectral and color flow Doppler performed. QUALITY: Technical quality was good. LEFT VENTRICLE: Normal chamber size. Normal left ventricular wall thickness. Global left ventricular systolic function is normal. Estimated left ventricular ejection fraction is 55-60%. LV EF: Normal left ventricular ejection fraction, (>55%). DIASTOLIC: Normal diastolic function. ATRIAL SEPTUM: LEFT ATRIUM: Normal chamber size. RIGHT ATRIUM: Severe dilatation. RIGHT VENTRICLE: Moderate chamber dilatation. Normal right ventricular systolic function. TRICUSPID VALVE: Normal mobility and thickness. No stenosis with moderate regurgitation. No evidence of pulmonary hypertension. The RVSP is 32 mmHg. 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 MITRAL VALVE: Normal mobility and thickness. No evidence of mitral valve stenosis. There is no mitral annular calcification. Trivial mitral regurgitation. AORTIC VALVE: Normal trileaflet appearance. No visible sclerosis. Normal leaflet mobility. No evidence of aortic valve stenosis. No aortic regurgitation. AORTIC ROOT: Normal diameter and appearance. The aortic root measures 3.1 cm. The ascending aorta measures 3.2 cm. PULMONIC VALVE : Normal thickness and mobility. No stenosis. Trivial regurgitation. PERICARDIUM: No evidence of pericardial effusion. IVC: Collapses with inspiration. The IVC is normal in size measuring 1.5cm. PLEURA: CONCLUSION: 1. Normal left ventricular size and systolic function. Estimated LVEF is 55 to 60%. 2. Moderately dilated right ventricle with normal systolic function. 3. 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 There is moderate tricuspid regurgitation. 4. Severely dilated right atrium. 5. Normal right-sided pressures. Adult Echocardiography Procedure Report Left Ventricle LVEDD (3.7 - 5.6 cm): 5.31 cm LVESD (2.2 - 4.0 cm): 3.70 cm LVIVS thickness (0.6 - 1.2 cm): 0.68 cm LVPW thickness (0.5 - 1.0 cm): 0.83 cm e': 0.07 m/s E - e': 7.45 LVOT Max Gradient: 2.56 mm[Hg] LVOT Area (cm2): 0.80 m/s Peak Velocity (LVOT): 0.80 m/s Mean Velocity (LVOT): 0.52 m/s LVOT Diameter 2.18 cm Left Ventricular Ejection Fraction: 55-60 % Left Atrium LA Volume Index (2D A2C): 34.54 ml/m2 Left Atrium Systolic Dimension: 3.82 cm Mitral Valve MV E to A Ratio: 0.65 Mitral Valve A-Wave Peak Velocity: 0.85 m/s Mitral Valve E-Wave Peak Velocity: 0.56 m/s Right Ventricle RV Internal Diastolic Dimension: 2.90 cm Aorta AO Root Diam: 3.06 cm Ascending Ao Diam: 3.20 cm Aortic Valve AoV Area (Peak Everardo): 2.68 cm2, 2.68 cm2 AoV Area (VTI): 2.55 cm2, 2.55 cm2 Peak Velocity(Antegrade Flow): 1.12 m/s Peak Gradient(Antegrade Flow): 5.00 mm[Hg] Mean Velocity(Antegrade Flow): 0.72 m/s Mean Gradient(Antegrade Flow): 2.47 mm[Hg] Velocity Time Integral: 24.09 cm Tricuspid Valve Peak Velocity (Regurgitant Flow): 2.64 m/s, 2.44 m/s, 2.67 m/s Pulmonic Valve Mean Gradient: 1.93 mm[Hg], 2.05 mm[Hg] Mean Velocity: 0.65 m/s, 0.68 m/s Peak Velocity: 0.94 m/s Peak Gradient: 3.22 mm[Hg], 3.88 mm[Hg] Right Atrium Right Atrium Systolic Pressure: 46.32 ml, 46.32 ml Dictated by: Pedro Piedra M.D. on 03/19/2025 at 19:07 Approved by: Pedro Piedra M.D. on 03/19/2025 at 19:15
== END 2025-03-19 08:43 | disposition home or self-care (01) ==
LOC: CARD 08:42
PROVIDERS: PCP Nurse Practitioner; Visit Provider Internal Medicine Interventional Cardiology
DX: I36.1 Nonrheumatic tricuspid (valve) insufficiency (principal)
CPT/HCPCS: 93306